=== PATIENT | female | born 1945 | race Caucasian/White ===

== ENCOUNTER 2019-04-02 10:59 | Observation (INO) ==
[2019-04-02] MEDS ORDERED: 0.9 % SODIUM CHLORIDE 1,000 ML IV SCH (11:30)
[2019-04-02 11:48] LABS: POC Blood Urea Nitrogen 6 mg/dl (8-23); POC CO2 24 mmol/L (22-30); POC Calcium, Ionized 1.16 mmol/L (1.16-1.32); POC Chloride 99 mmol/L (96-108); POC Creatinine 0.4 mg/dl (0.6-1.1); POC Glucose, Random 389 mg/dL (70-105); POC Potassium 3.1 mmol/L (3.3-5.1); POC Sodium 137 mmol/L (133-145)
--- NOTE | 2019-04-02 11:58 | Emergency Department Note ---
Weakness HPI - General Chief complaint: Weakness Stated complaint: Weakness Time Seen by Provider: 04/02/19 11:06 Source: patient, EMS Mode of arrival: EMS Limitations: no limitations - History of Present Illness HPI Narrative: 74-year-old female presents with generalized weakness. States that she is just been weak for about the past 7 days or so. She had a primary care provider appointment today but could not get out of her car so they called EMS. Significant other states he is gone a lot during the days and he gets home and she is lying on the floor. They also prescribed her some new diabetic medication but she has been able to get it because she cannot afford it and her insurance will not cover it. He states she just falls all the time and is weak and he cannot help her take care of her and does not know what to do. She denies fever or chills. No nausea, vomiting, or diarrhea. Was recently put on some antibiotics for UTI. States she has no complaints other than just being generally weak. She does have some teeth decay throughout and has chronic dental pain but this is nothing new. States no pain or injury from fall. She has no idea how she got on the floor. She is unsure if she fell or was just lying on the floor. - Related Data Home Medications Medication Instructions Recorded Confirmed aspirin 81 mg tablet,delayed 81 mg PO QDAY tab 12/16/14 01/02/17 release docusate sodium 100 mg capsule 100 mg PO QDAY cap 12/16/14 01/02/17 losartan 100 1 tab PO QDAY tab 12/16/14 01/02/17 mg-hydrochlorothiazide 12.5 mg tablet omeprazole 20 mg capsule,delayed 20 mg PO QDAY cap 12/16/14 01/02/17 release Previous Rx's Medication Instructions Recorded blood-glucose meter See Dose Instructions .ROUTE 02/11/15 .MEDSUPPLY #1 each pen needle, diabetic 32 gauge x See Dose Instructions .ROUTE 05/27/15" .MEDSUPPLY #100 each sertraline 100 mg tablet 150 mg PO QDAY 90 Days #135 tab 09/23/15 liraglutide 0.6 mg/0.1 mL (18 mg/3 1.2 mg SUB-Q QDAY 30 Days #6 ml 10/28/15 mL) subcutaneous pen injector zolpidem 5 mg tablet 5 mg PO HS PRN #30 tab 12/01/15 hydrocodone 7.5 mg-acetaminophen 1 tab PO BID PRN #60 tab 12/02/15 325 mg tablet atorvastatin 40 mg tablet 40 mg PO QDAY 30 Days #30 tab 04/11/16 cyclobenzaprine 10 mg tablet 10 mg PO TID 30 Days #90 tab 04/11/16 loratadine 10 mg tablet 10 mg PO QDAY #30 tab 04/11/16 amitriptyline 100 mg tablet 100 mg PO QHS #90 tab 04/14/16 Cefuroxime [Ceftin] 250 mg PO Q12 #20 tablet 01/02/17 Potassium Chloride [Klor-Con] 20 meq PO BIDCC #6 packet 01/02/17 glipiZIDE [Glucotrol] 5 mg PO DAILY #15 tablet 01/02/17 metFORMIN [Glucophage] 500 mg PO BIDCC #30 tablet 01/02/17 amlodipine 5 mg tablet 5 mg PO QDAY #30 tab 06/26/17 Losartan [Cozaar] 50 mg PO DAILY #30 tab 06/20/18 Nitrofurantoin Monohyd/M-Cryst 100 mg PO BID #14 cap 06/20/18 [Macrobid 100 mg Capsule] metFORMIN HCL [Metformin HCl] 500 mg PO BID #60 tab 06/20/18 Cephalexin [Keflex] 500 mg PO QID #20 cap 03/30/19 Insulin Glargine, Human [Lantus] 10 unit SQ HS #1 ml 03/30/19 Allergies Allergy/AdvReac Type Severity Reaction Status Date / Time No Known Drug Allergies Allergy Verified 01/02/17 12:03 Review of Systems All systems ED: reviewed and negative except as stated. 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 Also sleepy.) Head: atraumatic, normocephalic, normal inspection Eye: Present: normal appearance. Absent: conjunctival injection ENT: Present: normal exam, normal oropharynx, mucous membranes moist, TM's normal bilaterally, normal external ear exam, dental caries (Teeth and multiple states of decay and broken throughout.) Neck: Present: normal inspection, trachea midline. Absent: tenderness, lymphadenopathy Chest: Present: symmetric chest wall rise Respiratory: Present: normal lung sounds bilaterally. Absent: respiratory distress, rales/crackles, accessory muscle use Cardiovascular: Present: normal heart sounds. Absent: regular rate Abdominal: Present: soft, normal bowel sounds. Absent: distention, tenderness, guarding, mass Extremities: Present: normal inspection Neurological: Present: alert, oriented X3 Psychiatric: Present: normal affect, normal mood Skin: Present: warm, dry, intact, normal color. Absent: rash, hives, cyanosis, diaphoresis Course Course Narrative: At 1410 I did speak with the hospitalist, Dr. Babcock who agrees to accept this patient. Patient will need physical therapy evaluation and perinatal social worker consult. Vital Signs Temperature 98.4 F 04/02/19 11:00 Pulse Rate 102 H 04/02/19 11:00 Respiratory Rate 20 04/02/19 11:00 Blood Pressure 177/94 04/02/19 11:00 Pulse Oximetry (%) 98 04/02/19 11:00 Temperature 98.4 F 04/02/19 11:00 Pulse Rate 81 04/02/19 13:50 Respiratory Rate 21 04/02/19 13:50 Blood Pressure 181/77 04/02/19 13:50 Pulse Oximetry (%) 97 04/02/19 13:50 Weakness - Lab Data Lab results reviewed: Yes I reviewed the patient's lab results. Result diagrams: 04/02/19 11:40 04/02/19 11:40 Lab Results 04/02/19 04/02/19 04/02/19 Range/Units 11:05 11:40 11:40 WBC 7.4 (4.5-11.0) K/mcL RBC 4.67 (4.00-5.20) M/mcL Hgb 14.3 (12.0-15.0) g/dL Hct 41.8 (36.0-48.0) % POC Hct 40.0 (36.0-48.0) % MCV 89.4 (80.0-100.0) fL MCH 30.6 (26.0-34.0) pg MCHC 34.3 (31.0-36.0) g/dL RDW 13.1 (11.5-14.5) % Plt Count 236 (140-440) K/mcL MPV 7.4 (7.4-10.4) fL Gran % 90.4 H (38.0-78.0) % Lymph % (Auto) 6.0 L (15.5-49.0) % [place] % (Auto) 3.1 (1.0-12.0) % Eos % (Auto) 0.4 (0.0-7.0) % Baso % (Auto) 0.1 (0.0-2.0) % Gran # 6.7 (1.8-8.0) K/mcL Lymph # (Auto) 0.4 L (1.5-4.8) K/mcL [place] # (Auto) 0.2 (0.1-0.9) K/mcL Eos # (Auto) 0 (0.0-0.7) K/mcL Baso # (Auto) 0 (0.0-0.3) K/mcL ABG Methemoglobin (0.4-1.5) % VBG pH (7.32-7.42) U VBG pCO2 (41.0-51.0) mmHg VBG pO2 (25-40) mmHg VBG HCO3 (24.0-28.0) mmol/L VBG Total CO2 (25.0-29.0) mmol/L VBG O2 Saturation (40.0-70.0) % VBG Base Excess (-2.0-2.0) Carboxyhemoglobin (0.0-1.5) % THgb Total Hemoglobin (12.0-15.0) gm/dL O2 Delivery Level POC Sodium 137 (133-145) mmol/L Sodium 136 (133-145) mmol/L POC Potassium 3.1 L (3.3-5.1) mmol/L Potassium 3.1 L (3.3-5.1) mmol/L POC Chloride 99 (96-108) mmol/L Chloride 99 (96-108) mmol/L Carbon Dioxide 23 (22-30) mmol/L POC Total CO2 24 (22-30) mmol/L Anion Gap 14.0 (8-16) POC BUN 6 L (8-23) mg/dl BUN 7 L (8-23) mg/dl Creatinine 0.7 (0.6-1.1) mg/dl POC Creatinine 0.4 L (0.6-1.1) mg/dl GFR Calculation 87 Glucose 380 H (70-105) mg/dL POC Glucose 389 H (70-105) mg/dL Calcium 9.3 (8.6-10.4) mg/dl POC WB Ioniz Calcium 1.16 (1.16-1.32) mmol/L Total Bilirubin 0.5 (0.0-1.0) mg/dL AST 11 (0-37) U/l ALT 7 (0-40) U/l Alkaline Phosphatase 113 (39-117) U/L Total Creatine Kinase (24-170) IU/L Troponin T (0-0.03) ng/ml Total Protein 7.3 (5.9-8.4) gm/dL Albumin 4.2 (3.2-5.2) gm/dL Globulin 3.1 (2.2-3.7) gm/dL Albumin/Globulin Ratio 1.4 (1.0-2.3) TSH 3.73 (0.27-5.01) uIU/ml Urine Color Straw Urine Appearance Clear Urine pH 6.0 (5.0-9.0) Ur Specific Max 1.013 (1.000-1.035) Urine Protein 30 A (NEG) mg/dL Urine Glucose (UA) >=500 A (NEG) mg/dL Urine Ketones Neg (NEG) mg/dL Urine Occult Blood >=1.0 A (<0.03) mg/dL Urine Nitrate Neg (NEG) Urine Bilirubin Neg (NEG) mg/dL Urine Urobilinogen Neg (NEG) mg/dL Ur Leukocyte Esterase 250 A (NEG) /uL Urine RBC 8 H (0-1) /hpf Urine WBC 118 H (0-4) /hpf Ur Squamous Epith Cells 1 (0-4) /hpf Urine Bacteria 0 (0) /hpf Urine Mucus Few (0) /hpf Ur Culture Indicated? Yes 04/02/19 04/02/19 04/02/19 Range/Units 11:40 11:48 11:58 WBC (4.5-11.0) K/mcL RBC (4.00-5.20) M/mcL Hgb (12.0-15.0) g/dL Hct (36.0-48.0) % POC Hct (36.0-48.0) % MCV (80.0-100.0) fL MCH (26.0-34.0) pg MCHC (31.0-36.0) g/dL RDW (11.5-14.5) % Plt Count (140-440) K/mcL MPV (7.4-10.4) fL Gran % (38.0-78.0) % Lymph % (Auto) (15.5-49.0) % [place] % (Auto) (1.0-12.0) % Eos % (Auto) (0.0-7.0) % Baso % (Auto) (0.0-2.0) % Gran # (1.8-8.0) K/mcL Lymph # (Auto) (1.5-4.8) K/mcL [place] # (Auto) (0.1-0.9) K/mcL Eos # (Auto) (0.0-0.7) K/mcL Baso # (Auto) (0.0-0.3) K/mcL ABG Methemoglobin 0.3 L (0.4-1.5) % VBG pH 7.43 H (7.32-7.42) U VBG pCO2 39.4 L (41.0-51.0) mmHg VBG pO2 62 H (25-40) mmHg VBG HCO3 25.3 (24.0-28.0) mmol/L VBG Total CO2 26.5 (25.0-29.0) mmol/L VBG O2 Saturation 87.5 H (40.0-70.0) % VBG Base Excess 1.0 (-2.0-2.0) Carboxyhemoglobin 3.9 H (0.0-1.5) % THgb Total Hemoglobin 14.2 (12.0-15.0) gm/dL O2 Delivery Level Not Reportable POC Sodium (133-145) mmol/L Sodium (133-145) mmol/L POC Potassium (3.3-5.1) mmol/L Potassium (3.3-5.1) mmol/L POC Chloride (96-108) mmol/L Chloride (96-108) mmol/L Carbon Dioxide (22-30) mmol/L POC Total CO2 (22-30) mmol/L Anion Gap (8-16) POC BUN (8-23) mg/dl BUN (8-23) mg/dl Creatinine (0.6-1.1) mg/dl POC Creatinine (0.6-1.1) mg/dl GFR Calculation Glucose (70-105) mg/dL POC Glucose (70-105) mg/dL Calcium (8.6-10.4) mg/dl POC WB Ioniz Calcium (1.16-1.32) mmol/L Total Bilirubin (0.0-1.0) mg/dL AST (0-37) U/l ALT (0-40) U/l Alkaline Phosphatase (39-117) U/L Total Creatine Kinase 50 (24-170) IU/L Troponin T < 0.01 (0-0.03) ng/ml Total Protein (5.9-8.4) gm/dL Albumin (3.2-5.2) gm/dL Globulin (2.2-3.7) gm/dL Albumin/Globulin Ratio (1.0-2.3) TSH (0.27-5.01) uIU/ml Urine Color Urine Appearance Urine pH (5.0-9.0) Ur Specific Max (1.000-1.035) Urine Protein (NEG) mg/dL Urine Glucose (UA) (NEG) mg/dL Urine Ketones (NEG) mg/dL Urine Occult Blood (<0.03) mg/dL Urine Nitrate (NEG) Urine Bilirubin (NEG) mg/dL Urine Urobilinogen (NEG) mg/dL Ur Leukocyte Esterase (NEG) /uL Urine RBC (0-1) /hpf Urine WBC (0-4) /hpf Ur Squamous Epith Cells (0-4) /hpf Urine Bacteria (0) /hpf Urine Mucus (0) /hpf Ur Culture Indicated? - Radiology Data Radiology results reviewed: Yes I reviewed the patient's radiology results. Disposition Pt seen by DIRECTOR OF ARCHITECTURE/PA only: Yes Clinical Impression: Hyperglycemia, UTI (urinary tract infection), Generalized weakness, Diabetes Disposition: Xfer Acute Care Hospital Condition: Fair Referrals: Dinorah Regalado MD [Primary Care Provider] - Time of Disposition: 14:10
[2019-04-02 12:05] LABS: ABG Methemoglobin 0.3 % (0.4-1.5); Total Hemoglobin 14.2 gm/dL (12.0-15.0); VBG HCO3 25.3 mmol/L (24.0-28.0); VBG Oxygen Saturation 87.5 % (40.0-70.0); VBG PCO2 39.4 mmHg (41.0-51.0); VBG PH 7.43 U (7.32-7.42); VBG PO2 62 mmHg (25-40); VBG Total CO2 26.5 mmol/L (25.0-29.0)
[2019-04-02 12:11] LABS: Basophils # (Auto) 0 K/mcL (0.0-0.3); Basophils % (Auto) 0.1 % (0.0-2.0); Eosinophils # (Auto) 0 K/mcL (0.0-0.7); Eosinophils % (Auto) 0.4 % (0.0-7.0); Granulocytes % (Auto) 90.4 % (38.0-78.0); Hematocrit 41.8 % (36.0-48.0); Hemoglobin 14.3 g/dL (12.0-15.0); Lymphocytes # (Auto) 0.4 K/mcL (1.5-4.8); Mean Cell Volume 89.4 fL (80.0-100.0); Mean Corpuscular HGB Conc 34.3 g/dL (31.0-36.0); Mean Platelet Volume 7.4 fL (7.4-10.4); Monocytes # (Auto) 0.2 K/mcL (0.1-0.9); Monocytes % (Auto) 3.1 % (1.0-12.0); Platelet Count 236 K/mcL (140-440); RBC 4.67 M/mcL (4.00-5.20); Red Cell Distribution Width 13.1 % (11.5-14.5); WBC 7.4 K/mcL (4.5-11.0)
[2019-04-02 12:28] LABS: Appearance,Urine CLEAR; Bacteria,Urine 0 /hpf (0); Bilirubin,Urine NEG (NEG); Color,Urine STRAW; Culture Indicated,Urine YES; Glucose,Urine (UA) >=500 mg/dL (NEG); Ketones,Urine NEG (NEG); Leukocyte Esterase,Urine 250 /uL (NEG); Mucus,Urine FEW /hpf (0); Nitrate,Urine NEG (NEG); Protein,Urine 30 mg/dL (NEG); Specific Gravity,Urine 1.013 (1.000-1.035); Urine Blood >=1.0 mg/dL (<0.03); Urine RBC 8 /hpf (0-1); Urine Squamous Epithelial Cell 1 /hpf (0-4); Urine WBC 118 /hpf (0-4); Urobilinogen,Urine NEG (NEG)
[2019-04-02] MEDS ORDERED: cefTRIAXone 1 GM VIAL IV ONE ×2 (12:57→16:00)
[2019-04-02 12:58] LABS: ALT/SGPT 7 U/l (0-40); AST/SGOT 11 U/l (0-37); Albumin 4.2 gm/dL (3.2-5.2); Albumin/Globulin Ratio 1.4 (1.0-2.3); Alkaline Phosphatase 113 U/L (39-117); Bilirubin,Total 0.5 mg/dL (0.0-1.0); Blood Urea Nitrogen 7 mg/dl (8-23); Calcium 9.3 mg/dl (8.6-10.4); Carbon Dioxide 23 mmol/L (22-30); Chloride 99 mmol/L (96-108); Globulin 3.1 gm/dL (2.2-3.7); Glomerular Filtration Rate 87; Glucose 380 mg/dL (70-105); Thyroid Stimulating Hormone 3.73 uIU/ml (0.27-5.01)
--- NOTE | 2019-04-02 14:18 | Internal Med History&Physical ---
Medical - H&P: HPI Patient information: Note initiated : 04/02/19 at 2:12 pm Service Date, if different from initiated Date: [] Patient: Esther Hartley a 74 y/o F admitted on for Weakness. Chief Complaint: [] Chief complaint: Progressive weakness/fatigue and unable to function History of present illness: Ms. Hartley is a 74 year old F with known history of type 2 diabetes/hypertension who presents to the ER with symptoms of severe fatigue weakness to the point patient is unable to get out of bed, get out of car and has been falling and laying on the floor unable to get up over the last few days. Symptoms have progressed in the last week and a half. She denies any precipitating events i ncluding diarrhea dysuria headache lightheadedness dizziness. She did endorses to loss of appetite but denies fever chills or productive sputum or sick contacts. Today during her visit to primary care office she was unable to get out of car and subsequently EMS was called and brought into the ER. Initial work-up was consistent with hyperglycemia on 400 and pyuria with potassium 3.1 and profound weakness. Patient was started on crystalloid/antibiotic coverage and subsequently hospitalist service was consulted in light of above symptoms. At the time of evaluation patient is accompanied with her . She was able to answer some of the questions. She does not appear to be in distress but appears very fatigued. She endorses to history as above. Review of systems A 10 point review of system was performed and is negative except for ones discussed above Medical - H&P: PMH Medical history: Eczema (Acute) ezematous changes to the left outer ear Postmenopausal bleeding (Acute) Report two episodes of this for the last year on 09/23/2015, blood noted on attempted pelvic examination Anxiety disorder (Chronic) treated with Amitriptyline and Sertraline Carotid stenosis (Chronic) 2009 left side 50%; 2013 Less than 50% of the right internal carotid, 50-69% of left internal carotid artery. Constipation (Chronic) 2009, alternating with diarrhea with colostomy Cystitis, acute (Chronic 09/03/13) Degeneration of cervical intervertebral disc (Chronic) Depression (Chronic) s Treated with Sertraline and Amitriptyline Diabetes mellitus, type II (Chronic) 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) Gastroesophageal reflux (Chronic) Hyperlipidemia (Chronic 01/29/12) Hypertension, essential (Chronic 09/02/12) Microalbuminuria (Chronic) Mouth pain (Chronic) 2010 with blister like patches in her mouth Osteopenia (Chronic 01/29/12) Portacath in place (Chronic) For chemotherapy treatment, right anterior chest wall Syncope (Chronic 11/21/12) Etiology unknown Uncontrolled type 2 diabetes mellitus (Chronic) Vitamin D deficiency (Chronic) Diverticulitis of colon (Resolved) Neoplasm of colon, malignant (Resolved) Colorectal cancer, partial colectomy and subsequent colostomy, radiation and chemotherapy treatment per Dr. An Surgical History (Reviewed 09/23/15 by PETER Murillo) History of colostomy (Chronic 05/24/07) History of appendectomy (Resolved) 1972 History of colon surgery (Resolved) 2006 Partial colectomy with colostomy History of colonoscopy (Resolved 05/15/13) History of repair of right rotator cuff (Resolved) Dr. Haredn, repaired due to trauma 2002 History of tonsillectomy (Resolved) 9 years of age History of tubal ligation (Resolved) 1972 Family History (Reviewed 09/23/15 by PETER Murillo) Grandmother Malignant neoplasm of colon, Onset Age: 56 Type 2 diabetes mellitus Cardiac disease Grandfather Chronic Kidney Disease Mother Chronic Kidney Disease Dialysis Atherosclerosis of coronary artery Type 2 diabetes mellitus Cardiac disease Father Acute myocardial infarction, Onset Age: 69 Social History (Reviewed 09/23/15 by PETER Murillo) household members: spouse housing: house marital status: occupational status: retired pets and animals: Yes pets and animals: cat(s) sexually active: No well-balanced diet: daily or most days daily servings fruits/ve-4 eating out: 4 or more times/week during the past year weight has: remained stable physical activity: walking frequency: 3-4 times per week duration: 15-30 minutes/day smoking status: Never smoker alcohol intake frequency: does not drink substance use type: does not use romario/bahai: None seatbelt use: always working smoke detector in home: Yes Family history: reviewed and not pertinent Medical - H&P: Meds Home Medications Medication Instructions Recorded Confirmed Type aspirin 81 mg tablet,delayed 81 mg PO QDAY tab 12/16/14 04/02/19 History release losartan 100 1 tab PO QDAY tab 12/16/14 04/02/19 History mg-hydrochlorothiazide 12.5 mg tablet omeprazole 20 mg capsule,delayed 20 mg PO QDAY cap 12/16/14 04/02/19 History release blood-glucose meter See Dose Instructions .ROUTE 02/11/15 09/23/15 Rx .MEDSUPPLY #1 each pen needle, diabetic 32 gauge x See Dose Instructions .ROUTE 05/27/15 09/23/15 Rx 5/32" .MEDSUPPLY #100 each sertraline 100 mg tablet 150 mg PO QDAY 90 Days #135 tab 09/23/15 04/02/19 Rx zolpidem 5 mg tablet 5 mg PO HS PRN #30 tab 12/01/15 04/02/19 Rx hydrocodone 7.5 mg-acetaminophen 1 tab PO BID PRN #60 tab 12/02/15 04/02/19 Rx 325 mg tablet atorvastatin 40 mg tablet 40 mg PO QDAY 30 Days #30 tab 04/11/16 04/02/19 Rx cyclobenzaprine 10 mg tablet 10 mg PO TID 30 Days #90 tab 04/11/16 04/02/19 Rx loratadine 10 mg tablet 10 mg PO QDAY #30 tab 04/11/16 04/02/19 Rx amitriptyline 100 mg tablet 100 mg PO QHS #90 tab 04/14/16 04/02/19 Rx Cefuroxime [Ceftin] 250 mg PO Q12 #20 tablet 01/02/17 04/02/19 Rx metFORMIN [Glucophage] 500 mg PO BIDCC #30 tablet 01/02/17 04/02/19 Rx amlodipine 5 mg tablet 5 mg PO QDAY #30 tab 06/26/17 04/02/19 Rx Losartan [Cozaar] 50 mg PO DAILY #30 tab 06/20/18 04/02/19 Rx Nitrofurantoin Monohyd/M-Cryst 100 mg PO BID #14 cap 06/20/18 04/02/19 Rx [Macrobid 100 mg Capsule] metFORMIN HCL [Metformin HCl] 500 mg PO BID #60 tab 06/20/18 04/02/19 Rx Cephalexin [Keflex] 500 mg PO QID #20 cap 03/30/19 04/02/19 Rx Insulin Glargine, Human [Lantus] 10 unit SQ HS #1 ml 03/30/19 04/02/19 Rx Prochlorperazine [Compazine] 10 mg PO TIDP PRN 04/02/19 04/02/19 History Allergies Allergy/AdvReac Type Severity Reaction Status Date / Time No Known Drug Allergies Allergy Verified 01/02/17 12:03 Medical - H&P: Exam - Constitutional Vitals: Temp Pulse Resp BP Pulse Ox 98.4 F 81 21 181/77 97 04/02/19 11:00 04/02/19 13:50 04/02/19 13:50 04/02/19 13:50 04/02/19 13:50 General appearance: no acute distress Exam: Alert oriented Appears fatigued and weak Eye movement symmetrical Oral cavity dry Head normocephalic No ear nose discharge Neck no lymphadenopathy S1-S2 regular rhythm ESM grade 1 Diminished breath sounds bases Abdomen soft nontender Lower extremity no cyanosis clubbing no joint swelling Skin no suspicious lesion psych alert cooperative Neuro fatigue but symmetrical strength and sensation Medical - H&P: Reslt - Labs CBC & Chem 7: 04/02/19 11:40 04/02/19 11:40 Labs: Short CBC 04/02/19 Range/Units 11:40 WBC 7.4 (4.5-11.0) K/mcL Hgb 14.3 (12.0-15.0) g/dL Hct 41.8 (36.0-48.0) % Plt Count 236 (140-440) K/mcL BMP 04/02/19 11:40 Sodium 136 Potassium 3.1 L Chloride 99 Carbon Dioxide 23 BUN 7 L Creatinine 0.7 Glucose 380 H Calcium 9.3 Cardiac Enzymes 04/02/19 04/02/19 Range/Units 11:40 11:58 Total Creatine Kinase 50 (24-170) IU/L Troponin T < 0.01 (0-0.03) ng/ml Liver Function 04/02/19 Range/Units 11:40 Total Bilirubin 0.5 (0.0-1.0) mg/dL AST 11 (0-37) U/l ALT 7 (0-40) U/l Alkaline Phosphatase 113 (39-117) U/L Albumin 4.2 (3.2-5.2) gm/dL Urine 04/02/19 Range/Units 11:05 Urine Color Straw Urine Appearance Clear Urine pH 6.0 (5.0-9.0) Ur Specific [place] 1.013 (1.000-1.035) Urine Protein 30 A (NEG) mg/dL Urine Glucose (UA) >=500 A (NEG) mg/dL - ABG Interpretation ABG results: 04/02/19 11:48 ABG Methemoglobin 0.3 L VBG pH 7.43 H VBG pCO2 39.4 L VBG pO2 62 H VBG HCO3 25.3 VBG Total CO2 26.5 VBG O2 Saturation 87.5 H VBG Base Excess 1.0 Medical - H&P: A/P (1) Generalized weakness Current visit: Yes Status: Acute * Ground-level fall-continue aggressive PT OT/fall risk/watch. dietary intervention for protein calorie malnutrition. * Generalized weakness/deconditioning-continue interventions as above * Complicated UTI-antibiotic coverage and de-escalate based on culture sensitivities * Poorly controlled diabetes with hyperglycemia-continue basal prandial insulin/diabetic diet * Hypokalemia-3.1. Start oral and IV potassium replacement * Protein calorie malnutrition with BMI 24-nutrition supplements/dietitian consult * History of hypertension continue amlodipine/losartan * GERD continue PPI * Chronic pain continue home dose opioids/Flexeril * Hyperlipidemia on statin * History of CAD on aspirin and statin/ARB * Anxiety disorder on sertraline * Full code * Prophylaxis Lovenox Plan * Observation admit * PT OT/dietitian consult * Antibiotic coverage * Potassium replacement * Pre-existing medical condition management on home meds * Case management to coordinate safe discharge plan
[2019-04-02] MEDS ORDERED: ONDANSETRON 4 MG/2 ML VIAL IV PRN (15:06)
[2019-04-02] MEDS ORDERED: DEXTROSE 31 GM ORAL.SUSP PO PRN (15:06)
[2019-04-02] MEDS ORDERED: ACETAMINOPHEN 1,000 MG/100 ML BOTTLE IV PRN (15:06)
[2019-04-02] MEDS ORDERED: MELATONIN 3 MG TABLET PO PRN (15:06)
[2019-04-02] MEDS ORDERED: DEXTROSE 50% 50 ML VIAL IV PRN (15:06)
[2019-04-02] MEDS ORDERED: POTASSIUM CHLORIDE 20 MEQ PACKET PO PRN (15:06)
[2019-04-02] MEDS: 0.9 % SODIUM CHLORIDE 1,000 ML IV SCH (15:26)
[2019-04-02] MEDS: INSULIN LISPRO 1 UNIT/0.01 ML UNIT SQ SCH ×2 (17:02→20:40)
[2019-04-02] MEDS: ACETAMINOPHEN 325 MG TABLET PO PRN (19:45)
[2019-04-02] MEDS: DOCUSATE SODIUM 100 MG CAPSULE PO SCH (20:40)
[2019-04-02] MEDS: SENNOSIDES/DOCUSATE SODIUM 1 TAB TABLET PO SCH (20:40)
[2019-04-02] MEDS: CYANOCOBALAMIN (VITAMIN B-12) 500 MCG TABLET PO SCH (20:40)
[2019-04-02] MEDS: 0.9 % SODIUM CHLORIDE 10 ML SYRINGE IV SCH (20:43)
[2019-04-02] MEDS ORDERED: hydrALAZINE 20 MG/ML VIAL IV PRN (22:44)
[2019-04-02] MEDS ORDERED: hydrALAZINE 20 MG/ML VIAL ONE (22:51)
[2019-04-03] MEDS: 0.9 % SODIUM CHLORIDE 10 ML SYRINGE IV SCH ×3 (04:46→21:16)
[2019-04-03 05:38] LABS: Hematocrit 42.1 % (36.0-48.0); Hemoglobin 14.2 g/dL (12.0-15.0); Mean Cell Volume 91.2 fL (80.0-100.0); Mean Corpuscular HGB Conc 33.8 g/dL (31.0-36.0); Mean Platelet Volume 7.1 fL (7.4-10.4); Platelet Count 251 K/mcL (140-440); RBC 4.61 M/mcL (4.00-5.20); Red Cell Distribution Width 13.7 % (11.5-14.5)
[2019-04-03 06:03] LABS: ALT/SGPT 5 U/l (0-40); AST/SGOT 13 U/l (0-37); Albumin 3.6 gm/dL (3.2-5.2); Albumin/Globulin Ratio 1.2 (1.0-2.3); Alkaline Phosphatase 88 U/L (39-117); Bilirubin,Direct < 0.2 mg/dL (0.0-0.3); Bilirubin,Total 0.4 mg/dL (0.0-1.0); Blood Urea Nitrogen 6 mg/dl (8-23); Calcium 8.7 mg/dl (8.6-10.4); Carbon Dioxide 23 mmol/L (22-30); Chloride 99 mmol/L (96-108); Globulin 3.1 gm/dL (2.2-3.7); Glomerular Filtration Rate 97; Glucose 163 mg/dL (70-105); Lactate Dehydrogenase 264 U/L (94-250); Phosphorous 3.2 mg/dL (2.7-4.5); Triglycerides 114 mg/dl (<150); Uric Acid 2.3 mg/dL (2.5-8.0)
[2019-04-03] MEDS: INSULIN LISPRO 1 UNIT/0.01 ML UNIT SQ SCH ×4 (06:57→21:15)
[2019-04-03] MEDS: MAGNESIUM SULFATE 2 GM/50 ML BAG IV PRN (07:35)
[2019-04-03] MEDS ORDERED: HYDROCODONE/APAP 7.5/325MG TABLET PO PRN (07:36)
[2019-04-03] MEDS: metFORMIN 500 MG TABLET PO SCH ×2 (07:53→17:32)
[2019-04-03] MEDS: OMEPRAZOLE 20 MG CAPSULE PO SCH (07:53)
[2019-04-03 07:58] LABS: Band Neutrophils % 1 % (0-10); Eosinophils % (Manual) 3 % (0-7); Lymphocytes % 21 % (15-49); Monocytes % (Manual) 8 % (1-12); Platelet Estimate NORMAL (NORMAL); RBC Morphology NORMAL (NORMAL); Segmented Neutrophils % 67 % (38-78)
--- NOTE | 2019-04-03 08:10 | Internal Med Progress Note ---
Medical - PN: Subj Patient information: Note initiated : 04/03/19 at 8:07 am Service Date, if different from initiated Date: [] Patient: Esther Hartley a 74 y/o F admitted on 04/02/19 for Weakness. Chief Complaint: [] Interval history: Ms. Hartley is a 74 year old F with known history of type 2 diabetes/hypertension who presents to the ER with symptoms of severe fatigue weakness to the point patient is unable to get out of bed, get out of car and has been falling and laying on the floor unable to get up over the last few days. Symptoms have progressed in the last week and a half. She denies any precipitating events including diarrhea dysuria headache lightheadedness dizziness. She did endorses to loss of appetite but denies fever chills or productive sputum or sick contacts. Today during her visit to primary care office she was unable to get out of car and subsequently EMS was called and brought into the ER. Initial work-up was consistent with hyperglycemia on 400 and pyuria with potassium 3.1 and profound weakness. Patient was started on crystalloid/antibiotic coverage and subsequently hospitalist service was consulted in light of above symptoms. At the time of evaluation patient is accompanied with her . She was able to answer some of the questions. She does not appear to be in distress but appears very fatigued. She endorses to history as above. 04/03-patient doing well. No overnight events. No concerns per staff. Feels stronger. Denies lower extremity cramps. Electrolytes normalized with aggressive IV and oral potassium/magnesium replacement. On dietary supplements. Continuing PT OT. Case management coordinating safe discharge plan. No overnight fever chills - Constitutional Vitals: Vital Signs Temp Pulse Resp BP Pulse Ox 97.9 F 83 18 145/75 97 04/03/19 07:00 04/03/19 07:00 04/03/19 07:00 04/03/19 07:35 04/03/19 07:00 Period Temp Pulse Resp BP Sys/Mackay Pulse Ox Last 24 Hr 97.4 F-98.5 F 80-106 16-32 145-206/75-101 93-98 Intake and Output 04/02/19 04/03/19 04/03/19 21:59 05:59 13:59 Intake Total 1205 500 Output Total 401 1650 400 Balance 804 -1150 -400 Weight 131 lb Intake & Output: Intake & Output 04/02/19 04/03/19 04/03/19 21:59 05:59 13:59 Intake Total 1205 500 Output Total 401 1650 400 Balance 804 -1150 -400 Weight 131 lb Intake: IV 365 Sodium Chloride 0.9% 1,000 ml @ 365 125 mls/hr IV .Q8H [facility] Rx#: [id number] Oral 840 500 Output: Void Amount 400 1650 400 # of times incontinent of urine 1 Other: Meal Dinner Percent of Meal Consumed 75% Feeding Ability Independent Urine Appearance Clear Cloudy Urine Color Dark Yellow Pale # Voids 1 General appearance: no acute distress Exam: Alert oriented Nonlabored breathing No anxiety No lymphedema Medical - PN: Obj Da - Labs CBC & Chem 7: 04/03/19 04:17 04/03/19 04:17 Labs: Abnormal Lab Results 04/03/19 04/03/19 04/02/19 04:17 04:17 11:48 MPV 7.1 L Gran % Lymph % (Auto) Lymph # (Auto) ABG Methemoglobin 0.3 L VBG pH 7.43 H VBG pCO2 39.4 L VBG pO2 62 H VBG O2 Saturation 87.5 H Carboxyhemoglobin 3.9 H POC Potassium Potassium POC BUN BUN 6 L Creatinine 0.5 L POC Creatinine Glucose 163 H POC Glucose Uric Acid 2.3 L Magnesium 1.2 L Lactate Dehydrogenase 264 H Urine Protein Urine Glucose (UA) Urine Occult Blood Ur Leukocyte Esterase Urine RBC Urine WBC 04/02/19 04/02/19 04/02/19 11:40 11:40 11:05 MPV Gran % 90.4 H Lymph % (Auto) 6.0 L Lymph # (Auto) 0.4 L ABG Methemoglobin VBG pH VBG pCO2 VBG pO2 VBG O2 Saturation Carboxyhemoglobin POC Potassium 3.1 L Potassium 3.1 L POC BUN 6 L BUN 7 L Creatinine POC Creatinine 0.4 L Glucose 380 H POC Glucose 389 H Uric Acid Magnesium Lactate Dehydrogenase Urine Protein 30 A Urine Glucose (UA) >=500 A Urine Occult Blood >=1.0 A Ur Leukocyte Esterase 250 A Urine RBC 8 H Urine WBC 118 H Meds: Medications Acetaminophen (Tylenol) 650 mg PO Q4-6HP PRN PRN Reason: PAIN/FEVER > 101 Last Admin: 04/02/19 19:45 Dose: 650 mg Documented by: Hydrocodone Bitart/Acetaminophen ([place]wick 7.5/325mg) 1 tab PO BIDP PRN PRN Reason: Pain Amlodipine Besylate (Norvasc) 5 mg PO QDAY [facility] Aspirin (Aspirin) 81 mg PO QDAY [facility] Atorvastatin Calcium (Lipitor) 40 mg PO QDAY [facility] Cyanocobalamin (Vitamin B-12) 1,000 mcg PO BID [facility] Stop: 04/07/19 09:01 Last Admin: 04/02/19 20:40 Dose: 1,000 mcg Documented by: Cyclobenzaprine HCl (Flexeril) 10 mg PO TID [facility] Dextrose (Dextrose 50%) 0 ml IV UD PRN PRN Reason: Hypoglycemia Diagnostic Test (Pha) (Accu-Chek) 1 each FS ACHS [facility] Last Admin: 04/03/19 06:56 Dose: 1 each Documented by: Docusate Sodium (Colace) 100 mg PO BID [facility] Last Admin: 04/02/19 20:40 Dose: 100 mg Documented by: Enoxaparin Sodium (Lovenox) 40 mg SQ DAILY [facility] Folic Acid (Folic Acid) 1 mg PO DAILY [facility] Glucose (Insta-Glucose) 15 gm PO PRN PRN PRN Reason: Hypoglycemia Hydralazine HCl (Apresoline) 10 mg IV Q4HP PRN PRN Reason: Blood Pressure - High Last Admin: 04/03/19 07:03 Dose: 10 mg Documented by: Hydrochlorothiazide (Oretic) 12.5 mg PO DAILY [facility] Sodium Chloride (Sodium Chloride 0.9%) 1,000 mls @ 50 mls/hr IV .Q20H [facility] Stop: 04/05/19 03:05 Last Admin: 04/02/19 15:26 Dose: 50 mls/hr Documented by: Acetaminophen (Ofirmev) 1,000 mg in 100 mls @ 200 mls/hr IV Q6HP PRN PRN Reason: PAIN/FEVER > 101 Magnesium Sulfate (Magnesium Sulfate) 2 gm in 50 mls @ 50 mls/hr IV UD PRN PRN Reason: MG = or < 1.7 Last Admin: 04/03/19 07:35 Dose: 50 mls/hr Documented by: Ceftriaxone Sodium 2 gm/ (Dextrose) 50 mls @ 100 mls/hr IV Q24H [facility]; Protocol Insulin Glargine (Lantus) 10 unit SQ HS [facility] Insulin Human Lispro (Humalog) 0 unit SQ ACHS [facility]; Protocol Last Admin: 04/03/19 06:57 Dose: 2 units Documented by: Iron Carb/Multivit/[place]/Folic Acid (Multivitamin W/Minerals) 1 tab PO DAILY [facility] Loratadine (Claritin) 10 mg PO QDAY [facility] Losartan Potassium (Cozaar) 100 mg PO DAILY [facility] Melatonin (Melatonin 3mg Tablet) 3 mg PO HSP PRN PRN Reason: Insomnia Metformin HCl (Glucophage) 500 mg PO BIDCC [facility] Last Admin: 04/03/19 07:53 Dose: 500 mg Documented by: Omeprazole (Prilosec) 20 mg PO QAMAC [facility] Last Admin: 04/03/19 07:53 Dose: 20 mg Documented by: Ondansetron HCl (Zofran) 4 mg IV Q4-6HP PRN PRN Reason: Nausea And Vomiting Potassium Chloride (Klor-Con) 40 meq PO DAILYP PRN PRN Reason: K+ < 3.5 Last Admin: 04/02/19 20:38 Dose: 40 meq Documented by: Senna/Docusate Sodium (Senna Plus Tablet) 1 tab PO HS [facility] Last Admin: 04/02/19 20:40 Dose: 1 tab Documented by: Sertraline HCl (Zoloft) 150 mg PO QDAY [facility] Sitagliptin Phosphate (Januvia) 100 mg PO DAILY [facility] Sodium Chloride (Saline Flush) 10 ml IV Q8 [facility] Last Admin: 04/03/19 04:46 Dose: Not Given Documented by: Thiamine HCl (Vitamin B1) 100 mg PO DAILY [facility] - ABG Interpretation ABG results: 04/02/19 11:48 ABG Methemoglobin 0.3 L VBG pH 7.43 H VBG pCO2 39.4 L VBG pO2 62 H VBG HCO3 25.3 VBG Total CO2 26.5 VBG O2 Saturation 87.5 H VBG Base Excess 1.0 Medical - PN: A/P - Time Spent With Patient Total time spent is greater than 50% in coordination of care (as documented) at patient's floor/unit and/or counseling patient: 25 - 35 minutes (1) Generalized weakness Status: Acute Assessment and plan: * Ground-level fall-clinically improving with aggressive PT OT/continue dietary intervention for protein calorie malnutrition. Fall precautions * Generalized weakness/deconditioning-clinically improving with PT OT/nutrition interventions * Complicated UTI-continue antibiotic coverage and de-escalate based on culture sensitivities * Poorly controlled diabetes with hyperglycemia-continue basal prandial insulin/diabetic diet * Hypokalemia-potassium improved to 3.5 with replacement. * Low magnesium on replacement. * Protein calorie malnutrition with BMI 24-continue protein calorie supplements * History of hypertension stable on amlodipine/losartan * GERD continue PPI * Chronic pain continue home dose opioids/Flexeril * Hyperlipidemia on statin * History of CAD on aspirin and statin/ARB * Anxiety disorder on sertraline * Full code * Prophylaxis Lovenox Plan * Continue nutrition support/therapies * Antibiotic coverage * Electrolyte replacement * Pre-existing medical condition management on home meds * Discharge planning per case management Current Visit: Yes Medical - PN: Qual - VTE Deep Vein Thrombosis/Pulmonary Embolism Present on Admission: No
[2019-04-03] MEDS: cefTRIAXone 2 GM in DEXTROSE 5% IN WATER 50 ML IV SCH (08:54)
[2019-04-03] MEDS: ENOXAPARIN 40 MG/0.4 ML SYRINGE SQ SCH (08:55)
[2019-04-03] MEDS: FOLIC ACID 1 MG TABLET PO SCH (08:55)
[2019-04-03] MEDS: amLODIPine 5 MG TABLET PO SCH (08:55)
[2019-04-03] MEDS: SERTRALINE 100 MG TABLET PO SCH (08:55)
[2019-04-03] MEDS: LOSARTAN 50 MG TABLET PO SCH (08:56)
[2019-04-03] MEDS: MULTIVIT,THER IRON,CA,FA & MIN 1 TABLET PO SCH (08:56)
[2019-04-03] MEDS: ATORVASTATIN 20 MG TABLET PO SCH (08:56)
[2019-04-03] MEDS: DOCUSATE SODIUM 100 MG CAPSULE PO SCH ×2 (08:56→21:15)
[2019-04-03] MEDS: CYANOCOBALAMIN (VITAMIN B-12) 500 MCG TABLET PO SCH ×2 (08:56→21:15)
[2019-04-03] MEDS: THIAMINE 100 MG TABLET PO SCH (08:56)
[2019-04-03] MEDS: CYCLOBENZAPRINE 10 MG TABLET PO SCH ×3 (08:57→21:15)
[2019-04-03] MEDS: sitaGLIPtin 100 MG TABLET PO SCH (08:57)
[2019-04-03] MEDS: ASPIRIN 81 MG TAB.CHEW PO SCH (08:57)
[2019-04-03] MEDS: HYDROCHLOROTHIAZIDE 12.5 MG CAPSULE PO SCH (08:57)
[2019-04-03] MEDS: LORATADINE 10 MG TABLET PO SCH (08:58)
[2019-04-03] MEDS ORDERED: NON FORMULARY MEDICATION 1 DOSE MISCELL (Losartan/Hydrochlorothiazide [Hyzaar 100-12.5 Tab PO SCH (09:00)
[2019-04-03] MEDS: 0.9 % SODIUM CHLORIDE 1,000 ML IV SCH (12:58)
[2019-04-03] MEDS ORDERED: INSULIN GLARGINE, HUMAN 1 UNIT/0.01 ML SQ SCH (21:00)
[2019-04-03] MEDS: SENNOSIDES/DOCUSATE SODIUM 1 TAB TABLET PO SCH (21:15)
[2019-04-03] MEDS: ACETAMINOPHEN 325 MG TABLET PO PRN (21:16)
[2019-04-04 05:25] LABS: Hematocrit 39.7 % (36.0-48.0); Hemoglobin 13.4 g/dL (12.0-15.0); Mean Corpuscular HGB Conc 33.9 g/dL (31.0-36.0); Mean Platelet Volume 7.1 fL (7.4-10.4); Platelet Count 282 K/mcL (140-440); RBC 4.36 M/mcL (4.00-5.20); Red Cell Distribution Width 14.1 % (11.5-14.5)
[2019-04-04 05:45] LABS: ALT/SGPT 5 U/l (0-40); AST/SGOT 10 U/l (0-37); Albumin 3.4 gm/dL (3.2-5.2); Albumin/Globulin Ratio 1.4 (1.0-2.3); Alkaline Phosphatase 89 U/L (39-117); Bilirubin,Direct < 0.2 mg/dL (0.0-0.3); Bilirubin,Total 0.4 mg/dL (0.0-1.0); Blood Urea Nitrogen 7 mg/dl (8-23); Calcium 8.8 mg/dl (8.6-10.4); Carbon Dioxide 24 mmol/L (22-30); Chloride 99 mmol/L (96-108); Globulin 2.5 gm/dL (2.2-3.7); Glomerular Filtration Rate 87; Glucose 195 mg/dL (70-105); Lactate Dehydrogenase 170 U/L (94-250); Phosphorous 4.3 mg/dL (2.7-4.5); Triglycerides 139 mg/dl (<150); Uric Acid 2.5 mg/dL (2.5-8.0)
[2019-04-04 06:56] LABS: Band Neutrophils % 2 % (0-10); Eosinophils % (Manual) 1 % (0-7); Lymphocytes % 16 % (15-49); Monocytes % (Manual) 5 % (1-12); Platelet Estimate NORMAL (NORMAL); RBC Morphology NORMAL (NORMAL); Segmented Neutrophils % 76 % (38-78)
[2019-04-04] MEDS: INSULIN LISPRO 1 UNIT/0.01 ML UNIT SQ SCH ×2 (07:49→11:44)
[2019-04-04] MEDS: metFORMIN 500 MG TABLET PO SCH (07:49)
[2019-04-04] MEDS: OMEPRAZOLE 20 MG CAPSULE PO SCH (07:49)
[2019-04-04] MEDS: 0.9 % SODIUM CHLORIDE 10 ML SYRINGE IV SCH (07:51)
[2019-04-04] MEDS: MAGNESIUM SULFATE 2 GM/50 ML BAG IV PRN (08:15)
[2019-04-04] MEDS: ENOXAPARIN 40 MG/0.4 ML SYRINGE SQ SCH (09:32)
[2019-04-04] MEDS: LOSARTAN 50 MG TABLET PO SCH (09:33)
[2019-04-04] MEDS: SERTRALINE 100 MG TABLET PO SCH (09:33)
[2019-04-04] MEDS: CYANOCOBALAMIN (VITAMIN B-12) 500 MCG TABLET PO SCH (09:34)
[2019-04-04] MEDS: sitaGLIPtin 100 MG TABLET PO SCH (09:35)
[2019-04-04] MEDS: ATORVASTATIN 20 MG TABLET PO SCH (09:35)
[2019-04-04] MEDS: FOLIC ACID 1 MG TABLET PO SCH (09:35)
[2019-04-04] MEDS: CYCLOBENZAPRINE 10 MG TABLET PO SCH (09:35)
[2019-04-04] MEDS: HYDROCHLOROTHIAZIDE 12.5 MG CAPSULE PO SCH (09:36)
[2019-04-04] MEDS: ASPIRIN 81 MG TAB.CHEW PO SCH (09:36)
[2019-04-04] MEDS: THIAMINE 100 MG TABLET PO SCH (09:36)
[2019-04-04] MEDS: amLODIPine 5 MG TABLET PO SCH (09:36)
[2019-04-04] MEDS: MULTIVIT,THER IRON,CA,FA & MIN 1 TABLET PO SCH (09:36)
[2019-04-04] MEDS: DOCUSATE SODIUM 100 MG CAPSULE PO SCH (09:46)
[2019-04-04] MEDS: LORATADINE 10 MG TABLET PO SCH (09:48)
[2019-04-04] MEDS: cefTRIAXone 2 GM in DEXTROSE 5% IN WATER 50 ML IV SCH (09:50)
[2019-04-04] MEDS: 0.9 % SODIUM CHLORIDE 1,000 ML IV SCH (11:32)
--- NOTE | 2019-04-04 13:08 | Discharge Summary ---
Medical - DS: Prov Patient information: Note initiated : 04/04/19 at 1:05 pm Service Date, if different from initiated Date: [] Patient: Esther Hartley 74 y/o F admitted on 04/02/19 for Weakness. Chief Complaint: [] Date of admission: 04/02/19 14:41 Discharge date: 04/04/19 Primary care physician: Dinorah Regalado Consults: 04/02/19 Consult to Physician [CONS] Stat Comment: Consulting Provider: Slade Bradford Reason For Exam: Physician to Consult Medical - DS: Meds - Discharge Medications Prescriptions: sitaGLIPtin [Januvia] 100 mg PO DAILY #30 tab Transmission Status: Pending to [facility] Active and Home Medications: Home Medications aspirin 81 mg tablet,delayed release 81 mg PO QDAY tab 12/16/14 [History C onfirmed 04/02/19 Last Taken 03/31/19] losartan 100 mg-hydrochlorothiazide 12.5 mg tablet 1 tab PO QDAY tab 12/16/14 [History Confirmed 04/02/19 Last Taken Unknown] omeprazole 20 mg capsule,delayed release 20 mg PO QDAY cap 12/16/14 [History Confirmed 04/02/19 Last Taken Unknown] blood-glucose meter See Dose Instructions .ROUTE .MEDSUPPLY #1 each 02/11/15 [Rx Confirmed 09/23/15 Last Taken 03/19/19] pen needle, diabetic 32 gauge x 5/32" See Dose Instructions .ROUTE .MEDSUPPLY #100 each 05/27/15 [Rx Confirmed 09/23/15 Last Taken Unknown] sertraline 100 mg tablet 150 mg PO QDAY 90 Days #135 tab 09/23/15 [Rx Confirmed 04/02/19 Last Taken 04/01/19] hydrocodone 7.5 mg-acetaminophen 325 mg tablet 1 tab PO BID PRN #60 tab 12/02/15 [Rx Confirmed 04/02/19 Last Taken 03/30/19] atorvastatin 40 mg tablet 40 mg PO QDAY 30 Days #30 tab 04/11/16 [Rx Confirmed 04/02/19 Last Taken 04/01/19] cyclobenzaprine 10 mg tablet 10 mg PO TID 30 Days #90 tab 04/11/16 [Rx Confirmed 04/02/19 Last Taken 04/01/19] loratadine 10 mg tablet 10 mg PO QDAY #30 tab 04/11/16 [Rx Confirmed 04/02/19 Last Taken 03/31/19] amitriptyline 100 mg tablet 100 mg PO QHS #90 tab 04/14/16 [Rx Confirmed 04/02/19 Last Taken 04/01/19] metFORMIN [Glucophage] 500 mg PO BIDCC #30 tablet 01/02/17 [Rx Confirmed 04/02/19 Last Taken Unknown] amlodipine 5 mg tablet 5 mg PO QDAY #30 tab 06/26/17 [Rx Confirmed 04/02/19 Last Taken 04/01/19] Losartan [Cozaar] 50 mg PO DAILY #30 tab 06/20/18 [Rx Confirmed 04/02/19 Last Taken Unknown] Nitrofurantoin Monohyd/M-Cryst [Macrobid 100 mg Capsule] 100 mg PO BID #14 cap 06/20/18 [Rx Confirmed 04/02/19 Last Taken Unknown] metFORMIN HCL [Metformin HCl] 500 mg PO BID #60 tab 06/20/18 [Rx Confirmed 04/02/19 Last Taken Unknown] Insulin Glargine, Human [Lantus] 10 unit SQ HS #1 ml 03/30/19 [Rx Confirmed 04/02/19 Last Taken 04/02/19] Prochlorperazine [Compazine] 10 mg PO TIDP PRN 04/02/19 [History Confirmed 04/02/19 Last Taken 04/01/19] sitaGLIPtin [Januvia] 100 mg PO DAILY #30 tab 04/04/19 [Rx Last Taken Unknown] Medical - DS: Hosp Hospital Course: Discharge diagnosis * Ground-level fall-clinically improved with aggressive PT OT/continue dietary intervention for protein calorie malnutrition. Maintain fall precautions. Discharge to SNF * Generalized weakness/deconditioning-clinically improved with PT OT/nutrition interventions * Complicated UTI-status post 2 doses Rocephin. De-escalate to nitrofurantoin. * Poorly controlled diabetes with hyperglycemia-continue basal prandial insulin/diabetic diet/sitagliptin/metformin * Hypokalemia-potassium normalized with replacement. * Low magnesium normalized with replacement. * Protein calorie malnutrition with BMI 24-continue protein calorie supplements * History of hypertension stable on amlodipine/losartan * GERD continue PPI * Chronic pain continue home dose opioids/Flexeril * Hyperlipidemia on statin * History of CAD on aspirin and statin/ARB * Anxiety disorder on sertraline Brief hospital course Ms. Hartley is a 74 year old F with known history of type 2 diabetes/hypertension who presents to the ER with symptoms of severe fatigue weakness to the point patient is unable to get out of bed, get out of car and has been falling and laying on the floor unable to get up over the last few days. Symptoms have progressed in the last week and a half. She denies any precipitating events including diarrhea dysuria headache lightheadedness dizziness. She did endorses to loss of appetite but denies fever chills or productive sputum or sick contacts. Today during her visit to primary care office she was unable to get out of car and subsequently EMS was called and brought into the ER. Initial work-up was consistent with hyperglycemia on 400 and pyuria with potassium 3.1 and profound weakness. Patient was started on crystalloid/antibiotic coverage and subsequently hospitalist service was consulted in light of above symptoms. At the time of evaluation patient is accompanied with her . She was able to answer some of the questions. She does not appear to be in distress but appears very fatigued. She endorses to history as above. 04/03-patient doing well. No overnight events. No concerns per staff. Feels stronger. Denies lower extremity cramps. Electrolytes normalized with aggressive IV and oral potassium/magnesium replacement. On dietary supplements. Continuing PT OT. Case management coordinating safe discharge plan. No overnight fever chills 04/04-patient doing well. No overnight events. No concerns per staff. Discharging to SNF with continued post hospitalization rehab/maintain-fall risk precautions. Continue nitrofurantoin. Continue dietary/nutrition support. Discharge diagnosis: . - Time Spent with Patient Total time spent providing and/or coordinating discharge services: Greater than 30 minutes Medical - DS: Exam - Constitutional Vitals: Vital Signs Temp Pulse Resp BP Pulse Ox 04/04/19 11:33 97.7 F 97 H 24 H 123/66 96 04/04/19 08:09 97.8 F 93 H 14 130/71 96 04/04/19 04:00 98.3 F 90 18 145/78 94 04/03/19 23:19 98.5 F 95 H 16 115/61 95 04/03/19 18:47 98.9 F 93 H 18 142/70 99 04/03/19 16:00 97.6 F 100 H 18 115/59 95 Intake and Output 04/03/19 04/04/19 04/04/19 21:59 05:59 13:59 Intake Total 420 866 1939 Output Total 092 390 9219 Balance 10 100 1030 Intake: Nourishment/Supplement quantity 240 (ml) IV 1050 Sodium Chloride 0.9% 1,000 ml @ 1000 50 mls/hr IV .Q20H [facility] Rx#: [id number] Oral 736 117 5835 Output: Void Amount 860 696 4077 Other: Meal Dinner Lunch Percent of Meal Consumed 100% 75% Feeding Ability Independent Independent Nourishment/Supplement name Glucerna Urine Appearance Clear Clear Urine Color Bright Yellow Pale Urine Odor Normal # Voids 1 Weight 136 lb 14.4 oz Medical - DS: Data Labs on day of discharge: Labs from last 24 hours 04/04/19 04/04/19 04:09 04:09 WBC 7.0 RBC 4.36 Hgb 13.4 Hct 39.7 MCV 91.0 MCH 30.8 MCHC 33.9 RDW 14.1 Plt Count 282 MPV 7.1 L Total Counted 100 Seg Neutrophils % 76 Band Neutrophils % 2 Lymphocytes % 16 Monocytes % (Manual) 5 Eosinophils % (Manual) 1 Platelet Estimate Normal RBC Morphology Normal Sodium 136 Potassium 3.8 Chloride 99 Carbon Dioxide 24 Anion Gap 13.0 BUN 7 L Creatinine 0.7 GFR Calculation 87 Glucose 195 H Uric Acid 2.5 Calcium 8.8 Phosphorus 4.3 Magnesium 1.6 Total Bilirubin 0.4 Direct Bilirubin < 0.2 GGT 13 AST 10 ALT 5 Alkaline Phosphatase 89 Lactate Dehydrogenase 170 Total Protein 5.9 Albumin 3.4 Globulin 2.5 Albumin/Globulin Ratio 1.4 Triglycerides 139 Medical - DS: A/P - Patient/Caregiver Discharge Instructions Activity: as per physical therapy Diet: Consistent Carbohydrate Additional Instructions: Follow-up PCP in 5 days Maintain fall risk Aggressive PT OT I recommend SNF physician to check CBC BMP UA as a posthospital follow-up in 1 week. Nitrofurantoin to continue for additional 5 days Continue aggressive bowel regimen to prevent constipation Continue fall precautions Continue aggressive PT OT evaluation and treatment at [facility]. ST eval and treatment if indicated All meals on chair sitting upright at 90 degrees to prevent aspiration Return to ER if worsening fever chills shortness of breath, diarrhea, bleeding Review risk and side effect profile of medications including antibiotics. Side effect may include mild to severe reaction including rash, diarrhea, cdiff and even which can be prevented by close follow-up with PCP and monitoring for side effects Continue diet and activity as advised Discussed importance of medication adherence Please review medication list with patient prior to discharge Please schedule follow-up with PCP/Providers prior to discharge and provide printouts Portions of this chart may have been created with [employer] voice recognition software. Occasional wrong-word or ?sound-like? substitutions may have occurred due to the inherent limitations of voice recognition software. Please read the chart carefully and recognize, using context, where the substitutions have occurred. CC- PCP Prescriptions: sitaGLIPtin [Januvia] 100 mg PO DAILY #30 tab Transmission Status: Pending to [facility] 2005 - Problem Maintenance (1) Generalized weakness Status: Acute - Follow up Plan Follow up with: Dinorah Regalado MD [Primary Care Provider] - Disposition: Xfer SNF Care Plan Goals: This discharge packet is provided to you to help keep you informed about your care. We want to ensure you get everything you need when you go home. You will also be receiving a call from us in a few days to follow up with you and see how you are doing since your discharge. This gives us a chance to listen to any concerns you maybe experiencing since you were discharged or any additional needs you may have, as well as providing us feedback on your care experience. We strive to always provide excellent care and thank you for your feedback and for choosing [facility]. Prognosis: Fair Rehab Potential: Fair I certify that the patient requires SNF services: Yes Medical - DS: Qual - VTE Deep Vein Thrombosis/Pulmonary Embolism Present on Admission: No
[2019-04-04] MEDS ORDERED: FLU VACC QS2019-20(6MOS UP)/PF 60 MCG/0.5 ML SYRINGE IM ONE (13:10)
== END 2019-04-04 15:13 ==
LOC: ED 10:59 → MEDSUR 14:40 → INTOOBSV 14:41
PROVIDERS: ADMIT Internal Medicine; ATTEND Internal Medicine

== ENCOUNTER 2019-12-09 15:19 | Inpatient (IN) ==
[2019-12-09] MEDS ORDERED: ONDANSETRON 4 MG ODT TABLET SL ONE (15:38)
[2019-12-09] MEDS ORDERED: 0.9 % SODIUM CHLORIDE 1,000 ML IV ONE ×3 (15:38→18:58)
[2019-12-09] MEDS ORDERED: ONDANSETRON 4 MG/2 ML VIAL IV ONE (15:47)
[2019-12-09 15:52] LABS: POC Blood Urea Nitrogen 35 mg/dl (8-23); POC CO2 11 mmol/L (22-30); POC Calcium, Ionized 1.18 mmol/L (1.16-1.32); POC Chloride 98 mmol/L (96-108); POC Creatinine 0.6 mg/dl (0.6-1.1); POC Glucose, Random 530 mg/dL (70-105); POC Potassium 3.4 mmol/L (3.3-5.1); POC Sodium 131 mmol/L (133-145)
--- NOTE | 2019-12-09 15:52 | XRay Report ---
INDICATION: Fall. Right hip pain. TECHNIQUE: AP portable upright chest x-ray COMPARISON: Previous chest x-rays dated 03/30/2019, 06/20/2018, 02/07/2007 FINDINGS:No change in right sided infusion catheter with its tip in the superior vena cava. Port is projected over the right hemithorax Lungs:Lungs are negative. No focal pulmonary parenchymal infiltrate or mass Heart, vascular:No significant cardiomegaly. Pulmonary vascularity is normal. No pulmonary edema or pulmonary congestion Mediastinum, cindy:No mediastinal widening. No hilar mass Pleura:No pleural fluid. No pleural-based mass or calcification. Right hemidiaphragm is mildly elevated. This is unchanged Skeletal:Negative. IMPRESSION: 1. Elevated right hemidiaphragm, unchanged 2. Otherwise negative AP chest x-ray Interpreted and Authenticated by: Dmitriy Case 12/09/19
[2019-12-09 16:24] LABS: Basophils # (Auto) 0.03 K/mcL (0.00-0.30); Basophils % (Auto) 0.1 % (0.0-2.0); Eosinophils # (Auto) 0.05 K/mcL (0.00-0.70); Eosinophils % (Auto) 0.2 % (0.0-7.0); Granulocytes % (Auto) 94.8 % (38.0-78.0); Hematocrit 49.5 % (34.1-44.9); Hemoglobin 17.6 g/dL (11.2-15.7); Lymphocytes # (Auto) 0.36 K/mcL (1.50-4.80); Lymphocytes % (Auto) 1.8 % (15.5-49.0); Mean Cell Volume 85.2 fL (80.0-100.0); Mean Corpuscular HGB Conc 35.6 g/dL (31.0-36.0); Mean Platelet Volume 10.4 fL (7.4-10.4); Monocytes # (Auto) 0.63 K/mcL (0.10-0.90); Monocytes % (Auto) 3.1 % (1.0-12.0); Platelet Count 425 K/mcL (140-440); RBC 5.81 M/mcL (3.59-5.38); Red Cell Distribution Width 12.3 % (11.5-14.5); WBC 20.3 K/mcL (4.50-11.00)
[2019-12-09] MEDS: HYDROmorphone 0.5 MG/0.5 ML SYRINGE IV PRN ×2 (16:27→18:05)
--- NOTE | 2019-12-09 16:35 | Cat Scan Report ---
INDICATION: fall, right hip pain TECHNIQUE: Axial images through the pelvis. Sagittal and coronal reformatted images COMPARISON: Previous pelvic CT scan dated 10/04/2015 FINDINGS: Right subcapital hip fracture with impaction and foreshortening. There is mild varus angulation deformity. Left femoral head and neck are negative. No fracture. Pelvis negative. There is no pelvic fracture. Superior and inferior pubic rami are negative. Sacrum is negative. No sacral insufficiency fracture. 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 This is essentially unchanged. There is presacral soft tissue abnormality. This appears stable. This may be chronic scarring. There is been no interval growth or worsening. No free intraperitoneal fluid. There is a Chavez catheter in the urinary bladder. Uterus is not identified. IMPRESSION: 1. Right subcapital hip fracture with impaction and varus angulation deformity 2. 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 Presacral soft tissue abnormality appears stable since 10/04/2015 Interpreted and Authenticated by: Dmitriy Case 12/09/19
[2019-12-09] MEDS ORDERED: cefTRIAXone 1 GM VIAL IV ONE (16:42)
[2019-12-09 16:45] LABS: Creatine Kinase MB 4.4 ng/ml (0-2.9)
[2019-12-09 16:48] LABS: ALT/SGPT 15 U/l (0-40); AST/SGOT 18 U/l (0-37); Albumin 4.2 gm/dL (3.2-5.2); Albumin/Globulin Ratio 1.1 (1.0-2.3); Alkaline Phosphatase 126 U/L (39-117); Bilirubin,Total 0.8 mg/dL (0.0-1.0); Blood Urea Nitrogen 32 mg/dl (8-23); C-Reactive Protein 10.2 mg/dl (0.0-0.8); Glomerular Filtration Rate 50
[2019-12-09 16:53] LABS: Carbon Dioxide 8 mmol/L (22-30); Chloride 85 mmol/L (96-108); Glucose 533 mg/dL (70-105)
--- NOTE | 2019-12-09 16:58 | Emergency Department Note ---
Fall HPI - General Chief Complaint: Fall Stated Complaint: Fall right hip pain Time Seen by Provider: 12/09/19 15:30 Source: EMS Mode of arrival: EMS - History of Present Illness HPI Narrative: 74-year-old female presents with right hip pain after fall.States she is fell on Sunday, more than 4 days ago. She laid on the floor for several hours and then was able to get herself up to the couch. She has not really moved off the couch since because of the hip pain. She arrives covered in stool. Extremely dark concentrated urine. Mild tachypnea on arrival. She did not hit her head. No loss of consciousness. No head, neck, or back pain. Just has right hip pain and generally does not feel well. Has not been able to take any of her meds or take care of herself since the fall as she is just laid on the couch. Patient's lives in a longterm where the patient lives at home by herself. She did not show up to visit him and did not answer the phone several times so the patient's who was in the longterm called the ambulance for her. - Related Data Previous Rx's Medication Instructions Recorded sertraline 100 mg tablet 150 mg PO QDAY 90 Days #135 tab 09/23/15 hydrocodone 7.5 mg-acetaminophen 1 tab PO BID PRN #60 tab 12/02/15 325 mg tablet amitriptyline 100 mg tablet 100 mg PO QHS #90 tab 04/14/16 metFORMIN [Glucophage] 500 mg PO BIDCC #30 tablet 01/02/17 Nitrofurantoin Monohyd/M-Cryst 100 mg PO BID #14 cap 06/20/18 [Macrobid 100 mg Capsule] Insulin Glargine, Human [Lantus] 10 unit SQ HS #1 ml 03/30/19 Allergies Allergy/AdvReac Type Severity Reaction Status Date / Time No Known Drug Allergies Allergy Verified 01/02/17 12:03 Review of Systems All systems ED: reviewed and negative except as stated. 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) Portacath in place (Chronic) Vitamin D deficiency (Chronic) Syncope (Chronic 11/21/12) Osteopenia (Chronic 01/29/12) Mouth pain (Chronic) Hypertension, essential (Chronic 09/02/12) Hyperlipidemia (Chronic 01/29/12) Gastroesophageal reflux (Chronic) Diverticulitis of colon (Resolved) Diabetes mellitus, type II (Chronic) Degeneration of cervical intervertebral disc (Chronic) Cystitis, acute (Chronic 09/03/13) Depression (Chronic) Constipation (Chronic) Neoplasm of colon, malignant (Resolved) Carotid stenosis (Chronic) Anxiety disorder (Chronic) Past Surgical History History of colostomy (Chronic 05/24/07) History of colonoscopy (Chronic 10/19/16) History of appendectomy (Resolved) History of colon surgery (Resolved) History of colonoscopy (Resolved 05/15/13) History of repair of right rotator cuff (Resolved) History of tonsillectomy (Resolved) History of tubal ligation (Resolved) Medical history: Reports: cancer, DM, hypertension Psychiatric history: Reports: anxiety DIRECTOR STARS history: Reports: non-contributory - Social History smoking status: Never smoker Alcohol use: Reports: None Drug use: Reports: none Physical Exam Limitations: physical limitation General appearance: alert, other (Mild tachypnea, worse with any movement. She is covered in feces throughout.) Head: atraumatic, normocephalic, normal inspection Eye: Present: normal appearance. Absent: conjunctival injection ENT: Present: TM's normal bilaterally, normal external ear exam. Absent: mucous membranes moist (Mucous membranes slightly dry) Neck: Present: normal inspection, full ROM, trachea midline. Absent: tenderness Chest: Present: symmetric chest wall rise Respiratory: Present: other (Mild tachypnea). Absent: rales/crackles, wheezes, stridor, prolonged expiratory phase Cardiovascular: Present: regular rate, normal heart sounds Extremities: Absent: normal inspection (Right hip with slight shortening and rotation and greatly limited active and passive range of motion related to pain in the right) Neurological: Present: alert, oriented X3 Psychiatric: Present: normal affect, normal mood Skin: Present: warm, dry, intact, normal color Course Course Narrative: Patient also seen and evaluated by supervising ER physician Dr. Jett At 1700 I did consult with orthopedic on-call provider, Dr. Hemphill regarding this patient. He is aware of right hip fracture. Because of her other medical conditions at this time, she needs to be stabilized and he will be able to take care of her hip when she is more stable. He does agree to consult on this patient At 1820, Dr. Lowry at [place] emergency department agrees to accept this patient, ER to ER transfer via [facility]. Vital Signs Temperature 97.8 F 12/09/19 15:24 Pulse Rate 113 H 12/09/19 15:24 Respiratory Rate 16 12/09/19 15:24 Blood Pressure 170/99 12/09/19 15:24 Pulse Oximetry (%) 95 12/09/19 15:24 Temperature 97.8 F 12/09/19 15:24 Pulse Rate 100 H 12/09/19 18:01 Respiratory Rate 25 H 12/09/19 18:01 Blood Pressure 130/50 12/09/19 18:01 Pulse Oximetry (%) 97 12/09/19 18:01 Fall - Lab Data Lab results reviewed: Yes I reviewed the patient's lab results. Result diagrams: 12/09/19 15:44 12/09/19 15:44 Lab Results 12/09/19 12/09/19 12/09/19 Range/Units 15:44 15:44 15:44 WBC 20.3 H (4.50-11.00) K/mcL RBC 5.81 H (3.59-5.38) M/mcL Hgb 17.6 H (11.2-15.7) g/dL Hct 49.5 H (34.1-44.9) % POC Hct 53.0 H (36.0-48.0) % MCV 85.2 (80.0-100.0) fL MCH 30.3 (26.0-34.0) pg MCHC 35.6 (31.0-36.0) g/dL RDW 12.3 (11.5-14.5) % Plt Count 425 (140-440) K/mcL MPV 10.4 (7.4-10.4) fL Gran % 94.8 H (38.0-78.0) % Lymph % (Auto) 1.8 L (15.5-49.0) % [place] % (Auto) 3.1 (1.0-12.0) % Eos % (Auto) 0.2 (0.0-7.0) % Baso % (Auto) 0.1 (0.0-2.0) % Gran # 19.19 H (1.80-8.00) K/mcL Lymph # (Auto) 0.36 L (1.50-4.80) K/mcL [place] # (Auto) 0.63 (0.10-0.90) K/mcL Eos # (Auto) 0.05 (0.00-0.70) K/mcL Baso # (Auto) 0.03 (0.00-0.30) K/mcL VBG Lactic Acid 2.4 H (0.5-2.0) mmol/L POC Sodium 131 L (133-145) mmol/L Sodium 130 L (133-145) mmol/L POC Potassium 3.4 (3.3-5.1) mmol/L Potassium 3.4 (3.3-5.1) mmol/L POC Chloride 98 (96-108) mmol/L Chloride 85 L (96-108) mmol/L Carbon Dioxide 8 L* (22-30) mmol/L POC Total CO2 11 L (22-30) mmol/L Anion Gap 37.0 H (8-16) POC BUN 35 H (8-23) mg/dl BUN 32 H (8-23) mg/dl Creatinine 1.1 (0.6-1.1) mg/dl POC Creatinine 0.6 (0.6-1.1) mg/dl GFR Calculation 50 Glucose 533 H* (70-105) mg/dL POC Glucose 530 H* (70-105) mg/dL Calcium 10.0 (8.6-10.4) mg/dl POC WB Ioniz Calcium 1.18 (1.16-1.32) mmol/L Total Bilirubin 0.8 (0.0-1.0) mg/dL AST 18 (0-37) U/l ALT 15 (0-40) U/l Alkaline Phosphatase 126 H (39-117) U/L Total Creatine Kinase (24-170) IU/L CK-MB (CK-2) (0-2.9) ng/ml Troponin T (0-0.03) ng/ml C-Reactive Protein 10.2 H (0.0-0.8) mg/dl Total Protein 8.2 (5.9-8.4) gm/dL Albumin 4.2 (3.2-5.2) gm/dL Globulin 4.0 H (2.2-3.7) gm/dL Albumin/Globulin Ratio 1.1 (1.0-2.3) Beta-Hydroxybutyrate (< 0.27) mmol/L Urine Color Urine Appearance Urine pH (5.0-9.0) Ur Specific [place] (1.000-1.035) Urine Protein (NEG) mg/dL Urine Glucose (UA) (NEG) mg/dL Urine Ketones (NEG) mg/dL Urine Occult Blood (<0.03) mg/dL Urine Nitrate (NEG) Urine Bilirubin (NEG) mg/dL Urine Urobilinogen (NEG) mg/dL Ur Leukocyte Esterase (NEG) /uL Urine RBC (0-1) /hpf Urine WBC (0-4) /hpf Ur Squamous Epith Cells (0-4) /hpf Ur Transition Epith Cell (0-2) /hpf Urine Bacteria (0) /hpf Urine Mucus (0) /hpf Ur Culture Indicated? 12/09/19 12/09/19 12/09/19 Range/Units 15:45 15:45 15:45 WBC (4.50-11.00) K/mcL RBC (3.59-5.38) M/mcL Hgb (11.2-15.7) g/dL Hct (34.1-44.9) % POC Hct (36.0-48.0) % MCV (80.0-100.0) fL MCH (26.0-34.0) pg MCHC (31.0-36.0) g/dL RDW (11.5-14.5) % Plt Count (140-440) K/mcL MPV (7.4-10.4) fL Gran % (38.0-78.0) % Lymph % (Auto) (15.5-49.0) % [place] % (Auto) (1.0-12.0) % Eos % (Auto) (0.0-7.0) % Baso % (Auto) (0.0-2.0) % Gran # (1.80-8.00) K/mcL Lymph # (Auto) (1.50-4.80) K/mcL [place] # (Auto) (0.10-0.90) K/mcL Eos # (Auto) (0.00-0.70) K/mcL Baso # (Auto) (0.00-0.30) K/mcL VBG Lactic Acid (0.5-2.0) mmol/L POC Sodium (133-145) mmol/L Sodium (133-145) mmol/L POC Potassium (3.3-5.1) mmol/L Potassium (3.3-5.1) mmol/L POC Chloride (96-108) mmol/L Chloride (96-108) mmol/L Carbon Dioxide (22-30) mmol/L POC Total CO2 (22-30) mmol/L Anion Gap (8-16) POC BUN (8-23) mg/dl BUN (8-23) mg/dl Creatinine (0.6-1.1) mg/dl POC Creatinine (0.6-1.1) mg/dl GFR Calculation Glucose (70-105) mg/dL POC Glucose (70-105) mg/dL Calcium (8.6-10.4) mg/dl POC WB Ioniz Calcium (1.16-1.32) mmol/L Total Bilirubin (0.0-1.0) mg/dL AST (0-37) U/l ALT (0-40) U/l Alkaline Phosphatase (39-117) U/L Total Creatine Kinase 200 H (24-170) IU/L CK-MB (CK-2) 4.4 H (0-2.9) ng/ml Troponin T < 0.01 (0-0.03) ng/ml C-Reactive Protein (0.0-0.8) mg/dl Total Protein (5.9-8.4) gm/dL Albumin (3.2-5.2) gm/dL Globulin (2.2-3.7) gm/dL Albumin/Globulin Ratio (1.0-2.3) Beta-Hydroxybutyrate 8.93 H (< 0.27) mmol/L Urine Color Urine Appearance Urine pH (5.0-9.0) Ur Specific [place] (1.000-1.035) Urine Protein (NEG) mg/dL Urine Glucose (UA) (NEG) mg/dL Urine Ketones (NEG) mg/dL Urine Occult Blood (<0.03) mg/dL Urine Nitrate (NEG) Urine Bilirubin (NEG) mg/dL Urine Urobilinogen (NEG) mg/dL Ur Leukocyte Esterase (NEG) /uL Urine RBC (0-1) /hpf Urine WBC (0-4) /hpf Ur Squamous Epith Cells (0-4) /hpf Ur Transition Epith Cell (0-2) /hpf Urine Bacteria (0) /hpf Urine Mucus (0) /hpf Ur Culture Indicated? 12/09/19 Range/Units 17:03 WBC (4.50-11.00) K/mcL RBC (3.59-5.38) M/mcL Hgb (11.2-15.7) g/dL Hct (34.1-44.9) % POC Hct (36.0-48.0) % MCV (80.0-100.0) fL MCH (26.0-34.0) pg MCHC (31.0-36.0) g/dL RDW (11.5-14.5) % Plt Count (140-440) K/mcL MPV (7.4-10.4) fL Gran % (38.0-78.0) % Lymph % (Auto) (15.5-49.0) % [place] % (Auto) (1.0-12.0) % Eos % (Auto) (0.0-7.0) % Baso % (Auto) (0.0-2.0) % Gran # (1.80-8.00) K/mcL Lymph # (Auto) (1.50-4.80) K/mcL [place] # (Auto) (0.10-0.90) K/mcL Eos # (Auto) (0.00-0.70) K/mcL Baso # (Auto) (0.00-0.30) K/mcL VBG Lactic Acid (0.5-2.0) mmol/L POC Sodium (133-145) mmol/L Sodium (133-145) mmol/L POC Potassium (3.3-5.1) mmol/L Potassium (3.3-5.1) mmol/L POC Chloride (96-108) mmol/L Chloride (96-108) mmol/L Carbon Dioxide (22-30) mmol/L POC Total CO2 (22-30) mmol/L Anion Gap (8-16) POC BUN (8-23) mg/dl BUN (8-23) mg/dl Creatinine (0.6-1.1) mg/dl POC Creatinine (0.6-1.1) mg/dl GFR Calculation Glucose (70-105) mg/dL POC Glucose (70-105) mg/dL Calcium (8.6-10.4) mg/dl POC WB Ioniz Calcium (1.16-1.32) mmol/L Total Bilirubin (0.0-1.0) mg/dL AST (0-37) U/l ALT (0-40) U/l Alkaline Phosphatase (39-117) U/L Total Creatine Kinase (24-170) IU/L CK-MB (CK-2) (0-2.9) ng/ml Troponin T (0-0.03) ng/ml C-Reactive Protein (0.0-0.8) mg/dl Total Protein (5.9-8.4) gm/dL Albumin (3.2-5.2) gm/dL Globulin (2.2-3.7) gm/dL Albumin/Globulin Ratio (1.0-2.3) Beta-Hydroxybutyrate (< 0.27) mmol/L Urine Color Yellow Urine Appearance Cloudy Urine pH 5.0 (5.0-9.0) Ur Specific [place] 1.025 (1.000-1.035) Urine Protein 100 A (NEG) mg/dL Urine Glucose (UA) >=500 A (NEG) mg/dL Urine Ketones 80 A (NEG) mg/dL Urine Occult Blood >=1.0 A (<0.03) mg/dL Urine Nitrate Neg (NEG) Urine Bilirubin Neg (NEG) mg/dL Urine Urobilinogen Neg (NEG) mg/dL Ur Leukocyte Esterase 250 A (NEG) /uL Urine RBC 81 H (0-1) /hpf Urine WBC > 182 H (0-4) /hpf Ur Squamous Epith Cells 0 (0-4) /hpf Ur Transition Epith Cell 1 (0-2) /hpf Urine Bacteria Few A (0) /hpf Urine Mucus Mod (0) /hpf Ur Culture Indicated? Yes - Radiology Data Radiology results reviewed: Yes I reviewed the patient's radiology results. Disposition Pt seen by ACUTE CARE SURGEON/PA only: No Clinical Impression: Fall, Hip fracture, right, DKA (diabetic ketoacidoses), Dehydration, Elevated WBC count, UTI (urinary tract infection) Disposition: Xfer As Inpt ([facility]) Condition: Serious Referrals: Dinorah Regalado MD [Primary Care Provider] - Time of Disposition: 18:21
[2019-12-09] MEDS ORDERED: INSULIN REGULAR, HUMAN 1 UNIT/0.01 ML UNIT IV ONE (17:20)
[2019-12-09] MEDS ORDERED: INSULIN REGULAR, HUMAN 50 UNIT in 0.9 % SODIUM CHLORIDE 99.5 ML IV SCH ×2 (17:30→19:39)
[2019-12-09 17:38] LABS: Appearance,Urine CLOUDY; Bacteria,Urine FEW /hpf (0); Bilirubin,Urine NEG (NEG); Color,Urine YELLOW; Culture Indicated,Urine YES; Glucose,Urine (UA) >=500 mg/dL (NEG); Ketones,Urine 80 mg/dL (NEG); Leukocyte Esterase,Urine 250 /uL (NEG); Mucus,Urine MOD /hpf (0); Nitrate,Urine NEG (NEG); Protein,Urine 100 mg/dL (NEG); Specific Gravity,Urine 1.025 (1.000-1.035); Urine Blood >=1.0 mg/dL (<0.03); Urine RBC 81 /hpf (0-1); Urine Squamous Epithelial Cell 0 /hpf (0-4); Urine Transitional Epi Cells 1 /hpf (0-2); Urine WBC > 182 /hpf (0-4); Urobilinogen,Urine NEG (NEG)
[2019-12-09] MEDS ORDERED: INSULIN REGULAR, HUMAN 1 UNIT/0.01 ML UNIT ONE (18:11)
[2019-12-09] MEDS ORDERED: INSULIN REGULAR, HUMAN 50 UNIT in 0.9 % SODIUM CHLORIDE 99.5 ML IV ONE (18:29)
--- NOTE | 2019-12-09 19:11 | Internal Med History&Physical ---
Medical - H&P: HPI Patient information: Note initiated : 12/09/19 at 7:10 pm Service Date, if different from initiated Date: [] Patient: Esther Hartley a 74 y/o F admitted on for Fall right hip pain. Chief Complaint: [] Chief complaint: Found on a couch History of present illness: Ms. Hartley is a 74-year-old female with a known history of diabetes Who lives alone fairly independently. Patient unfortunately tripped on Sunday and fell on the floor sustaining injury to the right hip. She denied losing consciousness or lightheadedness dizziness before fall. Due to injury patient was unable to move around and could not call for help however she was able to muster enough strength to get to the couch and has been laying there for the last 3 and half days. Her who is recovering at [facility] became concerned after he was unable to reach her on phone and subsequently summoned EMS. She was discovered laying on couch in a dazed state. She was brought into the ER where initial work-up was consistent with DKA with blood sugars over 600 bicarbonate and of ABG pH 7.2 with severe sepsis white count over 20,000 and pyuria. Patient was started on crystalloids along with insulin drip. Also pelvis CT revealed right hip fracture. Orthopedics was consulted and recommended admission but deferred surgery until stabilization of patient and treatment of DKA. Subsequently hospitalist service was consulted for admission for management of DKA. At the time of evaluation patient is lethargic fatigued. She is unable to provide a detailed history but was able to answer most of the questions and participate in review of systems. Review of systems A 10 point review of system was performed and is negative except for one discussed above Medical - H&P: PMH Medical history: Eczema (Acute) ezematous changes to the left outer ear Postmenopausal bleeding (Acute) Report two episodes of this for the last year on 09/23/2015, blood noted on attempted pelvic examination Anxiety disorder (Chronic) treated with Amitriptyline and Sertraline Carotid stenosis (Chronic) 2009 left side 50%; 2013 Less than 50% of the right internal carotid, 50-69% of left internal carotid artery. 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) Gastroesophageal reflux (Chronic) Hyperlipidemia (Chronic 01/29/12) Hypertension, essential (Chronic 09/02/12) Microalbuminuria (Chronic) Mouth pain (Chronic) 2010 with blister like patches in her mouth Osteopenia (Chronic 01/29/12) Portacath in place (Chronic) For chemotherapy treatment, right anterior chest wall Syncope (Chronic 11/21/12) Etiology unknown Uncontrolled type 2 diabetes mellitus (Chronic) Vitamin D deficiency (Chronic) Diverticulitis of colon (Resolved) Neoplasm of colon, malignant (Resolved) Colorectal cancer, partial colectomy and subsequent colostomy, radiation and chemotherapy treatment per Dr. An Surgical History (Reviewed 09/23/15 by Paula Palomino SENIOR INDUSTRIAL ENGINEER) History of colostomy (Chronic 05/24/07) History of appendectomy (Resolved) 1972 History of colon surgery (Resolved) 2006 Partial colectomy with colostomy History of colonoscopy (Resolved 05/15/13) History of repair of right rotator cuff (Resolved) Dr. Harden, repaired due to trauma 2002 History of tonsillectomy (Resolved) 9 years of age History of tubal ligation (Resolved) 1972 Family History Grandmother Malignant neoplasm of colon, Onset Age: 56 Type 2 diabetes mellitus Cardiac disease Grandfather Chronic Kidney Disease Mother Chronic Kidney Disease Dialysis Atherosclerosis of coronary artery Type 2 diabetes mellitus Cardiac disease Father Acute myocardial infarction, Onset Age: 69 Social History household members: spouse housing: house marital status: occupational status: retired pets and animals: Yes pets and animals: cat(s) sexually active: No well-balanced diet: daily or most days daily servings fruits/ve-4 eating out: 4 or more times/week during the past year weight has: remained stable physical activity: walking frequency: 3-4 times per week duration: 15-30 minutes/day smoking status: Never smoker alcohol intake frequency: does not drink substance use type: does not use romario/gnosticist: None seatbelt use: always working smoke detector in home: Yes Family history: reviewed and not pertinent Medical - H&P: Meds Home Medications Medication Instructions Recorded Confirmed Type sertraline 100 mg tablet 150 mg PO QDAY 90 Days #135 tab 09/23/15 12/09/19 Rx hydrocodone 7.5 mg-acetaminophen 1 tab PO BID PRN #60 tab 12/02/15 12/09/19 Rx 325 mg tablet amitriptyline 100 mg tablet 100 mg PO QHS #90 tab 04/14/16 12/09/19 Rx metFORMIN [Glucophage] 500 mg PO BIDCC #30 tablet 01/02/17 12/09/19 Rx Nitrofurantoin Monohyd/M-Cryst 100 mg PO BID #14 cap 06/20/18 12/09/19 Rx [Macrobid 100 mg Capsule] Insulin Glargine, Human [Lantus] 10 unit SQ HS #1 ml 03/30/19 12/09/19 Rx Allergies Allergy/AdvReac Type Severity Reaction Status Date / Time No Known Drug Allergies Allergy Verified 01/02/17 12:03 Medical - H&P: Exam - Constitutional Vitals: Temp Pulse Resp BP Pulse Ox 97.8 F 102 H 23 H 127/55 96 12/09/19 15:24 12/09/19 18:31 12/09/19 18:31 12/09/19 18:31 12/09/19 18:31 General appearance: moderate distress Exam: Somnolent and lethargic Appears fatigued and weak Eye movement symmetrical Oral cavity dry with crusting around tongue and lips Head normocephalic No ear nose discharge Neck no lymphadenopathy S1-S2 tachycardia diminished breath sounds bases Abdomen soft nontender, colostomy in place Lower extremity no cyanosis clubbing no joint swelling Right lower extremity externally rotated and shortened Dry skin with bruising right thigh buttock/upper extremity psych lethargic but responding to commands Neuro nonfocal Medical - H&P: Reslt - Labs CBC & Chem 7: 12/10/19 03:59 12/10/19 03:59 Labs: Short CBC 12/09/19 Range/Units 15:44 WBC 20.3 H (4.50-11.00) K/mcL Hgb 17.6 H (11.2-15.7) g/dL Hct 49.5 H (34.1-44.9) % Plt Count 425 (140-440) K/mcL BMP 12/09/19 15:44 Sodium 130 L Potassium 3.4 Chloride 85 L Carbon Dioxide 8 L* BUN 32 H Creatinine 1.1 Glucose 533 H* Calcium 10.0 Cardiac Enzymes 12/09/19 12/09/19 Range/Units 15:45 15:45 Total Creatine Kinase 200 H (24-170) IU/L CK-MB (CK-2) 4.4 H (0-2.9) ng/ml Troponin T < 0.01 (0-0.03) ng/ml Liver Function 12/09/19 Range/Units 15:44 Total Bilirubin 0.8 (0.0-1.0) mg/dL AST 18 (0-37) U/l ALT 15 (0-40) U/l Alkaline Phosphatase 126 H (39-117) U/L Albumin 4.2 (3.2-5.2) gm/dL Urine 12/09/19 Range/Units 17:03 Urine Color Yellow Urine Appearance Cloudy Urine pH 5.0 (5.0-9.0) Ur Specific [place] 1.025 (1.000-1.035) Urine Protein 100 A (NEG) mg/dL Urine Glucose (UA) >=500 A (NEG) mg/dL Medical - H&P: A/P (1) DKA (diabetic ketoacidoses) Current visit: Yes Status: Acute * Diabetic ketoacidosis-Continue management per protocol. Insulin drip /aggressive crystalloids./N.p.o./aggressive electrolyte replacement. Admit to ICU. * RT Hip Fracture- Orthopedic consult. Pain management as indicated. * Generalized weakness/deconditioning- Will initiate physical therapy post hip fracture repair * Complicated UTI-Initiateantibiotic coverage * History of hypertension hold antiHTN meds * GERD continue PPI * Chronic pain continue home dose opioids/Flexeril * Hyperlipidemia on statin * History of CAD on aspirin and statin/ARB * Anxiety disorder on sertraline * Full code * Prophylaxis SCDs Plan * Inpt ICU Admit, YAKUTAT II 17 * Insulin drip * Pain MX * Orthopedics consult * PT OT * Antibiotic coverage * Electrolyte replacement * Pre-existing medical condition management on home meds
[2019-12-09] MEDS ORDERED: METOPROLOL TARTRATE 5 MG/5 ML VIAL IV PRN (19:39)
[2019-12-09] MEDS ORDERED: HYDROCODONE/APAP 7.5/325MG TABLET PO PRN (19:39)
[2019-12-09] MEDS ORDERED: ACETAMINOPHEN 325 MG TABLET PO PRN (19:39)
[2019-12-09] MEDS ORDERED: hydrALAZINE 20 MG/ML VIAL IV PRN (19:39)
[2019-12-09] MEDS ORDERED: POTASSIUM CHLORIDE 20 MEQ PACKET PO PRN (19:39)
[2019-12-09] MEDS ORDERED: MELATONIN 3 MG TABLET PO PRN (19:39)
[2019-12-09] MEDS ORDERED: BISACODYL 10 MG SUPP.RECT PR PRN (19:39)
[2019-12-09] MEDS ORDERED: CEFEPIME 2 GM in DEXTROSE 5% IN WATER 50 ML IV SCH (19:39)
[2019-12-09] MEDS ORDERED: ONDANSETRON 4 MG ODT TABLET SL PRN (19:39)
[2019-12-09] MEDS ORDERED: POLYETHYLENE GLYCOL 3350 17 GM PACKET PO PRN (19:39)
[2019-12-09 20:13] LABS: ABG Methemoglobin 0 % (0.4-1.5); Total Hemoglobin 13.9 gm/dL (12.0-15.0); VBG Base Excess -13.3 (-2.0-2.0); VBG HCO3 11.6 mmol/L (24.0-28.0); VBG Oxygen Saturation 92.9 % (40.0-70.0); VBG PCO2 25.3 mmHg (41.0-51.0); VBG PH 7.28 U (7.32-7.42); VBG PO2 123 mmHg (25-40); VBG Total CO2 12.4 mmol/L (25.0-29.0)
[2019-12-09 20:42] LABS: Bilirubin,Direct < 0.2 mg/dL (0.0-0.3)
[2019-12-09] MEDS: ACETAMINOPHEN 650 MG/65 ML BOTTLE IV PRN (20:45)
[2019-12-09 20:53] LABS: ALT/SGPT 12 U/l (0-40); AST/SGOT 15 U/l (0-37); Albumin 3.1 gm/dL (3.2-5.2); Alkaline Phosphatase 95 U/L (39-117); Bilirubin,Total 0.3 mg/dL (0.0-1.0); Blood Urea Nitrogen 29 mg/dl (8-23); Calcium 7.8 mg/dl (8.6-10.4); Carbon Dioxide 11 mmol/L (22-30); Chloride 107 mmol/L (96-108); Globulin 3.1 gm/dL (2.2-3.7); Glomerular Filtration Rate 74; Glucose 248 mg/dL (70-105); Lactate Dehydrogenase 201 U/L (94-250); Phosphorous 2.4 mg/dL (2.7-4.5); Triglycerides 96 mg/dl (<150); Uric Acid 8.4 mg/dL (2.5-8.0)
[2019-12-09] MEDS: CEFEPIME 1 GM VIAL IV SCH (21:15)
[2019-12-09] MEDS: DEXTROSE 5%-1/2NS 1,000 ML IV SCH (21:17)
[2019-12-09] MEDS ORDERED: POTASSIUM CHLORIDE 40 MEQ in DEXTROSE 5% IN WATER 500 ML IV ONE (22:09)
[2019-12-09] MEDS ORDERED: POTASSIUM CHLORIDE 20 MEQ/10 ML VIAL IV ONE (22:52)
[2019-12-10 00:50] LABS: ABG Methemoglobin 0.1 % (0.4-1.5); Total Hemoglobin 12.7 gm/dL (12.0-15.0); VBG Base Excess -6.3 (-2.0-2.0); VBG HCO3 18.6 mmol/L (24.0-28.0); VBG PCO2 35.1 mmHg (41.0-51.0); VBG PH 7.34 U (7.32-7.42); VBG PO2 86 mmHg (25-40); VBG Total CO2 19.7 mmol/L (25.0-29.0)
[2019-12-10] MEDS: SENNOSIDES/DOCUSATE SODIUM 1 TAB TABLET PO SCH ×2 (00:56→20:22)
[2019-12-10] MEDS: DOCUSATE SODIUM 100 MG CAPSULE PO SCH ×3 (00:56→20:22)
[2019-12-10] MEDS: AMITRIPTYLINE 25 MG TABLET PO SCH ×2 (00:56→20:22)
[2019-12-10] MEDS: 0.9 % SODIUM CHLORIDE 10 ML SYRINGE IV SCH ×4 (00:57→21:31)
[2019-12-10] MEDS: ACETAMINOPHEN 650 MG/65 ML BOTTLE IV PRN ×2 (04:19→19:44)
[2019-12-10] MEDS: ONDANSETRON 4 MG/2 ML VIAL IV PRN ×3 (04:20→13:49)
[2019-12-10 04:46] LABS: Hematocrit 37.6 % (34.1-44.9); Hemoglobin 13.1 g/dL (11.2-15.7); Mean Cell Volume 87.2 fL (80.0-100.0); Mean Corpuscular HGB Conc 34.8 g/dL (31.0-36.0); Mean Platelet Volume 9.7 fL (7.4-10.4); Platelet Count 270 K/mcL (140-440); RBC 4.31 M/mcL (3.59-5.38); Red Cell Distribution Width 12.3 % (11.5-14.5)
[2019-12-10 05:05] LABS: ALT/SGPT 10 U/l (0-40); AST/SGOT 16 U/l (0-37); Albumin 2.8 gm/dL (3.2-5.2); Alkaline Phosphatase 76 U/L (39-117); Bilirubin,Direct < 0.2 mg/dL (0.0-0.3); Bilirubin,Total 0.3 mg/dL (0.0-1.0); Blood Urea Nitrogen 22 mg/dl (8-23); Calcium 8.4 mg/dl (8.6-10.4); Carbon Dioxide 17 mmol/L (22-30); Chloride 108 mmol/L (96-108); Globulin 2.9 gm/dL (2.2-3.7); Glomerular Filtration Rate 87; Glucose 171 mg/dL (70-105); Lactate Dehydrogenase 186 U/L (94-250); Phosphorous 1.2 mg/dL (2.7-4.5); Triglycerides 102 mg/dl (<150)
[2019-12-10 05:54] LABS: Band Neutrophils % 1 % (0-10); Lymphocytes % 8 % (15-49); Monocytes % (Manual) 3 % (1-12); Platelet Estimate NORMAL (NORMAL); RBC Morphology NORMAL (NORMAL); Segmented Neutrophils % 88 % (38-78)
[2019-12-10] MEDS: HYDROmorphone 0.5 MG/0.5 ML SYRINGE IV PRN ×4 (06:57→22:48)
[2019-12-10] MEDS: DEXTROSE 5%-1/2NS 1,000 ML IV SCH ×4 (06:57→18:34)
[2019-12-10] MEDS: SERTRALINE 50 MG TABLET PO SCH (08:19)
[2019-12-10] MEDS: CEFEPIME 1 GM VIAL IV SCH ×2 (08:19→20:22)
[2019-12-10] MEDS: INSULIN REGULAR, HUMAN 50 UNIT in 0.9 % SODIUM CHLORIDE 99.5 ML IV SCH ×2 (08:36→20:14)
[2019-12-10] MEDS ORDERED: 0.9 % SODIUM CHLORIDE 1,000 ML IV ONE (08:52)
--- NOTE | 2019-12-10 09:56 | Internal Med Progress Note ---
Medical - PN: Subj Patient information: Note initiated : 12/10/19 at 9:50 am Service Date, if different from initiated Date: [] Patient: Esther Hartley a 74 y/o F admitted on 12/09/19 for Fall right hip pain. Chief Complaint: [] Interval history: Ms. Hartley is a 74-year-old female with a known history of diabetes Who lives alone fairly independently. Patient unfortunately tripped on Sunday and fell on the floor sustaining injury to the right hip. She denied losing consciousness or lightheadedness dizziness before fall. Due to injury patient was unable to move around and could not call for help however she was able to muster enough strength to get to the couch and has been laying there for the last 3 and half days. Her who is recovering at detention became concerned after he was unable to reach her on phone and subsequently summoned EMS. She was discovered laying on couch in a dazed state. She was brought into the ER where initial work-up was consistent with DKA with blood sugars over 600 bicarbonate and of ABG pH 7.2 with severe sepsis white count over 20,000 and pyuria. Patient was started on crystalloids along with insulin drip. Also pelvis CT revealed right hip fracture. Orthopedics was consulted and recommended admission but deferred surgery until stabilization of patient and treatment of DKA. Subsequently hospitalist service was consulted for admission for management of DKA. At the time of evaluation patient is lethargic fatigued. She is unable to provide a detailed history but was able to answer most of the questions and participate in review of systems. 12/09-DKA improving on insulin drip. White count down to 11,000. On antibiotic coverage for complicated UTI. pH improved from 7.2-7.34. Sodium 136, CO2 improved from 8-17, anion gap down from 37-11. Creatinine down from 1.1-0.7. Magnesium 1.2 on replacement. - Constitutional Vitals: Vital Signs Temp Pulse Resp BP Pulse Ox 99.5 F H 88 18 140/60 94 12/10/19 08:00 12/10/19 09:01 12/10/19 09:01 12/10/19 09:01 12/10/19 09:01 Period Temp Pulse Resp BP Sys/Mackay Pulse Ox Last 24 Hr 97.2 F-99.5 F 72-113 8-38 102-202/38-99 93-100 Intake and Output 12/09/19 12/10/19 12/10/19 21:59 05:59 13:59 Intake Total 3082 657 1014 Output Total 1525 115 50 Balance 1557 542 964 Weight 127 lb 6.4 oz Intake & Output: Intake & Output 12/09/19 12/10/19 12/10/19 21:59 05:59 13:59 Intake Total 3082 657 1014 Output Total 1525 115 50 Balance 1557 542 964 Weight 127 lb 6.4 oz Intake: IV 3082 657 1014 Sodium Chloride 0.9% 1,000 ml @ 3000 Wide Open IV BOLUS ONE Rx#: [id number] Dextrose 5%-1/2Ns IV Solution 1 1000 ,000 ml @ 100 mls/hr IV .Q10H [facility] Rx#:[id number] HumuLIN R 50 UNIT In Sodium 17 72 14 Chloride 0.9% 99.5 ml @ Per Protocol IV Q12H [facility] Rx#: [id number] Potassium Chloride 40 Meq In 520 Dextrose 5% in Water 500 ml @ 130 mls/hr IV ONCE ONE Rx#: [id number] Output: Urine Catheter Amount 1525 115 50 Other: Urine Appearance Cloudy Cloudy Clear Sediment Uretheral (Chavez) Cloudy Cloudy Urine Color Light Shayy Light Shayy Light Shayy Uretheral (Chavez) Dark Shayy Light Shayy Urine Odor Foul Foul Uretheral (Chavez) Foul Foul General appearance: no acute distress Exam: Remains fatigued lethargic Improving hemodynamics Improving urine output No telemetry events Nontender abdomen, colostomy in place Medical - PN: Obj Da - Labs CBC & Chem 7: 12/10/19 03:59 12/10/19 03:59 Labs: Abnormal Lab Results 12/10/19 12/10/19 12/10/19 03:59 03:59 00:28 WBC RBC Hgb Hct POC Hct Gran % Lymph % (Auto) Gran # Lymph # (Auto) Seg Neutrophils % 88 H Lymphocytes % 8 L ABG Methemoglobin 0.1 L VBG pH VBG pCO2 35.1 L VBG pO2 86 H VBG HCO3 18.6 L VBG Total CO2 19.7 L VBG O2 Saturation 92.0 H VBG Base Excess -6.3 L VBG Lactic Acid Carboxyhemoglobin 4.3 H POC Sodium Sodium Chloride Carbon Dioxide 17 L POC Total CO2 Anion Gap POC BUN BUN Glucose 171 H POC Glucose Uric Acid Calcium 8.4 L Phosphorus 1.2 L Alkaline Phosphatase Total Creatine Kinase CK-MB (CK-2) C-Reactive Protein Total Protein 5.7 L Albumin 2.8 L Globulin Beta-Hydroxybutyrate Urine Protein Urine Glucose (UA) Urine Ketones Urine Occult Blood Ur Leukocyte Esterase Urine RBC Urine WBC Urine Bacteria 12/09/19 12/09/19 12/09/19 19:54 19:54 17:03 WBC RBC Hgb Hct POC Hct Gran % Lymph % (Auto) Gran # Lymph # (Auto) Seg Neutrophils % Lymphocytes % ABG Methemoglobin 0 L VBG pH 7.28 L VBG pCO2 25.3 L VBG pO2 123 H VBG HCO3 11.6 L VBG Total CO2 12.4 L VBG O2 Saturation 92.9 H VBG Base Excess -13.3 L VBG Lactic Acid Carboxyhemoglobin 5.6 H POC Sodium Sodium Chloride Carbon Dioxide 11 L POC Total CO2 Anion Gap 21.0 H POC BUN BUN 29 H Glucose 248 H POC Glucose Uric Acid 8.4 H Calcium 7.8 L Phosphorus 2.4 L Alkaline Phosphatase Total Creatine Kinase CK-MB (CK-2) C-Reactive Protein Total Protein Albumin 3.1 L Globulin Beta-Hydroxybutyrate Urine Protein 100 A Urine Glucose (UA) >=500 A Urine Ketones 80 A Urine Occult Blood >=1.0 A Ur Leukocyte Esterase 250 A Urine RBC 81 H Urine WBC > 182 H Urine Bacteria Few A 12/09/19 12/09/19 12/09/19 15:45 15:45 15:44 WBC RBC Hgb Hct POC Hct Gran % Lymph % (Auto) Gran # Lymph # (Auto) Seg Neutrophils % Lymphocytes % ABG Methemoglobin VBG pH VBG pCO2 VBG pO2 VBG HCO3 VBG Total CO2 VBG O2 Saturation VBG Base Excess VBG Lactic Acid 2.4 H Carboxyhemoglobin POC Sodium Sodium Chloride Carbon Dioxide POC Total CO2 Anion Gap POC BUN BUN Glucose POC Glucose Uric Acid Calcium Phosphorus Alkaline Phosphatase Total Creatine Kinase 200 H CK-MB (CK-2) 4.4 H C-Reactive Protein Total Protein Albumin Globulin Beta-Hydroxybutyrate 8.93 H Urine Protein Urine Glucose (UA) Urine Ketones Urine Occult Blood Ur Leukocyte Esterase Urine RBC Urine WBC Urine Bacteria 12/09/19 12/09/19 15:44 15:44 WBC 20.3 H RBC 5.81 H Hgb 17.6 H Hct 49.5 H POC Hct 53.0 H Gran % 94.8 H Lymph % (Auto) 1.8 L Gran # 19.19 H Lymph # (Auto) 0.36 L Seg Neutrophils % Lymphocytes % ABG Methemoglobin VBG pH VBG pCO2 VBG pO2 VBG HCO3 VBG Total CO2 VBG O2 Saturation VBG Base Excess VBG Lactic Acid Carboxyhemoglobin POC Sodium 131 L Sodium 130 L Chloride 85 L Carbon Dioxide 8 L* POC Total CO2 11 L Anion Gap 37.0 H POC BUN 35 H BUN 32 H Glucose 533 H* POC Glucose 530 H* Uric Acid Calcium Phosphorus Alkaline Phosphatase 126 H Total Creatine Kinase CK-MB (CK-2) C-Reactive Protein 10.2 H Total Protein Albumin Globulin 4.0 H Beta-Hydroxybutyrate Urine Protein Urine Glucose (UA) Urine Ketones Urine Occult Blood Ur Leukocyte Esterase Urine RBC Urine WBC Urine Bacteria Meds: Medications Acetaminophen (Tylenol) 650 mg PO Q4-6HP PRN; Protocol PRN Reason: Per Pain Protocol/Fever > 101 Hydrocodone Bitart/Acetaminophen ([place] 7.5/325mg) 1 tab PO BIDP PRN; Protocol PRN Reason: pain Amitriptyline HCl (Elavil) 100 mg PO QHS [facility] Last Admin: 12/10/19 00:56 Dose: Not Given Documented by: Bisacodyl (Dulcolax) 10 mg [place] Q2-3DAYS PRN PRN Reason: Constipation Cefepime HCl (Maxipime) 1 gm IV Q12H [facility] Last Admin: 12/10/19 08:19 Dose: 1 gm Documented by: Diagnostic Test (Pha) (Accu-Chek) 1 each FS Q1 [facility] Last Admin: 12/10/19 08:56 Dose: 1 each Documented by: Docusate Sodium (Colace) 100 mg PO BID [facility] Last Admin: 12/10/19 08:19 Dose: Not Given Documented by: Hydralazine HCl (Apresoline) 10 mg IV Q4-6HP PRN PRN Reason: Hypertension Hydromorphone HCl (Dilaudid) 0 mg IV Q4HP PRN; Protocol PRN Reason: Per Pain Protocol Last Admin: 12/10/19 06:57 Dose: 0.5 mg Documented by: Acetaminophen (Ofirmev) 650 mg in 65 mls @ 130 mls/hr IV Q6HP PRN; Protocol PRN Reason: Per Pain Protocol/Fever > 101 Last Infusion: 12/10/19 04:54 Dose: Infused Documented by: Magnesium Sulfate (Magnesium Sulfate) 2 gm in 50 mls @ 50 mls/hr IV UD PRN PRN Reason: MG = or < 1.7 Potassium Chloride 40 meq/ (Dextrose) 520 mls @ 130 mls/hr IV UD PRN PRN Reason: K+ = or < 3.5 Dextrose/Sodium Chloride (Dextrose 5%-1/2ns Iv Solution) 1,000 mls @ 100 mls/hr IV .Q10H [facility] Last Admin: 12/10/19 08:21 Dose: 100 mls/hr Documented by: Insulin Human Regular 50 unit/ (Sodium Chloride) 100 mls @ 0 mls/hr IV Q12H [facility]; Protocol Last Titration: 12/10/19 08:57 Dose: 4.5 unit/h, 9 mls/hr Documented by: Melatonin (Melatonin 3mg Tablet) 3 mg PO HSP PRN PRN Reason: Insomnia Metoprolol Tartrate (Lopressor) 5 mg IV Q5M PRN PRN Reason: Heart Rate > 140 bpm Ondansetron HCl (Zofran Odt) 4 mg SL Q4-6HP PRN; Protocol PRN Reason: Nausea And Vomiting Ondansetron HCl (Zofran) 4 mg IV Q4-6HP PRN; Protocol PRN Reason: Nausea And Vomiting Last Admin: 12/10/19 06:58 Dose: 4 mg Documented by: Polyethylene Glycol (Miralax) 17 gm PO DAILYP PRN PRN Reason: Constipation Potassium Chloride (Klor-Con) 40 meq PO DAILYP PRN PRN Reason: K+ < 3.5 Senna/Docusate Sodium (Senna Plus Tablet) 1 tab PO HS [facility] Last Admin: 12/10/19 00:56 Dose: Not Given Documented by: Sertraline HCl (Zoloft) 150 mg PO QDAY [facility] Last Admin: 12/10/19 08:19 Dose: Not Given Documented by: Sodium Chloride (Saline Flush) 10 ml IV Q8 [facility] Last Admin: 12/10/19 06:57 Dose: 10 ml Documented by: - ABG Interpretation ABG results: 12/09/19 12/10/19 19:54 00:28 ABG Methemoglobin 0 L 0.1 L VBG pH 7.28 L 7.34 VBG pCO2 25.3 L 35.1 L VBG pO2 123 H 86 H VBG HCO3 11.6 L 18.6 L VBG Total CO2 12.4 L 19.7 L VBG O2 Saturation 92.9 H 92.0 H VBG Base Excess -13.3 L -6.3 L Medical - PN: A/P - Time Spent With Patient Total time spent is greater than 50% in coordination of care (as documented) at patient's floor/unit and/or counseling patient: Greater than 35 minutes (Critical care time) (1) DKA (diabetic ketoacidoses) Status: Acute Assessment and plan: * Diabetic ketoacidosis-Continue management per protocol. Insulin drip/aggressive crystalloids./N.p.o./aggressive electrolyte replacement. Admit to ICU. * RT Hip Fracture- Orthopedic consulted. Recommend additional 24 hours medical management. pain management as indicated. * Severe sepsis clinically improving white count down from 20,000-02008. Secondary to complicated UTI * Preoperative risk evaluation-based on [employer] [place] [employer] risk stratification patient would fall under high risk category in the setting of advanced age/history of CAD/insulin-dependent diabetes however patient does n ot have a history of CVA or decompensated heart failure. The risk of proceeding to surgery at this time include worsening renal failure/VT/CVA secondary to hypoperfusion. Patient would require additional 24 hours for management of diabetes ketoacidosis and optimization of hemodynamics. At this point time she can proceed with surgery with an understanding of complication that may arise. Surgery and anesthesia specific risks will be addressed by individual care providers. * Acute renal failure clinically improving creatinine down from 1.1>0.7. * Generalized weakness/deconditioning- Will initiate physical therapy post hip fracture repair * Low magnesium on replacement * Complicated UTI-continue antibiotic coverage * History of hypertension hold antiHTN meds * GERD continue PPI * Chronic pain continue home dose opioids/Flexeril * Hyperlipidemia on statin * History of CAD on aspirin and statin/ARB * Anxiety disorder on sertraline * Full code * Prophylaxis SCDs Plan * Continue DKA management protocol * Replace electrolytes as indicated * Continue antibiotic coverage * Monitor renal function * Wean insulin drip * Continue pain MX * Recommend holding surgery for 24 hours * Initiate postop PT OT * Discharge planning Critical time spent in excess of 35 minutes Current Visit: Yes Medical - PN: Qual - VTE Deep Vein Thrombosis/Pulmonary Embolism Present on Admission: No
--- NOTE | 2019-12-10 10:32 | Emergency Department Note ---
ED Note Addendum Note Addendum: I briefly interviewed and saw patient on 12/09/2019. I spoke with PETER Brownlee, multiple times regarding her care. I reviewed labs as well with her. Patient obviously very ill. I agree with admission. I agree with documentation provided by Abigail.
[2019-12-10 13:19] LABS: ALT/SGPT 9 U/l (0-40); AST/SGOT 14 U/l (0-37); Albumin 2.6 gm/dL (3.2-5.2); Alkaline Phosphatase 71 U/L (39-117); Bilirubin,Direct < 0.2 mg/dL (0.0-0.3); Bilirubin,Total 0.3 mg/dL (0.0-1.0); Blood Urea Nitrogen 18 mg/dl (8-23); Calcium 7.9 mg/dl (8.6-10.4); Carbon Dioxide 16 mmol/L (22-30); Globulin 2.6 gm/dL (2.2-3.7); Glucose 180 mg/dL (70-105); Lactate Dehydrogenase 158 U/L (94-250); Triglycerides 87 mg/dl (<150); Uric Acid 4.4 mg/dL (2.5-8.0)
[2019-12-10 13:21] LABS: Chloride 110 mmol/L (96-108); Glomerular Filtration Rate 97
[2019-12-10] MEDS: POTASSIUM CHLORIDE 40 MEQ in DEXTROSE 5% IN WATER 500 ML IV PRN (14:37)
[2019-12-10] MEDS: MAGNESIUM SULFATE 2 GM/50 ML BAG IV PRN (19:09)
[2019-12-10 21:00] LABS: ALT/SGPT 9 U/l (0-40); AST/SGOT 15 U/l (0-37); Albumin 2.7 gm/dL (3.2-5.2); Albumin/Globulin Ratio 1.2 (1.0-2.3); Alkaline Phosphatase 67 U/L (39-117); Bilirubin,Direct < 0.2 mg/dL (0.0-0.3); Bilirubin,Total 0.3 mg/dL (0.0-1.0); Blood Urea Nitrogen 11 mg/dl (8-23); Calcium 7.8 mg/dl (8.6-10.4); Carbon Dioxide 19 mmol/L (22-30); Chloride 104 mmol/L (96-108); Globulin 2.3 gm/dL (2.2-3.7); Glomerular Filtration Rate 97; Glucose 224 mg/dL (70-105); Lactate Dehydrogenase 138 U/L (94-250); Triglycerides 109 mg/dl (<150); Uric Acid 3.1 mg/dL (2.5-8.0)
[2019-12-10] MEDS: INSULIN GLARGINE, HUMAN 1 UNIT/0.01 ML SQ SCH (21:49)
[2019-12-10] MEDS ORDERED: INSULIN GLARGINE, HUMAN 1 UNIT/0.01 ML SQ ONE (21:52)
[2019-12-11] MEDS: HYDROmorphone 0.5 MG/0.5 ML SYRINGE IV PRN ×5 (04:52→23:12)
[2019-12-11] MEDS: 0.9 % SODIUM CHLORIDE 10 ML SYRINGE IV SCH ×3 (05:01→20:59)
[2019-12-11 06:50] LABS: Hematocrit 37.5 % (34.1-44.9); Mean Cell Volume 86.6 fL (80.0-100.0); Mean Corpuscular HGB Conc 34.7 g/dL (31.0-36.0); Mean Platelet Volume 9.8 fL (7.4-10.4); Platelet Count 182 K/mcL (140-440); RBC 4.33 M/mcL (3.59-5.38); Red Cell Distribution Width 12.4 % (11.5-14.5); WBC 6.9 K/mcL (4.50-11.00)
[2019-12-11 07:33] LABS: ALT/SGPT 10 U/l (0-40); AST/SGOT 17 U/l (0-37); Albumin 2.7 gm/dL (3.2-5.2); Albumin/Globulin Ratio 1.1 (1.0-2.3); Alkaline Phosphatase 71 U/L (39-117); Bilirubin,Direct < 0.2 mg/dL (0.0-0.3); Bilirubin,Total 0.3 mg/dL (0.0-1.0); Blood Urea Nitrogen 8 mg/dl (8-23); Carbon Dioxide 19 mmol/L (22-30); Chloride 103 mmol/L (96-108); Globulin 2.4 gm/dL (2.2-3.7); Glomerular Filtration Rate 104; Glucose 238 mg/dL (70-105); Lactate Dehydrogenase 160 U/L (94-250); Phosphorous 1.1 mg/dL (2.7-4.5); Triglycerides 161 mg/dl (<150); Uric Acid 2.5 mg/dL (2.5-8.0)
[2019-12-11 07:51] LABS: Lymphocytes % 9 % (15-49); Monocytes % (Manual) 5 % (1-12); Platelet Estimate NORMAL (NORMAL); RBC Morphology NORMAL (NORMAL); Segmented Neutrophils % 86 % (38-78)
--- NOTE | 2019-12-11 08:14 | Consultation ---
DATE OF CONSULTATION: 12/11/2019 REASON FOR CONSULTATION: Femoral neck fracture on the right side after a same-level fall. HISTORY OF PRESENT ILLNESS: The patient had a fall approximately 4 days ago, and she lay in her house for about 3 days before she was discovered. She was brought to the emergency room here at [facility] and had severe medical conditions which included high sugar, dehydration, rhabdomyolysis, and the hip fracture. Once the hospitalist was able to correct her underlying metabolic problems, we have been approved to go ahead and fix the hip fracture. PAST MEDICAL HISTORY: She does have a history of diabetes, diverticulosis, depression, degenerative cervical disk, carotid stenosis, anxiety, eczema, and hyperlipidemia. She has had cancer of the colon. PAST SURGICAL HISTORY: Include appendectomy, cholecystectomy, colonoscopy, tonsillectomy, tubal ligation. MEDICATIONS: 1. Metoprolol. 2. Insulin. 3. Amitriptyline. PHYSICAL EXAMINATION: GENERAL: Very pleasant elderly female who is alert and oriented x3. Mood and affect appropriate. She gives appropriate answers. No chest pain, no shortness of breath, just a lot of hip pain. She is 5 foot 2 inches and weighs 134 pounds. LUNGS: Clear to auscultation. CARDIOVASCULAR: Somewhat tachycardic at 100 but regular. No murmurs. ABDOMEN: Soft, nontender. MUSCULOSKELETAL: Very thin and frail in appearance and unable to ambulate. She moves her toes but cannot move the leg because of the fracture. IMAGING: X-rays of the right hip demonstrate three views, AP pelvis, AP lateral and right hip taken here at [facility] that demonstrate a femoral neck fracture, displaced with minimal arthritis of the acetabulum. PLAN: Treatment I have recommended is a cemented hemiarthroplasty. This gives the patient the ability to be much more mobile and immediately able to bear full weight given her weakened status. She agrees with this. We will go ahead and proceed with this as long as the labs come back and show that she is stable. She understands the risks and benefits. Some of these risks include heart attack and stroke and she agrees to proceed. JACQUE:[email or web address] Job ID: [id number] Doc ID: [id number] Kobi Hemphill MD
[2019-12-11] MEDS: ACETAMINOPHEN 650 MG/65 ML BOTTLE IV PRN (08:25)
[2019-12-11] MEDS: SERTRALINE 50 MG TABLET PO SCH (08:25)
[2019-12-11] MEDS: INSULIN LISPRO 1 UNIT/0.01 ML UNIT SQ SCH ×4 (08:26→20:58)
[2019-12-11] MEDS: DOCUSATE SODIUM 100 MG CAPSULE PO SCH ×2 (08:27→21:01)
[2019-12-11 08:59] LABS: INR 1.3 (0.9-1.1); Prothrombin Time 16.3 sec (11.9-14.5)
[2019-12-11] MEDS: NEUTRA PHOS 1 PACKET PO PRN (09:02)
[2019-12-11] MEDS: POTASSIUM CHLORIDE 40 MEQ in DEXTROSE 5% IN WATER 500 ML IV PRN (09:20)
--- NOTE | 2019-12-11 09:20 | Internal Med Progress Note ---
Medical - PN: Subj Patient information: Note initiated : 12/11/19 at 9:15 am Service Date, if different from initiated Date: [] Patient: Esther Hartley a 74 y/o F admitted on 12/09/19 for Fall right hip pain. Chief Complaint: [] Interval history: Ms. Hartley is a 74-year-old female with a known history of diabetes Who lives alone fairly independently. Patient unfortunately tripped on Sunday and fell on the floor sustaining injury to the right hip. She denied losing consciousness or lightheadedness dizziness before fall. Due to injury patient was unable to move around and could not call for help however she was able to muster enough strength to get to the couch and has been laying there for the last 3 and half days. Her who [facility] became concerned after he was unable to reach her on phone and subsequently summoned EMS. She was discovered laying on couch in a dazed state. She was brought into the ER where initial work-up was consistent with DKA with blood sugars over 600 bicarbonate and of ABG pH 7.2 with severe sepsis white count over 20,000 and pyuria. Patient was started on crystalloids along with insulin drip. Also pelvis CT revealed right hip fracture. Orthopedics was consulted and recommended admission but deferred surgery until stabilization of patient and treatment of DKA. Subsequently hospitalist service was consulted for admission for management of DKA. At the time of evaluation patient is lethargic fatigued. She is unable to provide a detailed history but was able to answer most of the questions and participate in review of systems. 12/09-DKA improving on insulin drip. White count down to 11,000. On antibiotic coverage for complicated UTI. pH improved from 7.2-7.34. Sodium 136, CO2 improved from 8-17, anion gap down from 37-11. Creatinine down from 1.1-0.7. Magnesium 1.2 on replacement. 12/10-patient clinically improved. White count down to 6.9. Anion gap braised and bicarbonate normalized. Transition to subcutaneous insulin/CC diet. Will undergo surgery today. Bicarb 19. Potassium up to 3.3. On replacement. Phosphorus 1.1 on replacement. Urine cultures pending. - Constitutional Vitals: Vital Signs Temp Pulse Resp BP Pulse Ox 98.1 F 82 22 145/83 99 12/11/19 04:01 12/11/19 08:20 12/11/19 08:20 12/11/19 08:20 12/11/19 08:20 Period Temp Pulse Resp BP Sys/Mackay Pulse Ox Last 24 Hr 97.1 F-98.7 F 62-85 13-25 105-156/46-105 93-99 Intake and Output 12/10/19 12/11/19 12/11/19 21:59 05:59 13:59 Intake Total 2139 240 Output Total 345 610 Balance 1794 -370 Weight 134 lb 6.4 oz Intake & Output: Intake & Output 12/10/19 12/11/19 12/11/19 21:59 05:59 13:59 Intake Total 2139 240 Output Total 345 610 Balance 1794 -370 Weight 134 lb 6.4 oz Intake: IV 1988 Dextrose 5%-1/2Ns IV Solution 1 1320 ,000 ml @ 100 mls/hr IV .Q10H RAYMUNDO Rx#:[id number] HumuLIN R 50 UNIT In Sodium 34 Chloride 0.9% 99.5 ml @ Per Protocol IV Q12H RAYMUNDO Rx#: [id number] Potassium Chloride 40 Meq In 520 Dextrose 5% in Water 500 ml @ 130 mls/hr IV UD PRN Rx#: [id number] Oral 150 240 Output: Urine Catheter Amount 345 610 Other: Meal Dinner Percent of Meal Consumed 100% Feeding Ability Assist with Tray Set Up Urine Appearance Small Blood Clots Cloudy Mucous Threads Small Blood Clots Uretheral (Chavez) Cloudy Urine Color Dark Yellow Light Shayy Blood Tinged Uretheral (Chavez) Light Shayy Urine Odor Foul Foul Uretheral (Chavez) Foul Stool Size Moderate Stool Color Brown Stool Consistency Soft General appearance: no acute distress Exam: Resting comfortably Nonlabored breathing Significant pain right hip No telemetry events Medical - PN: Obj Da - Labs CBC & Chem 7: 12/11/19 04:55 12/11/19 04:55 Labs: Abnormal Lab Results 12/11/19 12/11/19 12/11/19 07:59 04:55 04:55 WBC RBC Hgb Hct POC Hct Gran % Lymph % (Auto) Gran # Lymph # (Auto) Seg Neutrophils % 86 H Lymphocytes % 9 L PT 16.3 H INR 1.3 H ABG Methemoglobin VBG pH VBG pCO2 VBG pO2 VBG HCO3 VBG Total CO2 VBG O2 Saturation VBG Base Excess VBG Lactic Acid Carboxyhemoglobin POC Sodium Sodium Potassium Chloride Carbon Dioxide 19 L POC Total CO2 Anion Gap POC BUN BUN Creatinine 0.4 L Glucose 238 H POC Glucose Uric Acid Calcium 8.0 L Phosphorus 1.1 L Alkaline Phosphatase Total Creatine Kinase CK-MB (CK-2) C-Reactive Protein Total Protein 5.1 L Albumin 2.7 L Globulin Triglycerides 161 H Beta-Hydroxybutyrate Urine Protein Urine Glucose (UA) Urine Ketones Urine Occult Blood Ur Leukocyte Esterase Urine RBC Urine WBC Urine Bacteria 12/10/19 12/10/19 12/10/19 19:48 11:14 03:59 WBC RBC Hgb Hct POC Hct Gran % Lymph % (Auto) Gran # Lymph # (Auto) Seg Neutrophils % Lymphocytes % PT INR ABG Methemoglobin VBG pH VBG pCO2 VBG pO2 VBG HCO3 VBG Total CO2 VBG O2 Saturation VBG Base Excess VBG Lactic Acid Carboxyhemoglobin POC Sodium Sodium 130 L Potassium 3.0 L Chloride 110 H Carbon Dioxide 19 L 16 L 17 L POC Total CO2 Anion Gap 7.0 L POC BUN BUN Creatinine 0.5 L 0.5 L Glucose 224 H 180 H 171 H POC Glucose Uric Acid Calcium 7.8 L 7.9 L 8.4 L Phosphorus 1.0 L 1.0 L 1.2 L Alkaline Phosphatase Total Creatine Kinase CK-MB (CK-2) C-Reactive Protein Total Protein 5.0 L 5.2 L 5.7 L Albumin 2.7 L 2.6 L 2.8 L Globulin Triglycerides Beta-Hydroxybutyrate Urine Protein Urine Glucose (UA) Urine Ketones Urine Occult Blood Ur Leukocyte Esterase Urine RBC Urine WBC Urine Bacteria 12/10/19 12/10/19 12/09/19 03:59 00:28 19:54 WBC RBC Hgb Hct POC Hct Gran % Lymph % (Auto) Gran # Lymph # (Auto) Seg Neutrophils % 88 H Lymphocytes % 8 L PT INR ABG Methemoglobin 0.1 L VBG pH VBG pCO2 35.1 L VBG pO2 86 H VBG HCO3 18.6 L VBG Total CO2 19.7 L VBG O2 Saturation 92.0 H VBG Base Excess -6.3 L VBG Lactic Acid Carboxyhemoglobin 4.3 H POC Sodium Sodium Potassium Chloride Carbon Dioxide 11 L POC Total CO2 Anion Gap 21.0 H POC BUN BUN 29 H Creatinine Glucose 248 H POC Glucose Uric Acid 8.4 H Calcium 7.8 L Phosphorus 2.4 L Alkaline Phosphatase Total Creatine Kinase CK-MB (CK-2) C-Reactive Protein Total Protein Albumin 3.1 L Globulin Triglycerides Beta-Hydroxybutyrate Urine Protein Urine Glucose (UA) Urine Ketones Urine Occult Blood Ur Leukocyte Esterase Urine RBC Urine WBC Urine Bacteria 12/09/19 12/09/19 12/09/19 19:54 17:03 15:45 WBC RBC Hgb Hct POC Hct Gran % Lymph % (Auto) Gran # Lymph # (Auto) Seg Neutrophils % Lymphocytes % PT INR ABG Methemoglobin 0 L VBG pH 7.28 L VBG pCO2 25.3 L VBG pO2 123 H VBG HCO3 11.6 L VBG Total CO2 12.4 L VBG O2 Saturation 92.9 H VBG Base Excess -13.3 L VBG Lactic Acid Carboxyhemoglobin 5.6 H POC Sodium Sodium Potassium Chloride Carbon Dioxide POC Total CO2 Anion Gap POC BUN BUN Creatinine Glucose POC Glucose Uric Acid Calcium Phosphorus Alkaline Phosphatase Total Creatine Kinase CK-MB (CK-2) C-Reactive Protein Total Protein Albumin Globulin Triglycerides Beta-Hydroxybutyrate 8.93 H Urine Protein 100 A Urine Glucose (UA) >=500 A Urine Ketones 80 A Urine Occult Blood >=1.0 A Ur Leukocyte Esterase 250 A Urine RBC 81 H Urine WBC > 182 H Urine Bacteria Few A 12/09/19 12/09/19 12/09/19 15:45 15:44 15:44 WBC RBC Hgb Hct POC Hct 53.0 H Gran % Lymph % (Auto) Gran # Lymph # (Auto) Seg Neutrophils % Lymphocytes % PT INR ABG Methemoglobin VBG pH VBG pCO2 VBG pO2 VBG HCO3 VBG Total CO2 VBG O2 Saturation VBG Base Excess VBG Lactic Acid 2.4 H Carboxyhemoglobin POC Sodium 131 L Sodium 130 L Potassium Chloride 85 L Carbon Dioxide 8 L* POC Total CO2 11 L Anion Gap 37.0 H POC BUN 35 H BUN 32 H Creatinine Glucose 533 H* POC Glucose 530 H* Uric Acid Calcium Phosphorus Alkaline Phosphatase 126 H Total Creatine Kinase 200 H CK-MB (CK-2) 4.4 H C-Reactive Protein 10.2 H Total Protein Albumin Globulin 4.0 H Triglycerides Beta-Hydroxybutyrate Urine Protein Urine Glucose (UA) Urine Ketones Urine Occult Blood Ur Leukocyte Esterase Urine RBC Urine WBC Urine Bacteria 12/09/19 15:44 WBC 20.3 H RBC 5.81 H Hgb 17.6 H Hct 49.5 H POC Hct Gran % 94.8 H Lymph % (Auto) 1.8 L Gran # 19.19 H Lymph # (Auto) 0.36 L Seg Neutrophils % Lymphocytes % PT INR ABG Methemoglobin VBG pH VBG pCO2 VBG pO2 VBG HCO3 VBG Total CO2 VBG O2 Saturation VBG Base Excess VBG Lactic Acid Carboxyhemoglobin POC Sodium Sodium Potassium Chloride Carbon Dioxide POC Total CO2 Anion Gap POC BUN BUN Creatinine Glucose POC Glucose Uric Acid Calcium Phosphorus Alkaline Phosphatase Total Creatine Kinase CK-MB (CK-2) C-Reactive Protein Total Protein Albumin Globulin Triglycerides Beta-Hydroxybutyrate Urine Protein Urine Glucose (UA) Urine Ketones Urine Occult Blood Ur Leukocyte Esterase Urine RBC Urine WBC Urine Bacteria Meds: Medications Acetaminophen (Tylenol) 650 mg PO Q4-6HP PRN; Protocol PRN Reason: Per Pain Protocol/Fever > 101 Hydrocodone Bitart/Acetaminophen (Webster 7.5/325mg) 1 tab PO BIDP PRN; Protocol PRN Reason: pain Amitriptyline HCl (Elavil) 100 mg PO QHS [facility] Last Admin: 12/10/19 20:22 Dose: Not Given Documented by: Bisacodyl (Dulcolax) 10 mg TX Q2-3DAYS PRN PRN Reason: Constipation Cefepime HCl (Maxipime) 1 gm IV Q12H [facility] Last Admin: 12/10/19 20:22 Dose: 1 gm Documented by: Diagnostic Test (Pha) (Accu-Chek) 1 each FS ACHS [facility] Last Admin: 12/11/19 08:18 Dose: 1 each Documented by: Docusate Sodium (Colace) 100 mg PO BID [facility] Last Admin: 12/11/19 08:27 Dose: Not Given Documented by: Hydralazine HCl (Apresoline) 10 mg IV Q4-6HP PRN PRN Reason: Hypertension Hydromorphone HCl (Dilaudid) 0 mg IV Q4HP PRN; Protocol PRN Reason: Per Pain Protocol Last Admin: 12/11/19 04:52 Dose: 0.5 mg Documented by: Acetaminophen (Ofirmev) 650 mg in 65 mls @ 130 mls/hr IV Q6HP PRN; Protocol PRN Reason: Per Pain Protocol/Fever > 101 Last Admin: 12/11/19 08:25 Dose: 130 mls/hr Documented by: Magnesium Sulfate (Magnesium Sulfate) 2 gm in 50 mls @ 50 mls/hr IV UD PRN PRN Reason: MG = or < 1.7 Last Infusion: 12/10/19 21:21 Dose: Infused Documented by: Potassium Chloride 40 meq/ (Dextrose) 520 mls @ 130 mls/hr IV UD PRN PRN Reason: K+ = or < 3.5 Last Infusion: 12/10/19 21:38 Dose: Infused Documented by: Insulin Glargine (Lantus) 10 unit SQ [facility] Last Admin: 12/10/19 21:49 Dose: 10 unit Documented by: Insulin Human Lispro (Humalog) 0 unit SQ [facility]; Protocol Last Admin: 12/11/19 08:26 Dose: 3 units Documented by: Melatonin (Melatonin 3mg Tablet) 3 mg PO HSP PRN PRN Reason: Insomnia Metoprolol Tartrate (Lopressor) 5 mg IV Q5M PRN PRN Reason: Heart Rate > 140 bpm Ondansetron HCl (Zofran Odt) 4 mg SL Q4-6HP PRN; Protocol PRN Reason: Nausea And Vomiting Ondansetron HCl (Zofran) 4 mg IV Q4-6HP PRN; Protocol PRN Reason: Nausea And Vomiting Last Admin: 12/10/19 13:49 Dose: 4 mg Documented by: Polyethylene Glycol (Miralax) 17 gm PO DAILYP PRN PRN Reason: Constipation Potassium Chloride (Klor-Con) 40 meq PO DAILYP PRN PRN Reason: K+ < 3.5 Potassium/Phosphorus/Sodium (Neutra Phos) 2 packet PO BIDP PRN PRN Reason: Phosphorus < 2.6 Senna/Docusate Sodium (Senna Plus Tablet) 1 tab PO [facility] Last Admin: 12/10/19 20:22 Dose: Not Given Documented by: Sertraline HCl (Zoloft) 150 mg PO QDAY [facility] Last Admin: 12/11/19 08:25 Dose: 150 mg Documented by: Sodium Chloride (Saline Flush) 10 ml IV Q8 [facility] Last Admin: 12/11/19 05:01 Dose: 10 ml Documented by: - ABG Interpretation ABG results: 12/09/19 12/10/19 19:54 00:28 ABG Methemoglobin 0 L 0.1 L VBG pH 7.28 L 7.34 VBG pCO2 25.3 L 35.1 L VBG pO2 123 H 86 H VBG HCO3 11.6 L 18.6 L VBG Total CO2 12.4 L 19.7 L VBG O2 Saturation 92.9 H 92.0 H VBG Base Excess -13.3 L -6.3 L Medical - PN: A/P - Time Spent With Patient Total time spent is greater than 50% in coordination of care (as documented) at patient's floor/unit and/or counseling patient: 25 - 35 minutes (1) DKA (diabetic ketoacidoses) Status: Acute Assessment and plan: * Diabetic ketoacidosis-clinically resolved with management per protocol. Off insulin drip and transition to subcu insulin/CC diet * Low potassium and phosphorus on replacement * RT Hip Fracture-will undergo operative intervention today. Currently n.p.o. * Fracture pain management on as needed opioids * Severe sepsis -clinically resolved. White count down from 20,000->6000 * Preoperative risk evaluation-based on [employer] risk stratification patient would fall under high risk category in the setting of advanced age/history of CAD/insulin-dependent diabetes however patient does not have a history of CVA or decompensated heart failure. The risk of proceeding to surgery at this time include worsening renal failure/[place]/CVA secondary to hypoperfusion. There are no currently modifiable risk factors at this time. Patient can proceed with surgery with an understanding of complication related to surgery. Surgery and anesthesia specific risks will be addressed by individual care providers. * Acute renal failure -resolved * Generalized weakness/deconditioning-start PT OT post operative phase * Complicated UTI-continue antibiotic coverage. Cultures negative so far * History of hypertension restart antiHTN meds in 24 hours * GERD continue PPI * Hyperlipidemia on statin * History of CAD on aspirin and statin/ARB * Anxiety disorder on sertraline * Full code * Prophylaxis SCDs Plan * Review postoperatively * Replace electrolytes as indicated * Continue antibiotic coverage * Postop PT OT * Continue pain MX * Discharge planning Current Visit: Yes Medical - PN: Qual - VTE Deep Vein Thrombosis/Pulmonary Embolism Present on Admission: No
[2019-12-11] MEDS: CEFEPIME 1 GM VIAL IV SCH ×2 (09:33→21:37)
[2019-12-11] MEDS ORDERED: POTASSIUM PHOSPHATE 40 MEQ in DEXTROSE 5% IN WATER 500 ML IV ONE (12:00)
[2019-12-11] MEDS ORDERED: ceFAZolin 2 GM in DEXTROSE 5% IN WATER 50 ML IV SCH (12:15)
[2019-12-11] MEDS ORDERED: fentaNYL 100 MCG/2 ML VIAL IV ONE ×2 (16:15→17:54)
[2019-12-11] MEDS ORDERED: DEXAMETHASONE 10 MG/ML VIAL IV ONE (16:15)
[2019-12-11] MEDS ORDERED: KETAMINE 100 MG/ML ML IV ONE (16:15)
[2019-12-11] MEDS ORDERED: PROPOFOL 200 MG/20 ML VIAL IV ONE (16:15)
[2019-12-11] MEDS ORDERED: ONDANSETRON 4 MG/2 ML VIAL IV ONE (16:15)
[2019-12-11] MEDS ORDERED: TRANEXAMIC ACID 1,000 MG/10 ML VIAL IV ONE ×3 (16:15→18:02)
[2019-12-11] MEDS ORDERED: LIDOCAINE HCL/PF 100 MG/5 ML SYRINGE IV ONE (16:15)
[2019-12-11] MEDS ORDERED: MEPERIDINE 25 MG/ML SYRINGE IV PRN (17:01)
[2019-12-11] MEDS ORDERED: ACETAMINOPHEN 1,000 MG/100 ML BOTTLE IV ONE (17:01)
[2019-12-11] MEDS ORDERED: ONDANSETRON 4 MG/2 ML VIAL IV PRN (17:01)
[2019-12-11] MEDS ORDERED: IPRATROPIUM/ALBUTEROL 3 ML AMPUL.NEB NEB PRN (17:01)
[2019-12-11] MEDS ORDERED: LACTATED RINGERS 250 ML IV PRN (17:01)
[2019-12-11] MEDS ORDERED: fentaNYL 100 MCG/2 ML VIAL IV PRN (17:01)
[2019-12-11] MEDS ORDERED: diphenhydrAMINE 50 MG/ML VIAL IV PRN (17:01)
[2019-12-11] MEDS ORDERED: NALOXONE HCL 0.4 MG/ML VIAL IV PRN (17:01)
[2019-12-11] MEDS ORDERED: PROMETHAZINE 25 MG/ML VIAL IV PRN (17:01)
[2019-12-11] MEDS ORDERED: TEMAZEPAM 15 MG CAPSULE PO PRN (17:14)
[2019-12-11] MEDS ORDERED: BENZOCAINE/MENTHOL 1 LOZENGE PO PRN (17:14)
[2019-12-11] MEDS ORDERED: MAGNESIUM HYDROXIDE 30 ML ORAL.SUSP PO PRN (17:14)
[2019-12-11] MEDS ORDERED: FLEETS ADULT ENEMA PR PRN (17:14)
[2019-12-11] MEDS ORDERED: HYDROmorphone 1 MG/ML SYRINGE IV PRN (17:14)
[2019-12-11] MEDS ORDERED: oxyCODONE/APAP 5/325MG TABLET PO PRN (17:14)
--- NOTE | 2019-12-11 17:14 | Brief Operative Note ---
Date of procedure: 12/11/19 Pre-op diagnosis: Right hip femoral neck fracture Post-op diagnosis: same Procedure: Right hip cemented sami-arthroplasty Grafts/Implants: Yes Anesthesia: GETA Complications: none Surgeon: Kobi Hemphill Nuclear Medicine Tech: Je Downs Estimated blood loss (cc): 100 Specimens Removed/Pathology: none sent Condition: stable Disposition: PACU
[2019-12-11] MEDS ORDERED: LACTATED RINGERS 1,000 ML IV SCH (17:15)
[2019-12-11] MEDS ORDERED: ceFAZolin 1 GM VIAL IV SCH (17:15)
[2019-12-11] MEDS: LACTATED RINGERS 1,000 ML IV SCH (17:25)
[2019-12-11] MEDS ORDERED: hydrALAZINE 20 MG/ML VIAL IV ONE (18:13)
[2019-12-11] MEDS ORDERED: hydrALAZINE 20 MG/ML VIAL ONE (18:22)
--- NOTE | 2019-12-11 18:33 | XRay Report ---
INDICATION: Post-op Total Hip TECHNIQUE: AP pelvis. AP and crosstable lateral right hip COMPARISON: Previous CT scan dated 12/09/2019 FINDINGS: Status post right total hip arthroplasty. Prosthetic components are in anatomic positions There is a transversely oriented fracture of the right pubic bone at the junction of the inferior pubic ramus and inferior acetabulum. This is nondisplaced. Pelvis is otherwise negative. No other pelvic fractures. Sacrum is negative. There is postsurgical soft tissue gas. There are skin jesus overlying the right hip. IMPRESSION: 1. Status post right total hip arthroplasty 2. Transversely oriented fracture at the junction of the inferior pubic ramus and inferior right acetabulum. This is nondisplaced Interpreted and Authenticated by: Dmitriy Case 12/11/19
[2019-12-11] MEDS ORDERED: GENTAMICIN SULFATE 800 MG/20 ML VIAL IR ONE (19:23)
[2019-12-11] MEDS: INSULIN GLARGINE, HUMAN 1 UNIT/0.01 ML SQ SCH (20:59)
[2019-12-11] MEDS: AMITRIPTYLINE 25 MG TABLET PO SCH (21:00)
[2019-12-11] MEDS: SENNOSIDES/DOCUSATE SODIUM 1 TAB TABLET PO SCH (21:00)
[2019-12-11] MEDS ORDERED: SENNOSIDES 1 TABLET PO SCH (21:00)
[2019-12-11] MEDS: ASPIRIN 325 MG ENTERIC COATED TABLET PO SCH (21:37)
[2019-12-11] MEDS: ceFAZolin 1 GM VIAL IV SCH (23:05)
[2019-12-12] MEDS: LACTATED RINGERS 1,000 ML IV SCH ×4 (00:43→23:12)
[2019-12-12] MEDS: HYDROmorphone 0.5 MG/0.5 ML SYRINGE IV PRN ×2 (02:00→07:24)
[2019-12-12] MEDS: ACETAMINOPHEN 650 MG/65 ML BOTTLE IV PRN (06:15)
[2019-12-12 06:26] LABS: Hematocrit 33.9 % (34.1-44.9); Hemoglobin 11.8 g/dL (11.2-15.7); Mean Cell Volume 86.7 fL (80.0-100.0); Mean Corpuscular HGB Conc 34.8 g/dL (31.0-36.0); Platelet Count 207 K/mcL (140-440); RBC 3.91 M/mcL (3.59-5.38); Red Cell Distribution Width 12.2 % (11.5-14.5); WBC 8.5 K/mcL (4.50-11.00)
[2019-12-12] MEDS: 0.9 % SODIUM CHLORIDE 10 ML SYRINGE IV SCH ×4 (06:58→22:39)
[2019-12-12 07:08] LABS: ALT/SGPT 10 U/l (0-40); AST/SGOT 17 U/l (0-37); Albumin 2.5 gm/dL (3.2-5.2); Alkaline Phosphatase 69 U/L (39-117); Bilirubin,Direct < 0.2 mg/dL (0.0-0.3); Bilirubin,Total 0.3 mg/dL (0.0-1.0); Calcium 8.1 mg/dl (8.6-10.4); Chloride 98 mmol/L (96-108); Globulin 2.5 gm/dL (2.2-3.7); Glomerular Filtration Rate 104; Glucose 197 mg/dL (70-105); Lactate Dehydrogenase 192 U/L (94-250); Triglycerides 129 mg/dl (<150)
[2019-12-12 07:17] LABS: Blood Urea Nitrogen 5 mg/dl (8-23); Carbon Dioxide 23 mmol/L (22-30); Phosphorous 2.3 mg/dL (2.7-4.5); Uric Acid 1.7 mg/dL (2.5-8.0)
[2019-12-12] MEDS: INSULIN LISPRO 1 UNIT/0.01 ML UNIT SQ SCH ×4 (08:07→22:38)
[2019-12-12] MEDS: ceFAZolin 1 GM VIAL IV SCH (08:08)
[2019-12-12 08:39] LABS: Lymphocytes % 6 % (15-49); Monocytes % (Manual) 4 % (1-12); Platelet Estimate NORMAL (NORMAL); RBC Morphology NORMAL (NORMAL); Segmented Neutrophils % 90 % (38-78)
[2019-12-12] MEDS: SERTRALINE 50 MG TABLET PO SCH (08:57)
[2019-12-12] MEDS: DOCUSATE SODIUM 100 MG CAPSULE PO SCH ×2 (08:57→22:01)
[2019-12-12] MEDS: ASPIRIN 325 MG ENTERIC COATED TABLET PO SCH ×2 (08:57→22:02)
[2019-12-12] MEDS: NEUTRA PHOS 1 PACKET PO PRN (08:57)
[2019-12-12] MEDS: MAGNESIUM SULFATE 2 GM/50 ML BAG IV PRN (09:37)
[2019-12-12] MEDS: CEFEPIME 1 GM VIAL IV SCH ×2 (09:37→22:39)
--- NOTE | 2019-12-12 11:36 | Internal Med Progress Note ---
SUBJECTIVE Subjective Patient information: Note initiated : 12/12/19 at 9:12 am Service Date, if different from initiated Date: [] Patient: Esther Hartley a 74 y/o F admitted on 12/09/19 for Fall right hip pain. Chief Complaint: [] Interval history Ms. Hartley is a 74-year-old female with a known history of diabetes Who lives alone fairly independently. Patient unfortunately tripped on Sunday and fell on the floor sustaining injury to the right hip. She denied losing consciousness or lightheadedness dizziness before fall. Due to injury patient was unable to move around and could not call for help however she was able to muster enough strength to get to the couch and has been laying there for the last 3 and half days. Her [facility] became concerned after he was unable to reach her on phone and subsequently summoned EMS. She was discovered laying on couch in a dazed state. She was brought into the ER where initial work-up was consistent with DKA with blood sugars over 600 bicarbonate and of ABG pH 7.2 with severe sepsis white count over 20,000 and pyuria. Patient was started on crystalloids along with insulin drip. Also pelvis CT revealed right hip fracture. Orthopedics was consulted and recommended admission but deferred surgery until stabilization of patient and treatment of DKA. Subsequently hospitalist service was consulted for admission for management of DKA. At the time of evaluation patient is lethargic fatigued. She is unable to provide a detailed history but was able to answer most of the questions and participate in review of systems. 12/09-DKA improving on insulin drip. White count down to 11,000. On antibiotic coverage for complicated UTI. pH improved from 7.2-7.34. Sodium 136, CO2 impr aby from 8-17, anion gap down from 37-11. Creatinine down from 1.1-0.7. Magnesium 1.2 on replacement. 12/10-patient clinically improved. White count down to 6.9. Anion gap braised and bicarbonate normalized. Transition to subcutaneous insulin/CC diet. Will undergo surgery today. Bicarb 19. Potassium up to 3.3. On replacement. Phosphorus 1.1 on replacement. Urine cultures pending. 12/11-patient doing well. DKA resolved. Creatinine baseline. Much improved hemodynamics. Postop day 1. Pain good control. Transfer to medical floor. Hemoglobin 11.8, sodium 131, Constitutional Vitals: Vital Signs Temp Pulse Resp BP Pulse Ox 98.5 F 95 H 22 146/66 95 12/12/19 08:01 12/12/19 08:01 12/12/19 08:01 12/12/19 08:01 12/12/19 08:01 Period Temp Pulse Resp BP Sys/Mackay Pulse Ox Last 24 Hr 97.1 F-98.6 F 65-97 10-33 118-221/44-96 93-100 Intake and Output 12/11/19 12/12/19 12/12/19 21:59 05:59 13:59 Intake Total 2059.0909 1070 65 Output Total 1580 880 Balance 479.0909 190 65 Weight 61.416 kg Alert and oriented Nonlabored breathing No anxiety Nondistended abdomen No significant pain or swelling at surgery site Intake & Output: Intake & Output 12/11/19 12/12/19 12/12/19 21:59 05:59 13:59 Intake Total 2059.0909 1070 65 Output Total 1580 880 Balance 479.0909 190 65 Weight 61.416 kg Intake: IV 559.0909 730 65 Lactated Ringers 1,000 ml @ 100 730 mls/hr IV .Q10H [facility] Rx#: [id number] Potassium Phosphate 40 Meq In 509.0909 Dextrose 5% in Water 500 ml @ 127.273 mls/hr IV ONCE ONE Rx#: [id number] Ancef 2 gm In Dextrose 5% in 50 Water 50 ml @ 100 mls/hr IV PREOP [facility] Rx#:[id number] Oral 100 340 IV - Manual Only 1400 Output: Urine Catheter Amount 1380 880 Estimated Blood Loss 200 Other: Urine Appearance Clear Clear Uretheral (Chavez) Cloudy Cloudy Urine Color Pale Pale Uretheral (Chavez) Light Shayy Light Shayy Urine Odor Foul Foul Stool Size Moderate Stool Color Brown Stool Consistency Soft OBJ DATA Labs CBC & Chem 7: 12/12/19 05:16 12/12/19 05:16 Labs: Abnormal Lab Results 12/12/19 12/12/19 12/11/19 05:16 05:16 07:59 WBC RBC Hgb Hct 33.9 L POC Hct Gran % Lymph % (Auto) Gran # Lymph # (Auto) Seg Neutrophils % 90 H Lymphocytes % 6 L PT 16.3 H INR 1.3 H ABG Methemoglobin VBG pH VBG pCO2 VBG pO2 VBG HCO3 VBG Total CO2 VBG O2 Saturation VBG Base Excess VBG Lactic Acid Carboxyhemoglobin POC Sodium Sodium 131 L Potassium Chloride Carbon Dioxide POC Total CO2 Anion Gap POC BUN BUN 5 L Creatinine 0.4 L Glucose 197 H POC Glucose Uric Acid 1.7 L Calcium 8.1 L Phosphorus 2.3 L Alkaline Phosphatase Total Creatine Kinase CK-MB (CK-2) C-Reactive Protein Total Protein 5.0 L Albumin 2.5 L Globulin Triglycerides Beta-Hydroxybutyrate Urine Protein Urine Glucose (UA) Urine Ketones Urine Occult Blood Ur Leukocyte Esterase Urine RBC Urine WBC Urine Bacteria 12/11/19 12/11/19 12/10/19 04:55 04:55 19:48 WBC RBC Hgb Hct POC Hct Gran % Lymph % (Auto) Gran # Lymph # (Auto) Seg Neutrophils % 86 H Lymphocytes % 9 L PT INR ABG Methemoglobin VBG pH VBG pCO2 VBG pO2 VBG HCO3 VBG Total CO2 VBG O2 Saturation VBG Base Excess VBG Lactic Acid Carboxyhemoglobin POC Sodium Sodium 130 L Potassium Chloride Carbon Dioxide 19 L 19 L POC Total CO2 Anion Gap 7.0 L POC BUN BUN Creatinine 0.4 L 0.5 L Glucose 238 H 224 H POC Glucose Uric Acid Calcium 8.0 L 7.8 L Phosphorus 1.1 L 1.0 L Alkaline Phosphatase Total Creatine Kinase CK-MB (CK-2) C-Reactive Protein Total Protein 5.1 L 5.0 L Albumin 2.7 L 2.7 L Globulin Triglycerides 161 H Beta-Hydroxybutyrate Urine Protein Urine Glucose (UA) Urine Ketones Urine Occult Blood Ur Leukocyte Esterase Urine RBC Urine WBC Urine Bacteria 12/10/19 12/10/19 12/10/19 11:14 03:59 03:59 WBC RBC Hgb Hct POC Hct Gran % Lymph % (Auto) Gran # Lymph # (Auto) Seg Neutrophils % 88 H Lymphocytes % 8 L PT INR ABG Methemoglobin VBG pH VBG pCO2 VBG pO2 VBG HCO3 VBG Total CO2 VBG O2 Saturation VBG Base Excess VBG Lactic Acid Carboxyhemoglobin POC Sodium Sodium Potassium 3.0 L Chloride 110 H Carbon Dioxide 16 L 17 L POC Total CO2 Anion Gap POC BUN BUN Creatinine 0.5 L Glucose 180 H 171 H POC Glucose Uric Acid Calcium 7.9 L 8.4 L Phosphorus 1.0 L 1.2 L Alkaline Phosphatase Total Creatine Kinase CK-MB (CK-2) C-Reactive Protein Total Protein 5.2 L 5.7 L Albumin 2.6 L 2.8 L Globulin Triglycerides Beta-Hydroxybutyrate Urine Protein Urine Glucose (UA) Urine Ketones Urine Occult Blood Ur Leukocyte Esterase Urine RBC Urine WBC Urine Bacteria 12/10/19 12/09/19 12/09/19 00:28 19:54 19:54 WBC RBC Hgb Hct POC Hct Gran % Lymph % (Auto) Gran # Lymph # (Auto) Seg Neutrophils % Lymphocytes % PT INR ABG Methemoglobin 0.1 L 0 L VBG pH 7.28 L VBG pCO2 35.1 L 25.3 L VBG pO2 86 H 123 H VBG HCO3 18.6 L 11.6 L VBG Total CO2 19.7 L 12.4 L VBG O2 Saturation 92.0 H 92.9 H VBG Base Excess -6.3 L -13.3 L VBG Lactic Acid Carboxyhemoglobin 4.3 H 5.6 H POC Sodium Sodium Potassium Chloride Carbon Dioxide 11 L POC Total CO2 Anion Gap 21.0 H POC BUN BUN 29 H Creatinine Glucose 248 H POC Glucose Uric Acid 8.4 H Calcium 7.8 L Phosphorus 2.4 L Alkaline Phosphatase Total Creatine Kinase CK-MB (CK-2) C-Reactive Protein Total Protein Albumin 3.1 L Globulin Triglycerides Beta-Hydroxybutyrate Urine Protein Urine Glucose (UA) Urine Ketones Urine Occult Blood Ur Leukocyte Esterase Urine RBC Urine WBC Urine Bacteria 12/09/19 12/09/19 12/09/19 17:03 15:45 15:45 WBC RBC Hgb Hct POC Hct Gran % Lymph % (Auto) Gran # Lymph # (Auto) Seg Neutrophils % Lymphocytes % PT INR ABG Methemoglobin VBG pH VBG pCO2 VBG pO2 VBG HCO3 VBG Total CO2 VBG O2 Saturation VBG Base Excess VBG Lactic Acid Carboxyhemoglobin POC Sodium Sodium Potassium Chloride Carbon Dioxide POC Total CO2 Anion Gap POC BUN BUN Creatinine Glucose POC Glucose Uric Acid Calcium Phosphorus Alkaline Phosphatase Total Creatine Kinase 200 H CK-MB (CK-2) 4.4 H C-Reactive Protein Total Protein Albumin Globulin Triglycerides Beta-Hydroxybutyrate 8.93 H Urine Protein 100 A Urine Glucose (UA) >=500 A Urine Ketones 80 A Urine Occult Blood >=1.0 A Ur Leukocyte Esterase 250 A Urine RBC 81 H Urine WBC > 182 H Urine Bacteria Few A 12/09/19 12/09/19 12/09/19 15:44 15:44 15:44 WBC 20.3 H RBC 5.81 H Hgb 17.6 H Hct 49.5 H POC Hct 53.0 H Gran % 94.8 H Lymph % (Auto) 1.8 L Gran # 19.19 H Lymph # (Auto) 0.36 L Seg Neutrophils % Lymphocytes % PT INR ABG Methemoglobin VBG pH VBG pCO2 VBG pO2 VBG HCO3 VBG Total CO2 VBG O2 Saturation VBG Base Excess VBG Lactic Acid 2.4 H Carboxyhemoglobin POC Sodium 131 L Sodium 130 L Potassium Chloride 85 L Carbon Dioxide 8 L* POC Total CO2 11 L Anion Gap 37.0 H POC BUN 35 H BUN 32 H Creatinine Glucose 533 H* POC Glucose 530 H* Uric Acid Calcium Phosphorus Alkaline Phosphatase 126 H Total Creatine Kinase CK-MB (CK-2) C-Reactive Protein 10.2 H Total Protein Albumin Globulin 4.0 H Triglycerides Beta-Hydroxybutyrate Urine Protein Urine Glucose (UA) Urine Ketones Urine Occult Blood Ur Leukocyte Esterase Urine RBC Urine WBC Urine Bacteria Meds: Medications Acetaminophen (Tylenol) 650 mg PO Q4-6HP PRN; Protocol PRN Reason: Per Pain Protocol/Fever > 101 Hydrocodone Bitart/Acetaminophen ([place] 7.5/325mg) 1 tab PO BIDP PRN; Protocol PRN Reason: pain Amitriptyline HCl (Elavil) 100 mg PO QHS [facility] Last Admin: 12/11/19 21:00 Dose: Not Given Documented by: Aspirin (Ecotrin) 325 mg PO BID [facility] Last Admin: 12/12/19 08:57 Dose: 325 mg Documented by: Bisacodyl (Dulcolax) 10 mg [place] Q2-3DAYS PRN PRN Reason: Constipation Cefepime HCl (Maxipime) 1 gm IV Q12H [facility] Last Admin: 12/11/19 21:37 Dose: 1 gm Documented by: Diagnostic Test (Pha) (Accu-Chek) 1 each FS ACHS [facility] Last Admin: 12/12/19 07:19 Dose: 1 each Documented by: Docusate Sodium (Colace) 100 mg PO BID [facility] Last Admin: 12/12/19 08:57 Dose: 100 mg Documented by: Hydralazine HCl (Apresoline) 10 mg IV Q4-6HP PRN PRN Reason: Hypertension Hydromorphone HCl (Dilaudid) 0 mg IV Q4HP PRN; Protocol PRN Reason: Per Pain Protocol Last Admin: 12/12/19 07:24 Dose: 0.5 mg Documented by: Hydromorphone HCl (Dilaudid) 0 mg IV Q2HP PRN; Protocol PRN Reason: Per Pain Protocol Acetaminophen (Ofirmev) 650 mg in 65 mls @ 130 mls/hr IV Q6HP PRN; Protocol PRN Reason: Per Pain Protocol/Fever > 101 Last Infusion: 12/12/19 07:21 Dose: Infused Documented by: Magnesium Sulfate (Magnesium Sulfate) 2 gm in 50 mls @ 50 mls/hr IV UD PRN PRN Reason: MG = or < 1.7 Last Infusion: 12/10/19 21:21 Dose: Infused Documented by: Potassium Chloride 40 meq/ (Dextrose) 520 mls @ 130 mls/hr IV UD PRN PRN Reason: K+ = or < 3.5 Last Infusion: 12/11/19 13:30 Dose: Infused Documented by: Lactated Ringer's (Lactated Ringers) 1,000 mls @ 100 mls/hr IV .Q10H [facility] Last Admin: 12/12/19 07:04 Dose: Not Given Documented by: Insulin Glargine (Lantus) [address] [facility] Last Admin: 12/11/19 20:59 Dose: 10 unit Documented by: Insulin Human Lispro (Humalog) 0 unit SQ [facility]; Protocol Last Admin: 12/12/19 08:07 Dose: 3 units Documented by: Magnesium Hydroxide (Milk Of Magnesia) 30 ml PO BIDP PRN PRN Reason: Constipation Melatonin (Melatonin 3mg Tablet) 3 mg PO HSP PRN PRN Reason: Insomnia Metoprolol Tartrate (Lopressor) 5 mg IV Q5M PRN PRN Reason: Heart Rate > 140 bpm Ondansetron HCl (Zofran Odt) 4 mg SL Q4-6HP PRN; Protocol PRN Reason: Nausea And Vomiting Last Admin: 12/12/19 07:43 Dose: 4 mg Documented by: Ondansetron HCl (Zofran) 4 mg IV Q4-6HP PRN; Protocol PRN Reason: Nausea And Vomiting Last Admin: 12/10/19 13:49 Dose: 4 mg Documented by: Oxycodone/Acetaminophen (Percocet 5-325 Mg) 0 tab PO Q4HP PRN; Protocol PRN Reason: Per Pain Protocol Polyethylene Glycol (Miralax) 17 gm PO DAILYP PRN PRN Reason: Constipation Last Admin: 12/12/19 08:57 Dose: 17 gm Documented by: Potassium Chloride (Klor-Con) 40 meq PO DAILYP PRN PRN Reason: K+ < 3.5 Potassium/Phosphorus/Sodium (Neutra Phos) 2 packet PO BIDP PRN PRN Reason: Phosphorus < 2.6 Last Admin: 12/12/19 08:57 Dose: 2 packet Documented by: Senna (Senokot) [address] [facility] Last Admin: 12/11/19 21:00 Dose: Not Given Documented by: Senna/Docusate Sodium (Senna Plus Tablet) [address] [facility] Last Admin: 12/11/19 21:00 Dose: Not Given Documented by: Sertraline HCl (Zoloft) 150 mg PO QDAY [facility] Last Admin: 12/12/19 08:57 Dose: 150 mg Documented by: Sodium Biphosphate/Sodium Phosphate (Fleets Adult) 1 dose [place] Q3-4DAYS PRN PRN Reason: Constipation Sodium Chloride (Saline Flush) 10 ml IV Q8 [facility] Last Admin: 12/12/19 06:58 Dose: Not Given Documented by: Temazepam (Restoril) 15 mg PO HSP PRN PRN Reason: Insomnia Throat Lozenges (Cepacol) 1 lozenge PO PRN PRN PRN Reason: Sore Throat ABG Interpretation ABG results: 12/09/19 12/10/19 19:54 00:28 ABG Methemoglobin 0 L 0.1 L VBG pH 7.28 L 7.34 VBG pCO2 25.3 L 35.1 L VBG pO2 123 H 86 H VBG HCO3 11.6 L 18.6 L VBG Total CO2 12.4 L 19.7 L VBG O2 Saturation 92.9 H 92.0 H VBG Base Excess -13.3 L -6.3 L A/P Assessment and plan (1) DKA (diabetic ketoacidoses): Status: Acute Time Spent With Patient Time: Diabetic ketoacidosis-clinically resolved with management per protocol. Off insulin drip -on CC diet/subcu insulin Low potassium and phosphorus resolved with replacement RT Hip Fracture-postop day 1. Managed per orthopedics. Postop pain management as per orthopedics. Sepsis -clinically resolved. White count down from 20,000->6000 Generalized weakness/deconditioning-start PT OT post operative phase Complicated UTI-continue antibiotic coverage. Cultures negative so far History of hypertension restart antiHTN meds GERD continue PPI Hyperlipidemia on statin History of CAD on aspirin and statin/ARB Anxiety disorder on sertraline Full code Prophylaxis SCDs Plan Continue postop care/pain management as per orthopedics Aggressive postop PT OT De-escalate antibiotics in 24 hours PT OT nutrition support Discharge planning likely SNF Total time spent is greater than 50% in coordination of care (as documented) at patient's floor/unit and/or counseling patient: 25 minutes QUALITY VTE Deep Vein Thrombosis/Pulmonary Embolism Present on Admission: No
[2019-12-12] MEDS ORDERED: TEMAZEPAM 15 MG CAPSULE PO PRN (12:16)
[2019-12-12] MEDS ORDERED: METOPROLOL TARTRATE 5 MG/5 ML VIAL IV PRN (12:16)
[2019-12-12] MEDS ORDERED: POTASSIUM CHLORIDE 20 MEQ PACKET PO PRN (12:16)
[2019-12-12] MEDS ORDERED: BISACODYL 10 MG SUPP.RECT PR PRN (12:16)
[2019-12-12] MEDS ORDERED: POLYETHYLENE GLYCOL 3350 17 GM PACKET PO PRN (12:16)
[2019-12-12] MEDS ORDERED: MAGNESIUM HYDROXIDE 30 ML ORAL.SUSP PO PRN (12:16)
[2019-12-12] MEDS ORDERED: MELATONIN 3 MG TABLET PO PRN (12:16)
[2019-12-12] MEDS ORDERED: POTASSIUM CHLORIDE 40 MEQ in DEXTROSE 5% IN WATER 500 ML IV PRN (12:16)
[2019-12-12] MEDS ORDERED: HYDROmorphone 0.5 MG/0.5 ML SYRINGE IV PRN (12:16)
[2019-12-12] MEDS ORDERED: BENZOCAINE/MENTHOL 1 LOZENGE PO PRN (12:16)
[2019-12-12] MEDS ORDERED: HYDROmorphone 1 MG/ML SYRINGE IV PRN (12:16)
[2019-12-12] MEDS ORDERED: ONDANSETRON 4 MG ODT TABLET SL PRN (12:16)
[2019-12-12] MEDS ORDERED: hydrALAZINE 20 MG/ML VIAL IV PRN (12:16)
[2019-12-12] MEDS ORDERED: FLEETS ADULT ENEMA PR PRN (12:16)
[2019-12-12] MEDS ORDERED: MAGNESIUM SULFATE 2 GM/50 ML BAG IV PRN (12:16)
[2019-12-12] MEDS ORDERED: ACETAMINOPHEN 650 MG/65 ML BOTTLE IV PRN (12:16)
[2019-12-12] MEDS ORDERED: ACETAMINOPHEN 325 MG TABLET PO PRN (12:16)
--- NOTE | 2019-12-12 13:45 | Discharge Summary ---
Discharge Provider Provider Patient information: Note initiated : 12/12/19 at 1:45 pm Service Date, if different from initiated Date: [] Patient: Esther Hartley 74 y/o F admitted on 12/09/19 for Fall right hip pain. Chief Complaint: [] Date of admission: 12/09/19 19:28 Primary care physician: Dinorah Regalado Consults: 12/09/19 Consult to Physician [CONS] Stat Comment: Consulting Provider: Slade Bradford Reason For Exam: Physician to Consult Consult to Physician [CONS] Stat Comment: Consulting Provider: Kobi Hemphill Reason For Exam: Physician to Consult Discharge Meds Discharge Medications Active and Home Medications: Home Medications sertraline 100 mg tablet 150 mg PO QDAY 90 Days #135 tab 09/23/15 [Rx Confirmed 12/09/19 Last Taken 04/01/19] hydrocodone 7.5 mg-acetaminophen 325 mg tablet 1 tab PO BID PRN #60 tab 12/02/15 [Rx Confirmed 12/09/19 Last Taken 03/30/19] amitriptyline 100 mg tablet 100 mg PO QHS #90 tab 04/14/16 [Rx Confirmed 12/09/19 Last Taken 04/01/19] metformin 500 mg PO BIDCC #30 tab 01/02/17 [Rx Confirmed 12/09/19 Last Taken Unknown] nitrofurantoin monohyd/m-cryst 100 mg PO BID #14 cap 06/20/18 [Rx Confirmed 12/09/19 Last Taken Unknown] insulin glargine 10 unit SQ HS #1 ml 03/30/19 [Rx Confirmed 12/09/19 Last Taken 04/02/19] COURSE Time Spent with Patient Time attestation: Total time spent providing and/or coordinating discharge services: EXAM Constitutional Vitals: Temp Pulse Resp BP Pulse Ox 98.5 F 81 19 129/65 93 12/12/19 11:00 12/12/19 11:00 12/12/19 11:00 12/12/19 11:00 12/12/19 11:00 Discharge Data Data Completed and Pending Labs on day of discharge: Labs from last 24 hours 12/12/19 12/12/19 12/12/19 05:16 05:16 05:00 WBC 8.5 RBC 3.91 Hgb 11.8 Hct 33.9 L MCV 86.7 MCH 30.2 MCHC 34.8 RDW 12.2 Plt Count 207 MPV 10.0 Total Counted 100 Seg Neutrophils % 90 H Band Neutrophils % Not Reportable Lymphocytes % 6 L Monocytes % (Manual) 4 Platelet Estimate Normal RBC Morphology Normal Sodium 131 L Potassium 4.1 Chloride 98 Carbon Dioxide 23 Anion Gap 10.0 BUN 5 L Creatinine 0.4 L GFR Calculation 104 Glucose 197 H Uric Acid 1.7 L Calcium 8.1 L Phosphorus 2.3 L Magnesium 1.6 Total Bilirubin 0.3 Direct Bilirubin < 0.2 GGT 13 AST 17 ALT 10 Alkaline Phosphatase 69 Lactate Dehydrogenase 192 Total Protein 5.0 L Albumin 2.5 L Globulin 2.5 Albumin/Globulin Ratio 1.0 Triglycerides 129 Preliminary micro results at discharge 12/09/19 17:10 Blood Culture - Preliminary Blood 12/09/19 17:29 Blood Culture - Preliminary Blood Discharge Plan Patient/Caregiver Discharge Instructions Prescriptions: No Action hydrocodone-acetaminophen 7.5-325 mg tablet 1 tab PO BID PRN (Reason: pain) Qty: 60 RF: 0 amitriptyline 100 mg tablet 100 mg PO QHS Qty: 90 RF: 0 sertraline 100 mg tablet 150 mg PO QDAY 90 Days Qty: 135 RF: 3 metformin 500 MG Tablet 500 mg PO BIDCC Qty: 30 RF: 0 nitrofurantoin monohyd/m-cryst 100 MG capsule 100 mg PO BID Qty: 14 RF: 0 insulin glargine 1 UNIT/0.01 ML unit 10 unit SQ HS Qty: 1 RF: 0 Follow Up Plan Follow up with: Dinorah Regalado MD [Primary Care Provider] - Prognosis: Serious QUALITY VTE Deep Vein Thrombosis/Pulmonary Embolism Present on Admission: No
--- NOTE | 2019-12-12 13:47 | Discharge Summary ---
Discharge Provider Provider Patient information: Note initiated : 12/12/19 at 1:45 pm Service Date, if different from initiated Date: [] Patient: Esther Hartley 74 y/o F admitted on 12/09/19 for Fall right hip pain. Chief Complaint: [] Date of admission: 12/09/19 19:28 Discharge date: 12/15/19 Primary care physician: Dinorah Regalado Consults: 12/09/19 Consult to Physician [CONS] Stat Comment: Consulting Provider: Slade Bradford Reason For Exam: Physician to Consult Consult to Physician [CONS] Stat Comment: Consulting Provider: Kobi Hemphill Reason For Exam: Physician to Consult Discharge Meds Discharge Medications Active and Home Medications: Home Medications sertraline 100 mg tablet 150 mg PO QDAY 90 Days #135 tab 09/23/15 [Rx Confirmed 12/09/19 Last Taken 04/01/19] hydrocodone 7.5 mg-acetaminophen 325 mg tablet 1 tab PO BID PRN #60 tab 12/02/15 [Rx Confirmed 12/09/19 Last Taken 03/30/19] amitriptyline 100 mg tablet 100 mg PO QHS #90 tab 04/14/16 [Rx Confirmed 12/09/19 Last Taken 04/01/19] metformin 500 mg PO BIDCC #30 tab 01/02/17 [Rx Confirmed 12/09/19 Last Taken Unknown] nitrofurantoin monohyd/m-cryst 100 mg PO BID #14 cap 06/20/18 [Rx Confirmed 12/09/19 Last Taken Unknown] insulin glargine 10 unit SQ HS #1 ml 03/30/19 [Rx Confirmed 12/09/19 Last Taken 04/02/19] COURSE Hospital Course Hospital Course: Ms. Hartley is a 74-year-old female with a known history of diabetes Who lives alone fairly independently. Patient unfortunately tripped on Sunday and fell on the floor sustaining injury to the right hip. She denied losing consciousness or lightheadedness dizziness before fall. Due to injury patient was unable to move around and could not call for help however she was able to muster enough strength to get to the couch and has been laying there for the last 3 and half days. Her who is recovering at [facility] became concerned after he was unable to reach her on phone and subsequently summoned EMS. She was discovered laying on couch in a dazed state. She was brought into the ER where initial work-up was consistent with DKA with blood sugars over 600 bicarbonate and of ABG pH 7.2 with severe sepsis white count over 20,000 and pyuria. Patient was started on crystalloids along with insulin drip. Also pelvis CT revealed right hip fracture. Orthopedics was consulted and recommended admission but deferred surgery until stabilization of patient and treatment of DKA. Subsequently hospitalist service was consulted for admission for management of DKA. At the time of evaluation patient is lethargic fatigued. She is unable to provide a detailed history but was able to answer most of the questions and participate in review of systems. 12/09-DKA improving on insulin drip. White count down to 11,000. On antibiotic coverage for complicated UTI. pH improved from 7.2-7.34. Sodium 136, CO2 improved from 8-17, anion gap down from 37-11. Creatinine down from 1.1-0.7. Magnesium 1.2 on replacement. 12/10-patient clinically improved. White count down to 6.9. Anion gap braised and bicarbonate normalized. Transition to subcutaneous insulin/CC diet. Will undergo surgery today. Bicarb 19. Potassium up to 3.3. On replacement. Phosphorus 1.1 on replacement. Urine cultures pending. 12/11-patient doing well. DKA resolved. Creatinine baseline. Much improved hemodynamics. Postop day 1. Pain good control. Transfer to medical floor. Hemoglobin 11.8, sodium 131, 12/12 Patient did not sleep well last night. Tired this morning. No overnight events or new complaints. 12/13 No overnight events or new complaints. Sitting up in bed eating breakfast. Awaiting placement to rehab. 12/14 Doing well, no new planes overnight events. A/P Narrative: A: *Diabetic ketoacidosis: resolved *Hypokalemia/phos: improved *RT Hip Fracture: s/p ORIF (12/10), Managed per orthopedics. Postop pain management as per orthopedics. *Sepsis: resolved *Complicated UTI: Cultures negative so far *Generalized weakness/deconditioning *GERD/Hyperlipidemia: *h/o CAD: on aspirin and statin/ARB *Depression/Anxiety disorder: on sertraline and amitriptyline Discharge diagnosis: dka right hip fracture sepsis UTI hypertension Secondary discharge diagnosis: GERD CAD anxiety Time Spent with Patient Time attestation: Total time spent providing and/or coordinating discharge services: Time spent: Greater than 30 minutes EXAM Constitutional Vitals: Temp Pulse Resp BP Pulse Ox 98.5 F 81 19 129/65 93 12/12/19 11:00 12/12/19 11:00 12/12/19 11:00 12/12/19 11:00 12/12/19 11:00 Discharge Data Data Completed and Pending Labs on day of discharge: Labs from last 24 hours 12/12/19 12/12/19 12/12/19 05:16 05:16 05:00 WBC 8.5 RBC 3.91 Hgb 11.8 Hct 33.9 L MCV 86.7 MCH 30.2 MCHC 34.8 RDW 12.2 Plt Count 207 MPV 10.0 Total Counted 100 Seg Neutrophils % 90 H Band Neutrophils % Not Reportable Lymphocytes % 6 L Monocytes % (Manual) 4 Platelet Estimate Normal RBC Morphology Normal Sodium 131 L Potassium 4.1 Chloride 98 Carbon Dioxide 23 Anion Gap 10.0 BUN 5 L Creatinine 0.4 L GFR Calculation 104 Glucose 197 H Uric Acid 1.7 L Calcium 8.1 L Phosphorus 2.3 L Magnesium 1.6 Total Bilirubin 0.3 Direct Bilirubin < 0.2 GGT 13 AST 17 ALT 10 Alkaline Phosphatase 69 Lactate Dehydrogenase 192 Total Protein 5.0 L Albumin 2.5 L Globulin 2.5 Albumin/Globulin Ratio 1.0 Triglycerides 129 Preliminary micro results at discharge 12/09/19 17:10 Blood Culture - Preliminary Blood 12/09/19 17:29 Blood Culture - Preliminary Blood Discharge Plan Patient/Caregiver Discharge Instructions Activity: increase activity as tolerated Diet: Consistent Carbohydrate Prescriptions: Continued hydrocodone-acetaminophen 7.5-325 mg tablet 1 tab PO BID PRN (Reason: pain) Qty: 60 RF: 0 amitriptyline 100 mg tablet 100 mg PO QHS Qty: 90 RF: 0 sertraline 100 mg tablet 150 mg PO QDAY 90 Days Qty: 135 RF: 3 metformin 500 MG tablet 500 mg PO BIDCC Qty: 30 RF: 0 nitrofurantoin monohyd/m-cryst 100 MG capsule 100 mg PO BID Qty: 14 RF: 0 insulin glargine 1 UNIT/0.01 ML unit 10 unit SQ HS Qty: 1 RF: 0 Follow Up Plan Follow up with: Dinorah Regalado MD [Primary Care Provider] - Kobi Hemphill MD [Physician] - Patient Disposition: Xfer SNF Rehab Potential: Fair I certify that the patient requires SNF services: Yes Overall status at discharge: patient is progressing back to baseline Discharge Orders: Discharge Order (Routine); Ordered 12/15/19 Ordered By: Fermin Hassan [facility] VTE Deep Vein Thrombosis/Pulmonary Embolism Present on Admission: No
--- NOTE | 2019-12-12 14:03 | Operative Note ---
DATE OF OPERATION: 12/09/2019 PREOPERATIVE DIAGNOSIS: Right hip fracture. POSTOPERATIVE DIAGNOSIS: Right hip fracture. PROCEDURE: Right cemented hip arthroplasty. SURGEON: Kobi Hemphill MD. OPEN HEARTH HELPER: Je Downs PA-C. The PA's assistance was required for the safe and efficient completion of the entire case. This provider's expertise and technical skill were required throughout the case. The PA assisted with preoperative coordination, intraoperative retraction, wound closure, dressing and splint application, as well as postoperative documentation and care coordination. ANESTHESIA: General LMA anesthesia. COMPLICATIONS: None. DESCRIPTION OF PROCEDURE: The patient was brought to the operating room and put to sleep with general LMA anesthesia. Once asleep, a timeout was performed. We confirmed the operative site by initials, consent form and x-rays. Superior approach was performed. Once we exposed, we made our neck cut at the fracture site and then cemented into place a size 5 cemented stem with a neutral neck length with a dual mobility ball or bipolar. After the cement had dried, we then reduced the hip which was very stable throughout the arc of motion. I repaired the posterior capsule, closed the fascial layer with #1 Stratafix, and closed the skin with Stratafix and adhesive closure. The patient tolerated this well. There was no complication. RBH:nannette Job ID: [id number] Doc ID: [id number] Kobi Hemphill MD
[2019-12-12] MEDS: HYDROCODONE/APAP 7.5/325MG TABLET PO PRN (15:04)
[2019-12-12] MEDS: oxyCODONE/APAP 5/325MG TABLET PO PRN (19:30)
[2019-12-12] MEDS: SENNOSIDES 1 TABLET PO SCH (22:01)
[2019-12-12] MEDS: SENNOSIDES/DOCUSATE SODIUM 1 TAB TABLET PO SCH (22:01)
[2019-12-12] MEDS: AMITRIPTYLINE 25 MG TABLET PO SCH (22:02)
[2019-12-12] MEDS: INSULIN GLARGINE, HUMAN 1 UNIT/0.01 ML SQ SCH (22:38)
[2019-12-13] MEDS: oxyCODONE/APAP 5/325MG TABLET PO PRN (03:10)
[2019-12-13] MEDS: 0.9 % SODIUM CHLORIDE 10 ML SYRINGE IV SCH ×5 (05:05→20:53)
[2019-12-13 06:43] LABS: Hemoglobin 11.4 g/dL (11.2-15.7); Mean Cell Volume 87.1 fL (80.0-100.0); Mean Corpuscular HGB Conc 34.5 g/dL (31.0-36.0); Mean Platelet Volume 9.9 fL (7.4-10.4); Platelet Count 203 K/mcL (140-440); RBC 3.79 M/mcL (3.59-5.38); Red Cell Distribution Width 12.2 % (11.5-14.5); WBC 7.4 K/mcL (4.50-11.00)
[2019-12-13 07:13] LABS: ALT/SGPT 10 U/l (0-40); AST/SGOT 18 U/l (0-37); Albumin 2.8 gm/dL (3.2-5.2); Albumin/Globulin Ratio 1.1 (1.0-2.3); Alkaline Phosphatase 73 U/L (39-117); Bilirubin,Direct < 0.2 mg/dL (0.0-0.3); Bilirubin,Total 0.3 mg/dL (0.0-1.0); Blood Urea Nitrogen 5 mg/dl (8-23); Calcium 8.2 mg/dl (8.6-10.4); Carbon Dioxide 29 mmol/L (22-30); Chloride 99 mmol/L (96-108); Globulin 2.5 gm/dL (2.2-3.7); Glomerular Filtration Rate 104; Glucose 150 mg/dL (70-105); Lactate Dehydrogenase 202 U/L (94-250); Phosphorous 2.4 mg/dL (2.7-4.5); Triglycerides 143 mg/dl (<150); Uric Acid 1.7 mg/dL (2.5-8.0)
[2019-12-13] MEDS: LACTATED RINGERS 1,000 ML IV SCH (07:30)
[2019-12-13] MEDS: DOCUSATE SODIUM 100 MG CAPSULE PO SCH ×2 (08:25→20:52)
[2019-12-13] MEDS: SERTRALINE 50 MG TABLET PO SCH (08:26)
[2019-12-13] MEDS: ASPIRIN 325 MG ENTERIC COATED TABLET PO SCH ×2 (08:27→20:52)
[2019-12-13] MEDS: NEUTRA PHOS 1 PACKET PO PRN ×2 (08:28→20:53)
[2019-12-13 08:30] LABS: Lymphocytes % 11 % (15-49); Monocytes % (Manual) 6 % (1-12); Platelet Estimate NORMAL (NORMAL); RBC Morphology NORMAL (NORMAL); Segmented Neutrophils % 83 % (38-78)
[2019-12-13] MEDS: CEFEPIME 1 GM VIAL IV SCH ×2 (08:31→21:25)
--- NOTE | 2019-12-13 08:40 | Internal Med Progress Note ---
SUBJECTIVE Subjective Patient information: Note initiated : 12/13/19 at 8:30 am Service Date, if different from initiated Date: [] Patient: Esther Hartley a 74 y/o F admitted on 12/09/19 for Fall right hip pain. Chief Complaint: [] Ms. Hartley is a 74-year-old female with a known history of diabetes Who lives alone fairly independently. Patient unfortunately tripped on Sunday and fell on the floor sustaining injury to the right hip. She denied losing consciousness or lightheadedness dizziness before fall. Due to injury patient was unable to move around and could not call for help however she was able to muster enough strength to get to the couch and has been laying there for the last 3 and half days. Her who is recovering at assisted became concerned after he was unable to reach her on phone and subsequently summoned EMS. She was discovered laying on couch in a dazed state. She was brought into the ER where initial work-up was consistent with DKA with blood sugars over 600 bicarbonate and of ABG pH 7.2 with severe sepsis white count over 20,000 and pyuria. Patient was started on crystalloids along with insulin drip. Also pelvis CT revealed right hip fracture. Orthopedics was consulted and recommended admission but deferred surgery until stabilization of patient and treatment of DKA. Subsequently hospitalist service was consulted for admission for management of DKA. At the time of evaluation patient is lethargic fatigued. She is unable to provide a detailed history but was able to answer most of the questions and participate in review of systems. 12/09-DKA improving on insulin drip. White count down to 11,000. On antibiotic coverage for complicated UTI. pH improved from 7.2-7.34. Sodium 136, CO2 improved from 8-17, anion gap down from 37-11. Creatinine down from 1.1-0.7. Magnesium 1.2 on replacement. 12/10-patient clinically improved. White count down to 6.9. Anion gap braised and bicarbonate normalized. Transition to subcutaneous insulin/CC diet. Will undergo surgery today. Bicarb 19. Potassium up to 3.3. On replacement. Phosphorus 1.1 on replacement. Urine cultures pending. 12/11-patient doing well. DKA resolved. Creatinine baseline. Much improved hemodynamics. Postop day 1. Pain good control. Transfer to medical floor. Hemoglobin 11.8, sodium 131, 12/12 Patient did not sleep well last night. Tired this morning. No overnight events or new complaints. Review of Systems: denies headache/fever/chills/nausea/vomiting/chest or abdominal pain/cough/dyspnea/diarrhea. Otherwise see above. Constitutional Vitals: Vital Signs Temp Pulse Resp BP Pulse Ox 98.0 F 61 16 128/56 94 12/13/19 08:00 12/13/19 08:00 12/13/19 08:00 12/13/19 08:00 12/13/19 08:00 Period Temp Pulse Resp BP Sys/Mackay Pulse Ox Last 24 Hr 97.8 F-98.8 F 61-94 16-22 121-146/52-68 91-95 Intake and Output 12/12/19 12/13/19 12/13/19 21:59 05:59 13:59 Intake Total 360 180 Output Total 500 477 150 Balance -140 -297 -150 Weight 63.73 kg Intake & Output: Intake & Output 12/12/19 12/13/19 12/13/19 21:59 05:59 13:59 Intake Total 360 180 Output Total 500 477 150 Balance -140 -297 -150 Weight 63.73 kg Intake: Oral 360 180 Output: Void Amount 500 475 150 # of times incontinent of urine 2 Other: Meal Dinner Percent of Meal Consumed 75% Urine Appearance Clear Urine Color Pale Pale Urine Odor Normal Normal Exam: General: Awake, No acute Distress Eyes/N/T: EOMI, Head/Neck: neck supple, CV: RRR, No murmurs, Pulm: Clear b/l, no wheezing/rhonchi/rales Abd: soft, nontender, +BS x4 Ext: no clubbing/cyanosis/edema Neuro: no focal deficits, moves all extremities, Skin: warm/dry OBJ DATA Labs CBC & Chem 7: 12/13/19 05:09 12/13/19 05:09 Labs: Abnormal Lab Results 12/13/19 12/13/19 12/12/19 05:09 05:09 05:16 Hct 33.0 L Seg Neutrophils % 83 H Lymphocytes % 11 L PT INR Sodium 131 L Potassium 3.2 L Chloride Carbon Dioxide Anion Gap BUN 5 L 5 L Creatinine 0.4 L 0.4 L Glucose 150 H 197 H Uric Acid 1.7 L 1.7 L Calcium 8.2 L 8.1 L Phosphorus 2.4 L 2.3 L Total Protein 5.3 L 5.0 L Albumin 2.8 L 2.5 L Triglycerides 12/12/19 12/11/19 12/11/19 05:16 07:59 04:55 Hct 33.9 L Seg Neutrophils % 90 H Lymphocytes % 6 L PT 16.3 H INR 1.3 H Sodium Potassium Chloride Carbon Dioxide 19 L Anion Gap BUN Creatinine 0.4 L Glucose 238 H Uric Acid Calcium 8.0 L Phosphorus 1.1 L Total Protein 5.1 L Albumin 2.7 L Triglycerides 161 H 12/11/19 12/10/19 12/10/19 04:55 19:48 11:14 Hct Seg Neutrophils % 86 H Lymphocytes % 9 L PT INR Sodium 130 L Potassium 3.0 L Chloride 110 H Carbon Dioxide 19 L 16 L Anion Gap 7.0 L BUN Creatinine 0.5 L 0.5 L Glucose 224 H 180 H Uric Acid Calcium 7.8 L 7.9 L Phosphorus 1.0 L 1.0 L Total Protein 5.0 L 5.2 L Albumin 2.7 L 2.6 L Triglycerides Meds: Medications Acetaminophen (Tylenol) 650 mg PO Q4-6HP PRN; Protocol PRN Reason: Per Pain Protocol/Fever > 101 Hydrocodone Bitart/Acetaminophen ([place] 7.5/325mg) 1 tab PO BIDP PRN; Protocol PRN Reason: pain Last Admin: 12/12/19 15:04 Dose: 1 tab Documented by: Amitriptyline HCl (Elavil) 100 mg PO QHS [facility] Last Admin: 12/12/19 22:02 Dose: 100 mg Documented by: Aspirin (Ecotrin) 325 mg PO BID [facility] Last Admin: 12/12/19 22:02 Dose: 325 mg Documented by: Bisacodyl (Dulcolax) 10 mg GA Q2-3DAYS PRN PRN Reason: Constipation Cefepime HCl (Maxipime) 1 gm IV Q12H [facility] Last Admin: 12/12/19 22:39 Dose: 1 gm Documented by: Diagnostic Test (Pha) (Accu-Chek) 1 each FS ACHS [facility] Last Admin: 12/13/19 07:57 Dose: 1 each Documented by: Docusate Sodium (Colace) 100 mg PO BID [facility] Last Admin: 12/12/19 22:01 Dose: 100 mg Documented by: Heparin Sodium (Porcine) (Heparin 10 Units/Ml Flush) 5 ml IV Q12 [facility] Last Admin: 12/12/19 22:39 Dose: 5 ml Documented by: Hydralazine HCl (Apresoline) 10 mg IV Q4-6HP PRN PRN Reason: Hypertension Hydromorphone HCl (Dilaudid) 0 mg IV Q2HP PRN; Protocol PRN Reason: Per Pain Protocol Hydromorphone HCl (Dilaudid) 0 mg IV Q4HP PRN; Protocol PRN Reason: Per Pain Protocol Acetaminophen (Ofirmev) 650 mg in 65 mls @ 130 mls/hr IV Q6HP PRN; Protocol PRN Reason: Per Pain Protocol/Fever > 101 Lactated Ringer's (Lactated Ringers) 1,000 mls @ 100 mls/hr IV .Q10H [facility] Last Admin: 12/13/19 07:30 Dose: Not Given Documented by: Magnesium Sulfate (Magnesium Sulfate) 2 gm in 50 mls @ 50 mls/hr IV UD PRN PRN Reason: MG = or < 1.7 Potassium Chloride 40 meq/ (Dextrose) 520 mls @ 130 mls/hr IV UD PRN PRN Reason: K+ = or < 3.5 Insulin Glargine (Lantus) 10 unit SQ HS [facility] Last Admin: 12/12/19 22:38 Dose: 10 units Documented by: Insulin Human Lispro (Humalog) 0 unit SQ [facility]; Protocol Last Admin: 12/12/19 22:38 Dose: 3 units Documented by: Magnesium Hydroxide (Milk Of Magnesia) 30 ml PO BIDP PRN PRN Reason: Constipation Melatonin (Melatonin 3mg Tablet) 3 mg PO HSP PRN PRN Reason: Insomnia Metoprolol Tartrate (Lopressor) 5 mg IV Q5M PRN PRN Reason: Heart Rate > 140 bpm Ondansetron HCl (Zofran Odt) 4 mg SL Q4-6HP PRN; Protocol PRN Reason: Nausea And Vomiting Last Admin: 12/12/19 16:18 Dose: 4 mg Documented by: Ondansetron HCl (Zofran) 4 mg IV Q4-6HP PRN; Protocol PRN Reason: Nausea And Vomiting Oxycodone/Acetaminophen (Percocet 5-325 Mg) 0 tab PO Q4HP PRN; Protocol PRN Reason: Per Pain Protocol Last Admin: 12/13/19 03:10 Dose: 1 tab Documented by: Polyethylene Glycol (Miralax) 17 gm PO DAILYP PRN PRN Reason: Constipation Potassium Chloride (Klor-Con) 40 meq PO DAILYP PRN PRN Reason: K+ < 3.5 Potassium/Phosphorus/Sodium (Neutra Phos) 2 packet PO BIDP PRN PRN Reason: Phosphorus < 2.6 Senna (Senokot) 2 tab PO [facility] Last Admin: 12/12/19 22:01 Dose: 2 tab Documented by: Senna/Docusate Sodium (Senna Plus Tablet) 1 tab PO [facility] Last Admin: 12/12/19 22:01 Dose: 1 tab Documented by: Sertraline HCl (Zoloft) 150 mg PO QDAY [facility] Sodium Biphosphate/Sodium Phosphate (Fleets Adult) 1 dose GA Q3-4DAYS PRN PRN Reason: Constipation Sodium Chloride (Saline Flush) 10 ml IV Q12 [facility] Last Admin: 12/12/19 22:39 Dose: 10 ml Documented by: Sodium Chloride (Saline Flush) 10 ml IV Q8 [facility] Last Admin: 12/13/19 05:05 Dose: 10 ml Documented by: Temazepam (Restoril) 15 mg PO HSP PRN PRN Reason: Insomnia Throat Lozenges (Cepacol) 1 lozenge PO PRN PRN PRN Reason: Sore Throat ABG Interpretation ABG results: 12/09/19 12/10/19 19:54 00:28 ABG Methemoglobin 0 L 0.1 L VBG pH 7.28 L 7.34 VBG pCO2 25.3 L 35.1 L VBG pO2 123 H 86 H VBG HCO3 11.6 L 18.6 L VBG Total CO2 12.4 L 19.7 L VBG O2 Saturation 92.9 H 92.0 H VBG Base Excess -13.3 L -6.3 L A/P Assessment and plan (1) DKA (diabetic ketoacidoses): Status: Acute Narrative A/P Narrative: A: *Diabetic ketoacidosis: clinically resolved with management per protocol. Off insulin drip *Low potassium and phosphorus resolved with replacement *RT Hip Fracture: s/p ORIF (12/10), Managed per orthopedics. Postop pain management as per orthopedics. *Sepsis -clinically resolved. *Generalized weakness/deconditioning *Complicated UTI: Cultures negative so far *GERD/Hyperlipidemia: *h/o CAD: on aspirin and statin/ARB *Depression/Anxiety disorder: on sertraline and amitriptyline Plan: -Continue postop care/pain management as per orthopedics -Aggressive postop PT OT -De-escalate antibiotics -basal and SSI -d/c ivf -Discharge planning to SNF on sunday -ppx: ASA bid per ortho/home ppi full code Time Spent With Patient Time: Total time spent is greater than 50% in coordination of care (as documented) at patient's floor/unit and/or counseling patient: QUALITY VTE Deep Vein Thrombosis/Pulmonary Embolism Present on Admission: No
[2019-12-13] MEDS ORDERED: POTASSIUM CHLORIDE 20 MEQ PACKET PO ONE (08:42)
[2019-12-13] MEDS: INSULIN LISPRO 1 UNIT/0.01 ML UNIT SQ SCH ×4 (09:10→21:24)
[2019-12-13] MEDS: HYDROCODONE/APAP 7.5/325MG TABLET PO PRN ×2 (11:41→22:00)
[2019-12-13] MEDS: AMITRIPTYLINE 25 MG TABLET PO SCH (20:52)
[2019-12-13] MEDS: SENNOSIDES 1 TABLET PO SCH (20:53)
[2019-12-13] MEDS: SENNOSIDES/DOCUSATE SODIUM 1 TAB TABLET PO SCH (20:53)
[2019-12-13] MEDS: ONDANSETRON 4 MG/2 ML VIAL IV PRN (21:02)
[2019-12-13] MEDS: INSULIN GLARGINE, HUMAN 1 UNIT/0.01 ML SQ SCH (21:25)
[2019-12-14] MEDS: 0.9 % SODIUM CHLORIDE 10 ML SYRINGE IV SCH ×5 (03:00→20:47)
[2019-12-14] MEDS: INSULIN LISPRO 1 UNIT/0.01 ML UNIT SQ SCH ×4 (07:04→20:26)
--- NOTE | 2019-12-14 08:24 | Internal Med Progress Note ---
SUBJECTIVE Subjective Patient information: Note initiated : 12/14/19 at 8:19 am Service Date, if different from initiated Date: [] Patient: Esther Hartley a 74 y/o F admitted on 12/09/19 for Fall right hip pain. Chief Complaint: [] Interval history: Ms. Hartley is a 74-year-old female with a known history of diabetes Who lives alone fairly independently. Patient unfortunately tripped on Sunday and fell on the floor sustaining injury to the right hip. She denied losing consciousness or lightheadedness dizziness before fall. Due to injury patient was unable to move around and could not call for help however she was able to muster enough strength to get to the couch and has been laying there for the last 3 and half days. Her who is recovering at [facility] became concerned after he was unable to reach her on phone and subsequently summoned EMS. She was discovered laying on couch in a dazed state. She was brought into the ER where initial work-up was consistent with DKA with blood sugars over 600 bicarbonate and of ABG pH 7.2 with severe sepsis white count over 20,000 and pyuria. Patient was started on crystalloids along with insulin drip. Also pelvis CT revealed right hip fracture. Orthopedics was consulted and recommended admission but deferred surgery until stabilization of patient and treatment of DKA. Subsequently hospitalist service was consulted for admission for management of DKA. At the time of evaluation patient is lethargic fatigued. She is unable to provide a detailed history but was able to answer most of the questions and participate in review of systems. 12/09-DKA improving on insulin drip. White count down to 11,000. On antibiotic coverage for complicated UTI. pH improved from 7.2-7.34. Sodium 136, CO2 improved from 8-17, anion gap down from 37-11. Creatinine down from 1.1-0.7. Magnesium 1.2 on replacement. 12/10-patient clinically improved. White count down to 6.9. Anion gap braised and bicarbonate normalized. Transition to subcutaneous insulin/CC diet. Will undergo surgery today. Bicarb 19. Potassium up to 3.3. On replacement. Phosphorus 1.1 on replacement. Urine cultures pending. 12/11-patient doing well. DKA resolved. Creatinine baseline. Much improved hemodynamics. Postop day 1. Pain good control. Transfer to medical floor. Hemoglobin 11.8, sodium 131, 12/12 Patient did not sleep well last night. Tired this morning. No overnight events or new complaints. 12/13 No overnight events or new complaints. Sitting up in bed eating breakfast. Awaiting placement to rehab. Review of Systems: denies headache/fever/chills/nausea/vomiting/chest or abdominal pain/cough/dyspnea/diarrhea. Otherwise see above. Constitutional Vitals: Vital Signs Temp Pulse Resp BP Pulse Ox 97.2 F 78 20 142/65 94 12/14/19 03:00 12/14/19 03:00 12/14/19 03:00 12/14/19 03:00 12/14/19 03:00 Period Temp Pulse Resp BP Sys/Mackay Pulse Ox Last 24 Hr 97.1 F-98.6 F 78-88 16-24 124-168/62-78 92-96 Intake and Output 12/13/19 12/14/19 12/14/19 21:59 05:59 13:59 Intake Total 900 150 Output Total 900 701 Balance 0 -551 Weight 62.596 kg Intake & Output: Intake & Output 12/13/19 12/14/19 12/14/19 21:59 05:59 13:59 Intake Total 900 150 Output Total 900 701 Balance 0 -551 Weight 62.596 kg Intake: Oral 900 150 Output: Void Amount 500 # of times incontinent of urine 1 Stool 900 200 Other: Meal Dinner Percent of Meal Consumed 50% Feeding Ability Assist with Tray Set Up Urine Color Light Shayy Light Shayy Stool Size Moderate Stool Color Brown Brown Stool Consistency Soft Soft Formed Liquid Liquid Exam: Exam: General: Awake, No acute Distress Eyes/N/T: EOMI, Head/Neck: neck supple, CV: RRR, No murmurs, Pulm: Clear b/l, no wheezing/rhonchi/rales Abd: soft, nontender, +BS x4, colostomy Ext: no clubbing/cyanosis/edema Neuro: no focal deficits, moves all extremities, Skin: warm/dry OBJ DATA Labs CBC & Chem 7: 12/13/19 05:09 12/13/19 05:09 Labs: Abnormal Lab Results 12/13/19 12/13/19 12/12/19 05:09 05:09 05:16 Hct 33.0 L Seg Neutrophils % 83 H Lymphocytes % 11 L PT INR Sodium 131 L Potassium 3.2 L BUN 5 L 5 L Creatinine 0.4 L 0.4 L Glucose 150 H 197 H Uric Acid 1.7 L 1.7 L Calcium 8.2 L 8.1 L Phosphorus 2.4 L 2.3 L Total Protein 5.3 L 5.0 L Albumin 2.8 L 2.5 L 12/12/19 12/11/19 05:16 07:59 Hct 33.9 L Seg Neutrophils % 90 H Lymphocytes % 6 L PT 16.3 H INR 1.3 H Sodium Potassium BUN Creatinine Glucose Uric Acid Calcium Phosphorus Total Protein Albumin Meds: Medications Acetaminophen (Tylenol) 650 mg PO Q4-6HP PRN; Protocol PRN Reason: Per Pain Protocol/Fever > 101 Hydrocodone Bitart/Acetaminophen ([place] 7.5/325mg) 1 tab PO BIDP PRN; Protocol PRN Reason: pain Last Admin: 12/13/19 22:00 Dose: 1 tab Documented by: Amitriptyline HCl (Elavil) 100 mg PO QHS [facility] Last Admin: 12/13/19 20:52 Dose: 100 mg Documented by: Aspirin (Ecotrin) 325 mg PO BID [facility] Last Admin: 12/13/19 20:52 Dose: 325 mg Documented by: Bisacodyl (Dulcolax) 10 mg [place] Q2-3DAYS PRN PRN Reason: Constipation Cefepime HCl (Maxipime) 1 gm IV Q12H [facility] Last Admin: 12/13/19 21:25 Dose: 1 gm Documented by: Diagnostic Test (Pha) (Accu-Chek) 1 each FS ACHS [facility] Last Admin: 12/14/19 07:04 Dose: 1 each Documented by: Docusate Sodium (Colace) 100 mg PO BID [facility] Last Admin: 12/13/19 20:52 Dose: 100 mg Documented by: Hydralazine HCl (Apresoline) 10 mg IV Q4-6HP PRN PRN Reason: Hypertension Acetaminophen (Ofirmev) 650 mg in 65 mls @ 130 mls/hr IV Q6HP PRN; Protocol PRN Reason: Per Pain Protocol/Fever > 101 Magnesium Sulfate (Magnesium Sulfate) 2 gm in 50 mls @ 50 mls/hr IV UD PRN PRN Reason: MG = or < 1.7 Last Admin: 12/14/19 01:45 Dose: 50 mls/hr Documented by: Potassium Chloride 40 meq/ (Dextrose) 520 mls @ 130 mls/hr IV UD PRN PRN Reason: K+ = or < 3.5 Insulin Glargine (Lantus) 10 unit SQ [facility] Last Admin: 12/13/19 21:25 Dose: 10 units Documented by: Insulin Human Lispro (Humalog) 0 unit SQ [facility]; Protocol Last Admin: 12/14/19 07:04 Dose: Not Given Documented by: Magnesium Hydroxide (Milk Of Magnesia) 30 ml PO BIDP PRN PRN Reason: Constipation Last Admin: 12/13/19 11:42 Dose: 30 ml Documented by: Melatonin (Melatonin 3mg Tablet) 3 mg PO HSP PRN PRN Reason: Insomnia Metoprolol Tartrate (Lopressor) 5 mg IV Q5M PRN PRN Reason: Heart Rate > 140 bpm Ondansetron HCl (Zofran Odt) 4 mg SL Q4-6HP PRN; Protocol PRN Reason: Nausea And Vomiting Last Admin: 12/12/19 16:18 Dose: 4 mg Documented by: Ondansetron HCl (Zofran) 4 mg IV Q4-6HP PRN; Protocol PRN Reason: Nausea And Vomiting Last Admin: 12/13/19 21:02 Dose: 4 mg Documented by: Polyethylene Glycol (Miralax) 17 gm PO DAILYP PRN PRN Reason: Constipation Potassium Chloride (Klor-Con) 40 meq PO DAILYP PRN PRN Reason: K+ < 3.5 Last Admin: 12/13/19 08:27 Dose: 40 meq Documented by: Potassium/Phosphorus/Sodium (Neutra Phos) 2 packet PO BIDP PRN PRN Reason: Phosphorus < 2.6 Last Admin: 12/13/19 20:53 Dose: 2 packet Documented by: Senna (Senokot) 2 tab PO [facility] Last Admin: 12/13/19 20:53 Dose: Not Given Documented by: Senna/Docusate Sodium (Senna Plus Tablet) 1 tab PO [facility] Last Admin: 12/13/19 20:53 Dose: Not Given Documented by: Sertraline HCl (Zoloft) 150 mg PO QDAY [facility] Last Admin: 06/20/20 08:26 Dose: 150 mg Documented by: Sodium Biphosphate/Sodium Phosphate (Fleets Adult) 1 dose [place] Q3-4DAYS PRN PRN Reason: Constipation Sodium Chloride (Saline Flush) 10 ml IV Q12 [facility] Last Admin: 12/13/19 20:53 Dose: 10 ml Documented by: Sodium Chloride (Saline Flush) 10 ml IV Q8 [facility] Last Admin: 12/14/19 03:00 Dose: 10 ml Documented by: Temazepam (Restoril) 15 mg PO HSP PRN PRN Reason: Insomnia Throat Lozenges (Cepacol) 1 lozenge PO PRN PRN PRN Reason: Sore Throat ABG Interpretation ABG results: 12/09/19 12/10/19 19:54 00:28 ABG Methemoglobin 0 L 0.1 L VBG pH 7.28 L 7.34 VBG pCO2 25.3 L 35.1 L VBG pO2 123 H 86 H VBG HCO3 11.6 L 18.6 L VBG Total CO2 12.4 L 19.7 L VBG O2 Saturation 92.9 H 92.0 H VBG Base Excess -13.3 L -6.3 L A/P Assessment and plan (1) DKA (diabetic ketoacidoses): Status: Acute Narrative A/P Narrative: A: *Diabetic ketoacidosis: resolved *Hypokalemia/phos: improved *RT Hip Fracture: s/p ORIF (12/10), Managed per orthopedics. Postop pain management as per orthopedics. *Sepsis: resolved *Complicated UTI: Cultures negative so far *Generalized weakness/deconditioning *GERD/Hyperlipidemia: *h/o CAD: on aspirin and statin/ARB *Depression/Anxiety disorder: on sertraline and amitriptyline Plan: -Continue postop care/pain management as per orthopedics -Aggressive postop PT OT -basal and SSI, restart metformin -Discharge planning to SNF on sunday -ppx: ASA bid per ortho/home ppi full code Time Spent With Patient Time: Total time spent is greater than 50% in coordination of care (as documented) at patient's floor/unit and/or counseling patient: QUALITY VTE Deep Vein Thrombosis/Pulmonary Embolism Present on Admission: No
[2019-12-14] MEDS: SERTRALINE 50 MG TABLET PO SCH (09:12)
[2019-12-14] MEDS: metFORMIN 500 MG TABLET PO SCH ×2 (09:12→17:33)
[2019-12-14] MEDS: DOCUSATE SODIUM 100 MG CAPSULE PO SCH ×2 (09:13→20:27)
[2019-12-14] MEDS: ASPIRIN 325 MG ENTERIC COATED TABLET PO SCH ×2 (09:13→20:27)
[2019-12-14 09:43] LABS: ALT/SGPT 10 U/l (0-40); AST/SGOT 16 U/l (0-37); Albumin 2.8 gm/dL (3.2-5.2); Albumin/Globulin Ratio 0.9 (1.0-2.3); Alkaline Phosphatase 82 U/L (39-117); Bilirubin,Direct < 0.2 mg/dL (0.0-0.3); Bilirubin,Total 0.4 mg/dL (0.0-1.0); Calcium 8.5 mg/dl (8.6-10.4); Carbon Dioxide 30 mmol/L (22-30); Globulin 3.1 gm/dL (2.2-3.7); Glucose 156 mg/dL (70-105); Lactate Dehydrogenase 184 U/L (94-250); Triglycerides 158 mg/dl (<150); Uric Acid 1.5 mg/dL (2.5-8.0)
[2019-12-14 09:46] LABS: Blood Urea Nitrogen 7 mg/dl (8-23); Chloride 95 mmol/L (96-108); Glomerular Filtration Rate 97; Phosphorous 2.9 mg/dL (2.7-4.5)
[2019-12-14] MEDS: cefTRIAXone 1 GM VIAL IV SCH (10:15)
[2019-12-14] MEDS: HYDROCODONE/APAP 7.5/325MG TABLET PO PRN (16:12)
[2019-12-14] MEDS: INSULIN GLARGINE, HUMAN 1 UNIT/0.01 ML SQ SCH (20:26)
[2019-12-14] MEDS: SENNOSIDES/DOCUSATE SODIUM 1 TAB TABLET PO SCH (20:27)
[2019-12-14] MEDS: AMITRIPTYLINE 25 MG TABLET PO SCH (20:27)
[2019-12-14] MEDS: ONDANSETRON 4 MG/2 ML VIAL IV PRN (20:28)
[2019-12-14] MEDS: SENNOSIDES 1 TABLET PO SCH (20:46)
[2019-12-15] MEDS: 0.9 % SODIUM CHLORIDE 10 ML SYRINGE IV SCH ×2 (05:12→09:26)
[2019-12-15] MEDS: ONDANSETRON 4 MG/2 ML VIAL IV PRN (07:26)
[2019-12-15] MEDS ORDERED: INSULIN GLARGINE, HUMAN 1 UNIT/0.01 ML SQ ONE (07:37)
[2019-12-15] MEDS: INSULIN LISPRO 1 UNIT/0.01 ML UNIT SQ SCH ×2 (07:40→11:14)
[2019-12-15] MEDS: metFORMIN 500 MG TABLET PO SCH (07:42)
[2019-12-15] MEDS: cefTRIAXone 1 GM VIAL IV SCH (09:17)
[2019-12-15] MEDS: DOCUSATE SODIUM 100 MG CAPSULE PO SCH (09:21)
[2019-12-15] MEDS: SERTRALINE 50 MG TABLET PO SCH (09:22)
[2019-12-15] MEDS: ASPIRIN 325 MG ENTERIC COATED TABLET PO SCH (09:22)
[2019-12-15] MEDS: HYDROCODONE/APAP 7.5/325MG TABLET PO PRN (10:14)
[2019-12-15] MEDS ORDERED: INSULIN GLARGINE, HUMAN 1 UNIT/0.01 ML SQ SCH (21:00)
== END 2019-12-15 13:00 | DRG 628 ==
LOC: ED 15:19 → ICU 19:28 → MEDSUR 12-12 18:02
PROVIDERS: ADMIT Internal Medicine; ATTEND Internal Medicine

== ENCOUNTER 2019-12-23 11:37 | Inpatient (IN) ==
[2019-12-23] MEDS ORDERED: IOPAMIDOL 100 ML BOTTLE IV ONE (11:38)
--- NOTE | 2019-12-23 12:36 | XRay Report ---
HISTORY: Abdominal pain and constipation FINDINGS: There is a moderate amount of fecal material in the proximal colon. There is an ostomy in the left side of the pelvis. There is no evidence of bowel obstruction. Right diaphragm is elevated and extends outside of the field of view. No gross free intra-abdominal air is seen on this supine study. There is a levoscoliotic curvature in the upper lumbar spine. Degenerative disc disease and arthritis are present throughout the mid and lower lumbar spine. Densely calcified plaques are present in the aorta and iliac arteries.. Patient has a recently inserted right hip prosthesis. There are still skin jesus lateral to the hip. IMPRESSION: No acute abnormality Interpreted and Authenticated by: Blayne Lora 12/23/19
[2019-12-23 13:12] LABS: POC Blood Urea Nitrogen 16 mg/dl (8-23); POC CO2 23 mmol/L (22-30); POC Calcium, Ionized 1.13 mmol/L (1.16-1.32); POC Chloride 93 mmol/L (96-108); POC Creatinine 0.5 mg/dl (0.6-1.1); POC Glucose, Random 275 mg/dL (70-105); POC Potassium 3.9 mmol/L (3.3-5.1); POC Sodium 130 mmol/L (133-145)
--- NOTE | 2019-12-23 14:24 | Cat Scan Report ---
History: Constipation, bowel obstruction, status post prior distal colectomy TECHNIQUE: The patient was imaged following intravenous but no oral contrast scanning during the portal venous phase and excretory phase. Sagittal and coronal reformats were created. The radiation exposure was limited using dose reduction technology. FINDINGS: The lung bases are clear. The liver and spleen are normal in size and homogeneous. The gallbladder and bile ducts are normal. There is no evidence of a mass or inflammation the pancreas. The adrenals are normal and symmetric. Patient has developed moderately severe bilateral hydronephrosis. There is also marked dilatation of the proximal and mid ureters. The ureters taper portion normal caliber at the ureterovesical junctions. The hydronephrosis is a new finding since a prior CT done on 12/09/19. No stone is seen within the renal collecting systems. There are several phleboliths in lower pelvis contiguous with the distal ureters. The bladder stone is present. Urinary bladder is over distended but the wall is smooth and normal in thickness. No intraluminal mass is seen within the bladder. There is mild fecal impaction in the ascending and transverse colon. 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 There is a loop of the descending within the ostomy which has fecal impaction. More distal segment which extends to the skin is decompressed. This is unchanged in appearance from the prior CT scan. There is no entrapment of small bowel. Small intestine is nondilated. No abnormal air-fluid levels are present. There is scar tissue in the presacral space following the prior colectomy. No adenopathy mass or ascites are present in the abdomen or pelvis. Densely calcified plaques are present in the aorta and iliac arteries. The uterus is been removed. IMPRESSION: New onset moderately severe bilateral hydronephrosis. The obstruction appears to be at the ureterovesical junctions. This could be related to the over distended urinary bladder or strictures at the UVJ. Mild fecal impaction in the proximal colon and no evidence of bowel obstruction Tobias Santana was called with the results Interpreted and Authenticated by: Blayne Lora 12/23/19
--- NOTE | 2019-12-23 14:34 | Emergency Department Note ---
Abdominal Pain HPI General Chief Complaint: Constipation Stated Complaint: abdominal pain constipation Time Seen by Provider: 12/23/19 11:56 Source: patient and RN notes reviewed Mode of arrival: wheelchair Limitations: physical limitation History of Present Illness HPI Narrative: Narrative: Patient was brought here from [facility] [place]. She was brought to be evaluated for a small bowel obstruction. She has a colostomy in place and is reported to have this for the past 3 years. She also is reported to have a history of small bowel obstructions. Notes report that the patient has not had significant stool from her colostomy since December 15. Patient denies significant abdominal pain. Reports a history of a hernia. Reports that she has not had a lot of food intake. Denies difficulty with urination. Related Data Home Medications Medication Instructions Recorded Confirmed bisacodyl [Dulcolax (bisacodyl)] 10 mg SD QDAY PRN 12/23/19 12/23/19 magnesium hydroxide [Milk of 30 ml PO QDAY PRN 12/23/19 12/23/19 Magnesia] Previous Rx's Medication Instructions Recorded sertraline 100 mg tablet 150 mg PO QDAY 90 Days #135 tab 09/23/15 amitriptyline 100 mg tablet 100 mg PO QHS #90 tab 04/14/16 metformin 500 mg PO BIDCC #30 tab 01/02/17 nitrofurantoin monohyd/m-cryst 100 mg PO BID #14 cap 06/20/18 insulin glargine 10 unit SQ HS #1 ml 03/30/19 hydrocodone-acetaminophen 1 tab PO BID PRN #20 tab 12/15/19 Allergies Allergy/AdvReac Type Severity Reaction Status Date / Time No Known Drug Allergies Allergy Verified 01/02/17 12:03 Review of Systems ROS Narrative: Narrative: [facility] Narrative Patient History Narrative: Narrative: Medical/Surgical/Family History All Active Problems Hyperglycemia due to type 2 diabetes mellitus (Acute) Urinary tract infection (Acute) Hypokalemia (Acute) Hyperglycemia (Acute) Generalized weakness (Acute) Diabetes (Acute) Fall (Acute) Hip fracture, right (Acute) DKA (diabetic ketoacidoses) (Acute) Dehydration (Acute) Elevated WBC count (Acute) Postmenopausal bleeding (Acute) Eczema (Acute) Uncontrolled type 2 diabetes mellitus (Chronic) Microalbuminuria (Chronic) 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) Portacath in place (Chronic) Vitamin D deficiency (Chronic) Syncope (Chronic 11/21/12) Osteopenia (Chronic 01/29/12) Mouth pain (Chronic) Hypertension, essential (Chronic 09/02/12) Hyperlipidemia (Chronic 01/29/12) Gastroesophageal reflux (Chronic) Diabetes mellitus, type II (Chronic) Degeneration of cervical intervertebral disc (Chronic) Cystitis, acute (Chronic 09/03/13) Depression (Chronic) Constipation (Chronic) Carotid stenosis (Chronic) Anxiety disorder (Chronic) Medical History Anxiety disorder (Chronic) treated with Amitriptyline and Sertraline Carotid stenosis (Chronic) 2009 left side 50%; 2013 Less than 50% of the right internal carotid, 50-69% of left internal carotid artery. 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 An Osteopenia (Chronic 01/29/12) Portacath in place (Chronic) For chemotherapy treatment, right anterior chest wall Postmenopausal bleeding (Acute) Report two episodes of this for the last year on 09/23/2015, blood noted on attempted pelvic examination Syncope (Chronic 11/21/12) Etiology unknown Uncontrolled type 2 diabetes mellitus (Chronic) Vitamin D deficiency (Chronic) Surgical History History of appendectomy (Resolved) 1972 History of colon surgery (Resolved) 2006 Partial colectomy with colostomy History of colonoscopy (Resolved 05/15/13) History of colonoscopy (Chronic 10/19/16) 05/15/13 History of colostomy (Chronic 05/24/07) History of repair of right rotator cuff (Resolved) Dr. Harden, repaired due to trauma 2002 History of tonsillectomy (Resolved) 9 years of age History of tubal ligation (Resolved) 1972 Family History Grandmother Malignant neoplasm of colon, Onset Age: 56 Type 2 diabetes mellitus Cardiac disease Grandfather Chronic Kidney Disease Mother Chronic Kidney Disease Dialysis Atherosclerosis of coronary artery Type 2 diabetes mellitus Cardiac disease Father Acute myocardial infarction, Onset Age: 69 Social History Smoking Status: Never smoker Alcohol Intake Frequency: does not drink Substance Use: does not use Exam Narrative Narrative: Narrative: General Limitations: physical limitation Course Course Course Narrative: Denies specific abdominal pain. She reports that she has not had a bowel movement. Clay was called due to the CT findings of a fecal impaction. He wants this patient to be admitted to have the hospital involved. He gave me a verbal order to administer Relistor and MiraLAX the patient. Dr. Hassan was contacted and he requested that Dr. Oliveros be contacted. I did call Dr. Zelaya and talk to elicia osorio. It was found that the patient had 880 mL of urine in her bladder. Ordered Chavez catheter. Vital Signs Vital signs: Vital Signs Temperature 98.5 F 12/23/19 11:38 Pulse Rate 114 H 12/23/19 11:38 Respiratory Rate 16 12/23/19 11:38 Blood Pressure 187/92 12/23/19 11:38 Pulse Oximetry (%) 98 12/23/19 11:38 Temperature 98.5 F 12/23/19 11:38 Pulse Rate 90 12/23/19 19:02 Respiratory Rate 20 12/23/19 14:07 Blood Pressure 195/72 12/23/19 19:02 Pulse Oximetry (%) 94 12/23/19 15:38 MDM MDM Narrative Medical decision making narrative: Narrative: Lab Data Result diagrams: 12/23/19 13:03 12/23/19 13:03 Labs: Lab Results 12/23/19 12/23/19 12/23/19 Range/Units 13:03 13:03 13:03 WBC 11.4 H (4.50-11.00) K/mcL RBC 3.69 (3.59-5.38) M/mcL Hgb 10.9 L (11.2-15.7) g/dL Hct 32.7 L (34.1-44.9) % POC Hct 34.0 L (36.0-48.0) % MCV 88.6 (80.0-100.0) fL MCH 29.5 (26.0-34.0) pg MCHC 33.3 (31.0-36.0) g/dL RDW 12.2 (11.5-14.5) % Plt Count 380 (140-440) K/mcL MPV 10.6 H (7.4-10.4) fL POC Sodium 130 L (133-145) mmol/L Sodium 130 L (133-145) mmol/L POC Potassium 3.9 (3.3-5.1) mmol/L Potassium 3.9 (3.3-5.1) mmol/L POC Chloride 93 L (96-108) mmol/L Chloride 89 L (96-108) mmol/L Carbon Dioxide 21 L (22-30) mmol/L POC Total CO2 23 (22-30) mmol/L Anion Gap 20.0 H (8-16) POC BUN 16 (8-23) mg/dl BUN 15 (8-23) mg/dl Creatinine 0.6 (0.6-1.1) mg/dl POC Creatinine 0.5 L (0.6-1.1) mg/dl GFR Calculation 91 Glucose 272 H (70-105) mg/dL POC Glucose 275 H (70-105) mg/dL Calcium 9.4 (8.6-10.4) mg/dl POC WB Ioniz Calcium 1.13 L (1.16-1.32) mmol/L Total Bilirubin 0.5 (0.0-1.0) mg/dL AST 42 H (0-37) U/l ALT 33 (0-40) U/l Alkaline Phosphatase 167 H (39-117) U/L Total Protein 7.2 (5.9-8.4) gm/dL Albumin 2.8 L (3.2-5.2) gm/dL Globulin 4.4 H (2.2-3.7) gm/dL Albumin/Globulin Ratio 0.6 L (1.0-2.3) Urine Color Urine Appearance Urine pH (5.0-9.0) Ur Specific [place] (1.000-1.035) Urine Protein (NEG) mg/dL Urine Glucose (UA) (NEG) mg/dL Urine Ketones (NEG) mg/dL Urine Occult Blood (<0.03) mg/dL Urine Nitrate (NEG) Urine Bilirubin (NEG) mg/dL Urine Urobilinogen (NEG) mg/dL Ur Leukocyte Esterase (NEG) /uL Urine RBC (0-1) /hpf Urine WBC (0-4) /hpf Ur Squamous Epith Cells (0-4) /hpf Urine Bacteria (0) /hpf Urine Yeast (Budding) (0) /hpf Ur Culture Indicated? 12/23/19 Range/Units 14:11 WBC (4.50-11.00) K/mcL RBC (3.59-5.38) M/mcL Hgb (11.2-15.7) g/dL Hct (34.1-44.9) % POC Hct (36.0-48.0) % MCV (80.0-100.0) fL MCH (26.0-34.0) pg MCHC (31.0-36.0) g/dL RDW (11.5-14.5) % Plt Count (140-440) K/mcL MPV (7.4-10.4) fL POC Sodium (133-145) mmol/L Sodium (133-145) mmol/L POC Potassium (3.3-5.1) mmol/L Potassium (3.3-5.1) mmol/L POC Chloride (96-108) mmol/L Chloride (96-108) mmol/L Carbon Dioxide (22-30) mmol/L POC Total CO2 (22-30) mmol/L Anion Gap (8-16) POC BUN (8-23) mg/dl BUN (8-23) mg/dl Creatinine (0.6-1.1) mg/dl POC Creatinine (0.6-1.1) mg/dl GFR Calculation Glucose (70-105) mg/dL POC Glucose (70-105) mg/dL Calcium (8.6-10.4) mg/dl POC WB Ioniz Calcium (1.16-1.32) mmol/L Total Bilirubin (0.0-1.0) mg/dL AST (0-37) U/l ALT (0-40) U/l Alkaline Phosphatase (39-117) U/L Total Protein (5.9-8.4) gm/dL Albumin (3.2-5.2) gm/dL Globulin (2.2-3.7) gm/dL Albumin/Globulin Ratio (1.0-2.3) Urine Color Yellow Urine Appearance Turbid Urine pH 5.0 (5.0-9.0) Ur Specific [place] 1.015 (1.000-1.035) Urine Protein 100 A (NEG) mg/dL Urine Glucose (UA) 50 A (NEG) mg/dL Urine Ketones 20 A (NEG) mg/dL Urine Occult Blood 0.2 A (<0.03) mg/dL Urine Nitrate Neg (NEG) Urine Bilirubin Neg (NEG) mg/dL Urine Urobilinogen Neg (NEG) mg/dL Ur Leukocyte Esterase 75 A (NEG) /uL Urine RBC > 182 H (0-1) /hpf Urine WBC > 182 H (0-4) /hpf Ur Squamous Epith Cells 0 (0-4) /hpf Urine Bacteria 0 (0) /hpf Urine Yeast (Budding) Many A (0) /hpf Ur Culture Indicated? Yes Discharge Plan Patient/Caregiver Discharge Instructions Prescriptions: No Action amitriptyline 100 mg tablet 100 mg PO QHS Qty: 90 RF: 0 sertraline 100 mg tablet 150 mg PO QDAY 90 Days Qty: 135 RF: 3 metformin 500 MG tablet 500 mg PO BIDCC Qty: 30 RF: 0 nitrofurantoin monohyd/m-cryst 100 MG capsule 100 mg PO BID Qty: 14 RF: 0 insulin glargine 1 UNIT/0.01 ML unit 10 unit SQ HS Qty: 1 RF: 0 hydrocodone-acetaminophen 7.5-325 mg tablet 1 tab PO BID PRN (Reason: pain) Qty: 20 RF: 0 magnesium hydroxide [Milk of Magnesia] 400 mg/5 mL Suspension 30 ml PO QDAY PRN (Reason: Constipation) RF: 0 bisacodyl [Dulcolax (bisacodyl)] 10 mg Suppository 10 mg SD QDAY PRN (Reason: Constipation) RF: 0
[2019-12-23 14:56] LABS: Hematocrit 32.7 % (34.1-44.9); Hemoglobin 10.9 g/dL (11.2-15.7); Mean Cell Volume 88.6 fL (80.0-100.0); Mean Corpuscular HGB Conc 33.3 g/dL (31.0-36.0); Mean Platelet Volume 10.6 fL (7.4-10.4); Platelet Count 380 K/mcL (140-440); RBC 3.69 M/mcL (3.59-5.38); Red Cell Distribution Width 12.2 % (11.5-14.5); WBC 11.4 K/mcL (4.50-11.00)
[2019-12-23 15:05] LABS: ALT/SGPT 33 U/l (0-40); AST/SGOT 42 U/l (0-37); Albumin 2.8 gm/dL (3.2-5.2); Albumin/Globulin Ratio 0.6 (1.0-2.3); Alkaline Phosphatase 167 U/L (39-117); Bilirubin,Total 0.5 mg/dL (0.0-1.0); Blood Urea Nitrogen 15 mg/dl (8-23); Calcium 9.4 mg/dl (8.6-10.4); Carbon Dioxide 21 mmol/L (22-30); Chloride 89 mmol/L (96-108); Globulin 4.4 gm/dL (2.2-3.7); Glomerular Filtration Rate 91; Glucose 272 mg/dL (70-105)
[2019-12-23 15:20] LABS: Appearance,Urine TURBID; Bacteria,Urine 0 /hpf (0); Bilirubin,Urine NEG (NEG); Color,Urine YELLOW; Culture Indicated,Urine YES; Glucose,Urine (UA) 50 mg/dL (NEG); Ketones,Urine 20 mg/dL (NEG); Leukocyte Esterase,Urine 75 /uL (NEG); Nitrate,Urine NEG (NEG); Protein,Urine 100 mg/dL (NEG); Specific Gravity,Urine 1.015 (1.000-1.035); Urine Blood 0.2 mg/dL (<0.03); Urine Budding Yeast MANY /hpf (0); Urine RBC > 182 /hpf (0-1); Urine Squamous Epithelial Cell 0 /hpf (0-4); Urine WBC > 182 /hpf (0-4); Urobilinogen,Urine NEG (NEG)
[2019-12-23] MEDS ORDERED: MINERAL OIL 1 DOSE ENEMA PR ONE (16:52)
[2019-12-23] MEDS ORDERED: POLYETHYLENE GLYCOL 3350 17 GM PACKET PO ONE (18:21)
[2019-12-23] MEDS ORDERED: METHYLNALTREXONE BROMIDE 12 MG/0.6 ML SYRINGE SC SCH (18:30)
--- NOTE | 2019-12-23 19:08 | Emergency Department Note ---
Abdominal Pain HPI General Chief Complaint: Constipation Stated Complaint: abdominal pain constipation Time Seen by Provider: 12/23/19 11:56 Source: patient and RN notes reviewed Mode of arrival: wheelchair Limitations: physical limitation History of Present Illness HPI Narrative: Narrative: Related Data Home Medications Medication Instructions Recorded Confirmed bisacodyl [Dulcolax (bisacodyl)] 10 mg ME QDAY PRN 12/23/19 12/23/19 magnesium hydroxide [Milk of 30 ml PO QDAY PRN 12/23/19 12/23/19 Magnesia] Previous Rx's Medication Instructions Recorded sertraline 100 mg tablet 150 mg PO QDAY 90 Days #135 tab 09/23/15 amitriptyline 100 mg tablet 100 mg PO QHS #90 tab 04/14/16 metformin 500 mg PO BIDCC #30 tab 01/02/17 nitrofurantoin monohyd/m-cryst 100 mg PO BID #14 cap 06/20/18 insulin glargine 10 unit SQ HS #1 ml 03/30/19 hydrocodone-acetaminophen 1 tab PO BID PRN #20 tab 12/15/19 Allergies Allergy/AdvReac Type Severity Reaction Status Date / Time No Known Drug Allergies Allergy Verified 01/02/17 12:03 Review of Systems ROS Narrative: Narrative: PFSH Narrative Patient History Narrative: Narrative: Medical/Surgical/Family History All Active Problems (Updated 12/09/19 @ 18:12 by PETER Lopez) Hyperglycemia due to type 2 diabetes mellitus (Acute) Urinary tract infection (Acute) Hypokalemia (Acute) Hyperglycemia (Acute) Generalized weakness (Acute) Diabetes (Acute) Fall (Acute) Hip fracture, right (Acute) DKA (diabetic ketoacidoses) (Acute) Dehydration (Acute) Elevated WBC count (Acute) Postmenopausal bleeding (Acute) Eczema (Acute) Uncontrolled type 2 diabetes mellitus (Chronic) Microalbuminuria (Chronic) 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) Portacath in place (Chronic) Vitamin D deficiency (Chronic) Syncope (Chronic 11/21/12) Osteopenia (Chronic 01/29/12) Mouth pain (Chronic) Hypertension, essential (Chronic 09/02/12) Hyperlipidemia (Chronic 01/29/12) Gastroesophageal reflux (Chronic) Diabetes mellitus, type II (Chronic) Degeneration of cervical intervertebral disc (Chronic) Cystitis, acute (Chronic 09/03/13) Depression (Chronic) Constipation (Chronic) Carotid stenosis (Chronic) Anxiety disorder (Chronic) Medical History (Updated 12/09/19 @ 18:12 by PETER Lopez) Anxiety disorder (Chronic) treated with Amitriptyline and Sertraline Carotid stenosis (Chronic) 2009 left side 50%; 2014 Less than 50% of the right internal carotid, 50-69% of left internal carotid artery. 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 An Osteopenia (Chronic 01/29/12) Portacath in place (Chronic) For chemotherapy treatment, right anterior chest wall Postmenopausal bleeding (Acute) Report two episodes of this for the last year on 09/23/2015, blood noted on attempted pelvic examination Syncope (Chronic 11/21/12) Etiology unknown Uncontrolled type 2 diabetes mellitus (Chronic) Vitamin D deficiency (Chronic) Surgical History (Updated 12/10/19 @ 10:30 by Ramin Jett DO) History of appendectomy (Resolved) 1972 History of colon surgery (Resolved) 2006 Partial colectomy with colostomy History of colonoscopy (Resolved 05/15/13) History of colonoscopy (Chronic 10/19/16) 05/15/13 History of colostomy (Chronic 05/24/07) History of repair of right rotator cuff (Resolved) Dr. Harden, repaired due to trauma 2002 History of tonsillectomy (Resolved) 9 years of age History of tubal ligation (Resolved) 1972 Family History (Updated 12/16/14 @ 20:30 by Latricia Cleary) Grandmother Malignant neoplasm of colon, Onset Age: 56 Type 2 diabetes mellitus Cardiac disease Grandfather Chronic Kidney Disease Mother Chronic Kidney Disease Dialysis Atherosclerosis of coronary artery Type 2 diabetes mellitus Cardiac disease Father Acute myocardial infarction, Onset Age: 69 Social History Smoking Status: Never smoker Alcohol Intake Frequency: does not drink Substance Use: does not use Exam Narrative Narrative: Narrative: General Limitations: physical limitation Course Vital Signs Vital signs: Vital Signs Temperature 98.5 F 12/23/19 11:38 Pulse Rate 114 H 12/23/19 11:38 Respiratory Rate 16 12/23/19 11:38 Blood Pressure 187/92 12/23/19 11:38 Pulse Oximetry (%) 98 12/23/19 11:38 Temperature 98.5 F 12/23/19 11:38 Pulse Rate 106 H 12/23/19 15:38 Respiratory Rate 20 12/23/19 14:07 Blood Pressure 162/84 12/23/19 18:02 Pulse Oximetry (%) 94 12/23/19 15:38 MDM MDM Narrative Medical decision making narrative: Narrative: Lab Data Result diagrams: 12/23/19 13:03 12/23/19 13:03 Labs: Lab Results 12/23/19 12/23/19 12/23/19 Range/Units 13:03 13:03 13:03 WBC 11.4 H (4.50-11.00) K/mcL RBC 3.69 (3.59-5.38) M/mcL Hgb 10.9 L (11.2-15.7) g/dL Hct 32.7 L (34.1-44.9) % POC Hct 34.0 L (36.0-48.0) % MCV 88.6 (80.0-100.0) fL MCH 29.5 (26.0-34.0) pg MCHC 33.3 (31.0-36.0) g/dL RDW 12.2 (11.5-14.5) % Plt Count 380 (140-440) K/mcL MPV 10.6 H (7.4-10.4) fL POC Sodium 130 L (133-145) mmol/L Sodium 130 L (133-145) mmol/L POC Potassium 3.9 (3.3-5.1) mmol/L Potassium 3.9 (3.3-5.1) mmol/L POC Chloride 93 L (96-108) mmol/L Chloride 89 L (96-108) mmol/L Carbon Dioxide 21 L (22-30) mmol/L POC Total CO2 23 (22-30) mmol/L Anion Gap 20.0 H (8-16) POC BUN 16 (8-23) mg/dl BUN 15 (8-23) mg/dl Creatinine 0.6 (0.6-1.1) mg/dl POC Creatinine 0.5 L (0.6-1.1) mg/dl GFR Calculation 91 Glucose 272 H (70-105) mg/dL POC Glucose 275 H (70-105) mg/dL Calcium 9.4 (8.6-10.4) mg/dl POC WB Ioniz Calcium 1.13 L (1.16-1.32) mmol/L Total Bilirubin 0.5 (0.0-1.0) mg/dL AST 42 H (0-37) U/l ALT 33 (0-40) U/l Alkaline Phosphatase 167 H (39-117) U/L Total Protein 7.2 (5.9-8.4) gm/dL Albumin 2.8 L (3.2-5.2) gm/dL Globulin 4.4 H (2.2-3.7) gm/dL Albumin/Globulin Ratio 0.6 L (1.0-2.3) Urine Color Urine Appearance Urine pH (5.0-9.0) Ur Specific [place] (1.000-1.035) Urine Protein (NEG) mg/dL Urine Glucose (UA) (NEG) mg/dL Urine Ketones (NEG) mg/dL Urine Occult Blood (<0.03) mg/dL Urine Nitrate (NEG) Urine Bilirubin (NEG) mg/dL Urine Urobilinogen (NEG) mg/dL Ur Leukocyte Esterase (NEG) /uL Urine RBC (0-1) /hpf Urine WBC (0-4) /hpf Ur Squamous Epith Cells (0-4) /hpf Urine Bacteria (0) /hpf Urine Yeast (Budding) (0) /hpf Ur Culture Indicated? 12/23/19 Range/Units 14:11 WBC (4.50-11.00) K/mcL RBC (3.59-5.38) M/mcL Hgb (11.2-15.7) g/dL Hct (34.1-44.9) % POC Hct (36.0-48.0) % MCV (80.0-100.0) fL MCH (26.0-34.0) pg MCHC (31.0-36.0) g/dL RDW (11.5-14.5) % Plt Count (140-440) K/mcL MPV (7.4-10.4) fL POC Sodium (133-145) mmol/L Sodium (133-145) mmol/L POC Potassium (3.3-5.1) mmol/L Potassium (3.3-5.1) mmol/L POC Chloride (96-108) mmol/L Chloride (96-108) mmol/L Carbon Dioxide (22-30) mmol/L POC Total CO2 (22-30) mmol/L Anion Gap (8-16) POC BUN (8-23) mg/dl BUN (8-23) mg/dl Creatinine (0.6-1.1) mg/dl POC Creatinine (0.6-1.1) mg/dl GFR Calculation Glucose (70-105) mg/dL POC Glucose (70-105) mg/dL Calcium (8.6-10.4) mg/dl POC WB Ioniz Calcium (1.16-1.32) mmol/L Total Bilirubin (0.0-1.0) mg/dL AST (0-37) U/l ALT (0-40) U/l Alkaline Phosphatase (39-117) U/L Total Protein (5.9-8.4) gm/dL Albumin (3.2-5.2) gm/dL Globulin (2.2-3.7) gm/dL Albumin/Globulin Ratio (1.0-2.3) Urine Color Yellow Urine Appearance Turbid Urine pH 5.0 (5.0-9.0) Ur Specific [place] 1.015 (1.000-1.035) Urine Protein 100 A (NEG) mg/dL Urine Glucose (UA) 50 A (NEG) mg/dL Urine Ketones 20 A (NEG) mg/dL Urine Occult Blood 0.2 A (<0.03) mg/dL Urine Nitrate Neg (NEG) Urine Bilirubin Neg (NEG) mg/dL Urine Urobilinogen Neg (NEG) mg/dL Ur Leukocyte Esterase 75 A (NEG) /uL Urine RBC > 182 H (0-1) /hpf Urine WBC > 182 H (0-4) /hpf Ur Squamous Epith Cells 0 (0-4) /hpf Urine Bacteria 0 (0) /hpf Urine Yeast (Budding) Many A (0) /hpf Ur Culture Indicated? Yes Discharge Plan Patient/Caregiver Discharge Instructions Prescriptions: No Action amitriptyline 100 mg tablet 100 mg PO QHS Qty: 90 RF: 0 sertraline 100 mg tablet 150 mg PO QDAY 90 Days Qty: 135 RF: 3 metformin 500 MG tablet 500 mg PO BIDCC Qty: 30 RF: 0 nitrofurantoin monohyd/m-cryst 100 MG capsule 100 mg PO BID Qty: 14 RF: 0 insulin glargine 1 UNIT/0.01 ML unit 10 unit SQ HS Qty: 1 RF: 0 hydrocodone-acetaminophen 7.5-325 mg tablet 1 tab PO BID PRN (Reason: pain) Qty: 20 RF: 0 magnesium hydroxide [Milk of Magnesia] 400 mg/5 mL Suspension 30 ml PO QDAY PRN (Reason: Constipation) RF: 0 bisacodyl [Dulcolax (bisacodyl)] 10 mg Suppository 10 mg ME QDAY PRN (Reason: Constipation) RF: 0
--- NOTE | 2019-12-23 19:15 | Emergency Department Note ---
HPI General Chief complaint: Constipation Stated complaint: abdominal pain constipation Time Seen by Provider: 12/23/19 11:56 Source: patient and RN notes reviewed Mode of arrival: wheelchair Limitations: physical limitation History of Present Illness HPI Narrative: Narrative: Patient was sent here from [facility]. Reports that she has not had any stool produced in her colostomy bag since 12/15. She reports that the colostomy bag was last changed 3 days ago. She is currently taken hydrocodone for pain control from her recent hip surgery. She reports abdominal pressure above her colostomy site but she denies specific abdominal pain but does state discomfort. She is currently taking narcotic pain medicatio n for recent hip surgery that she had performed. She was recently admitted here at [facility] for DKA. Denies current confusion or diabetic issues. Patient denies difficulty with urination but does report some lower back pain. Reports that she does feel weaker than usual. States that it is hard to discern her weakness because she had recent surgery and has not had bowel movements. States that she has not eaten a lot of food since her surgery. Denies nausea or vomiting. Denies chest pain or palpations. Denies shortness of breath. Reports some weakness, denies chills. Related Data Home Medications Medication Instructions Recorded Confirmed bisacodyl [Dulcolax (bisacodyl)] 10 mg MN QDAY PRN 12/23/19 12/23/19 glucagon HCl [Glucagon (HCl) 1 mg SUBCUT Q15M PRN 12/23/19 12/23/19 Emergency Kit] insulin glargine [Basaglar KwikPen 10 unit SUBCUT QHS 12/23/19 12/23/19 U-100 Insulin] magnesium hydroxide [Milk of 30 ml PO QDAY PRN 12/23/19 12/23/19 Magnesia] sodium phosphates [Fleet Enema] 118 ml MN DAILYP PRN 12/23/19 12/23/19 Previous Rx's Medication Instructions Recorded sertraline 100 mg tablet 150 mg PO QDAY 90 Days #135 tab 09/23/15 amitriptyline 100 mg tablet 100 mg PO QHS #90 tab 04/14/16 metformin 500 mg PO BIDCC #30 tab 01/02/17 nitrofurantoin monohyd/m-cryst 100 mg PO BID #14 cap 06/20/18 hydrocodone-acetaminophen 1 tab PO BID PRN #20 tab 12/15/19 Allergies Allergy/AdvReac Type Severity Reaction Status Date / Time No Known Drug Allergies Allergy Verified 12/23/19 22:44 Review of Systems ROS Narrative: Narrative: Constitutional: Reports weakness; Denies fever and chills ENT ED: Denies throat pain Cardiovascular: Denies chest pain and palpitations Respiratory: Denies shortness of breath and cough Gastrointestinal: Reports abdominal pain and constipation; Denies nausea, vomiting and hematochezia Genitourinary: Denies dysuria, urgency and frequency Musculoskeletal: Reports back pain Integumentary: Denies rash and lesions Neurological: Denies headache and confusion Endocrine: Reports fatigue Hematological/Lymphatic: Denies lymphadenopathy Allergic/Immunologic: Denies facial swelling PFSH Narrative Patient History Narrative: Narrative: Medical/Surgical/Family History All Active Problems (Updated 12/24/19 @ 13:23 by Jonathan Williamson MD) Therapeutic opioid-induced constipation (OIC) (Acute) Hyperglycemia due to type 2 diabetes mellitus (Acute) Urinary tract infection (Acute) Hypokalemia (Acute) Hyperglycemia (Acute) Generalized weakness (Acute) Diabetes (Acute) Fall (Acute) Hip fracture, right (Acute) DKA (diabetic ketoacidoses) (Acute) Dehydration (Acute) Elevated WBC count (Acute) Fecal impaction of colon (Acute) Urinary tract infection (Acute) Hydronephrosis (Acute) Acute urinary retention (Acute) Postmenopausal bleeding (Acute) Eczema (Acute) Uncontrolled type 2 diabetes mellitus (Chronic) Microalbuminuria (Chronic) 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) Portacath in place (Chronic) Vitamin D deficiency (Chronic) Syncope (Chronic 11/21/12) Osteopenia (Chronic 01/29/12) Mouth pain (Chronic) Hypertension, essential (Chronic 09/02/12) Hyperlipidemia (Chronic 01/29/12) Gastroesophageal reflux (Chronic) Diabetes mellitus, type II (Chronic) Degeneration of cervical intervertebral disc (Chronic) Cystitis, acute (Chronic 09/03/13) Depression (Chronic) Constipation (Chronic) Carotid stenosis (Chronic) Anxiety disorder (Chronic) Medical History Anxiety disorder (Chronic) 1970's treated with Amitriptyline and Sertraline Carotid stenosis (Chronic) 2009 left side 50%; 2013 Less than 50% of the right internal carotid, 50-69% of left internal carotid artery. 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 An Osteopenia (Chronic 01/29/12) Portacath in place (Chronic) For chemotherapy treatment, right anterior chest wall Postmenopausal bleeding (Acute) Report two episodes of this for the last year on 09/23/2015, blood noted on attempted pelvic examination Syncope (Chronic 11/21/12) Etiology unknown Uncontrolled type 2 diabetes mellitus (Chronic) Vitamin D deficiency (Chronic) Surgical History History of appendectomy (Resolved) 1972 History of colon surgery (Resolved) 2006 Partial colectomy with colostomy History of colonoscopy (Resolved 05/15/13) History of colonoscopy (Chronic 10/19/16) 05/15/13 History of colostomy (Chronic 05/24/07) History of repair of right rotator cuff (Resolved) Dr. Harden, repaired due to trauma 2002 History of tonsillectomy (Resolved) 9 years of age History of tubal ligation (Resolved) 1972 Family History Grandmother Malignant neoplasm of colon, Onset Age: 56 Type 2 diabetes mellitus Cardiac disease Grandfather Chronic Kidney Disease Mother Chronic Kidney Disease Dialysis Atherosclerosis of coronary artery Type 2 diabetes mellitus Cardiac disease Father Acute myocardial infarction, Onset Age: 69 Social History Smoking Status: Never smoker Alcohol Intake Frequency: does not drink Substance Use: does not use Exam Narrative Narrative: Narrative: General Limitations: physical limitation Head Head: atraumatic and normocephalic Eye Eye: Present normal appearance ENT ENT: Present normal oropharynx Neck Neck: Present normal inspection; Absent lymphadenopathy Chest Chest: Present normal inspection Respiratory Respiratory: Absent respiratory distress Cardiovascular Cardiovascular: Present regular rate and normal rhythm Adbominal Abdominal: Present soft, hypoactive bowel sounds and other (Patient has a colostomy placed. Dates it was placed 3 years ago.); Absent distention, tenderness, guarding, rebound, Epstein's sign and tenderness at McBurney's Point Extremities Extremities: Present tenderness (Patient has healing surgical site right hip. No noticed redness or heat.) and normal capillary refill Back Back: Present CVA tenderness (R) and CVA tenderness (L) Neurological Neurological: Present alert and oriented X3 Skin Skin: Present warm and intact Course Vital Signs Vital signs: Vital Signs Temperature 98.5 F 12/23/19 11:38 Pulse Rate 114 H 12/23/19 11:38 Respiratory Rate 16 12/23/19 11:38 Blood Pressure 187/92 12/23/19 11:38 Pulse Oximetry (%) 98 12/23/19 11:38 Temperature 98.4 F 12/25/19 03:37 Pulse Rate 100 H 12/25/19 03:37 Respiratory Rate 20 12/25/19 03:37 Blood Pressure 152/75 12/25/19 03:37 Pulse Oximetry (%) 95 12/25/19 03:37 [facility] MDM Narrative Medical decision making narrative: Patient was found to have fecal impaction in her proximal colon. I talked to Dr. Williamson surgeon. He recommended that I patient admitted and her treated here for constipation. He recommended the Relistor and MiraLAX. Also discussed this with Dr. Hassan. He wanted me to contact Dr. Schneider and regards to the patient's hydronephrosis that was found on CT. Did talk to Dr. Oliveros and performed a bladder scan. It was reported to me that the patient had had 2 episodes of micturition in her attends. Due to the finding of bilateral hydronephrosis I ordered a bladder scan. Patient's bladder was found to have 880 mL of urine. Chavez was placed. This was also in accordance with Dr. Zelaya's recommendation. Patient will be admitted to [facility] to treat the current fecal impaction and monitor current hydronephrosis. Lab Data Result diagrams: 12/24/19 05:32 12/24/19 05:32 Labs: Lab Results 12/23/19 12/23/19 12/23/19 Range/Units 13:03 13:03 13:03 WBC 11.4 H (4.50-11.00) K/mcL RBC 3.69 (3.59-5.38) M/mcL Hgb 10.9 L (11.2-15.7) g/dL Hct 32.7 L (34.1-44.9) % POC Hct 34.0 L (36.0-48.0) % MCV 88.6 (80.0-100.0) fL MCH 29.5 (26.0-34.0) pg MCHC 33.3 (31.0-36.0) g/dL RDW 12.2 (11.5-14.5) % Plt Count 380 (140-440) K/mcL MPV 10.6 H (7.4-10.4) fL Total Counted Seg Neutrophils % (38-78) % Band Neutrophils % Lymphocytes % (15-49) % Monocytes % (Manual) (1-12) % Platelet Estimate (NORMAL) RBC Morphology (NORMAL) POC Sodium 130 L (133-145) mmol/L Sodium 130 L (133-145) mmol/L POC Potassium 3.9 (3.3-5.1) mmol/L Potassium 3.9 (3.3-5.1) mmol/L POC Chloride 93 L (96-108) mmol/L Chloride 89 L (96-108) mmol/L Carbon Dioxide 21 L (22-30) mmol/L POC Total CO2 23 (22-30) mmol/L Anion Gap 20.0 H (8-16) POC BUN 16 (8-23) mg/dl BUN 15 (8-23) mg/dl Creatinine 0.6 (0.6-1.1) mg/dl POC Creatinine 0.5 L (0.6-1.1) mg/dl GFR Calculation 91 Glucose 272 H (70-105) mg/dL POC Glucose 275 H (70-105) mg/dL Calcium 9.4 (8.6-10.4) mg/dl POC WB Ioniz Calcium 1.13 L (1.16-1.32) mmol/L Total Bilirubin 0.5 (0.0-1.0) mg/dL AST 42 H (0-37) U/l ALT 33 (0-40) U/l Alkaline Phosphatase 167 H (39-117) U/L Total Protein 7.2 (5.9-8.4) gm/dL Albumin 2.8 L (3.2-5.2) gm/dL Globulin 4.4 H (2.2-3.7) gm/dL Albumin/Globulin Ratio 0.6 L (1.0-2.3) Urine Color Urine Appearance Urine pH (5.0-9.0) Ur Specific [place] (1.000-1.035) Urine Protein (NEG) mg/dL Urine Glucose (UA) (NEG) mg/dL Urine Ketones (NEG) mg/dL Urine Occult Blood (<0.03) mg/dL Urine Nitrate (NEG) Urine Bilirubin (NEG) mg/dL Urine Urobilinogen (NEG) mg/dL Ur Leukocyte Esterase (NEG) /uL Urine RBC (0-1) /hpf Urine WBC (0-4) /hpf Ur Squamous Epith Cells (0-4) /hpf Urine Bacteria (0) /hpf Urine Yeast (Budding) (0) /hpf Ur Culture Indicated? 12/23/19 12/23/19 Range/Units 14:11 14:35 WBC (4.50-11.00) K/mcL RBC (3.59-5.38) M/mcL Hgb (11.2-15.7) g/dL Hct (34.1-44.9) % POC Hct (36.0-48.0) % MCV (80.0-100.0) fL MCH (26.0-34.0) pg MCHC (31.0-36.0) g/dL RDW (11.5-14.5) % Plt Count (140-440) K/mcL MPV (7.4-10.4) fL Total Counted 100 Seg Neutrophils % 91 H (38-78) % Band Neutrophils % Not Reportable Lymphocytes % 4 L (15-49) % Monocytes % (Manual) 5 (1-12) % Platelet Estimate Normal (NORMAL) RBC Morphology Normal (NORMAL) POC Sodium (133-145) mmol/L Sodium (133-145) mmol/L POC Potassium (3.3-5.1) mmol/L Potassium (3.3-5.1) mmol/L POC Chloride (96-108) mmol/L Chloride (96-108) mmol/L Carbon Dioxide (22-30) mmol/L POC Total CO2 (22-30) mmol/L Anion Gap (8-16) POC BUN (8-23) mg/dl BUN (8-23) mg/dl Creatinine (0.6-1.1) mg/dl POC Creatinine (0.6-1.1) mg/dl GFR Calculation Glucose (70-105) mg/dL POC Glucose (70-105) mg/dL Calcium (8.6-10.4) mg/dl POC WB Ioniz Calcium (1.16-1.32) mmol/L Total Bilirubin (0.0-1.0) mg/dL AST (0-37) U/l ALT (0-40) U/l Alkaline Phosphatase (39-117) U/L Total Protein (5.9-8.4) gm/dL Albumin (3.2-5.2) gm/dL Globulin (2.2-3.7) gm/dL Albumin/Globulin Ratio (1.0-2.3) Urine Color Yellow Urine Appearance Turbid Urine pH 5.0 (5.0-9.0) Ur Specific [place] 1.015 (1.000-1.035) Urine Protein 100 A (NEG) mg/dL Urine Glucose (UA) 50 A (NEG) mg/dL Urine Ketones 20 A (NEG) mg/dL Urine Occult Blood 0.2 A (<0.03) mg/dL Urine Nitrate Neg (NEG) Urine Bilirubin Neg (NEG) mg/dL Urine Urobilinogen Neg (NEG) mg/dL Ur Leukocyte Esterase 75 A (NEG) /uL Urine RBC > 182 H (0-1) /hpf Urine WBC > 182 H (0-4) /hpf Ur Squamous Epith Cells 0 (0-4) /hpf Urine Bacteria 0 (0) /hpf Urine Yeast (Budding) Many A (0) /hpf Ur Culture Indicated? Yes Discharge Plan Patient/Caregiver Discharge Instructions Pt seen by CREDIT REPRESENTATIVE/PA only: No Clinical Impression: Fecal impaction of colon, Urinary tract infection, Acute urinary retention Hydronephrosis Qualifiers: Hydronephrosis type: with ureteropelvic junction obstruction Qualified Code(s): Q62.11 - Congenital occlusion of ureteropelvic junction Patient Disposition: Xfer As Inpt ([facility]) Condition: Fair Discharge Date/Time: 12/23/19 21:13
[2019-12-23] MEDS ORDERED: HYDROmorphone 0.5 MG/0.5 ML SYRINGE IM ONE (19:35)
--- NOTE | 2019-12-23 19:41 | Internal Med History&Physical ---
HPI History of Present Illness Patient information: Note initiated : 12/23/19 at 7:24 pm Service Date, if different from initiated Date: [] Patient: Esther Hartley a 74 y/o F admitted on for Abdominal Pain, Constipation. Chief Complaint: [] History of present illness: Ms. Hartley is a 74 year old F Who recently underwent right hip repair after right hip fracture from a trip and fall. He was discharged on the . Since the the nursing facility is noted she has not had a bowel movement. She was sent in by her PCP for evaluation of small bowel obstruction. On imaging she was found to have a mild fecal impaction of the proximal colon. She does have a colostomy. Case was discussed with Dr. Williamson who wanted her started on Relistor and MiraLAX. Hospitalist contacted because the CT imaging also showed new onset moderately to severe bilateral hydronephrosis with a distended urinary bladder. Case was then discussed with Dr. Schneider. Bladder scan showed 100 cc and a Chavez catheter was placed. Patient does report being able to urinate. BUN and creatinine are normal limits. Also concern in the ER for urinary tract infection given her abnormal urinalysis, however looking at old urinalysis this appears chronic in nature and her last urine culture from last admission only grew out nonpathogenic skin leslye. Her white blood cell count is essentially normal. She is afebrile. Review of Systems: Pertinent positives as above. Denies headache/fever/chills/nausea/vomiting/chest or abdominal pain/cough/dyspnea/diarrhea. Remaining 10 point review of system reviewed negative [facility] Medical History Anxiety disorder (Chronic) treated with Amitriptyline and Sertraline Carotid stenosis (Chronic) 2009 left side 50%; 2013 Less than 50% of the right internal carotid, 50-69% of left internal carotid artery. 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 An Osteopenia (Chronic 01/29/12) Portacath in place (Chronic) For chemotherapy treatment, right anterior chest wall Postmenopausal bleeding (Acute) Report two episodes of this for the last year on 09/23/2015, blood noted on attempted pelvic examination Syncope (Chronic 11/21/12) Etiology unknown Uncontrolled type 2 diabetes mellitus (Chronic) Vitamin D deficiency (Chronic) Surgical History History of appendectomy (Resolved) 1972 History of colon surgery (Resolved) 2006 Partial colectomy with colostomy History of colonoscopy (Resolved 05/15/13) History of colonoscopy (Chronic 10/19/16) 05/15/13 History of colostomy (Chronic 05/24/07) History of repair of right rotator cuff (Resolved) Dr. Harden, repaired due to trauma 2002 History of tonsillectomy (Resolved) 9 years of age History of tubal ligation (Resolved) 1972 Family History Grandmother Malignant neoplasm of colon, Onset Age: 56 Type 2 diabetes mellitus Cardiac disease Grandfather Chronic Kidney Disease Mother Chronic Kidney Disease Dialysis Atherosclerosis of coronary artery Type 2 diabetes mellitus Cardiac disease Father Acute myocardial infarction, Onset Age: 69 Social History household members: spouse housing: house marital status: occupational status: retired pets and animals: Yes pets and animals: cat(s) sexually active: No other: 2 living children well-balanced diet: daily or most days daily servings fruits/ve-4 eating out: 4 or more times/week during the past year weight has: remained stable physical activity: walking frequency: 3-4 times per week duration: 15-30 minutes/day smoking status: Never smoker alcohol intake frequency: does not drink substance use type: does not use romario/latter day: None seatbelt use: always working smoke detector in home: Yes MEDS/ALLERGIES Home Medications and Allergies Home Medications Medication Instructions Recorded Confirmed Type sertraline 100 mg tablet 150 mg PO QDAY 90 Days #135 tab 09/23/15 12/23/19 Rx amitriptyline 100 mg tablet 100 mg PO QHS #90 tab 04/14/16 12/23/19 Rx metformin 500 mg PO BIDCC #30 tab 01/02/17 12/23/19 Rx nitrofurantoin monohyd/m-cryst 100 mg PO BID #14 cap 06/20/18 12/23/19 Rx insulin glargine 10 unit SQ HS #1 ml 03/30/19 12/23/19 Rx hydrocodone-acetaminophen 1 tab PO BID PRN #20 tab 12/15/19 12/23/19 Rx bisacodyl [Dulcolax (bisacodyl)] 10 mg MI QDAY PRN 12/23/19 12/23/19 History magnesium hydroxide [Milk of 30 ml PO QDAY PRN 12/23/19 12/23/19 History Magnesia] Allergies Allergy/AdvReac Type Severity Reaction Status Date / Time No Known Drug Allergies Allergy Verified 01/02/17 12:03 EXAM Constitutional Vitals: Temp Pulse Resp BP Pulse Ox 98.5 F 106 H 20 162/84 94 12/23/19 11:38 12/23/19 15:38 12/23/19 14:07 12/23/19 18:02 12/23/19 15:38 DATA Data Completed and Pending Labs on day of discharge: Labs from last 24 hours 12/23/19 12/23/19 12/23/19 14:11 13:03 13:03 WBC 11.4 H RBC 3.69 Hgb 10.9 L Hct 32.7 L POC Hct MCV 88.6 MCH 29.5 MCHC 33.3 RDW 12.2 Plt Count 380 MPV 10.6 H POC Sodium Sodium 130 L POC Potassium Potassium 3.9 POC Chloride Chloride 89 L Carbon Dioxide 21 L POC Total CO2 Anion Gap 20.0 H POC BUN BUN 15 Creatinine 0.6 POC Creatinine GFR Calculation 91 Glucose 272 H POC Glucose Calcium 9.4 POC WB Ioniz Calcium Total Bilirubin 0.5 AST 42 H ALT 33 Alkaline Phosphatase 167 H Total Protein 7.2 Albumin 2.8 L Globulin 4.4 H Albumin/Globulin Ratio 0.6 L Urine Color Yellow Urine Appearance Turbid Urine pH 5.0 Ur Specific [place] 1.015 Urine Protein 100 A Urine Glucose (UA) 50 A Urine Ketones 20 A Urine Occult Blood 0.2 A Urine Nitrate Neg Urine Bilirubin Neg Urine Urobilinogen Neg Ur Leukocyte Esterase 75 A Urine RBC > 182 H Urine WBC > 182 H Ur Squamous Epith Cells 0 Urine Bacteria 0 Urine Yeast (Budding) Many A Ur Culture Indicated? Yes 12/23/19 13:03 WBC RBC Hgb Hct POC Hct 34.0 L MCV MCH MCHC RDW Plt Count MPV POC Sodium 130 L Sodium POC Potassium 3.9 Potassium POC Chloride 93 L Chloride Carbon Dioxide POC Total CO2 23 Anion Gap POC BUN 16 BUN Creatinine POC Creatinine 0.5 L GFR Calculation Glucose POC Glucose 275 H Calcium POC WB Ioniz Calcium 1.13 L Total Bilirubin AST ALT Alkaline Phosphatase Total Protein Albumin Globulin Albumin/Globulin Ratio Urine Color Urine Appearance Urine pH Ur Specific [place] Urine Protein Urine Glucose (UA) Urine Ketones Urine Occult Blood Urine Nitrate Urine Bilirubin Urine Urobilinogen Ur Leukocyte Esterase Urine RBC Urine WBC Ur Squamous Epith Cells Urine Bacteria Urine Yeast (Budding) Ur Culture Indicated? A/P Narrative A/P Narrative: A: *UR with b/l V[place]: likely 2/2 recent hip surgery / meds (narcs/tca) *Constipation with h/o colostomy: 2/2 recent hip surg / meds (narcs/tca) *Hyponatremia: *DM: *recent RT Hip Fracture: s/p ORIF (12/10), Managed per orthopedics. Postop pain management as per orthopedics. *Abnormal UA: appears chronic, last cx only nonpathogenic leslye, afebrile, wbc essentially normal, monitor closely *Generalized weakness/deconditioning *GERD/Hyperlipidemia: *h/o CAD: on aspirin and statin/ARB *Depression/Anxiety disorder: on sertraline and amitriptyline Plan: -cezar Chavez -Dr. Schneider discussed case in ED -f/u renal u/s -Dr. Williamson, bowel regimen -minimize narcotics - -PT/ OT -basal and SSI, metformin -Discharge planning back to SNF when able -ppx: lovenox/home ppi full code Time Spent With Patient Time: Total time spent is greater than 50% in coordination of care (as documented) at patient's floor/unit and/or counseling patient:
[2019-12-23 20:27] LABS: Lymphocytes % 4 % (15-49); Monocytes % (Manual) 5 % (1-12); Platelet Estimate NORMAL (NORMAL); RBC Morphology NORMAL (NORMAL); Segmented Neutrophils % 91 % (38-78)
[2019-12-23] MEDS ORDERED: SENNOSIDES 1 TABLET PO PRN (21:15)
[2019-12-23] MEDS ORDERED: METOCLOPRAMIDE 10 MG/2 ML VIAL IV PRN (21:15)
[2019-12-23] MEDS ORDERED: MAGNESIUM SULFATE 2 GM/50 ML BAG IV PRN (21:15)
[2019-12-23] MEDS ORDERED: POTASSIUM CHLORIDE 20 MEQ TABLET PO PRN (21:15)
[2019-12-23] MEDS ORDERED: DEXTROSE 50% 50 ML VIAL IV PRN (21:15)
[2019-12-23] MEDS ORDERED: ONDANSETRON 4 MG/2 ML VIAL IV PRN (21:15)
[2019-12-23] MEDS ORDERED: BISACODYL 10 MG SUPP.RECT PR PRN (21:15)
[2019-12-23] MEDS ORDERED: MAGNESIUM HYDROXIDE 30 ML ORAL.SUSP PO PRN (21:15)
[2019-12-23] MEDS ORDERED: POTASSIUM CHLORIDE 40 MEQ in DEXTROSE 5% IN WATER 500 ML IV PRN (21:15)
[2019-12-23] MEDS ORDERED: DEXTROSE 31 GM ORAL.SUSP PO PRN (21:15)
[2019-12-23] MEDS ORDERED: IPRATROPIUM/ALBUTEROL 3 ML AMPUL.NEB NEB PRN (21:15)
[2019-12-23] MEDS: INSULIN GLARGINE, HUMAN 1 UNIT/0.01 ML SQ SCH (22:11)
[2019-12-23] MEDS: ACETAMINOPHEN 325 MG TABLET PO PRN (22:11)
[2019-12-23] MEDS: INSULIN LISPRO 1 UNIT/0.01 ML UNIT SQ SCH (22:11)
[2019-12-23] MEDS: AMITRIPTYLINE 25 MG TABLET PO SCH (22:12)
[2019-12-23] MEDS: 0.9 % SODIUM CHLORIDE 1,000 ML IV SCH (22:12)
[2019-12-23] MEDS: 0.9 % SODIUM CHLORIDE 10 ML SYRINGE IV SCH (22:13)
[2019-12-23] MEDS: DOCUSATE SODIUM 100 MG CAPSULE PO SCH (22:13)
[2019-12-23] MEDS: POLYETHYLENE GLYCOL 3350 17 GM PACKET PO SCH (23:44)
[2019-12-24] MEDS: 0.9 % SODIUM CHLORIDE 10 ML SYRINGE IV SCH ×3 (05:13→21:03)
[2019-12-24] MEDS: POLYETHYLENE GLYCOL 3350 17 GM PACKET PO SCH ×4 (05:56→23:54)
[2019-12-24 07:39] LABS: Basophils # (Auto) 0.02 K/mcL (0.00-0.30); Basophils % (Auto) 0.2 % (0.0-2.0); Eosinophils # (Auto) 0.17 K/mcL (0.00-0.70); Eosinophils % (Auto) 1.7 % (0.0-7.0); Hematocrit 32.8 % (34.1-44.9); Hemoglobin 10.6 g/dL (11.2-15.7); Lymphocytes # (Auto) 0.59 K/mcL (1.50-4.80); Lymphocytes % (Auto) 5.9 % (15.5-49.0); Mean Cell Volume 89.6 fL (80.0-100.0); Mean Corpuscular HGB Conc 32.3 g/dL (31.0-36.0); Mean Platelet Volume 9.4 fL (7.4-10.4); Monocytes # (Auto) 0.82 K/mcL (0.10-0.90); Monocytes % (Auto) 8.2 % (1.0-12.0); Platelet Count 352 K/mcL (140-440); RBC 3.66 M/mcL (3.59-5.38); Red Cell Distribution Width 12.4 % (11.5-14.5)
--- NOTE | 2019-12-24 07:40 | Internal Med Progress Note ---
SUBJECTIVE Subjective Patient information: Note initiated : 12/24/19 at 7:33 am Service Date, if different from initiated Date: [] Patient: Esther Hartley a 74 y/o F admitted on 12/23/19 for Abdominal Pain, Constipation. Chief Complaint: [] Interval history: Narrative: History of present illness: Ms. Hartley is a 74 year old F Who recently underwent right hip repair after right hip fracture from a trip and fall. He was discharged on the . Since the the nursing facility is noted she has not had a bowel movement. She was sent in by her PCP for evaluation of small bowel obstruction. On imaging she was found to have a mild fecal impaction of the proximal colon. She does have a colostomy. Case was discussed with Dr. Williamson who wanted her started on Relistor and MiraLAX. Hospitalist contacted because the CT imaging also showed new onset moderately to severe bilateral hydronephrosis with a distended urinary bladder. Case was then discussed with Dr. Schnieder. Bladder scan showed 100 cc and a Chavez catheter was placed. Patient does report being able to urinate. BUN and creatinine are normal limits. Also concern in the ER for urinary tract infection given her abnormal urinalysis, however looking at old urinalysis this appears chronic in nature and her last urine culture from last admission only grew out nonpathogenic skin chris ra. Her white blood cell count is essentially normal. She is afebrile. 12/23 No BM overnight. No events overnight or new issues. Sodium within normal limits now. Chavez in place. States she slept well. Review of Systems: denies headache/fever/chills/nausea/vomiting/chest or abdominal pain/cough /dyspnea/diarrhea. Otherwise see above. Constitutional Vitals: Vital Signs Temp Pulse Resp BP Pulse Ox 96.7 F L 89 18 126/65 95 12/24/19 03:33 12/24/19 03:33 12/24/19 03:33 12/24/19 03:33 12/24/19 03:33 Period Temp Pulse Resp BP Sys/Mackay Pulse Ox Last 24 Hr 96.7 F-98.5 F 88-117 16-20 108-195/65-168 94-99 Intake and Output 12/23/19 12/24/19 12/24/19 21:59 05:59 13:59 Intake Total 0 Output Total 815 550 Balance -815 -550 Weight 56.245 kg Intake & Output: Intake & Output 12/23/19 12/24/19 12/24/19 21:59 05:59 13:59 Intake Total 0 Output Total 815 550 Balance -815 -550 Weight 56.245 kg Intake: Oral 0 Output: Void Amount 815 550 Uretheral (Chavez) 815 Other: Urine Appearance Cloudy Small Blood Clots Uretheral (Chavez) Sediment Hematuria Urine Color [place] Uretheral (Chavez) Bright Red Urine Odor Uretheral (Chavez) Foul Exam: General: Awake, No acute Distress Eyes/N/T: EOMI, Head/Neck: neck supple, CV: RRR, No murmurs, Pulm: Clear b/l, no wheezing/rhonchi/rales Abd: soft, nontender, +BS x4, no output in ostomy Ext: no clubbing/cyanosis/edema Neuro: alert and awake, no focal deficits, Skin: warm/dry OBJ DATA Labs CBC & Chem 7: 12/24/19 05:32 12/24/19 05:32 Labs: Abnormal Lab Results 12/23/19 12/23/19 12/23/19 14:35 14:11 13:03 WBC Hgb Hct POC Hct MPV Seg Neutrophils % 91 H Lymphocytes % 4 L POC Sodium Sodium 130 L POC Chloride Chloride 89 L Carbon Dioxide 21 L Anion Gap 20.0 H POC Creatinine Glucose 272 H POC Glucose POC WB Ioniz Calcium AST 42 H Alkaline Phosphatase 167 H Albumin 2.8 L Globulin 4.4 H Albumin/Globulin Ratio 0.6 L Urine Protein 100 A Urine Glucose (UA) 50 A Urine Ketones 20 A Urine Occult Blood 0.2 A Ur Leukocyte Esterase 75 A Urine RBC > 182 H Urine WBC > 182 H Urine Yeast (Budding) Many A 12/23/19 12/23/19 13:03 13:03 WBC 11.4 H Hgb 10.9 L Hct 32.7 L POC Hct 34.0 L MPV 10.6 H Seg Neutrophils % Lymphocytes % POC Sodium 130 L Sodium POC Chloride 93 L Chloride Carbon Dioxide Anion Gap POC Creatinine 0.5 L Glucose POC Glucose 275 H POC WB Ioniz Calcium 1.13 L AST Alkaline Phosphatase Albumin Globulin Albumin/Globulin Ratio Urine Protein Urine Glucose (UA) Urine Ketones Urine Occult Blood Ur Leukocyte Esterase Urine RBC Urine WBC Urine Yeast (Budding) Meds: Medications Acetaminophen (Tylenol) 650 mg PO Q6HP PRN PRN Reason: PAIN/FEVER > 101 Last Admin: 12/23/19 22:11 Dose: 650 mg Documented by: Albuterol/Ipratropium (Duoneb) 3 ml NEB Q4HP PRN PRN Reason: Shortness Of Breath Amitriptyline HCl (Elavil) 100 mg PO QHS [facility] Last Admin: 12/23/19 22:12 Dose: 100 mg Documented by: Bisacodyl (Dulcolax) 10 mg [place] QDAY PRN PRN Reason: Constipation Dextrose (Dextrose 50%) 0 ml IV UD PRN PRN Reason: Hypoglycemia Diagnostic Test (Pha) (Accu-Chek) 1 each FS [facility] Last Admin: 12/23/19 22:11 Dose: 1 each Documented by: Docusate Sodium (Colace) 100 mg PO BID [facility] Last Admin: 12/23/19 22:13 Dose: 100 mg Documented by: Enoxaparin Sodium (Lovenox) 40 mg SQ DAILY [facility] Glucose (Insta-Glucose) 15 gm PO PRN PRN PRN Reason: Hypoglycemia Potassium Chloride 40 meq/ (Dextrose) 520 mls @ 130 mls/hr IV UD PRN PRN Reason: Potassium < 3 Magnesium Sulfate (Magnesium Sulfate) 2 gm in 50 mls @ 50 mls/hr IV UD PRN PRN Reason: Magnesium </= 1.6 Sodium Chloride (Sodium Chloride 0.9%) 1,000 mls @ 75 mls/hr IV .[id number] [facility] Stop: 12/24/19 23:54 Last Admin: 12/23/19 22:12 Dose: 75 mls/hr Documented by: Insulin Glargine (Lantus) 10 unit SQ [facility] Last Admin: 12/23/19 22:11 Dose: 10 units Documented by: Insulin Human Lispro (Humalog) 0 unit SQ [facility]; Protocol Last Admin: 12/23/19 22:11 Dose: 8 units Documented by: Magnesium Hydroxide (Milk Of Magnesia) 30 ml PO QDAY PRN PRN Reason: Constipation [facility]) [facility] Methylnaltrexone [place] (Relistor) 12 mg SC 0900 [facility] Stop: 12/24/19 09:01 Metoclopramide HCl (Reglan) 10 mg IV Q6HP PRN PRN Reason: Nausea And Vomiting Ondansetron HCl (Zofran) 4 mg IV Q4HP PRN PRN Reason: Nausea And Vomiting Polyethylene Glycol (Miralax) 17 gm PO Q6 [facility] Stop: 12/25/19 06:01 Last Admin: 12/24/19 05:56 Dose: 17 gm Documented by: Potassium Chloride (Kdur) 40 meq PO UD PRN PRN Reason: Potssium is 3-3.5 Potassium Chloride (Kdur) 40 meq PO UD PRN PRN Reason: Potassium < 3 Senna (Senokot) 2 tab PO DAILYP PRN PRN Reason: Constipation Sertraline HCl (Zoloft) 150 mg PO QDAY [facility] Sodium Chloride (Saline Flush) 10 ml IV Q8 [facility] Last Admin: 12/24/19 05:13 Dose: Not Given Documented by: A/P Narrative A/P Narrative: Narrative: A: *UR with b/l Bedias: likely 2/2 recent hip surgery / meds (narcs/tca) *Constipation with h/o colostomy: 2/2 recent hip surg / meds (narcs/tca) *Hyponatremia: resolved *DM: *recent RT Hip Fracture: s/p ORIF (12/10), Managed per orthopedics. Postop pain management as per orthopedics. *Abnormal UA: appears chronic, last cx only nonpathogenic leslye, afebrile, no leukocytosis/bandemia, monitor *Generalized weakness/deconditioning *GERD/Hyperlipidemia: *h/o CAD: on aspirin and statin/ARB *Depression/Anxiety disorder: on sertraline and amitriptyline Plan: -cezar Chavez -Dr. Schneider discussed case in ED -f/u renal u/s -Dr. Williamson, bowel regimen -minimize narcotics - -PT/ OT -basal(titrate as needed) and SSI, metformin -Discharge planning back to SNF when able -ppx: lovenox/home ppi full code Time Spent With Patient Time: Total time spent is greater than 50% in coordination of care (as documented) at patient's floor/unit and/or counseling patient:
[2019-12-24 07:54] LABS: ALT/SGPT 50 U/l (0-40); AST/SGOT 107 U/l (0-37); Albumin 2.4 gm/dL (3.2-5.2); Albumin/Globulin Ratio 0.6 (1.0-2.3); Alkaline Phosphatase 186 U/L (39-117); Bilirubin,Direct 0.2 mg/dL (0.0-0.3); Bilirubin,Total 0.6 mg/dL (0.0-1.0); Blood Urea Nitrogen 13 mg/dl (8-23); Calcium 9.2 mg/dl (8.6-10.4); Carbon Dioxide 24 mmol/L (22-30); Chloride 96 mmol/L (96-108); Globulin 4.3 gm/dL (2.2-3.7); Glomerular Filtration Rate 91; Glucose 150 mg/dL (70-105); Lactate Dehydrogenase 237 U/L (94-250); Phosphorous 4.1 mg/dL (2.7-4.5); Triglycerides 127 mg/dl (<150)
[2019-12-24] MEDS: INSULIN LISPRO 1 UNIT/0.01 ML UNIT SQ SCH ×4 (08:21→21:02)
[2019-12-24] MEDS: ENOXAPARIN 40 MG/0.4 ML SYRINGE SQ SCH (08:52)
[2019-12-24] MEDS: SERTRALINE 100 MG TABLET PO SCH (08:52)
[2019-12-24] MEDS: metFORMIN 500 MG TABLET PO SCH ×2 (08:52→17:10)
[2019-12-24] MEDS: DOCUSATE SODIUM 100 MG CAPSULE PO SCH ×2 (08:53→21:04)
[2019-12-24] MEDS ORDERED: METHYLNALTREXONE BROMIDE 12 MG/0.6 ML SYRINGE SC SCH (09:00)
[2019-12-24] MEDS: 0.9 % SODIUM CHLORIDE 1,000 ML IV SCH (10:25)
[2019-12-24] MEDS: ACETAMINOPHEN 325 MG TABLET PO PRN (10:25)
--- NOTE | 2019-12-24 12:24 | General Surgery Progress Note ---
Surgery - Auxiliary Note Subjective Patient Information: Note initiated : 12/24/19 at 12:22 pm Service Date, if different from initiated Date: [] Patient: Esther Hartley 74 y/o F admitted on 12/23/19 for Abdominal Pain, Constipation. Chief Complaint: Urine retention Patient was examined and a full note was dictated. Patient with bilateral hydronephrosis which appears to be secondary to bladder outlet obstruction. Recommend: Renal ultrasound tomorrow to check on the status of her kidneys Start Flomax to see if this may help her with urination May be discharged to SNF with catheter Start on intermittent catheterization at the [facility] and record postvoid residuals.]
--- NOTE | 2019-12-24 12:49 | Consultation ---
DATE OF CONSULTATION: 12/24/2019 REQUESTING PHYSICIAN: Fermin Hassan D.O. HISTORY OF PRESENT ILLNESS: The patient is a 74-year-old lady who recently underwent a right hip repair for a fracture. A CT scan was obtained. In reviewing the records, it did show a large bladder but no hydronephrosis. Recently, she has been in residential, has not had a bowel movement, and was sent in to the emergency room for evaluation of a small bowel obstruction. She has had a colostomy, and there was no stool in the bag. A CT scan was obtained which did show bilateral hydronephrosis. She also had a distended bladder. Previously, she stated that she had incontinence where she was leaking all the time. This appears to be overflow incontinence. She does have a history of recurrent urinary infections. Again, her CT scan done at the time of the hip fracture did not show hydronephrosis, but she has developed hydronephrosis. She has been able to urinate but not to completion. I have been asked to see her. PAST MEDICAL HISTORY: Significant for carotid stenosis, constipation, chronic cystitis. DJD, diabetes, diabetic nephropathy, neoplasm of the colon. PAST SURGICAL HISTORY: Appendectomy, rotator cuff repair, tubal ligation, tonsillectomy, and also hip replacement. FAMILY HISTORY: Noncontributory. SOCIAL HISTORY: . She currently resides in a residential. Does not smoke. CURRENT MEDICATIONS: 1. Sertraline. 2. Amitriptyline. 3. Metformin. 4. Insulin. 5. Magnesium sulfate. ALLERGIES: No known drug allergies. REVIEW OF SYSTEMS: CARDIAC: Denies any chest pain. RESPIRATORY: No wheezing, coughing, or asthma. PSYCHOLOGICAL: No depression. The rest of a 12-point review of systems is negative. Please see the hospitalist's dictation. PHYSICAL EXAMINATION: GENERAL: This is a pleasant lady in no apparent distress. She is lying in bed. VITAL SIGNS: As listed per nurse's notes. NECK: Supple. Trachea is midline. HEART: Regular rate and rhythm. LUNGS: Clear to auscultation. ABDOMEN: Soft, nontender, no palpable bladder. She does have a left lower quadrant colostomy bag. GENITOURINARY: Deferred, but Chavez catheter is in place. EXTREMITIES: No clubbing, cyanosis or edema. NEUROLOGIC: Cranial nerves II through XII are intact. IMPRESSION AND PLAN: Urinary retention. This appears to be a longstanding problem. This would explain her frequent incontinence because this is overflow incontinence. Chavez catheter has been placed and is draining well. She will need an ultrasound in the future to make sure that the hydronephrosis has resolved, which it should. I would keep the catheter in place, also start her on Flomax to see if we can get her to urinate. 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 When she goes back to the residential, they can start her on intermittent catheterization, which will cut down on infections and will also give us a chance to monitor how much output she does have on her own. I have gone over this with the patient and she agrees, and I discussed this with Dr. Hassan. We will follow as an outpatient. TOM:rodrigo Job ID: [id number] Doc ID: [id number] Dave SHANE
--- NOTE | 2019-12-24 13:23 | General Surgery Consult Note ---
HPI Data of Consult Consult date: 12/24/19 Requesting physician: Fermin Hassan Primary Care Provider: Dinorah Regalado Consult Narrative Chief complaint: progressive constipation; lethargy Reason for consult: progressive constipation History of present illness: 74-year-old female with history of recent right hip fracture. Patient has been transferred to a nursing care facility and it was noted that she had no output through her colostomy for over a week. She was seen in the emergency room and was noted to have major impaction of stool in the right colon transverse colon and proximal descending colon. She did not have any dilated bowel to suggest obstruction. Patient was noted to have bilateral hydronephrosis and there is some question about bladder outlet obstruction.. cc:: CC: Fermin Hassan Constitutional Constitutional: Present fatigue, frequent falls, malaise, weakness and weight loss EENT Eyes: Present change in vision Ears: Present decreased hearing Nose, mouth and throat: Present as per HPI Cardiovascular Cardiovascular: Absent chest pain at rest, chest pain with activity, claudication and palpatations Respiratory Respiratory: Present cough and dyspnea on exertion Gastrointestinal Gastrointestinal: Present abdominal pain, change in stool character, constipation, early satiety and nausea Genitourinary Genitourinary: Present post void dribbling, urinary hesitancy and urinary urgency Musculoskeletal Musculoskeletal: Present abnormal gait, arthralgias, back pain, limited range of motion, muscle weakness, neck pain, numbness and stiffness Integumentary Integumentary: Present as per HPI Neurological Neurological: Present abnormal gait, abnormal hearing, confusion, frequent falls and restless legs Psychiatric Psychiatric: Present abnormal sleep pattern, anxiety, depression and memory loss Endocrine Endocrine: Present as per HPI Hematologic/Lymphatic Hematologic/Lymphatic: Absent easy bleeding, easy bruising and lymphadenopathy Allergic/Immunologic Allergic/Immunologic: Absent tongue swelling, throat swelling, uticaria, wheezing and lip swelling [facility] Medical History Anxiety disorder (Chronic) treated with Amitriptyline and Sertraline Carotid stenosis (Chronic) 2009 left side 50%; 2013 Less than 50% of the right internal carotid, 50-69% of left internal carotid artery. Constipation (Chronic) 2009, alternating with diarrhea with colostomy Cystitis, acute (Chronic 09/03/13) Degeneration of cervical intervertebral disc (Chronic) Depression (Chronic) 1969' Treated with Sertraline and Amitriptyline Diabetes mellitus, type II (Chronic) 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) Diverticulitis of colon (Resolved) Eczema (Acute) ezematous changes to the left outer ear Gastroesophageal reflux (Chronic) Hyperlipidemia (Chronic 01/29/12) Hypertension, essential (Chronic 09/02/12) Microalbuminuria (Chronic) Mouth pain (Chronic) 2010 with blister like patches in her mouth Neoplasm of colon, malignant (Resolved) Colorectal cancer, partial colectomy and subsequent colostomy, radiation and chemotherapy treatment per Dr. An Osteopenia (Chronic 01/29/12) Portacath in place (Chronic) For chemotherapy treatment, right anterior chest wall Postmenopausal bleeding (Acute) Report two episodes of this for the last year on 09/23/2015, blood noted on attempted pelvic examination Syncope (Chronic 11/21/12) Etiology unknown Uncontrolled type 2 diabetes mellitus (Chronic) Vitamin D deficiency (Chronic) Surgical History History of appendectomy (Resolved) 1972 History of colon surgery (Resolved) 2006 Partial colectomy with colostomy History of colonoscopy (Resolved 05/15/13) History of colonoscopy (Chronic 10/19/16) 05/15/13 History of colostomy (Chronic 05/24/07) History of repair of right rotator cuff (Resolved) Dr. Harden, repaired due to trauma 2002 History of tonsillectomy (Resolved) 9 years of age History of tubal ligation (Resolved) 1972 Family History Grandmother Malignant neoplasm of colon, Onset Age: 56 Type 2 diabetes mellitus Cardiac disease Grandfather Chronic Kidney Disease Mother Chronic Kidney Disease Dialysis Atherosclerosis of coronary artery Type 2 diabetes mellitus Cardiac disease Father Acute myocardial infarction, Onset Age: 69 Social History household members: spouse housing: house marital status: occupational status: retired pets and animals: Yes pets and animals: cat(s) sexually active: No other: 2 living children well-balanced diet: daily or most days daily servings fruits/ve-4 eating out: 4 or more times/week during the past year weight has: remained stable physical activity: walking frequency: 3-4 times per week duration: 15-30 minutes/day smoking status: Never smoker alcohol intake frequency: does not drink substance use type: does not use romario/restorationist: None seatbelt use: always working smoke detector in home: Yes MEDS/ALLERGIES Home Medications and Allergies Home Medications Medication Instructions Recorded Confirmed Type sertraline 100 mg tablet 150 mg PO QDAY 90 Days #135 tab 09/23/15 12/23/19 Rx amitriptyline 100 mg tablet 100 mg PO QHS #90 tab 04/14/16 12/23/19 Rx metformin 500 mg PO BIDCC #30 tab 01/02/17 12/23/19 Rx nitrofurantoin monohyd/m-cryst 100 mg PO BID #14 cap 06/20/18 12/23/19 Rx hydrocodone-acetaminophen 1 tab PO BID PRN #20 tab 12/15/19 12/23/19 Rx bisacodyl [Dulcolax (bisacodyl)] 10 mg MT QDAY PRN 12/23/19 12/23/19 History glucagon HCl [Glucagon (HCl) 1 mg SUBCUT Q15M PRN 12/23/19 12/23/19 History Emergency Kit] insulin glargine [Basaglar KwikPen 10 unit SUBCUT QHS 12/23/19 12/23/19 History U-100 Insulin] magnesium hydroxide [Milk of 30 ml PO QDAY PRN 12/23/19 12/23/19 History Magnesia] sodium phosphates [Fleet Enema] 118 ml MT DAILYP PRN 12/23/19 12/23/19 History Allergies Allergy/AdvReac Type Severity Reaction Status Date / Time No Known Drug Allergies Allergy Verified 12/23/19 22:44 Physical Examination Vital Signs Vital signs: Temp Pulse Resp BP Pulse Ox 98.4 F 96 H 24 H 117/62 94 12/24/19 11:39 12/24/19 11:39 12/24/19 11:39 12/24/19 11:39 12/24/19 11:39 General physical appearance General physical exam: no distress, moderate pain and chronically ill Eyes Eye exam: PERRL and normal ocular movement ENT ENT exam: normal pinna, normal nares, normal mucosa and poor long-term Head Head exam IM: Present atraumatic, normal inspection and normocephalic Neck Neck exam: no masses, no bruits, trachea midline, no lymphadenopathy and no venous distension Cardiovascular Cardiovascular exam IM: Present normal rate and rhythm, RRR, +S1 and +S2; Absent gallop and JVD Respiratory Respiratory exam: normal expansion, normal respiratory effort, clear to percussion, clear to auscultation and other Abdomen Abdomen: Present soft and non tender; Absent tender, organomegaly, masses, guarding and distended Integumentary Integumentary: Present no rash, no growths, no abnormal pigmentation and other Neurologic Neurologic: Present normal sensation and confused Musculoskeletal Musculoskeletal: Present other (patient ORIF hip fracture) Psychiatric Psychiatric: Present oriented to person, oriented to place and speech is normal Results Labs Result diagrams: 12/24/19 05:32 12/24/19 05:32 Labs: Abnormal lab results 12/23/19 12/23/19 12/23/19 Range/Units 13:03 13:03 13:03 WBC 11.4 H (4.50-11.00) K/mcL Hgb 10.9 L (11.2-15.7) g/dL Hct 32.7 L (34.1-44.9) % POC Hct 34.0 L (36.0-48.0) % MPV 10.6 H (7.4-10.4) fL Gran % (38.0-78.0) % Lymph % (Auto) (15.5-49.0) % Gran # (1.80-8.00) K/mcL Lymph # (Auto) (1.50-4.80) K/mcL Seg Neutrophils % (38-78) % Lymphocytes % (15-49) % POC Sodium 130 L (133-145) mmol/L Sodium 130 L (133-145) mmol/L POC Chloride 93 L (96-108) mmol/L Chloride 89 L (96-108) mmol/L Carbon Dioxide 21 L (22-30) mmol/L Anion Gap 20.0 H (8-16) POC Creatinine 0.5 L (0.6-1.1) mg/dl Glucose 272 H (70-105) mg/dL POC Glucose 275 H (70-105) mg/dL POC WB Ioniz Calcium 1.13 L (1.16-1.32) mmol/L GGT (5-36) U/L AST 42 H (0-37) U/l ALT (0-40) U/l Alkaline Phosphatase 167 H (39-117) U/L Albumin 2.8 L (3.2-5.2) gm/dL Globulin 4.4 H (2.2-3.7) gm/dL Albumin/Globulin Ratio 0.6 L (1.0-2.3) Urine Protein (NEG) mg/dL Urine Glucose (UA) (NEG) mg/dL Urine Ketones (NEG) mg/dL Urine Occult Blood (<0.03) mg/dL Ur Leukocyte Esterase (NEG) /uL Urine RBC (0-1) /hpf Urine WBC (0-4) /hpf Urine Yeast (Budding) (0) /hpf 12/23/19 12/23/19 12/24/19 Range/Units 14:11 14:35 05:32 WBC (4.50-11.00) K/mcL Hgb 10.6 L (11.2-15.7) g/dL Hct 32.8 L (34.1-44.9) % POC Hct (36.0-48.0) % MPV (7.4-10.4) fL Gran % 84.0 H (38.0-78.0) % Lymph % (Auto) 5.9 L (15.5-49.0) % Gran # 8.38 H (1.80-8.00) K/mcL Lymph # (Auto) 0.59 L (1.50-4.80) K/mcL Seg Neutrophils % 91 H (38-78) % Lymphocytes % 4 L (15-49) % POC Sodium (133-145) mmol/L Sodium (133-145) mmol/L POC Chloride (96-108) mmol/L Chloride (96-108) mmol/L Carbon Dioxide (22-30) mmol/L Anion Gap (8-16) POC Creatinine (0.6-1.1) mg/dl Glucose (70-105) mg/dL POC Glucose (70-105) mg/dL POC WB Ioniz Calcium (1.16-1.32) mmol/L GGT (5-36) U/L AST (0-37) U/l ALT (0-40) U/l Alkaline Phosphatase (39-117) U/L Albumin (3.2-5.2) gm/dL Globulin (2.2-3.7) gm/dL Albumin/Globulin Ratio (1.0-2.3) Urine Protein 100 A (NEG) mg/dL Urine Glucose (UA) 50 A (NEG) mg/dL Urine Ketones 20 A (NEG) mg/dL Urine Occult Blood 0.2 A (<0.03) mg/dL Ur Leukocyte Esterase 75 A (NEG) /uL Urine RBC > 182 H (0-1) /hpf Urine WBC > 182 H (0-4) /hpf Urine Yeast (Budding) Many A (0) /hpf 12/24/19 Range/Units 05:32 WBC (4.50-11.00) K/mcL Hgb (11.2-15.7) g/dL Hct (34.1-44.9) % POC Hct (36.0-48.0) % MPV (7.4-10.4) fL Gran % (38.0-78.0) % Lymph % (Auto) (15.5-49.0) % Gran # (1.80-8.00) K/mcL Lymph # (Auto) (1.50-4.80) K/mcL Seg Neutrophils % (38-78) % Lymphocytes % (15-49) % POC Sodium (133-145) mmol/L Sodium (133-145) mmol/L POC Chloride (96-108) mmol/L Chloride (96-108) mmol/L Carbon Dioxide (22-30) mmol/L Anion Gap (8-16) POC Creatinine (0.6-1.1) mg/dl Glucose 150 H (70-105) mg/dL POC Glucose (70-105) mg/dL POC WB Ioniz Calcium (1.16-1.32) mmol/L GGT 70 H (5-36) U/L AST 107 H (0-37) U/l ALT 50 H (0-40) U/l Alkaline Phosphatase 186 H (39-117) U/L Albumin 2.4 L (3.2-5.2) gm/dL Globulin 4.3 H (2.2-3.7) gm/dL Albumin/Globulin Ratio 0.6 L (1.0-2.3) Urine Protein (NEG) mg/dL Urine Glucose (UA) (NEG) mg/dL Urine Ketones (NEG) mg/dL Urine Occult Blood (<0.03) mg/dL Ur Leukocyte Esterase (NEG) /uL Urine RBC (0-1) /hpf Urine WBC (0-4) /hpf Urine Yeast (Budding) (0) /hpf Diabetes panel 12/23/19 12/24/19 Range/Units 13:03 05:32 Sodium 130 L 135 (133-145) mmol/L Potassium 3.9 3.3 (3.3-5.1) mmol/L Chloride 89 L 96 (96-108) mmol/L Carbon Dioxide 21 L 24 (22-30) mmol/L BUN 15 13 (8-23) mg/dl Creatinine 0.6 0.6 (0.6-1.1) mg/dl Glucose 272 H 150 H (70-105) mg/dL Calcium 9.4 9.2 (8.6-10.4) mg/dl AST 42 H 107 H (0-37) U/l ALT 33 50 H (0-40) U/l Alkaline Phosphatase 167 H 186 H (39-117) U/L Total Protein 7.2 6.7 (5.9-8.4) gm/dL Albumin 2.8 L 2.4 L (3.2-5.2) gm/dL Triglycerides 127 (<150) mg/dl Calcium panel 12/23/19 12/24/19 Range/Units 13:03 05:32 Calcium 9.4 9.2 (8.6-10.4) mg/dl Phosphorus 4.1 (2.7-4.5) mg/dL Albumin 2.8 L 2.4 L (3.2-5.2) gm/dL Pituitary panel 12/23/19 12/24/19 Range/Units 13:03 05:32 Sodium 130 L 135 (133-145) mmol/L Potassium 3.9 3.3 (3.3-5.1) mmol/L Chloride 89 L 96 (96-108) mmol/L Carbon Dioxide 21 L 24 (22-30) mmol/L BUN 15 13 (8-23) mg/dl Creatinine 0.6 0.6 (0.6-1.1) mg/dl Glucose 272 H 150 H (70-105) mg/dL Calcium 9.4 9.2 (8.6-10.4) mg/dl Adrenal panel 06/30/20 07/01/20 Range/Units 13:03 05:32 Sodium 130 L 135 (133-145) mmol/L Potassium 3.9 3.3 (3.3-5.1) mmol/L Chloride 89 L 96 (96-108) mmol/L Carbon Dioxide 21 L 24 (22-30) mmol/L BUN 15 13 (8-23) mg/dl Creatinine 0.6 0.6 (0.6-1.1) mg/dl Glucose 272 H 150 H (70-105) mg/dL Calcium 9.4 9.2 (8.6-10.4) mg/dl Total Bilirubin 0.5 0.6 (0.0-1.0) mg/dL AST 42 H 107 H (0-37) U/l ALT 33 50 H (0-40) U/l Alkaline Phosphatase 167 H 186 H (39-117) U/L Total Protein 7.2 6.7 (5.9-8.4) gm/dL Albumin 2.8 L 2.4 L (3.2-5.2) gm/dL All other labs normal. A/P Assessment and plan (1) Therapeutic opioid-induced constipation (OIC): Status: Acute Comment: RELISTOR 12 mg subcutaneous daily 4 days Metoclopramide 10 mg IV every 6 hours MiraLAX 8 ounces every 6 hours (2) Acute urinary retention: Status: Acute (3) Hydronephrosis: Status: Acute Comment: urology evaluation Qualifiers: Hydronephrosis type: with ureteropelvic junction obstruction Qualified Code(s): Q62.11 - Congenital occlusion of ureteropelvic junction (4) Hypertension, essential: Status: Chronic Comment: continue home medications (5) Carotid stenosis: Status: Chronic Comment: 2009 left side 50%; 2013 Less than 50% of the right internal carotid, 50-69% of left internal carotid artery. Qualifiers: Laterality: left Qualified Code(s): I65.22 - Occlusion and stenosis of left carotid artery (6) Anxiety disorder: Status: Chronic Comment: treated with Amitriptyline and Sertraline Qualifiers: Anxiety disorder type: generalized anxiety disorder Qualified Code(s): F41.1 - Generalized anxiety disorder Narrative A/P Narrative: Narrative: Time Spent With Patient Time: Total time spent is greater than 50% in coordination of care (as documented) at patient's floor/unit and/or counseling patient:
[2019-12-24] MEDS: METOCLOPRAMIDE 10 MG/2 ML VIAL IV SCH ×2 (13:40→21:02)
[2019-12-24] MEDS: POTASSIUM CHLORIDE 20 MEQ TABLET PO PRN (17:09)
[2019-12-24] MEDS: INSULIN GLARGINE, HUMAN 1 UNIT/0.01 ML SQ SCH (21:03)
[2019-12-24] MEDS: AMITRIPTYLINE 25 MG TABLET PO SCH (21:04)
[2019-12-24] MEDS: TAMSULOSIN 0.4 MG CAPSULE PO SCH (21:04)
[2019-12-25] MEDS: METOCLOPRAMIDE 10 MG/2 ML VIAL IV SCH ×4 (02:36→21:15)
[2019-12-25] MEDS: POLYETHYLENE GLYCOL 3350 17 GM PACKET PO SCH (05:50)
--- NOTE | 2019-12-25 07:11 | Internal Med Progress Note ---
SUBJECTIVE Subjective Patient information: Note initiated : 12/25/19 at 7:03 am Service Date, if different from initiated Date: [] Patient: Esther Hartley a 74 y/o F admitted on 12/23/19 for Abdominal Pain, Constipation. Chief Complaint: [] Interval history: Narrative: History of present illness: Ms. Hartley is a 74 year old F Who recently underwent right hip repair after right hip fracture from a trip and fall. He was discharged on the . Since the the nursing facility is noted she has not had a bowel movement. She was sent in by her PCP for evaluation of small bowel obstruction. On imaging she was found to have a mild fecal impaction of the proximal colon. She does have a colostomy. Case was discussed with Dr. Williamson who wanted her started on Relistor and MiraLAX. Hospitalist contacted because the CT imaging also showed new onset moderately to severe bilateral hydronephrosis with a distended urinary bladder. Case was then discussed with Dr. Schneider. Bladder scan showed 100 cc and a Chavez catheter was placed. Patient does report being able to urinate. BUN and creatinine are normal limits. Also concern in the ER for urinary tract infection given her abnormal urinalysis, however looking at old urinalysis this appears chronic in nature and her last urine culture from last admission only grew out nonpathogenic skin leslye. Her white blood cell count is essentially normal. She is afebrile. 12/23 No BM overnight. No events overnight or new issues. Sodium within normal limits now. Chavez in place. States she slept well. 12/24 Slept well. No overnight events. She had several bowel movements yesterday. Follow-up renal ultrasound done this morning pending results. Review of Systems: denies headache/fever/chills/nausea/vomiting/chest or abdominal pain/cough/dyspnea. Otherwise see above. Constitutional Vitals: Vital Signs Temp Pulse Resp BP Pulse Ox 98.4 F 100 H 20 152/75 95 12/25/19 03:37 12/25/19 03:37 12/25/19 03:37 12/25/19 03:37 12/25/19 03:37 Period Temp Pulse Resp BP Sys/Mackay Pulse Ox Last 24 Hr 97.7 F-98.9 F 93-100 16-28 117-152/62-77 94-96 Intake and Output 07/01/20 07/02/20 07/02/20 21:59 05:59 13:59 Intake Total 550 1360 360 Output Total 400 580 Balance 150 780 360 Weight 58.831 kg Intake & Output: Intake & Output 12/24/19 12/25/19 12/25/19 21:59 05:59 13:59 Intake Total 550 1360 360 Output Total 400 580 Balance 150 780 360 Weight 58.831 kg Intake: IV 1000 Sodium Chloride 0.9% 1,000 ml @ 1000 75 mls/hr IV .[id number] [facility] Rx#: [id number] Oral 550 360 360 Output: Urine Catheter Amount 225 550 Stool 175 30 Other: Urine Appearance Cloudy Uretheral (Chavez) Sediment Urine Color Tea Colored Dark Yellow Uretheral (Chavez) Light Shayy Urine Odor Strong Stool Color Brown Stool Consistency Loose Exam: General: Awake, No acute Distress Eyes/N/T: EOMI, Head/Neck: neck supple, CV: RRR, No murmurs, Pulm: Clear b/l, no wheezing/rhonchi/rales Abd: soft, nontender, +BS x4, no output in ostomy Ext: no clubbing/cyanosis/edema Neuro: alert and awake, no focal deficits, Skin: warm/dry OBJ DATA Labs CBC & Chem 7: 12/24/19 05:32 12/25/19 05:30 Labs: Abnormal Lab Results 12/24/19 12/24/19 12/23/19 05:32 05:32 14:35 WBC Hgb 10.6 L Hct 32.8 L POC Hct MPV Gran % 84.0 H Lymph % (Auto) 5.9 L Gran # 8.38 H Lymph # (Auto) 0.59 L Seg Neutrophils % 91 H Lymphocytes % 4 L POC Sodium Sodium POC Chloride Chloride Carbon Dioxide Anion Gap POC Creatinine Glucose 150 H POC Glucose POC WB Ioniz Calcium GGT 70 H AST 107 H ALT 50 H Alkaline Phosphatase 186 H Albumin 2.4 L Globulin 4.3 H Albumin/Globulin Ratio 0.6 L Urine Protein Urine Glucose (UA) Urine Ketones Urine Occult Blood Ur Leukocyte Esterase Urine RBC Urine WBC Urine Yeast (Budding) 12/23/19 12/23/19 12/23/19 14:11 13:03 13:03 WBC 11.4 H Hgb 10.9 L Hct 32.7 L POC Hct MPV 10.6 H Gran % Lymph % (Auto) Gran # Lymph # (Auto) Seg Neutrophils % Lymphocytes % POC Sodium Sodium 130 L POC Chloride Chloride 89 L Carbon Dioxide 21 L Anion Gap 20.0 H POC Creatinine Glucose 272 H POC Glucose POC WB Ioniz Calcium GGT AST 42 H ALT Alkaline Phosphatase 167 H Albumin 2.8 L Globulin 4.4 H Albumin/Globulin Ratio 0.6 L Urine Protein 100 A Urine Glucose (UA) 50 A Urine Ketones 20 A Urine Occult Blood 0.2 A Ur Leukocyte Esterase 75 A Urine RBC > 182 H Urine WBC > 182 H Urine Yeast (Budding) Many A 12/23/19 13:03 WBC Hgb Hct POC Hct 34.0 L MPV Gran % Lymph % (Auto) Gran # Lymph # (Auto) Seg Neutrophils % Lymphocytes % POC Sodium 130 L Sodium POC Chloride 93 L Chloride Carbon Dioxide Anion Gap POC Creatinine 0.5 L Glucose POC Glucose 275 H POC WB Ioniz Calcium 1.13 L GGT AST ALT Alkaline Phosphatase Albumin Globulin Albumin/Globulin Ratio Urine Protein Urine Glucose (UA) Urine Ketones Urine Occult Blood Ur Leukocyte Esterase Urine RBC Urine WBC Urine Yeast (Budding) Meds: Medications Acetaminophen (Tylenol) 650 mg PO Q6HP PRN PRN Reason: PAIN/FEVER > 101 Last Admin: 12/24/19 10:25 Dose: 650 mg Documented by: Albuterol/Ipratropium (Duoneb) 3 ml NEB Q4HP PRN PRN Reason: Shortness Of Breath Amitriptyline HCl (Elavil) 100 mg PO QHS [facility] Last Admin: 12/24/19 21:04 Dose: 100 mg Documented by: Bisacodyl (Dulcolax) 10 mg UT QDAY PRN PRN Reason: Constipation Dextrose (Dextrose 50%) 0 ml IV UD PRN PRN Reason: Hypoglycemia Diagnostic Test (Pha) (Accu-Chek) 1 each FS ACHS [facility] Last Admin: 12/24/19 21:04 Dose: 1 each Documented by: Docusate Sodium (Colace) 100 mg PO BID [facility] Last Admin: 12/24/19 21:04 Dose: 100 mg Documented by: Enoxaparin Sodium (Lovenox) 40 mg SQ DAILY [facility] Last Admin: 12/24/19 08:52 Dose: 40 mg Documented by: Glucose (Insta-Glucose) 15 gm PO PRN PRN PRN Reason: Hypoglycemia Potassium Chloride 40 meq/ (Dextrose) 520 mls @ 130 mls/hr IV UD PRN PRN Reason: Potassium < 3 Magnesium Sulfate (Magnesium Sulfate) 2 gm in 50 mls @ 50 mls/hr IV UD PRN PRN Reason: Magnesium </= 1.6 Insulin Glargine (Lantus) 10 unit SQ [facility] Last Admin: 12/24/19 21:03 Dose: 10 units Documented by: Insulin Human Lispro (Humalog) 0 unit SQ [facility]; Protocol Last Admin: 12/24/19 21:02 Dose: 4 units Documented by: Magnesium Hydroxide (Milk Of Magnesia) 30 ml PO QDAY PRN PRN Reason: Constipation Metformin HCl (Glucophage) 500 mg PO BIDCC [facility] Last Admin: 12/24/19 17:10 Dose: 500 mg Documented by: Methylnaltrexone [place] (Relistor) 12 mg SQ DAILY [facility] Stop: 12/26/19 09:01 Metoclopramide HCl (Reglan) 10 mg IV Q6H [facility] Last Admin: 12/25/19 02:36 Dose: 10 mg Documented by: Ondansetron HCl (Zofran) 4 mg IV Q4HP PRN PRN Reason: Nausea And Vomiting Potassium Chloride (Kdur) 40 meq PO UD PRN PRN Reason: Potssium is 3-3.5 Last Admin: 12/24/19 17:09 Dose: 40 meq Documented by: Potassium Chloride (Kdur) 40 meq PO UD PRN PRN Reason: Potassium < 3 Senna (Senokot) 2 tab PO DAILYP PRN PRN Reason: Constipation Sertraline HCl (Zoloft) 150 mg PO QDAY [facility] Last Admin: 12/24/19 08:52 Dose: 150 mg Documented by: Sodium Chloride (Saline Flush) 10 ml IV Q8 [facility] Last Admin: 12/24/19 21:03 Dose: Not Given Documented by: Tamsulosin HCl (Flomax) 0.4 mg PO [facility] Last Admin: 12/24/19 21:04 Dose: 0.4 mg Documented by: A/P Assessment and plan (1) Therapeutic opioid-induced constipation (OIC): Status: Acute Comment: RELISTOR 12 mg subcutaneous daily 4 days Metoclopramide 10 mg IV every 6 hours MiraLAX 8 ounces every 6 hours (2) Acute urinary retention: Status: Acute (3) Hydronephrosis: Status: Acute Comment: urology evaluation Qualifiers: Hydronephrosis type: with ureteropelvic junction obstruction Qualified Code(s): Q62.11 - Congenital occlusion of ureteropelvic junction (4) Hypertension, essential: Status: Chronic Comment: continue home medications (5) Carotid stenosis: Status: Chronic Comment: 2009 left side 50%; 2013 Less than 50% of the right internal carotid, 50-69% of left internal carotid artery. Qualifiers: Laterality: left Qualified Code(s): I65.22 - Occlusion and stenosis of left carotid artery (6) Anxiety disorder: Status: Chronic Comment: treated with Amitriptyline and Sertraline Qualifiers: Anxiety disorder type: generalized anxiety disorder Qualified Code(s): F41.1 - Generalized anxiety disorder Narrative A/P Narrative: A: *UR with b/l [place]: likely 2/2 recent hip surgery / meds (narcs/tca) -f/u renal u/s pending *Constipation with h/o colostomy: 2/2 recent hip surg / meds (narcs/tca) -several BM's yesterday *Hyponatremia: resolved *DM: A1c pending *recent RT Hip Fracture: s/p ORIF (12/10), Managed per orthopedics. Postop pain management as per orthopedics. *Abnormal UA: appears chronic, last cx only nonpathogenic leslye, afebrile, no leukocytosis/bandemia, monitor *Generalized weakness/deconditioning *GERD/Hyperlipidemia: *h/o CAD: on aspirin and statin/ARB *Depression/Anxiety disorder: on sertraline and amitriptyline Plan: -Chavez, maintain, d/c and straight cath at [facility] then f/u with [facility] -Dr. Schneider discussed case in ED -f/u renal u/s -Dr. Williamson, bowel regimen -minimize narcotics, using tylenol prn -d/c with bowel regimen -PT/ OT -basal(titrate as needed) and SSI, metformin -Discharge planning back to SNF -ppx: lovenox/home ppi full code Time Spent With Patient Time: Total time spent is greater than 50% in coordination of care (as documented) at patient's floor/unit and/or counseling patient:
[2019-12-25] MEDS: 0.9 % SODIUM CHLORIDE 10 ML SYRINGE IV SCH ×3 (07:38→21:15)
[2019-12-25] MEDS: INSULIN LISPRO 1 UNIT/0.01 ML UNIT SQ SCH ×5 (07:41→21:16)
[2019-12-25 07:46] LABS: ALT/SGPT 53 U/l (0-40); AST/SGOT 84 U/l (0-37); Albumin 2.1 gm/dL (3.2-5.2); Albumin/Globulin Ratio 0.5 (1.0-2.3); Alkaline Phosphatase 155 U/L (39-117); Bilirubin,Total 0.3 mg/dL (0.0-1.0); Blood Urea Nitrogen 8 mg/dl (8-23); Calcium 8.4 mg/dl (8.6-10.4); Carbon Dioxide 22 mmol/L (22-30); Chloride 97 mmol/L (96-108); Glomerular Filtration Rate 97; Glucose 138 mg/dL (70-105); Lactate Dehydrogenase 337 U/L (94-250); Triglycerides 147 mg/dl (<150)
[2019-12-25 07:47] LABS: Bilirubin,Direct < 0.2 mg/dL (0.0-0.3); Phosphorous 2.5 mg/dL (2.7-4.5); Uric Acid 2.4 mg/dL (2.5-8.0)
[2019-12-25 07:51] LABS: Hemoglobin A1C 10.4 % HGB (4.0-6.0)
[2019-12-25] MEDS: METHYLNALTREXONE BROMIDE 12 MG/0.6 ML SYRINGE SQ SCH (08:29)
--- NOTE | 2019-12-25 08:30 | Ultrasound Report ---
History: Follow-up hydronephrosis FINDINGS: The right kidney measures 5.7 x 5.7 x 12.4 cm and the left measures 5.6 x 5.9 x 11.9 cm. The bilateral hydronephrosis seen on the abdominal CT done on 12/23/19 has resolved. There is a large amount of echogenic renal sinus fat bilaterally. There is no evidence or renal mass or calculus. There is a 9 mm cortical cyst lateral in the midportion of the right kidney. No cyst is present in the left kidney. Urinary bladder is decompressed by a Chavez catheter. Patient has multiple irregularly shaped stones within the lumen of the gallbladder. The measure up to 1.5 cm. Gallbladder wall is 2.8 mm in thickness and there is no para cholecystic fluid collection. On the preceding CT scan, the stones were noncalcified and difficult to visualize.. IMPRESSION: Resolution of previously seen bilateral hydronephrosis Cholelithiasis Interpreted and Authenticated by: Blayne Lora 12/25/19
[2019-12-25] MEDS: DOCUSATE SODIUM 100 MG CAPSULE PO SCH ×2 (08:32→21:15)
[2019-12-25] MEDS: SERTRALINE 100 MG TABLET PO SCH (08:32)
[2019-12-25] MEDS: metFORMIN 500 MG TABLET PO SCH ×2 (08:33→17:36)
[2019-12-25] MEDS ORDERED: MAGNESIUM SULFATE 8.12 MEQ in DEXTROSE 5% IN WATER 50 ML IV ONE (09:02)
[2019-12-25] MEDS: ENOXAPARIN 40 MG/0.4 ML SYRINGE SQ SCH (09:05)
--- NOTE | 2019-12-25 09:26 | Discharge Summary ---
Discharge Provider Provider Patient information: Note initiated : 12/25/19 at 9:24 am Service Date, if different from initiated Date: [] Patient: Esther Hartley 74 y/o F admitted on 12/23/19 for Abdominal Pain, Constipation. Chief Complaint: [] Date of admission: 12/23/19 21:05 Discharge date: 12/26/19 Primary care physician: Dinorah Regalado Consults: 12/23/19 Consult to Physician [CONS] Stat Comment: Consulting Provider: Fermin Hassan Reason For Exam: Physician to Consult Consult to Physician [CONS] Stat Comment: Consulting Provider: Jonathan Williamson Reason For Exam: Physician to Consult Consult to Physician [CONS] Stat Comment: Consulting Provider: Dave Schneider Reason For Exam: Physician to Consult Discharge Meds Discharge Medications Active and Home Medications: Home Medications sertraline 100 mg tablet 150 mg PO QDAY 90 Days #135 tab 09/23/15 [Rx Confirmed 12/23/19 Last Taken 12/23/19 08:00] amitriptyline 100 mg tablet 100 mg PO QHS #90 tab 04/14/16 [Rx Confirmed 12/23/19 Last Taken 12/22/19 21:00] metformin 500 mg PO BIDCC #30 tab 01/02/17 [Rx Confirmed 12/23/19 Last Taken 12/23/19 08:00] nitrofurantoin monohyd/m-cryst 100 mg PO BID #14 cap 06/20/18 [Rx Confirmed 12/23/19 Last Taken 12/23/19 08:00] hydrocodone-acetaminophen 1 tab PO BID PRN #20 tab 12/15/19 [Rx Confirmed 12/23/19 Last Taken Unknown] bisacodyl [Dulcolax (bisacodyl)] 10 mg VT QDAY PRN 12/23/19 [History Confirmed 12/23/19 Last Taken Unknown] glucagon HCl [Glucagon (HCl) Emergency Kit] 1 mg SUBCUT Q15M PRN 12/23/19 [History Confirmed 12/23/19 Last Taken Unknown] insulin glargine [Basaglar KwikPen U-100 Insulin] 10 unit SUBCUT QHS 12/23/19 [History Confirmed 12/23/19 Last Taken 12/22/19 21:00] magnesium hydroxide [Milk of Magnesia] 30 ml PO QDAY PRN 12/23/19 [History Confirmed 12/23/19 Last Taken 12/23/19] sodium phosphates [Fleet Enema] 118 ml VT DAILYP PRN 12/23/19 [History Confirmed 12/23/19 Last Taken Unknown] COURSE Hospital Course Hospital Course: History of present illness: Ms. Hartley is a 74 year old F Who recently underwent right hip repair after right hip fracture from a trip and fall. He was discharged on the . Since the the nursing facility is noted she has not had a bowel movement. She was sent in by her PCP for evaluation of small bowel obstruction. On imaging she was found to have a mild fecal impaction of the proximal colon. She does have a colostomy. Case was discussed with Dr. Williamson who wanted her started on Relistor and MiraLAX. Hospitalist contacted because the CT imaging also showed new onset moderately to severe bilateral hydronephrosis with a distended urinary bladder. Case was then discussed with Dr. Schneider. Bladder scan showed 100 cc and a Chavez catheter was placed. Patient does report being able to urinate. BUN and creatinine are normal limits. Also concern in the ER for urinary tract infection given her abnormal urinalysis, however looking at old urinalysis this appears chronic in nature and her last urine culture from last admission only grew out nonpathogenic skin leslye. Her white blood cell count is essentially normal. She is afebrile. 12/23 No BM overnight. No events overnight or new issues. Sodium within normal limits now. Chavez in place. States she slept well. 12/24 Slept well. No overnight events. She had several bowel movements yesterday. Follow-up renal ultrasound done this morning pending results. 12/25 Patient doing well stable this morning. Stable for discharge *Given age and significant comorbidities patient is high risk for readmission A: *UR with b/l [place]: likely 2/2 recent hip surgery / meds (narcs/tca) -f/u renal u/s showed resolution *Constipation with h/o colostomy: 2/2 recent hip surg / meds (narcs/tca) -several BM's yesterday *Hyponatremia: resolved *DM: A1c pending *recent RT Hip Fracture: s/p ORIF (12/10), Managed per orthopedics. Postop pain management as per orthopedics. *Abnormal UA: appears chronic, last cx only nonpathogenic leslye, afebrile, no leukocytosis/bandemia, monitor *Generalized weakness/deconditioning *GERD/Hyperlipidemia: *h/o CAD: on aspirin and statin/ARB *Depression/Anxiety disorder: on sertraline and amitriptyline Discharge diagnosis: Urinary retention with bilateral hydronephrosis constipation with colostomy Secondary discharge diagnosis: Hyponatremia poorly controlled diabetes hip fracture recent generalized weakness deconditioning GERD hyperlipidemia history of CAD depression anxiety Time Spent with Patient Time attestation: Total time spent providing and/or coordinating discharge services: Time spent: Greater than 30 minutes EXAM Constitutional Vitals: Temp Pulse Resp BP Pulse Ox 98.0 F 99 H 20 127/62 96 12/25/19 08:00 12/25/19 08:00 12/25/19 08:00 12/25/19 08:00 12/25/19 08:00 Discharge Data Data Completed and Pending Labs on day of discharge: Labs from last 24 hours 12/25/19 12/25/19 05:30 05:30 Sodium 132 L Potassium 3.4 Chloride 97 Carbon Dioxide 22 Anion Gap 13.0 BUN 8 Creatinine 0.5 L GFR Calculation 97 Glucose 138 H Hemoglobin A1c 10.4 H Estim Average Glucose 252 Uric Acid 2.4 L Calcium 8.4 L Phosphorus 2.5 L Magnesium 1.6 Total Bilirubin 0.3 Direct Bilirubin < 0.2 GGT 66 H AST 84 H ALT 53 H Alkaline Phosphatase 155 H Lactate Dehydrogenase 337 H Total Protein 6.1 Albumin 2.1 L Globulin 4.0 H Albumin/Globulin Ratio 0.5 L Triglycerides 147 Discharge Plan Patient/Caregiver Discharge Instructions Activity: increase activity as tolerated Diet: Consistent Carbohydrate Instructions: Constipation (DC), Chronic Urinary Retention in Women (DC), Hydronephrosis (DC) Activity Restrictions/Additional Instructions: Bladder scan q6hrs, if >400cc then straight cath. Maintain log to bring to Dr. Schneider on f/u appt. Prescriptions: New acetaminophen [Tylenol Extra Strength] 500 mg tablet 500 mg PO Q6H PRN (Reason: fever or pain) Qty: 30 RF: 0 tamsulosin 0.4 mg Capsule 0.4 mg PO HS Qty: 30 RF: 0 polyethylene glycol 3350 [Miralax] 17 gram/dose powder 17 g PO BID Qty: 119 RF: 0 Continued amitriptyline 100 mg tablet 100 mg PO QHS Qty: 90 RF: 0 sertraline 100 mg tablet 150 mg PO QDAY 90 Days Qty: 135 RF: 3 metformin 500 MG tablet 500 mg PO BIDCC Qty: 30 RF: 0 magnesium hydroxide [Milk of Magnesia] 400 mg/5 mL Suspension 30 ml PO QDAY PRN (Reason: Constipation) RF: 0 bisacodyl [Dulcolax (bisacodyl)] 10 mg Suppository 10 mg VT QDAY PRN (Reason: Constipation) RF: 0 Fleet Enema 19-7 gram/118 mL Enema 118 ml VT DAILYP PRN (Reason: Constipation) RF: 0 Glucagon (HCl) Emergency Kit 1 mg Recon Soln 1 mg SUBCUT Q15M PRN (Reason: Hypoglycemia) RF: 0 Changed Basaglar KwikPen U-100 Insulin 100 unit/mL (3 mL) Insulin Pen 16 unit SUBCUT QHS Qty: 3 RF: 0 Discontinued nitrofurantoin monohyd/m-cryst 100 MG capsule 100 mg PO BID Qty: 14 RF: 0 hydrocodone-acetaminophen 7.5-325 mg tablet 1 tab PO BID PRN (Reason: pain) Qty: 20 RF: 0 Follow Up Plan Follow up with: Dinorah Regalado MD [Primary Care Provider] - (Please call Sunday and make a hospital follow up appointment.) Dave Schneider MD [Physician] - (Please call Sunday and schedule an appointment.) Patient Disposition: Xfer SNF Prognosis: Undetermined Rehab Potential: Fair I certify that the patient requires SNF services: Yes Overall status at discharge: patient is progressing back to baseline Discharge Orders: Discharge Order (Routine); Ordered 12/26/19 Ordered By: Fermin Hassan
--- NOTE | 2019-12-25 12:09 | Discharge Summary ---
Discharge Provider Provider Patient information: Note initiated : 12/25/19 at 12:08 pm Service Date, if different from initiated Date: [] Patient: Esther Hartley a 74 y/o F admitted on 12/23/19 for Abdominal Pain, Constipation. Chief Complaint: [] Date of admission: 12/23/19 21:05 Primary care physician: Dinorah Regalado Consults: 12/23/19 Consult to Physician [CONS] Stat Comment: Consulting Provider: Fermin Hassan Reason For Exam: Physician to Consult Consult to Physician [CONS] Stat Comment: Consulting Provider: Jonathan Williamson Reason For Exam: Physician to Consult Consult to Physician [CONS] Stat Comment: Consulting Provider: Dave Schneider Reason For Exam: Physician to Consult COURSE Hospital Course Hospital Course: History of present illness: Ms. Hartley is a 74 year old F Who recently underwent right hip repair after right hip fracture from a trip and fall. He was discharged on the . Since the the nursing facility is noted she has not had a bowel movement. She was sent in by her PCP for evaluation of small bowel obstruction. On imaging she was found to have a mild fecal impaction of the proximal colon. She does have a colostomy. Case was discussed with Dr. Williamson who wanted her started on Relistor and MiraLAX. Hospitalist contacted because the CT imaging also showed new onset moderately to severe bilateral hydronephrosis with a distended urinary bladder. Case was then discussed with Dr. Schneider. Bladder scan showed 100 cc and a Chavez catheter was placed. Patient does report being able to urinate. BUN and creatinine are normal limits. Also concern in the ER for urinary tract infection given her abnormal urinalysis, however looking at old urinalysis this appears chronic in nature and her last urine culture from last admission only grew out nonpathogenic skin leslye. Her white blood cell count is essentially normal. She is afebrile. 12/23 No BM overnight. No events overnight or new issues. Sodium within normal limits now. Chavez in place. States she slept well. 12/24 Slept well. No overnight events. She had several bowel movements yesterday. Follow-up renal ultrasound done this morning pending results. *Given age and significant comorbidities patient is high risk for readmission A: *UR with b/l [place]: likely 2/2 recent hip surgery / meds (narcs/tca) -f/u renal u/s showed resolution *Constipation with h/o colostomy: 2/2 recent hip surg / meds (narcs/tca) -several BM's yesterday *Hyponatremia: resolved *DM: A1c pending *recent RT Hip Fracture: s/p ORIF (12/10), Managed per orthopedics. Postop pain management as per orthopedics. *Abnormal UA: appears chronic, last cx only nonpathogenic leslye, afebrile, no leukocytosis/bandemia, monitor *Generalized weakness/deconditioning *GERD/Hyperlipidemia: *h/o CAD: on aspirin and statin/ARB *Depression/Anxiety disorder: on sertraline and amitriptyline Time Spent with Patient Time attestation: Total time spent providing and/or coordinating discharge services: Physical Examination Vital Signs Vital signs: Temp Pulse Resp BP Pulse Ox 98.0 F 99 H 20 127/62 96 12/25/19 08:00 12/25/19 08:00 12/25/19 08:00 12/25/19 08:00 12/25/19 08:00 Discharge Plan Patient/Caregiver Discharge Instructions Activity: increase activity as tolerated Diet: Consistent Carbohydrate Activity Restrictions/Additional Instructions: Bladder scan q6hrs, if >400cc then straight cath. Maintain log to bring to Dr. Schneider on f/u appt. Prescriptions: New polyethylene glycol 3350 [Miralax] 17 gram/dose powder 17 g PO QDAY Qty: 119 RF: 0 acetaminophen [Tylenol Extra Strength] 500 mg tablet 500 mg PO Q6H PRN (Reason: fever or pain) Qty: 30 RF: 0 tamsulosin 0.4 mg Capsule 0.4 mg PO HS Qty: 30 RF: 0 Continued amitriptyline 100 mg tablet 100 mg PO QHS Qty: 90 RF: 0 sertraline 100 mg tablet 150 mg PO QDAY 90 Days Qty: 135 RF: 3 metformin 500 MG tablet 500 mg PO BIDCC Qty: 30 RF: 0 magnesium hydroxide [Milk of Magnesia] 400 mg/5 mL Suspension 30 ml PO QDAY PRN (Reason: Constipation) RF: 0 bisacodyl [Dulcolax (bisacodyl)] 10 mg Suppository 10 mg OR QDAY PRN (Reason: Constipation) RF: 0 Fleet Enema 19-7 gram/118 mL Enema 118 ml OR DAILYP PRN (Reason: Constipation) RF: 0 Glucagon (HCl) Emergency Kit 1 mg Recon Soln 1 mg SUBCUT Q15M PRN (Reason: Hypoglycemia) RF: 0 Changed Basaglar KwikPen U-100 Insulin 100 unit/mL (3 mL) Insulin Pen 16 unit SUBCUT QHS Qty: 3 RF: 0 Discontinued nitrofurantoin monohyd/m-cryst 100 MG capsule 100 mg PO BID Qty: 14 RF: 0 hydrocodone-acetaminophen 7.5-325 mg tablet 1 tab PO BID PRN (Reason: pain) Qty: 20 RF: 0 Follow Up Plan Follow up with: Dinorah Regalado MD [Primary Care Provider] - Dave Schneider MD [Physician] - Patient Disposition: Xfer SNF Prognosis: Undetermined Rehab Potential: Fair I certify that the patient requires SNF services: Yes Overall status at discharge: patient is progressing back to baseline Pending Pending Pending: Resuscitation Status Full Code Diet Full Liquid Diet Start SunDec 23 1253 Acetaminophen (Tylenol) 650 mg PO Q6HP PRN PRN Reason: PAIN/FEVER > 101 Last Admin: 12/24/19 10:25 Dose: 650 mg Documented by: Admin: 12/23/19 22:11 Dose: 650 mg Documented by: HUBERT Amitriptyline HCl (Elavil) 100 mg PO QHS [facility] Last Admin: 12/24/19 21:04 Dose: 100 mg Documented by: Admin: 12/23/19 22:12 Dose: 100 mg Documented by: HUBERT Diagnostic Test (Pha) (Accu-Chek) 1 each FS ACHS [facility] Last Admin: 12/25/19 11:54 Dose: 1 each Documented by: Admin: 12/25/19 07:41 Dose: 1 each Documented by: Admin: 12/24/19 21:04 Dose: 1 each Documented by: Admin: 12/24/19 16:49 Dose: 1 each Documented by: Admin: 12/24/19 11:21 Dose: 1 each Documented by: Admin: 12/24/19 07:40 Dose: 1 each Documented by: Admin: 12/23/19 22:11 Dose: 1 each Documented by: HUBERT Docusate Sodium (Colace) 100 mg PO BID [facility] Last Admin: 12/25/19 08:32 Dose: 100 mg Documented by: Admin: 12/24/19 21:04 Dose: 100 mg Documented by: Admin: 12/24/19 08:53 Dose: 100 mg Documented by: Admin: 12/23/19 22:13 Dose: 100 mg Documented by: HUBERT Enoxaparin Sodium (Lovenox) 40 mg SQ DAILY [facility] Last Admin: 12/25/19 09:05 Dose: 40 mg Documented by: Admin: 12/24/19 08:52 Dose: 40 mg Documented by: VALDO Insulin Human Lispro (Humalog) 0 unit SQ [facility]; Protocol Last Admin: 12/25/19 07:41 Dose: Not Given Documented by: Admin: 12/24/19 21:02 Dose: 4 units Documented by: Admin: 12/24/19 17:09 Dose: 2 units Documented by: Admin: 12/24/19 11:48 Dose: 8 units Documented by: Admin: 12/24/19 08:21 Dose: 4 units Documented by: Admin: 12/23/19 22:11 Dose: 8 units Documented by: HUBERT [facility] Last Admin: 12/25/19 08:33 Dose: 500 mg Documented by: Admin: 12/24/19 17:10 Dose: 500 mg Documented by: Admin: 12/24/19 08:52 Dose: 500 mg Documented by: VALDO Methylnaltrexone [place] (Relistor) 12 mg SQ DAILY [facility] Stop: 12/26/19 09:01 Last Admin: 12/25/19 08:29 Dose: 12 mg Documented by: VON Metoclopramide HCl (Reglan) 10 mg IV Q6H [facility] Last Admin: 12/25/19 12:02 Dose: 10 mg Documented by: Admin: 12/25/19 02:36 Dose: 10 mg Documented by: Admin: 12/24/19 21:02 Dose: 10 mg Documented by: Admin: 12/24/19 13:40 Dose: 10 mg Documented by: VALDO Potassium Chloride (Kdur) 40 meq PO UD PRN PRN Reason: Potssium is 3-3.5 Last Admin: 12/24/19 17:09 Dose: 40 meq Documented by: VALDO Sertraline HCl (Zoloft) 150 mg PO QDAY [facility] Last Admin: 12/25/19 08:32 Dose: 150 mg Documented by: Admin: 12/24/19 08:52 Dose: 150 mg Documented by: VALDO Sodium Chloride (Saline Flush) 10 ml IV Q8 [facility] Last Admin: 12/25/19 07:38 Dose: 10 ml Documented by: Admin: 12/24/19 21:03 Dose: Not Given Documented by: Admin: 12/24/19 13:40 Dose: Not Given Documented by: Admin: 12/24/19 05:13 Dose: Not Given Documented by: Admin: 12/23/19 22:13 Dose: 10 ml Documented by: HUBERT Tamsulosin HCl (Flomax) 0.4 mg PO HS [facility] Last Admin: 12/24/19 21:04 Dose: 0.4 mg Documented by: NIKI Shift Summary 12/25/19 04:30 Shift Summary by Ruiz Richard Pt has rested on & off around turning & care - turn Q2 side to side. Initially she stated her buttock was rather sore - last buttock pain was 2/10 - no C/O RT hip pain - no PRN pain meds. LLQ ostomy put out 175ml @ 1950, and only 30ml @ 0330. Chavez draining Shayy urine w/ sm amt sediment noted in line. Pt is able to asst w/ turning side to side - avoiding staying on her buttock 2nd to stage II to coccyx - sacral mepilex in place. RT hip incision well approx w/ jesus in place - open to air - no redness or drainage. HS blood sugar was 187 - S.S. coverage & scheduled Lantus given. No N/V this shift. saline lock LT F/A flushed & patent. VS - WNL on R.A.. She is A&O x3 (bed alarm in use) cueing for day & date, calm, pleasant, & cooperative. Initialized on 12/25/19 04:30 - END OF NOTE
--- NOTE | 2019-12-25 12:09 | General Surgery Progress Note ---
SUBJECTIVE Subjective Patient information: Note initiated : 12/25/19 at 12:09 pm Service Date, if different from initiated Date: [] Patient: Esther Hartley 74 y/o F admitted on 12/23/19 for Abdominal Pain, Constipation. Chief Complaint: [] Interval history: Narrative: Constitutional Vitals: Vital Signs Temp Pulse Resp BP Pulse Ox 98.0 F 99 H 20 127/62 96 12/25/19 08:00 12/25/19 08:00 12/25/19 08:00 12/25/19 08:00 12/25/19 08:00 Period Temp Pulse Resp BP Sys/Mack[place] Pulse Ox Last 24 Hr 98.0 F-98.9 F 93-100 20-28 127-152/62-75 95-96 Intake and Output 12/24/19 12/25/19 12/25/19 21:59 05:59 13:59 Intake Total 550 1360 360 Output Total 400 580 Balance 150 780 360 Weight 129 lb 11.2 oz Intake & Output: Intake & Output 12/24/19 12/25/19 12/25/19 21:59 05:59 13:59 Intake Total 550 1360 360 Output Total 400 580 Balance 150 780 360 Weight 129 lb 11.2 oz Intake: IV 1000 Sodium Chloride 0.9% 1,000 ml @ 1000 75 mls/hr IV .[id number] [facility] Rx#: [id number] Oral 550 360 360 Output: Urine Catheter Amount 225 550 Stool 175 30 Other: Urine Appearance Cloudy Uretheral (Chavez) Sediment Sediment Urine Color Tea Colored Dark Yellow Uretheral (Chavez) Light Shayy Light Shayy Urine Odor Strong Stool Color Brown Stool Consistency Loose A/P Assessment and plan (1) Therapeutic opioid-induced constipation (OIC): Status: Acute Comment: RELISTOR 12 mg subcutaneous daily 4 days Metoclopramide 10 mg IV every 6 hours MiraLAX 8 ounces every 6 hours (2) Acute urinary retention: Status: Acute (3) Hydronephrosis: Status: Acute Comment: urology evaluation Qualifiers: Hydronephrosis type: with ureteropelvic junction obstruction Qualified Code(s): Q62.11 - Congenital occlusion of ureteropelvic junction (4) Hypertension, essential: Status: Chronic Comment: continue home medications (5) Carotid stenosis: Status: Chronic Comment: 2009 left side 50%; 2014 Less than 50% of the right internal carotid, 50-69% of left internal carotid artery. Qualifiers: Laterality: left Qualified Code(s): I65.22 - Occlusion and stenosis of left carotid artery (6) Anxiety disorder: Status: Chronic Comment: treated with Amitriptyline and Sertraline Qualifiers: Anxiety disorder type: generalized anxiety disorder Qualified Code(s): F41.1 - Generalized anxiety disorder Narrative A/P Narrative: Narrative: Time Spent With Patient Time: Total time spent is greater than 50% in coordination of care (as documented) at patient's floor/unit and/or counseling patient:
[2019-12-25] MEDS: POTASSIUM CHLORIDE 20 MEQ TABLET PO PRN (16:42)
[2019-12-25] MEDS ORDERED: INSULIN GLARGINE, HUMAN 1 UNIT/0.01 ML SQ SCH (21:00)
[2019-12-25] MEDS: AMITRIPTYLINE 25 MG TABLET PO SCH (21:15)
[2019-12-25] MEDS: TAMSULOSIN 0.4 MG CAPSULE PO SCH (21:15)
[2019-12-26] MEDS: METOCLOPRAMIDE 10 MG/2 ML VIAL IV SCH ×2 (02:16→08:33)
[2019-12-26] MEDS: 0.9 % SODIUM CHLORIDE 10 ML SYRINGE IV SCH ×2 (02:16→06:09)
[2019-12-26] MEDS: INSULIN LISPRO 1 UNIT/0.01 ML UNIT SQ SCH (07:26)
[2019-12-26] MEDS: metFORMIN 500 MG TABLET PO SCH (08:30)
[2019-12-26] MEDS: SERTRALINE 100 MG TABLET PO SCH (08:31)
[2019-12-26] MEDS: DOCUSATE SODIUM 100 MG CAPSULE PO SCH (08:31)
[2019-12-26] MEDS: ENOXAPARIN 40 MG/0.4 ML SYRINGE SQ SCH (08:34)
[2019-12-26] MEDS: METHYLNALTREXONE BROMIDE 12 MG/0.6 ML SYRINGE SQ SCH (08:35)
== END 2019-12-26 10:03 | DRG 699 ==
LOC: ED 11:37 → MEDSUR 21:05
PROVIDERS: ADMIT Internal Medicine; ATTEND Internal Medicine

== ENCOUNTER 2020-01-19 12:36 | Inpatient (IN) ==
[2020-01-19] MEDS ORDERED: IOPAMIDOL 100 ML BOTTLE IV ONE (12:37)
--- NOTE | 2020-01-19 12:57 | Emergency Department Note ---
HPI General Chief complaint: Stroke Symptoms Stated complaint: right side and low back pain Time Seen by Provider: 01/19/20 12:42 Source: patient Mode of arrival: wheelchair Limitations: no limitations History of Present Illness HPI Narrative: Narrative: 74-year-old female presents with multiple complaints. She fell sometime within the last 12 hours and is complaining of bilateral hip pain but worse on the left. Also has some low back pain in her bottom area. She is from [facility]. They report that they last saw her normal at 1215 and at 1220 they noticed left-sided facial droop. Patient states she has felt like her balance is off for the last couple of days but worse today. She also noticed some left-sided weakness to her arm and leg over the last couple of days. She does note that it is worse today. She is known to have a UTI that they discovered at [facility] and they would like her evaluated for that as she has not seen a provider. Denies fever or chills. No nausea, vomiting, or diarrhea. H er speech is slurred and she mumbles and is difficult to understand. Apparently this is chronic but seems to be worse today as well. No difficulty swallowing or breathing. No cough or cold symptoms. No treatments prior to arrival. She denies any abdominal pain or dysuria. She denies being on any blood thinners and there is no blood thinners on the medication list that was sent with her Related Data Home Medications Medication Instructions Recorded Confirmed Fleet Enema 118 ml IL DAILYP PRN 12/23/19 01/13/20 Glucagon (HCl) Emergency Kit 1 mg SUBCUT Q15M PRN 12/23/19 01/13/20 bisacodyl [Dulcolax (bisacodyl)] 10 mg IL QDAY PRN 12/23/19 01/13/20 magnesium hydroxide [Milk of 30 ml PO QDAY PRN 12/23/19 01/13/20 Magnesia] Previous Rx's Medication Instructions Recorded sertraline 100 mg tablet 150 mg PO QDAY 90 Days #135 tab 09/23/15 amitriptyline 100 mg tablet 100 mg PO QHS #90 tab 04/14/16 metformin 500 mg PO BIDCC #30 tab 01/02/17 Basaglar KwikPen U-100 Insulin 16 unit SUBCUT QHS #3 ml 12/25/19 acetaminophen [Tylenol Extra 500 mg PO Q6H PRN #30 tab 12/25/19 Strength] polyethylene glycol 3350 [Miralax] 17 g PO BID #119 g 12/25/19 tamsulosin 0.4 mg PO HS #30 cap 12/25/19 Allergies Allergy/AdvReac Type Severity Reaction Status Date / Time No Known Drug Allergies Allergy Verified 12/23/19 22:44 Review of Systems ROS ROS Narrative: Narrative: All systems ED: reviewed and negative except as stated. PFSH Narrative Patient History Narrative: Narrative: Medical/Surgical/Family History All Active Problems (Updated 01/19/20 @ 16:29 by PETER Lopez) Acute left-sided weakness (Acute) Acute CVA (cerebrovascular accident) (Acute) Therapeutic opioid-induced constipation (OIC) (Acute) Hyperglycemia due to type 2 diabetes mellitus (Acute) Urinary tract infection (Acute) Hypokalemia (Acute) Hyperglycemia (Acute) Generalized weakness (Acute) Diabetes (Acute) Fall (Acute) Hip fracture, right (Acute) DKA (diabetic ketoacidoses) (Acute) Dehydration (Acute) Elevated WBC count (Acute) Fecal impaction of colon (Acute) Urinary tract infection (Acute) Hydronephrosis (Acute) Acute urinary retention (Acute) Postmenopausal bleeding (Acute) Eczema (Acute) Uncontrolled type 2 diabetes mellitus (Chronic) Microalbuminuria (Chronic) 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) Portacath in place (Chronic) Vitamin D deficiency (Chronic) Syncope (Chronic 11/21/12) Osteopenia (Chronic 01/29/12) Mouth pain (Chronic) Hypertension, essential (Chronic 09/02/12) Hyperlipidemia (Chronic 01/29/12) Gastroesophageal reflux (Chronic) Diabetes mellitus, type II (Chronic) Degeneration of cervical intervertebral disc (Chronic) Cystitis, acute (Chronic 09/03/13) Depression (Chronic) Constipation (Chronic) Carotid stenosis (Chronic) Anxiety disorder (Chronic) Medical History Anxiety disorder (Chronic) treated with Amitriptyline and Sertraline Carotid stenosis (Chronic) 2009 left side 50%; 2013 Less than 50% of the right internal carotid, 50-69% of left internal carotid artery. 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 An Osteopenia (Chronic 01/29/12) Portacath in place (Chronic) For chemotherapy treatment, right anterior chest wall Postmenopausal bleeding (Acute) Report two episodes of this for the last year on 09/23/2015, blood noted on attempted pelvic examination Syncope (Chronic 11/21/12) Etiology unknown Uncontrolled type 2 diabetes mellitus (Chronic) Vitamin D deficiency (Chronic) Surgical History History of appendectomy (Resolved) 1972 History of colon surgery (Resolved) 2006 Partial colectomy with colostomy History of colonoscopy (Resolved 05/15/13) History of colonoscopy (Chronic 10/19/16) 05/15/13 History of colostomy (Chronic 05/24/07) History of repair of right rotator cuff (Resolved) Dr. Harden, repaired due to trauma 2002 History of tonsillectomy (Resolved) 9 years of age History of tubal ligation (Resolved) 1972 Family History Grandmother Malignant neoplasm of colon, Onset Age: 56 Type 2 diabetes mellitus Cardiac disease Grandfather Chronic Kidney Disease Mother Chronic Kidney Disease Dialysis Atherosclerosis of coronary artery Type 2 diabetes mellitus Cardiac disease Father Acute myocardial infarction, Onset Age: 69 Social History Smoking Status: Never smoker Alcohol Intake Frequency: does not drink Substance Use: does not use Exam Narrative Narrative: Narrative: General Limitations: no limitations General appearance: alert and other (Speech is garbled and slurred and difficult to understand.) Head Head: atraumatic and normocephalic Eye Eye: Present normal appearance, PERRL and EOMI; Absent conjunctival injection ENT ENT: Present mucous membranes moist, TM's normal bilaterally, normal external ear exam and other (Left-sided facial droop present in the mouth) Neck Neck: Present normal inspection and trachea midline; Absent tenderness Chest Chest: Present symmetric chest wall rise Respiratory Respiratory: Present normal lung sounds bilaterally; Absent respiratory d istress, rales/crackles, wheezes, stridor and accessory muscle use Cardiovascular Cardiovascular: Present regular rate, normal rhythm and normal heart sounds Adbominal Abdominal: Present soft and normal bowel sounds; Absent distention, tenderness and guarding Extremities Extremities: Present normal inspection and tenderness (Bilateral hip tenderness to palpation. No step-off or deformity. No shortening or rotation.) Back Back: Present normal inspection; Absent tenderness (Cannot reproduce cervical, thoracic, or lumbar spine tenderness with palpation. No step-off or deformity.) Neurological Neurological: Present alert and oriented X3; Absent motor sensory deficit Expanded Neurological Patient oriented to: Present person, place and time Speech: Present slurred CRANIAL NERVES: EOM function (II, III, IV, ): Normal, facial sensation (V): Normal, facial palsy (VII): Normal, gag reflex (IX): Normal, spinal accessory function (XI): Normal and tongue deviation (XII): Normal CEREBELLAR FUNCTION: finger to nose: Normal Motor strength - LUE: 2/5 Motor strength - RUE: 4/5 Motor strength - LLE: 3/5 Motor strength - RLE: 4/5 SENSORY EXAM UPPER EXTREMITY: Normal: light touch SENSORY EXAM LOWER EXTREMITY: Normal: light touch Coma Scale Eye Opening: Spontaneous Coma Scale Motor Response: Obeys Commands Coma Scale Verbal Response: Oriented Coma Scale Total: 15 Psychiatric Psychiatric: Present normal affect and normal mood Skin Skin: Present warm, dry, intact and normal color; Absent rash Course Course Course Narrative: Within the first few minutes of arrival, patient to head CT. We also contacted Dr. Kenney with stroke neurology in [place]. He was also able to come on the robot and evaluate the patient. At 1515 I did speak with Dr. Kenney again. The head CT is negative. Upon further examination of the patient she reveals that she is actually had some left-sided weakness, progressing over the last couple of days. She also reports balance problems the last couple of days. The left-sided facial droop is new as of 1220 today but her [id number] INR is also 2.6. He does not feel that any acute interventions including TPA are appropriate at this time. We will go ahead and get a CT angio head and chest for further work-up. @[id number] Dr. Ramos hospitalist agrees to accept patient. Vital Signs Vital signs: Vital Signs Temperature 96.9 F L 01/19/20 12:36 Pulse Rate 110 H 01/19/20 12:36 Respiratory Rate 16 01/19/20 12:36 Blood Pressure 174/81 01/19/20 12:36 Pulse Oximetry (%) 98 01/19/20 12:36 Temperature 96.9 F L 01/19/20 12:41 Pulse Rate 94 H 01/19/20 15:57 Respiratory Rate 16 01/19/20 15:57 Blood Pressure 121/65 01/19/20 15:46 Pulse Oximetry (%) 99 01/19/20 15:57 MDM MDM Narrative Medical decision making narrative: Narrative: Lab Data Lab results reviewed: Yes I reviewed the patient's lab results. Result diagrams: 01/19/20 13:12 01/19/20 13:12 Labs: Lab Results 01/19/20 01/19/20 01/19/20 Range/Units 13:12 13:12 13:12 WBC 18.8 H (4.50-11.00) K/mcL RBC 4.14 (3.59-5.38) M/mcL Hgb 11.4 (11.2-15.7) g/dL Hct 35.1 (34.1-44.9) % POC Hct 37.0 (36.0-48.0) % MCV 84.8 (80.0-100.0) fL MCH 27.5 (26.0-34.0) pg MCHC 32.5 (31.0-36.0) g/dL RDW 14.6 H (11.5-14.5) % Plt Count 461 H (140-440) K/mcL MPV 10.1 (7.4-10.4) fL Gran % 93.3 H (38.0-78.0) % Lymph % (Auto) 1.5 L (15.5-49.0) % [place] % (Auto) 4.8 (1.0-12.0) % Eos % (Auto) 0.1 (0.0-7.0) % Baso % (Auto) 0.3 (0.0-2.0) % Gran # 17.55 H (1.80-8.00) K/mcL Lymph # (Auto) 0.29 L (1.50-4.80) K/mcL [place] # (Auto) 0.91 H (0.10-0.90) K/mcL Eos # (Auto) 0.01 (0.00-0.70) K/mcL Baso # (Auto) 0.05 (0.00-0.30) K/mcL POC PT (11.9-14.5) sec POC INR (0.9-1.2) APTT (20-37) sec VBG Lactic Acid (0.5-2.0) mmol/L POC Sodium 130 L (133-145) mmol/L Sodium 128 L (133-145) mmol/L POC Potassium 3.6 (3.3-5.1) mmol/L Potassium 3.7 (3.3-5.1) mmol/L POC Chloride 98 (96-108) mmol/L Chloride 89 L (96-108) mmol/L Carbon Dioxide 12 L (22-30) mmol/L POC Total CO2 14 L (22-30) mmol/L Anion Gap 27.0 H (8-16) POC BUN 47 H (8-23) mg/dl BUN 54 H (8-23) mg/dl Creatinine 1.8 H (0.6-1.1) mg/dl POC Creatinine 1.8 H (0.6-1.1) mg/dl GFR Calculation 28 Glucose 322 H (70-105) mg/dL POC Glucose 318 H (70-105) mg/dL Calcium 10.2 (8.6-10.4) mg/dl POC WB Ioniz Calcium 1.13 L (1.16-1.32) mmol/L Total Bilirubin 0.5 (0.0-1.0) mg/dL AST 37 (0-37) U/l ALT 31 (0-40) U/l Alkaline Phosphatase 183 H (39-117) U/L Troponin T < 0.01 (0-0.03) ng/ml Total Protein 7.8 (5.9-8.4) gm/dL Albumin 2.9 L (3.2-5.2) gm/dL Globulin 4.9 H (2.2-3.7) gm/dL Albumin/Globulin Ratio 0.6 L (1.0-2.3) 01/19/20 01/19/20 Range/Units 13:17 14:57 WBC (4.50-11.00) K/mcL RBC (3.59-5.38) M/mcL Hgb (11.2-15.7) g/dL Hct (34.1-44.9) % POC Hct (36.0-48.0) % MCV (80.0-100.0) fL MCH (26.0-34.0) pg MCHC (31.0-36.0) g/dL RDW (11.5-14.5) % Plt Count (140-440) K/mcL MPV (7.4-10.4) fL Gran % (38.0-78.0) % Lymph % (Auto) (15.5-49.0) % [place] % (Auto) (1.0-12.0) % Eos % (Auto) (0.0-7.0) % Baso % (Auto) (0.0-2.0) % Gran # (1.80-8.00) K/mcL Lymph # (Auto) (1.50-4.80) K/mcL [place] # (Auto) (0.10-0.90) K/mcL Eos # (Auto) (0.00-0.70) K/mcL Baso # (Auto) (0.00-0.30) K/mcL POC PT 29.7 H (11.9-14.5) sec POC INR 2.6 H (0.9-1.2) APTT 45 H (20-37) sec VBG Lactic Acid 1.0 (0.5-2.0) mmol/L POC Sodium (133-145) mmol/L Sodium (133-145) mmol/L POC Potassium (3.3-5.1) mmol/L Potassium (3.3-5.1) mmol/L POC Chloride (96-108) mmol/L Chloride (96-108) mmol/L Carbon Dioxide (22-30) mmol/L POC Total CO2 (22-30) mmol/L Anion Gap (8-16) POC BUN (8-23) mg/dl BUN (8-23) mg/dl Creatinine (0.6-1.1) mg/dl POC Creatinine (0.6-1.1) mg/dl GFR Calculation Glucose (70-105) mg/dL POC Glucose (70-105) mg/dL Calcium (8.6-10.4) mg/dl POC WB Ioniz Calcium (1.16-1.32) mmol/L Total Bilirubin (0.0-1.0) mg/dL AST (0-37) U/l ALT (0-40) U/l Alkaline Phosphatase (39-117) U/L Troponin T (0-0.03) ng/ml Total Protein (5.9-8.4) gm/dL Albumin (3.2-5.2) gm/dL Globulin (2.2-3.7) gm/dL Albumin/Globulin Ratio (1.0-2.3) Radiology Data Radiology results reviewed: Yes I reviewed the patient's radiology results. 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 BUILDER/PA only: Yes Clinical Impression: Urinary tract infection, Acute left-sided weakness, Acute CVA (cerebrovascular accident) Patient Disposition: Xfer As Inpt ([facility]) Condition: Fair Follow up with: Dinorah Regalado MD [Primary Care Provider] - Prescriptions: No Action amitriptyline 100 mg tablet 100 mg PO QHS Qty: 90 RF: 0 sertraline 100 mg tablet 150 mg PO QDAY 90 Days Qty: 135 RF: 3 metformin 500 MG tablet 500 mg PO BIDCC Qty: 30 RF: 0 magnesium hydroxide [Milk of Magnesia] 400 mg/5 mL Suspension 30 ml PO QDAY PRN (Reason: Constipation) RF: 0 bisacodyl [Dulcolax (bisacodyl)] 10 mg Suppository 10 mg IL QDAY PRN (Reason: Constipation) RF: 0 Fleet Enema 19-7 gram/118 mL Enema 118 ml IL DAILYP PRN (Reason: Constipation) RF: 0 Glucagon (HCl) Emergency Kit 1 mg Recon Soln 1 mg SUBCUT Q15M PRN (Reason: Hypoglycemia) RF: 0 acetaminophen [Tylenol Extra Strength] 500 mg tablet 500 mg PO Q6H PRN (Reason: fever or pain) Qty: 30 RF: 0 Basaglar KwikPen U-100 Insulin 100 unit/mL (3 mL) Insulin Pen 16 unit SUBCUT QHS Qty: 3 RF: 0 tamsulosin 0.4 mg Capsule 0.4 mg PO HS Qty: 30 RF: 0 polyethylene glycol 3350 [Miralax] 17 gram/dose powder 17 g PO BID Qty: 119 RF: 0
--- NOTE | 2020-01-19 13:17 | Cat Scan Report ---
CLINICAL INFORMATION: Code stroke COMPARISON: 06/20/2018 TECHNIQUE: 2.5 mm helical slices were obtained in the skull base to vertex. Following reconstruction, axial reformatted images were reviewed at bone and parenchymal windows. The exam was performed using radiation dose optimization techniques including, but not limited to, automated exposure control, adjustment of the mA and/or kV according to patient size and use of iterative reconstruction technique. FINDINGS: The ventricles, sulci, fissures, and cisterns are normal in size and configuration for age. No extra-axial fluid collections are identified. Mild patchy chronic ischemic changes, in the deep cerebral white matter, are also suspected for age and stable. There is no evidence of hemorrhage, mass effect, or edema. Bone windows show no osseous abnormality. IMPRESSION: Normal head CT without contrast for age. No change Interpreted and Authenticated by: Dmitriy Ramírez 01/19/20
[2020-01-19 13:19] LABS: POC INR 2.6 (0.9-1.2); POC Pro Time 29.7 sec (11.9-14.5)
[2020-01-19 13:23] LABS: POC Blood Urea Nitrogen 47 mg/dl (8-23); POC CO2 14 mmol/L (22-30); POC Calcium, Ionized 1.13 mmol/L (1.16-1.32); POC Chloride 98 mmol/L (96-108); POC Creatinine 1.8 mg/dl (0.6-1.1); POC Glucose, Random 318 mg/dL (70-105); POC Potassium 3.6 mmol/L (3.3-5.1); POC Sodium 130 mmol/L (133-145)
--- NOTE | 2020-01-19 13:54 | Cat Scan Report ---
CLINICAL INFORMATION: Trauma COMPARISON: 11/26/[address] TECHNIQUE: .625mm helical slices were obtained from the mid L4 through the subtrochanteric regions. Following reconstruction, 2.5 mm sagittal, coronal and axial reformations were processed. The exam was reviewed in bone and soft tissue windows. The exam was performed using radiation dose optimization techniques including, but not limited to, automated exposure control, adjustment of mA and/or kV according to patient size and use of iterative reconstruction technique. FINDINGS: Bone windows show no evidence of fracture or other significant focal osseous abnormality. Right total hip prostheses remains anatomically aligned without loosening or infection. The left hip and both SI joints are normal with alignment. Soft tissue windows again show marked distention of the urinary bladder with marked bilateral hydroureter/hydronephrosis. Patient is status sigmoid colon resection with Hayden's pouch creation and colostomy in the left lower quadrant. There is moderate sheet like fibrosis within the former region of the distal sigmoid and rectum including throughout the presacral space as as previously visualized. A moderate-sized parastomal hernia consisting of a small bowel segment is appreciated. No evidence of obstruction at the stomal site, however. There is no free air or free fluid. IMPRESSION: 1. No fracture or other posttraumatic change. 2. Moderate bilateral hydronephrosis/hydroureter with distended urinary bladder. Patient may have bladder outlet obstruction or neurogenic bladder. Consider measurement of pre and post void volumes and Chavez catheterization. 3. Status post sigmoid colon resection with Shelby pouch creation and colostomy left lower quadrant. Moderate-sized parastomal hernia seen, as before, mildly compresses the distal descending colon in within the ostomy. No evidence of mark bowel obstruction, however. Interpreted and Authenticated by: Dmitriy Ramírez 01/19/20
[2020-01-19 14:04] LABS: Basophils # (Auto) 0.05 K/mcL (0.00-0.30); Basophils % (Auto) 0.3 % (0.0-2.0); Eosinophils # (Auto) 0.01 K/mcL (0.00-0.70); Eosinophils % (Auto) 0.1 % (0.0-7.0); Granulocytes % (Auto) 93.3 % (38.0-78.0); Hematocrit 35.1 % (34.1-44.9); Hemoglobin 11.4 g/dL (11.2-15.7); Lymphocytes # (Auto) 0.29 K/mcL (1.50-4.80); Lymphocytes % (Auto) 1.5 % (15.5-49.0); Mean Cell Volume 84.8 fL (80.0-100.0); Mean Corpuscular HGB Conc 32.5 g/dL (31.0-36.0); Mean Platelet Volume 10.1 fL (7.4-10.4); Monocytes # (Auto) 0.91 K/mcL (0.10-0.90); Monocytes % (Auto) 4.8 % (1.0-12.0); Platelet Count 461 K/mcL (140-440); RBC 4.14 M/mcL (3.59-5.38); Red Cell Distribution Width 14.6 % (11.5-14.5); WBC 18.8 K/mcL (4.50-11.00)
--- NOTE | 2020-01-19 14:18 | Cat Scan Report ---
CLINICAL INFORMATION: Code stroke COMPARISON: None. TECHNIQUE: 80 cc of Isovue-370 were injected intravenously, and using SmartPrep to maximize arterial opacification, 0.625 mm helical slices were obtained from the thoracic aortic arch through the [place]. Following reconstruction, 2.5mm sagittal, coronal and axial reformatted images were processed and reviewed at standard and bone algorithm/window. 3-D volume rendered, CPR and MIP images were processed using a [employer] work station.The exam was performed using radiation dose optimization techniques including, but not limited to, automated exposure control, adjustment of the mA and/or kV according to patient size and use of iterative reconstruction technique. FINDINGS: The thoracic aortic arch is normal diameter with mild diffuse intimal thickening. Aortic branching is conventional. The brachiocephalic, both subclavian, both common, internal and external carotid and vertebral arteries are patent. There is calcific plaque in both carotid bifurcations but no significant stenosis. There right TMJ degeneration noted with mild subluxation of the left TMJ. At C5-6 moderate broad disc protrusion with left-sided asymmetry results in moderate central canal left lateral recess narrowing. IMPRESSION: Thoracic aortic arch, brachycephalic, all carotid, both vertebral and subclavian arteries are widely patent. 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 C5-6 broad disc protrusion resulting in moderate central canal and left lateral recess narrowing impinging the exiting left C6 nerve root Interpreted and Authenticated by: Dimtriy Ramírez 01/19/20
--- NOTE | 2020-01-19 14:19 | Cat Scan Report ---
CLINICAL INFORMATION: COMPARISON: None. TECHNIQUE: 80 cc of Isovue-370 were injected intravenously , and using SmartPrep to maximize cerebral arterial opacification, 0.625 mm helical slices were obtained from the skull base through the cerebral vertex. Following reconstruction , sagittal, coronal and axial reformatted images were processed and reviewed at multiple windows and levels. 3D volume rendered and MIP images were acquired at a independent workstation. The exam was performed using radiation dose optimization techniques including, but not limited to, automated exposure control, adjustment of the mA and/or kV according to patient size and use of iterative reconstruction technique. FINDINGS: The intracranial vertebral, basilar, both intracranial internal carotid, anterior middle and posterior cerebral arteries contain diffuse atherosclerotic plaque with mild stenoses all less then 50%. No evidence of occlusion or significant stenosis. The superficial deep cerebral veins and deep venous sinus are patent. IMPRESSION: Scattered mild stenoses of the throughout the cerebral arterial vascular, less than 50%, - no evidence of thrombus or embolus. Interpreted and Authenticated by: Dmitriy Ramírez 01/19/20
[2020-01-19 14:25] LABS: ALT/SGPT 31 U/l (0-40); AST/SGOT 37 U/l (0-37); Albumin 2.9 gm/dL (3.2-5.2); Albumin/Globulin Ratio 0.6 (1.0-2.3); Alkaline Phosphatase 183 U/L (39-117); Bilirubin,Total 0.5 mg/dL (0.0-1.0); Blood Urea Nitrogen 54 mg/dl (8-23); Calcium 10.2 mg/dl (8.6-10.4); Carbon Dioxide 12 mmol/L (22-30); Globulin 4.9 gm/dL (2.2-3.7); Glomerular Filtration Rate 28; Glucose 322 mg/dL (70-105)
[2020-01-19 14:30] LABS: Chloride 89 mmol/L (96-108)
[2020-01-19] MEDS ORDERED: PIPERACILLIN SODIUM/TAZOBACTAM 3.375 GM in DEXTROSE 5% IN WATER 50 ML IV ONE (14:41)
[2020-01-19] MEDS ORDERED: 0.9 % SODIUM CHLORIDE 1,000 ML IV ONE (15:20)
[2020-01-19] MEDS ORDERED: ACETAMINOPHEN 325 MG TABLET PO PRN (17:51)
[2020-01-19] MEDS ORDERED: ONDANSETRON 4 MG/2 ML VIAL IV PRN (17:54)
[2020-01-19] MEDS ORDERED: DEXTROSE 50% 50 ML VIAL IV PRN (17:59)
[2020-01-19 18:14] LABS: Appearance,Urine TURBID; Bacteria,Urine 0 /hpf (0); Bilirubin,Urine NEG (NEG); Color,Urine YELLOW; Culture Indicated,Urine YES; Glucose,Urine (UA) >=500 mg/dL (NEG); Ketones,Urine 5/TR mg/dL (NEG); Leukocyte Esterase,Urine 250 /uL (NEG); Nitrate,Urine NEG (NEG); Protein,Urine 100 mg/dL (NEG); Specific Gravity,Urine 1.014 (1.000-1.035); Urine Blood 0.2 mg/dL (<0.03); Urine Budding Yeast MANY /hpf (0); Urine RBC > 182 /hpf (0-1); Urine Squamous Epithelial Cell 0 /hpf (0-4); Urine WBC > 182 /hpf (0-4); Urobilinogen,Urine NEG (NEG)
--- NOTE | 2020-01-19 18:15 | Internal Med History&Physical ---
HPI History of Present Illness Patient information: Note initiated : 01/19/20 at 6:10 pm Service Date, if different from initiated Date: [] Patient: Esther Hartley a 74 y/o F admitted on for right side and low back pain. Chief Complaint: [slurred speech] History of present illness: Ms. Hartley is a 74 year old F with a hx of diabetes, hypertension, GERD, and the hydronephrosis who was brought into the ER from [facility] due to slurred speech and left-sided facial droop. Her speech is slurred and she mumbles and is difficult to understand. She had a mechanical fall today. After that, she started to complain of bilateral hip pain and low back pain. She also was noted to have a left-sided facial droop and slurred speech at 1220 today. She was also noted some left-sided weakness to her arm and leg over the last couple of days. She was recently diagnosed with the UTI. She was admitted on December 22 due to abdominal pain and constipation. During that time she was found to have bilateral hydronephrosis. In the ER, CT of head and a CT angiogram head and neck no acute changes. When I saw this patient, she seemed to understand my questions but her speech is slurred and she mumbles. Denied headache, dizziness, chest pain, shortness of breath, abdominal pain, or fever chills. Review of Systems All systems: reviewed and no additional remarkable complaints except as stated [facility] Medical History Anxiety disorder (Chronic) treated with Amitriptyline and Sertraline Carotid stenosis (Chronic) 2009 left side 50%; 2013 Less than 50% of the right internal carotid, 50-69% of left internal carotid artery. Constipation (Chronic) 2009, alternating with diarrhea with colostomy Cystitis, acute (Chronic 09/03/13) Degeneration of cervical intervertebral disc (Chronic) Depression (Chronic) s Treated with Sertraline and Amitriptyline Diabetes mellitus, type II (Chronic) 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) Diverticulitis of colon (Resolved) Eczema (Acute) ezematous changes to the left outer ear Gastroesophageal reflux (Chronic) Hyperlipidemia (Chronic 01/29/12) Hypertension, essential (Chronic 09/02/12) continue home medications Microalbuminuria (Chronic) Mouth pain (Chronic) 2010 with blister like patches in her mouth Neoplasm of colon, malignant (Resolved) Colorectal cancer, partial colectomy and subsequent colostomy, radiation and chemotherapy treatment per Dr. An Osteopenia (Chronic 01/29/12) Portacath in place (Chronic) For chemotherapy treatment, right anterior chest wall Postmenopausal bleeding (Acute) Report two episodes of this for the last year on 09/23/2015, blood noted on attempted pelvic examination Syncope (Chronic 11/21/12) Etiology unknown Uncontrolled type 2 diabetes mellitus (Chronic) Vitamin D deficiency (Chronic) Surgical History History of appendectomy (Resolved) 1972 History of colon surgery (Resolved) 2006 Partial colectomy with colostomy History of colonoscopy (Resolved 05/15/13) History of colonoscopy (Chronic 10/19/16) 05/15/13 History of colostomy (Chronic 05/24/07) History of repair of right rotator cuff (Resolved) Dr. Harden, repaired due to trauma 2002 History of tonsillectomy (Resolved) 9 years of age History of tubal ligation (Resolved) 1972 Family History Grandmother Malignant neoplasm of colon, Onset Age: 56 Type 2 diabetes mellitus Cardiac disease Grandfather Chronic Kidney Disease Mother Chronic Kidney Disease Dialysis Atherosclerosis of coronary artery Type 2 diabetes mellitus Cardiac disease Father Acute myocardial infarction, Onset Age: 69 Social History household members: spouse housing: house marital status: occupational status: retired pets and animals: Yes pets and animals: cat(s) sexually active: No other: 2 living children well-balanced diet: daily or most days daily servings fruits/ve-4 eating out: 4 or more times/week during the past year weight has: remained stable physical activity: walking frequency: 3-4 times per week duration: 15-30 minutes/day smoking status: Never smoker alcohol intake frequency: does not drink substance use type: does not use romario/worship: None seatbelt use: always working smoke detector in home: Yes MEDS/ALLERGIES Home Medications and Allergies Home Medications Medication Instructions Recorded Confirmed Type sertraline 100 mg tablet 150 mg PO QDAY 90 Days #135 tab 09/23/15 01/13/20 Rx amitriptyline 100 mg tablet 100 mg PO QHS #90 tab 04/14/16 01/13/20 Rx metformin 500 mg PO BIDCC #30 tab 01/02/17 01/13/20 Rx Fleet Enema 118 ml WA DAILYP PRN 12/23/19 01/13/20 History Glucagon (HCl) Emergency Kit 1 mg SUBCUT Q15M PRN 12/23/19 01/13/20 History bisacodyl [Dulcolax (bisacodyl)] 10 mg WA QDAY PRN 12/23/19 01/13/20 History magnesium hydroxide [Milk of 30 ml PO QDAY PRN 12/23/19 01/13/20 History Magnesia] Basaglar KwikPen U-100 Insulin 16 unit SUBCUT QHS #3 ml 12/25/19 01/13/20 Rx acetaminophen [Tylenol Extra 500 mg PO Q6H PRN #30 tab 12/25/19 01/13/20 Rx Strength] polyethylene glycol 3350 [Miralax] 17 g PO BID #119 g 12/25/19 01/13/20 Rx tamsulosin 0.4 mg PO HS #30 cap 12/25/19 01/13/20 Rx Allergies Allergy/AdvReac Type Severity Reaction Status Date / Time No Known Drug Allergies Allergy Verified 12/23/19 22:44 EXAM Constitutional Vitals: Temp Pulse Resp BP Pulse Ox 96.9 F L 102 H 24 H 112/87 98 01/19/20 12:41 01/19/20 17:16 01/19/20 17:11 01/19/20 17:16 01/19/20 17:16 Additional findings Additional findings: General - No acute distress Eyes - PERRLA, EOM intact ENT no rhinorrhea, no noticeable or palpable swelling, no redness or rash around throat or on face Neck supple, no JVD, no thyromegaly Respiratory: Lungs -clear, no wheezing or crackles. Cardiovascular - RRR no m/r/g, GI - Normal bowel sounds, no distended, soft. - perineal area erythema Extremeties - No edema, cyanosis or clubbing Hemo/lymphatic/immune no lymphadenopathy Neurological Alert and oriented x 1, strength and sensation in both arms and legs symmetrical. slurred speech. nasolabial fold seems to be symmetrical. Psychiatry flat affect DATA Data Completed and Pending Labs on day of discharge: Labs from last 24 hours 01/19/20 01/19/20 01/19/20 14:57 14:54 13:17 WBC RBC Hgb Hct POC Hct MCV MCH MCHC RDW Plt Count MPV Gran % Lymph % (Auto) [place] % (Auto) Eos % (Auto) Baso % (Auto) Gran # Lymph # (Auto) [place] # (Auto) Eos # (Auto) Baso # (Auto) POC PT 29.7 H POC INR 2.6 H APTT 45 H VBG Lactic Acid 1.0 POC Sodium Sodium POC Potassium Potassium POC Chloride Chloride Carbon Dioxide POC Total CO2 Anion Gap POC BUN BUN Creatinine POC Creatinine GFR Calculation Glucose POC Glucose Calcium POC WB Ioniz Calcium Total Bilirubin AST ALT Alkaline Phosphatase Troponin T Total Protein Albumin Globulin Albumin/Globulin Ratio Urine Color Pending Urine Appearance Pending Urine pH Pending Ur Specific [place] Pending Urine Protein Pending Urine Glucose (UA) Pending Urine Ketones Pending Urine Occult Blood Pending Urine Nitrate Pending Urine Bilirubin Pending Urine Urobilinogen Pending Ur Leukocyte Esterase Pending 01/19/20 01/19/20 01/19/20 13:12 13:12 13:12 WBC 18.8 H RBC 4.14 Hgb 11.4 Hct 35.1 POC Hct 37.0 MCV 84.8 MCH 27.5 MCHC 32.5 RDW 14.6 H Plt Count 461 H MPV 10.1 Gran % 93.3 H Lymph % (Auto) 1.5 L [place] % (Auto) 4.8 Eos % (Auto) 0.1 Baso % (Auto) 0.3 Gran # 17.55 H Lymph # (Auto) 0.29 L [place] # (Auto) 0.91 H Eos # (Auto) 0.01 Baso # (Auto) 0.05 POC PT POC INR APTT VBG Lactic Acid POC Sodium 130 L Sodium 128 L POC Potassium 3.6 Potassium 3.7 POC Chloride 98 Chloride 89 L Carbon Dioxide 12 L POC Total CO2 14 L Anion Gap 27.0 H POC BUN 47 H BUN 54 H Creatinine 1.8 H POC Creatinine 1.8 H GFR Calculation 28 Glucose 322 H POC Glucose 318 H Calcium 10.2 POC WB Ioniz Calcium 1.13 L Total Bilirubin 0.5 AST 37 ALT 31 Alkaline Phosphatase 183 H Troponin T < 0.01 Total Protein 7.8 Albumin 2.9 L Globulin 4.9 H Albumin/Globulin Ratio 0.6 L Urine Color Urine Appearance Urine pH Ur Specific [place] Urine Protein Urine Glucose (UA) Urine Ketones Urine Occult Blood Urine Nitrate Urine Bilirubin Urine Urobilinogen Ur Leukocyte Esterase A/P Narrative A/P Narrative: 1. TIA/stroke She was found to have left-sided weakness, facial droop and slurred speech. When I saw her, left-sided weakness, facial droop resolved. CT of head, CTA head and neck - scattered mild stenoses of the throughout the cerebral arterial vascular, less than 50%, - no evidence of thrombus or embolus. ER physician spoke to Dr. Kenney with stroke neurology in [place] - no tPA or procedures. MRI (not available until tomorrow) Echo NPO PT, OT, ST Vital sign and neurocheck Q2hrs Permissive hypertension aspirin and lipitor Pulse ox 2. Mechanical fall CT pelvis - no fracture PT/OT 3. DM type 2 with hyperglycemia Hba1c 10.4 Insulin ss continue home meds 4. YUMIKO May be prerenal causes Avoid nephrotoxic meds. But she received a contrast today IV fluid Repeat the renal function in morning 5. Bilateral hydronephrosis with a distended urinary bladder. She was found to have bilateral hydronephrosis during last admission on December 22 CT pelvis today showed moderately to severe bilateral hydronephrosis with a distended urinary bladder Chavez catheter Urologist consult 6. Leukocytosis Unknown etiology. Could be due to UTI. Urinalysis Procalcitonin No antibiotics now 7. HTN Home blood pressure medication on hold due to permissive hypertension 8. GERD PPI 9. DVT prophylaxis: INR 2.6. Do not know if she is on anticoagulation or not. 10. CODE STATUS: need to discuss with the family Time Spent With Patient Time: Total time spent is greater than 50% in coordination of care (as documented) at patient's floor/unit and/or counseling patient:
[2020-01-19] MEDS: INSULIN LISPRO 1 UNIT/0.01 ML UNIT SQ SCH (18:25)
[2020-01-19] MEDS: 0.9 % SODIUM CHLORIDE 1,000 ML IV SCH (18:25)
--- NOTE | 2020-01-19 18:57 | XRay Report ---
CLINICAL INFORMATION: leukocytosis COMPARISON: 12/09/2019 FINDINGS: Heart size, mediastinum and pulmonary vessels are normal. Lungs are clear. Marked elevation right diaphragm unchanged. Right IJ Port-A-Cath stable satisfactory position IMPRESSION: No acute disease. Interpreted and Authenticated by: Dmitriy Ramírez 01/19/20
[2020-01-19] MEDS: 0.9 % SODIUM CHLORIDE 10 ML SYRINGE IV SCH (20:48)
[2020-01-19] MEDS: DOCUSATE SODIUM 100 MG CAPSULE PO SCH (20:48)
[2020-01-20] MEDS: INSULIN LISPRO 1 UNIT/0.01 ML UNIT SQ SCH ×6 (00:03→20:58)
[2020-01-20] MEDS: 0.9 % SODIUM CHLORIDE 10 ML SYRINGE IV SCH ×3 (05:50→20:48)
[2020-01-20 06:41] LABS: ALT/SGPT 23 U/l (0-40); AST/SGOT 20 U/l (0-37); Albumin 2.6 gm/dL (3.2-5.2); Albumin/Globulin Ratio 0.6 (1.0-2.3); Alkaline Phosphatase 152 U/L (39-117); Bilirubin,Total 0.4 mg/dL (0.0-1.0); Calcium 9.4 mg/dl (8.6-10.4); Globulin 4.3 gm/dL (2.2-3.7); Glucose 169 mg/dL (70-105); Phosphorous 3.4 mg/dL (2.7-4.5)
[2020-01-20 06:50] LABS: Basophils # (Auto) 0.03 K/mcL (0.00-0.30); Basophils % (Auto) 0.2 % (0.0-2.0); Eosinophils # (Auto) 0.03 K/mcL (0.00-0.70); Eosinophils % (Auto) 0.2 % (0.0-7.0); Granulocytes % (Auto) 90.3 % (38.0-78.0); Hematocrit 32.3 % (34.1-44.9); Hemoglobin 10.3 g/dL (11.2-15.7); Lymphocytes # (Auto) 0.44 K/mcL (1.50-4.80); Mean Cell Volume 86.6 fL (80.0-100.0); Mean Corpuscular HGB Conc 31.9 g/dL (31.0-36.0); Mean Platelet Volume 9.8 fL (7.4-10.4); Monocytes # (Auto) 0.93 K/mcL (0.10-0.90); Monocytes % (Auto) 6.3 % (1.0-12.0); Platelet Count 410 K/mcL (140-440); RBC 3.73 M/mcL (3.59-5.38); Red Cell Distribution Width 14.8 % (11.5-14.5); WBC 14.8 K/mcL (4.50-11.00)
[2020-01-20 07:04] LABS: Blood Urea Nitrogen 42 mg/dl (8-23); Carbon Dioxide 16 mmol/L (22-30); Chloride 103 mmol/L (96-108); Glomerular Filtration Rate 41
[2020-01-20] MEDS ORDERED: DEXTROSE 31 GM ORAL.SUSP PO PRN (07:16)
[2020-01-20] MEDS ORDERED: DEXTROSE 50% 50 ML VIAL IV PRN (07:16)
[2020-01-20] MEDS ORDERED: ACETAMINOPHEN 500 MG TABLET PO PRN (07:20)
[2020-01-20] MEDS: 0.9 % SODIUM CHLORIDE 1,000 ML IV SCH ×2 (08:03→20:58)
[2020-01-20] MEDS: POTASSIUM CHLORIDE 20 MEQ TABLET PO SCH ×5 (08:03→16:45)
[2020-01-20] MEDS: PANTOPRAZOLE 40 MG PACKET PO SCH ×2 (08:04→16:46)
[2020-01-20 08:36] LABS: INR 1.7 (0.9-1.1)
[2020-01-20] MEDS: DOCUSATE SODIUM 100 MG CAPSULE PO SCH ×2 (08:42→20:57)
[2020-01-20] MEDS: SERTRALINE 50 MG TABLET PO SCH (08:43)
[2020-01-20] MEDS: cefTRIAXone 1 GM VIAL IV SCH (08:58)
[2020-01-20] MEDS: ASPIRIN 81 MG TAB.CHEW PO SCH (08:58)
[2020-01-20] MEDS: ATORVASTATIN 40 MG TABLET PO SCH (08:59)
[2020-01-20] MEDS: FLUCONAZOLE 100 MG TABLET PO SCH (08:59)
[2020-01-20] MEDS: NYSTATIN CRM 1 DOSE TUBE TOPICAL SCH ×2 (10:01→20:57)
--- NOTE | 2020-01-20 11:14 | Internal Med Progress Note ---
SUBJECTIVE Subjective Patient information: Note initiated : 01/20/20 at 11:02 am Service Date, if different from initiated Date: [] Patient: Esther Hartley a 74 y/o F admitted on 01/19/20 for right side and low back pain. Chief Complaint: [] Interval history: Esther Hartley is a 74 year old F with a hx of diabetes, hypertension, GERD, and the hydronephrosis who was brought into the ER from [facility] due to slurred speech and left-sided facial droop. Her speech is slurred and she mumbles and is difficult to understand. She had a mechanical fall today. After that, she sta rted to complain of bilateral hip pain and low back pain. She also was noted to have a left-sided facial droop and slurred speech at 1220 today. She was also noted some left-sided weakness to her arm and leg over the last couple of days. She was recently diagnosed with the UTI. She was admitted on December 22 due to abdominal pain and constipation. During that time she was found to have bilateral hydronephrosis. In the ER, CT of head and a CT angiogram head and neck no acute changes. When I saw this patient, she seemed to understand my questions but her speech is slurred and she mumbles. Denied headache, dizziness, chest pain, shortness of breath, abdominal pain, or fever chills. 01/19 Pt does not have any new complaints. She still has a slurred speech which he is improving. Denies headache, dizziness, nausea, or vomiting. Vital signs are acceptable UA compatible with UTI. But I am not sure the result resulted from her perineal yeast infection or really UTI. She has leukocytosis. I started ceftriaxone for her today. INR 2.6 yesterday but I do not see any anticoagulant on her home meds. Repeat INR 1.7 today. She will have will MRI today Continue PT OT ST Review of Systems All systems: reviewed and no additional remarkable complaints except as stated Constitutional Vitals: Vital Signs Temp Pulse Resp BP Pulse Ox 98.4 F 96 H 25 H 121/55 98 01/20/20 08:01 01/20/20 08:01 01/20/20 10:01 01/20/20 10:01 01/20/20 08:01 Period Temp Pulse Resp BP Sys/Mackay Pulse Ox Last 24 Hr 96.9 F-99.1 F 94-110 13-34 97-174/55-91 95-100 Intake and Output 01/19/20 01/20/20 01/20/20 21:59 05:59 13:59 Intake Total 4703 479 6211 Output Total 151 2024 525 Balance 899 1727 475 Weight 53.212 kg Intake & Output: Intake & Output 01/19/20 01/20/20 01/20/20 21:59 05:59 13:59 Intake Total 9903 276 8301 Output Total 151 2024 525 Balance 899 1727 475 Weight 53.212 kg Intake: IV 1050 1000 Sodium Chloride 0.9% 1,000 ml @ 1000 1000 75 mls/hr IV .[id number] Rx#: [id number] Zosyn 3.375 gm In Dextrose 5% 50 in Water 50 ml @ 100 mls/hr IV ONCE ONE Rx#:[id number] Oral 0 300 Output: Urine Catheter Amount 2024 525 Void Amount 150 # of times incontinent of urine 1 Other: Urine Appearance Cloudy Cloudy Cloudy Uretheral (Chavez) Cloudy Cloudy Cloudy Sediment Urine Color Straw Straw Pale Uretheral (Chavez) Straw Straw Pale Urine Odor Normal Stool Color Brown Brown Brown Stool Consistency Soft Liquid Soft Additional findings Additional findings: General - No acute distress Eyes - PERRLA, EOM intact ENT no rhinorrhea, no noticeable or palpable swelling, no redness or rash around throat or on face Neck supple, no JVD, no thyromegaly Respiratory: Lungs -clear, no wheezing or crackles. Cardiovascular - RRR no m/r/g, GI - Normal bowel sounds, no distended, soft. - perineal area erythema Extremeties - No edema, cyanosis or clubbing Hemo/lymphatic/immune no lymphadenopathy Neurological Alert and oriented x 1, strength and sensation in both arms and legs symmetrical. slurred speech (improving). nasolabial fold seems to be symmetrical. Psychiatry flat affect OBJ DATA Labs CBC & Chem 7: 01/20/20 04:55 01/20/20 04:55 Labs: Abnormal Lab Results 01/20/20 01/20/20 01/20/20 07:32 04:55 04:55 WBC 14.8 H Hgb 10.3 L Hct 32.3 L RDW 14.8 H Plt Count Gran % 90.3 H Lymph % (Auto) 3.0 L Gran # 13.34 H Lymph # (Auto) 0.44 L [place] # (Auto) 0.93 H POC PT PT 20.0 H POC INR INR 1.7 H APTT POC Sodium Sodium Potassium 2.8 L* Chloride Carbon Dioxide 16 L POC Total CO2 Anion Gap 21.0 H POC BUN BUN 42 H Creatinine 1.3 H POC Creatinine Glucose 169 H POC Glucose POC WB Ioniz Calcium Alkaline Phosphatase 152 H Albumin 2.6 L Globulin 4.3 H Albumin/Globulin Ratio 0.6 L Urine Protein Urine Glucose (UA) Urine Ketones Urine Occult Blood Ur Leukocyte Esterase Urine RBC Urine WBC Urine Yeast (Budding) 01/19/20 01/19/20 01/19/20 14:54 13:17 13:12 WBC Hgb Hct RDW Plt Count Gran % Lymph % (Auto) Gran # Lymph # (Auto) [place] # (Auto) POC PT 29.7 H PT POC INR 2.6 H INR APTT 45 H POC Sodium 130 L Sodium 128 L Potassium Chloride 89 L Carbon Dioxide 12 L POC Total CO2 14 L Anion Gap 27.0 H POC BUN 47 H BUN 54 H Creatinine 1.8 H POC Creatinine 1.8 H Glucose 322 H POC Glucose 318 H POC WB Ioniz Calcium 1.13 L Alkaline Phosphatase 183 H Albumin 2.9 L Globulin 4.9 H Albumin/Globulin Ratio 0.6 L Urine Protein 100 A Urine Glucose (UA) >=500 A Urine Ketones 5/tr A Urine Occult Blood 0.2 A Ur Leukocyte Esterase 250 A Urine RBC > 182 H Urine WBC > 182 H Urine Yeast (Budding) Many A 01/19/20 13:12 WBC 18.8 H Hgb Hct RDW 14.6 H Plt Count 461 H Gran % 93.3 H Lymph % (Auto) 1.5 L Gran # 17.55 H Lymph # (Auto) 0.29 L [place] # (Auto) 0.91 H POC PT PT POC INR INR APTT POC Sodium Sodium Potassium Chloride Carbon Dioxide POC Total CO2 Anion Gap POC BUN BUN Creatinine POC Creatinine Glucose POC Glucose POC WB Ioniz Calcium Alkaline Phosphatase Albumin Globulin Albumin/Globulin Ratio Urine Protein Urine Glucose (UA) Urine Ketones Urine Occult Blood Ur Leukocyte Esterase Urine RBC Urine WBC Urine Yeast (Budding) Meds: Medications Acetaminophen (Tylenol) 650 mg PO Q6HP PRN PRN Reason: PAIN/FEVER > 101 Amitriptyline HCl (Elavil) 75 mg PO QHS [facility] Aspirin (Aspirin) 81 mg PO DAILY [facility] Last Admin: 01/20/20 08:58 Dose: 81 mg Documented by: Atorvastatin Calcium (Lipitor) 40 mg PO DAILY [facility] Last Admin: 01/20/20 08:59 Dose: 40 mg Documented by: Ceftriaxone Sodium (Rocephin) 1 gm IV Q24H [facility]; Protocol Last Admin: 01/20/20 08:58 Dose: 1 gm Documented by: Dextrose (Dextrose 50%) 0 ml IV UD PRN PRN Reason: Hypoglycemia Dextrose (Dextrose 50%) 0 ml IV UD PRN PRN Reason: Hypoglycemia Diagnostic Test (Pha) (Accu-Chek) 1 each FS ACHS [facility] Last Admin: 01/20/20 07:30 Dose: 1 each Documented by: Docusate Sodium (Colace) 100 mg PO BID [facility] Last Admin: 01/20/20 08:42 Dose: 100 mg Documented by: Fluconazole (Diflucan) 100 mg PO DAILY [facility]; Protocol Last Admin: 01/20/20 08:59 Dose: 100 mg Documented by: Glucose (Insta-Glucose) 15 gm PO PRN PRN PRN Reason: Hypoglycemia Sodium Chloride (Sodium Chloride 0.9%) 1,000 mls @ 75 mls/hr IV .[id number] [facility] Last Admin: 01/20/20 08:03 Dose: 75 mls/hr Documented by: Insulin Human Lispro (Humalog) 0 unit SQ [facility]; Protocol Last Admin: 01/20/20 08:09 Dose: 2 units Documented by: Empagliflozin [ (Jardiance] 25 Mg Tab) 25 mg PO QAM [facility] Last Admin: 01/20/20 10:01 Dose: 25 mg Documented by: Nystatin (Nystatin Crm) 1 dose TOPICAL BID [facility] Last Admin: 01/20/20 10:01 Dose: 1 dose Documented by: Ondansetron HCl (Zofran) 4 mg IV Q4HP PRN; Protocol PRN Reason: Nausea And Vomiting Pantoprazole Sodium (Protonix) 40 mg PO BIDAC [facility] Last Admin: 01/20/20 08:04 Dose: 40 mg Documented by: Potassium Chloride (Kdur) 20 meq PO Q2 [facility] Stop: 01/20/20 16:01 Last Admin: 01/20/20 10:03 Dose: 20 meq Documented by: Sertraline HCl (Zoloft) 150 mg PO QDAY [facility] Last Admin: 01/20/20 08:43 Dose: 150 mg Documented by: Sodium Chloride (Saline Flush) 10 ml IV Q8 [facility] Last Admin: 01/20/20 05:50 Dose: Not Given Documented by: A/P Narrative A/P Narrative: 1. TIA/stroke She was found to have left-sided weakness, facial droop and slurred speech in the ER. When I saw her, left-sided weakness and facial droop resolved. Slurred speech only persistent. CT of head, CTA head and neck - scattered mild stenoses of the throughout the cerebral arterial vascular, less than 50%, - no evidence of thrombus or embolus. ER physician spoke to Dr. Kenney with stroke neurology in [place] - no tPA or procedures. MRI pending Echo pending Passed swallow screen by RN PT, OT, ST Vital sign and neurocheck Q4hrs Permissive hypertension aspirin and lipitor Pulse ox 2. Mechanical fall CT pelvis - no fracture PT/OT 3. DM type 2 with hyperglycemia Hba1c 10.4 Insulin ss Home meds including both dapagliflozin 10mg daily and empagliflozin 25mg daily. I held dapagliflozin and metformin. continue empagliflozin 25mg daily 4. YUMIKO, improving May be prerenal causes Avoid nephrotoxic meds. But she received a contrast today IV fluid Repeat the renal function in morning 5. Bilateral hydronephrosis with a distended urinary bladder. She was found to have bilateral hydronephrosis during last admission on December 22 CT pelvis today showed moderately to severe bilateral hydronephrosis with a distended urinary bladder Chavez catheter Urologist Wyatt is on board. Really appreciate it. 6. Leukocytosis, improving. Unknown etiology. Could be due to UTI. Urinalysis Procalcitonin neg No antibiotics now 7. UTI? UA compatible with UTI. But I am not sure the result resulted from her perineal yeast infection or really UTI. She has leukocytosis. I started ceftriaxone for her today. 8. Severe perineal skin yeast infection fluconazole and topical nystadin. 9. HTN Home blood pressure medication on hold due to permissive hypertension 10. GERD PPI 11. DVT prophylaxis: INR 1.7 today. heparin 10. CODE STATUS: she was full code from her chart signed by her on 12/16/19. Deposition: PT/OT/CM consulted Time Spent With Patient Time: Total time spent is greater than 50% in coordination of care (as docu mented) at patient's floor/unit and/or counseling patient: QUALITY Stroke Onset of Symptoms Date: 01/16/20 Symptom Onset Unknown: No VTE Deep Vein Thrombosis/Pulmonary Embolism Present on Admission: No
--- NOTE | 2020-01-20 12:07 | General Surgery Progress Note ---
Surgery - Auxiliary Note Subjective Patient Information: Note initiated : 01/20/20 at 12:04 pm Service Date, if different from initiated Date: [] Patient: Esther Hartley a 74 y/o F admitted on 01/19/20 for right side and low back pain. Chief Complaint: Urinary retention It was well-known to me and was supposed to be on intermittent catheterization in the [facility]. It appears that she developed retention and was admitted to the hospital. A full consult was dictated. I would keep the Chavez catheter in for the time being. She can go off the Flomax. I will plan to see her back in the office for follow-up. She can go home with a catheter in place.
--- NOTE | 2020-01-20 12:14 | Magnetic Resonance Report ---
CLINICAL INFORMATION: Acute CVA slurred speech COMPARISON: None. TECHNIQUE:Sagittal T1 FLAIR, axial T1 FLAIR, diffusion, ADC leg weighted images were acquired. Rapid stroke diagnosis protocol FINDINGS: The ventricles, sulci, fissures and cisterns are symmetrically enlarged patible with mild age-related atrophy - no extra-axial fluid collections or mass appreciated. Mild patchy chronic ischemic changes are noted in the deep cerebral white matter. There are also scattered remote lacunar infarcts in the deep cerebral white matter. There is an 8 mm focus of restricted diffusion in the deep left frontal periventricular white matter posteriorly. A 3 mm focus of restricted diffusion is seen in the deep right anterior frontal white matter. Findings are compatible with acute nonhemorrhagic lacunar infarcts. IMPRESSION: 7 mm acute nonhemorrhagic lacunar infarct in the deep posterior left frontal white matter. 3 mm acute nonhemorrhagic lacunar infarct in the right anterior frontal white matter Mild atrophy with patchy chronic ischemic changes in the cerebral white matter expected for age. Scattered remote lacunar infarcts in the deep cerebral white matter as all less than 4 mm Note: Bilateral lacunar infarcts more likely result from emboli from the heart or less likely thoracic aorta. Consider transesophageal echo to determine evidence for cardiac thrombus source Interpreted and Authenticated by: Dmitriy Ramírez 01/20/20
--- NOTE | 2020-01-20 12:22 | Consultation ---
DATE OF CONSULTATION: 01/20/2020 REQUESTING PHYSICIAN: Dr. Aaliyah Ramos HISTORY OF PRESENT ILLNESS: The patient is a 74-year-old lady who I have seen in the past. She was in the hospital the end of November for urinary retention. A Chavez catheter was placed and she resolved her hydronephrosis. She was able to urinate. She was sent to [facility] where they were supposed to be monitoring her postvoid residual. According to their notes, she refused to have it checked at times. She was having a residual of 350 at one time and was never catheterized. Yesterday, it was felt that she had mental status changes and was brought into the ER. At that time it was noted that she did have purulent looking urine and also that a CT scan was obtained which showed recurrence of her hydronephrosis. A Chavez catheter is in place now. I have been asked to evaluate her. PAST MEDICAL HISTORY: As per dictated. PAST SURGICAL HISTORY: An appendectomy, colon surgery, colostomy, right rotator cuff repair. FAMILY HISTORY: Colon cancer. SOCIAL HISTORY: Per dictated. ALLERGIES: None. CURRENT MEDICATIONS: 1. Sertraline. 2. Amitriptyline. 3. Metformin. 4. Flomax. 5. MiraLax. REVIEW OF SYSTEMS: CARDIAC: Denies any chest pain. NEUROLOGIC: Being ruled out for a stroke. The rest of review of systems per Dr. Ramos. PHYSICAL EXAMINATION: GENERAL: A pleasant lady in slight distress. VITAL SIGNS: As per nurse's notes. NECK: Supple. Trachea is in midline. HEART: Regular rate and rhythm. ABDOMEN: Soft, nontender. LUNGS: Clear to auscultation. GENITOURINARY: Deferred, but she does have a yeast infection, which is being treated. Chavez catheter is in place. IMPRESSION AND PLAN: Patient with urinary retention. I feel at this point that a catheter would be in her best interest and would keep this in. This will help the hydronephrosis and she will need to be treated for a yeast infection. I will plan to follow up with her in 2 weeks as an outpatient. At that time we will discuss a long-term Chavez catheter. I have gone over this and she understands. We will follow up as outlined. TOM:frantz Job ID: [id number] Doc ID: [id number] Dave Schneider MD
[2020-01-20] MEDS: HEPARIN 5,000 UNIT/ML VIAL SQ SCH (20:57)
[2020-01-20] MEDS: AMITRIPTYLINE 25 MG TABLET PO SCH (20:57)
[2020-01-21] MEDS: 0.9 % SODIUM CHLORIDE 10 ML SYRINGE IV SCH ×3 (05:31→20:19)
[2020-01-21 06:57] LABS: Basophils # (Auto) 0.07 K/mcL (0.00-0.30); Basophils % (Auto) 0.6 % (0.0-2.0); Eosinophils % (Auto) 0.9 % (0.0-7.0); Granulocytes % (Auto) 87.6 % (38.0-78.0); Hematocrit 34.4 % (34.1-44.9); Hemoglobin 10.4 g/dL (11.2-15.7); Lymphocytes # (Auto) 0.43 K/mcL (1.50-4.80); Lymphocytes % (Auto) 3.7 % (15.5-49.0); Mean Cell Volume 91.5 fL (80.0-100.0); Mean Corpuscular HGB Conc 30.2 g/dL (31.0-36.0); Mean Platelet Volume 10.2 fL (7.4-10.4); Monocytes # (Auto) 0.83 K/mcL (0.10-0.90); Monocytes % (Auto) 7.2 % (1.0-12.0); Platelet Count 312 K/mcL (140-440); RBC 3.76 M/mcL (3.59-5.38); Red Cell Distribution Width 15.4 % (11.5-14.5); WBC 11.5 K/mcL (4.50-11.00)
[2020-01-21] MEDS: PANTOPRAZOLE 40 MG PACKET PO SCH ×2 (07:46→17:22)
[2020-01-21 07:53] LABS: ALT/SGPT 38 U/l (0-40); AST/SGOT 67 U/l (0-37); Albumin 2.7 gm/dL (3.2-5.2); Albumin/Globulin Ratio 0.7 (1.0-2.3); Alkaline Phosphatase 138 U/L (39-117); Bilirubin,Direct < 0.2 mg/dL (0.0-0.3); Bilirubin,Total 0.3 mg/dL (0.0-1.0); Blood Urea Nitrogen 24 mg/dl (8-23); Calcium 8.6 mg/dl (8.6-10.4); Carbon Dioxide 14 mmol/L (22-30); Chloride 105 mmol/L (96-108); Globulin 3.8 gm/dL (2.2-3.7); Glomerular Filtration Rate 64; Glucose 190 mg/dL (70-105); Lactate Dehydrogenase 124 U/L (94-250); Phosphorous 2.4 mg/dL (2.7-4.5); Triglycerides 202 mg/dl (<150); Uric Acid 6.7 mg/dL (2.5-8.0)
[2020-01-21] MEDS: SERTRALINE 50 MG TABLET PO SCH (08:20)
[2020-01-21] MEDS: INSULIN LISPRO 1 UNIT/0.01 ML UNIT SQ SCH ×4 (08:20→20:18)
[2020-01-21] MEDS: cefTRIAXone 1 GM VIAL IV SCH (08:20)
[2020-01-21] MEDS: HEPARIN 5,000 UNIT/ML VIAL SQ SCH ×2 (08:21→20:18)
[2020-01-21] MEDS: ASPIRIN 81 MG TAB.CHEW PO SCH (08:21)
[2020-01-21] MEDS: DOCUSATE SODIUM 100 MG CAPSULE PO SCH ×2 (08:21→20:17)
[2020-01-21] MEDS: ATORVASTATIN 40 MG TABLET PO SCH (08:21)
[2020-01-21] MEDS: FLUCONAZOLE 100 MG TABLET PO SCH (08:21)
[2020-01-21] MEDS: NYSTATIN CRM 1 DOSE TUBE TOPICAL SCH ×2 (08:23→20:19)
[2020-01-21] MEDS ORDERED: ASPIRIN 81 MG TAB.CHEW CHEWED ONE (08:58)
[2020-01-21] MEDS ORDERED: MAGNESIUM SULFATE 2 GM/50 ML BAG IV ONE (10:00)
--- NOTE | 2020-01-21 10:35 | Internal Med Progress Note ---
SUBJECTIVE Subjective Patient information: Note initiated : 01/21/20 at 10:33 am Service Date, if different from initiated Date: [] Patient: Esther Hartley a 74 y/o F admitted on 01/19/20 for right side and low back pain. Chief Complaint: Esther Hartley is a 74 year old F with a hx of diabetes, hypertension, GERD, and the hydronephrosis who was brought into the ER from [facility] due to slurred speech and left-sided facial droop. Her speech is slurred and she mumbles and is difficult to understand. She had a mechanical fall today. After that, she started to complain of bilateral hip pain and low back pain. She also was noted to have a left-sided facial droop and slurred speech at 1220 today. She was also noted some left-sided weakness to her arm and leg over the last couple of days. She was recently diagnosed with the UTI. She was admitted on December 22 due to abdominal pain and constipation. During that time she was found to have bilateral hydronephrosis. In the ER, CT of head and a CT angiogram head and neck no acute changes. When I saw this patient, she seemed to understand my questions but her speech is slurred and she mumbles. Denied headache, dizziness, chest pain, shortness of breath, abdominal pain, or fever chills. 01/19 Pt does not have any new complaints. She still has a slurred speech which he is improving. Denies headache, dizziness, nausea, or vomiting. Vital signs are acceptable UA compatible with UTI. But I am not sure the result resulted from her perineal yeast infection or really UTI. She has leukocytosis. I started ceftriaxone for her today. INR 2.6 yesterday but I do not see any anticoagulant on her home meds. Repeat INR 1.7 today. She will have will MRI today Continue PT OT ST 01/20-patient doing well. No overnight events. No concerns per staff. Persistent slurred speech. Dysphagia/dysarthria eval per ST today. Continue full dose aspirin. 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 No telemetry events including A. fib. Await echocardiogram. Potassium improved to 3.7. Sodium up to 139. YUMIKO resolved with creatinine down from 1.82.9. Constitutional Vitals: Vital Signs Temp Pulse Resp BP Pulse Ox 98.7 F 100 H 22 133/66 99 01/21/20 08:01 01/21/20 08:01 01/21/20 08:01 01/21/20 08:01 01/21/20 08:01 Period Temp Pulse Resp BP Sys/Mackay Pulse Ox Last 24 Hr 97.7 F-99 F 93-100 12-32 121-157/49-72 96-100 Intake and Output 01/20/20 01/21/20 01/21/20 21:59 05:59 13:59 Intake Total 1988 960 Output Total 1075 1100 1300 Balance 914 1100 -218 Weight 52.617 kg Persistent dysarthria no telemetry events Minimal anxiety Nonlabored breathing Intake & Output: Intake & Output 01/20/20 01/21/20 01/21/20 21:59 05:59 13:59 Intake Total 1988 960 Output Total 1075 1100 1300 Balance 914 1100 -203 Weight 52.617 kg Intake: IV 969 Sodium Chloride 0.9% 1,000 ml @ 969 75 mls/hr IV .[id number] [facility] Rx#: [id number] Oral 1020 960 Output: Urine Catheter Amount 975 1100 1300 Stool 100 Other: Meal Breakfast Percent of Meal Consumed 25% Feeding Ability Independent Urine Appearance Cloudy Sediment Cloudy Sediment Small Blood Clots Uretheral (Chavez) Cloudy Cloudy Urine Color Pale Bright Yellow Bright Yellow Straw Uretheral (Chavez) Bright Yellow Bright Yellow Stool Size Moderate Stool Consistency Liquid OBJ DATA Labs CBC & Chem 7: 01/21/20 04:51 01/21/20 05:00 Labs: Abnormal Lab Results 01/21/20 01/21/20 01/20/20 05:00 04:51 07:32 WBC 11.5 H Hgb 10.4 L Hct MCHC 30.2 L RDW 15.4 H Plt Count Gran % 87.6 H Lymph % (Auto) 3.7 L Gran # 10.06 H Lymph # (Auto) 0.43 L [place] # (Auto) POC PT PT 20.0 H POC INR INR 1.7 H APTT POC Sodium Sodium Potassium Chloride Carbon Dioxide 14 L POC Total CO2 Anion Gap 20.0 H POC BUN BUN 24 H Creatinine POC Creatinine Glucose 190 H POC Glucose POC WB Ioniz Calcium Phosphorus 2.4 L GGT 55 H AST 67 H Alkaline Phosphatase 138 H Albumin 2.7 L Globulin 3.8 H Albumin/Globulin Ratio 0.7 L Triglycerides 202 H Urine Protein Urine Glucose (UA) Urine Ketones Urine Occult Blood Ur Leukocyte Esterase Urine RBC Urine WBC Urine Yeast (Budding) 01/20/20 01/20/20 01/19/20 04:55 04:55 14:54 WBC 14.8 H Hgb 10.3 L Hct 32.3 L MCHC RDW 14.8 H Plt Count Gran % 90.3 H Lymph % (Auto) 3.0 L Gran # 13.34 H Lymph # (Auto) 0.44 L [place] # (Auto) 0.93 H POC PT PT POC INR INR APTT POC Sodium Sodium Potassium 2.8 L* Chloride Carbon Dioxide 16 L POC Total CO2 Anion Gap 21.0 H POC BUN BUN 42 H Creatinine 1.3 H POC Creatinine Glucose 169 H POC Glucose POC WB Ioniz Calcium Phosphorus GGT AST Alkaline Phosphatase 152 H Albumin 2.6 L Globulin 4.3 H Albumin/Globulin Ratio 0.6 L Triglycerides Urine Protein 100 A Urine Glucose (UA) >=500 A Urine Ketones 5/tr A Urine Occult Blood 0.2 A Ur Leukocyte Esterase 250 A Urine RBC > 182 H Urine WBC > 182 H Urine Yeast (Budding) Many A 01/19/20 01/19/20 01/19/20 13:17 13:12 13:12 WBC 18.8 H Hgb Hct MCHC RDW 14.6 H Plt Count 461 H Gran % 93.3 H Lymph % (Auto) 1.5 L Gran # 17.55 H Lymph # (Auto) 0.29 L [place] # (Auto) 0.91 H POC PT 29.7 H PT POC INR 2.6 H INR APTT 45 H POC Sodium 130 L Sodium 128 L Potassium Chloride 89 L Carbon Dioxide 12 L POC Total CO2 14 L Anion Gap 27.0 H POC BUN 47 H BUN 54 H Creatinine 1.8 H POC Creatinine 1.8 H Glucose 322 H POC Glucose 318 H POC WB Ioniz Calcium 1.13 L Phosphorus GGT AST Alkaline Phosphatase 183 H Albumin 2.9 L Globulin 4.9 H Albumin/Globulin Ratio 0.6 L Triglycerides Urine Protein Urine Glucose (UA) Urine Ketones Urine Occult Blood Ur Leukocyte Esterase Urine RBC Urine WBC Urine Yeast (Budding) Meds: Medications Acetaminophen (Tylenol) 650 mg PO Q6HP PRN PRN Reason: PAIN/FEVER > 101 Amitriptyline HCl (Elavil) 75 mg PO QHS [facility] Last Admin: 01/20/20 20:57 Dose: 75 mg Documented by: Aspirin (Ecotrin) 325 mg PO DAILY [facility] Atorvastatin Calcium (Lipitor) 40 mg PO DAILY [facility] Last Admin: 01/21/20 08:21 Dose: 40 mg Documented by: Ceftriaxone Sodium (Rocephin) 1 gm IV Q24H [facility]; Protocol Last Admin: 01/21/20 08:20 Dose: 1 gm Documented by: Dextrose (Dextrose 50%) 0 ml IV UD PRN PRN Reason: Hypoglycemia Dextrose (Dextrose 50%) 0 ml IV UD PRN PRN Reason: Hypoglycemia Diagnostic Test (Pha) (Accu-Chek) 1 each FS ACHS [facility] Last Admin: 01/21/20 07:46 Dose: 1 each Documented by: Docusate Sodium (Colace) 100 mg PO BID [facility] Last Admin: 01/21/20 08:21 Dose: 100 mg Documented by: Fluconazole (Diflucan) 100 mg PO DAILY [facility]; Protocol Last Admin: 01/21/20 08:21 Dose: 100 mg Documented by: Glucose (Insta-Glucose) 15 gm PO PRN PRN PRN Reason: Hypoglycemia Heparin Sodium (Porcine) (Heparin) 5,000 unit SQ Q12 [facility] Last Admin: 01/21/20 08:21 Dose: 5,000 unit Documented by: Sodium Chloride (Sodium Chloride 0.9%) 1,000 mls @ 75 mls/hr IV .[id number] [facility] Last Admin: 01/20/20 20:58 Dose: 75 mls/hr Documented by: Magnesium Sulfate (Magnesium Sulfate) 2 gm in 50 mls @ 25 mls/hr IV ONCE ONE Stop: 01/21/20 11:59 Last Admin: 01/21/20 09:37 Dose: 25 mls/hr Documented by: Insulin Human Lispro (Humalog) 0 unit SQ ACHS [facility]; Protocol Last Admin: 01/21/20 08:20 Dose: 2 units Documented by: Empagliflozin [ (Jardiance] 25 Mg Tab) 25 mg PO QAM [facility] Last Admin: 01/21/20 08:22 Dose: 25 mg Documented by: Nystatin (Nystatin Crm) 1 dose TOPICAL BID [facility] Last Admin: 01/21/20 08:23 Dose: 1 dose Documented by: Ondansetron HCl (Zofran) 4 mg IV Q4HP PRN; Protocol PRN Reason: Nausea And Vomiting Pantoprazole Sodium (Protonix) 40 mg PO BIDAC [facility] Last Admin: 01/21/20 07:46 Dose: 40 mg Documented by: Sertraline HCl (Zoloft) 150 mg PO QDAY [facility] Last Admin: 01/21/20 08:20 Dose: 150 mg Documented by: Sodium Chloride (Saline Flush) 10 ml IV Q8 [facility] Last Admin: 01/21/20 05:31 Dose: Not Given Documented by: A/P Narrative A/P Narrative: * 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 On ASA /sTATIN. Persistent dysarthria however left-sided weakness have improved. MRI head multifocal CVA. CT of head, CTA head and neck - scattered mild stenoses of the throughout the cerebral arterial vascular, less than 50%, - no evidence of thrombus or embolus. ER physician spoke to Dr. Kenney with stroke neurology in [place] - no tPA or procedures.Echo pending,Passed swallow screen by RN,Continue PT, OT, St aspirin and lipito * YUMIKO, improvinG , creatinine improved from 1.82.9 * complicated UTI. Clinically improving. Continue Rocephin. White count down from 18,000-11.5. * Hypokalemia resolved with replacement * Bilateral hydronephrosis with a distended urinary bladder. ct pelvis today showed moderately to severe bilateral hydronephrosis with a distended urinary bladder. On Chavez's catheter. We will follow-up with urology as outpatient. * Mechanical fall-continue gait and safety eval/PT OT * DM type 2 with hyperglycemia.Hba1c 10.4. CCD/sliding scale/ dapagliflozin 10mg daily and empagliflozin 25mg daily. On hold dapagliflozin and metformin. continue empagliflozin 25mg daily * Severe perineal skin yeast infection-fluconazole and topical nystaTin. * History of hypertension restart home medications * GERD on PPI * DVT prophylaxis continue heparin * CODE STATUS: she was full code from her chart signed by her on 12/16/19. * PT OT nutrition support * Discharge planning per case management Time Spent With Patient Time: Total time spent is greater than 50% in coordination of care (as documented) at patient's floor/unit and/or counseling patient: QUALITY Stroke Onset of Symptoms Date: 01/16/20 Symptom Onset Unknown: No VTE Deep Vein Thrombosis/Pulmonary Embolism Present on Admission: No
--- NOTE | 2020-01-21 11:43 | General Surgery Progress Note ---
Surgery - Auxiliary Note Subjective Patient Information: Note initiated : 01/21/20 at 11:42 am Service Date, if different from initiated Date: [] Patient: Esther Hartley a 74 y/o F admitted on 01/19/20 for right side and low back pain. Chief Complaint: Urinary retention Patient is improved. Her urine is clearing. I feel that she should be discharged with a Chavez catheter. She is developed retention from an unknown cause and this can be investigated as an outpatient. I will plan to see her juarez k 2 weeks following discharge. Thanks
[2020-01-21] MEDS: 0.9 % SODIUM CHLORIDE 1,000 ML IV SCH (12:15)
[2020-01-21] MEDS: AMITRIPTYLINE 25 MG TABLET PO SCH (20:18)
[2020-01-22] MEDS: 0.9 % SODIUM CHLORIDE 1,000 ML IV SCH (01:36)
[2020-01-22] MEDS: 0.9 % SODIUM CHLORIDE 10 ML SYRINGE IV SCH (04:55)
[2020-01-22 06:40] LABS: Basophils # (Auto) 0.03 K/mcL (0.00-0.30); Basophils % (Auto) 0.3 % (0.0-2.0); Eosinophils # (Auto) 0.09 K/mcL (0.00-0.70); Eosinophils % (Auto) 0.8 % (0.0-7.0); Granulocytes % (Auto) 88.1 % (38.0-78.0); Hematocrit 31.4 % (34.1-44.9); Hemoglobin 9.8 g/dL (11.2-15.7); Lymphocytes # (Auto) 0.48 K/mcL (1.50-4.80); Lymphocytes % (Auto) 4.4 % (15.5-49.0); Mean Cell Volume 88.7 fL (80.0-100.0); Mean Corpuscular HGB Conc 31.2 g/dL (31.0-36.0); Monocytes % (Auto) 6.4 % (1.0-12.0); Platelet Count 323 K/mcL (140-440); RBC 3.54 M/mcL (3.59-5.38); Red Cell Distribution Width 15.3 % (11.5-14.5)
[2020-01-22 07:15] LABS: ALT/SGPT 35 U/l (0-40); AST/SGOT 39 U/l (0-37); Albumin 2.2 gm/dL (3.2-5.2); Albumin/Globulin Ratio 0.6 (1.0-2.3); Alkaline Phosphatase 124 U/L (39-117); Bilirubin,Direct < 0.2 mg/dL (0.0-0.3); Bilirubin,Total 0.3 mg/dL (0.0-1.0); Blood Urea Nitrogen 17 mg/dl (8-23); Calcium 8.1 mg/dl (8.6-10.4); Carbon Dioxide 16 mmol/L (22-30); Chloride 103 mmol/L (96-108); Globulin 3.8 gm/dL (2.2-3.7); Glomerular Filtration Rate 64; Glucose 179 mg/dL (70-105); Lactate Dehydrogenase 127 U/L (94-250); Phosphorous 2.6 mg/dL (2.7-4.5); Triglycerides 182 mg/dl (<150); Uric Acid 5.3 mg/dL (2.5-8.0)
[2020-01-22] MEDS: PANTOPRAZOLE 40 MG PACKET PO SCH (07:51)
[2020-01-22] MEDS: INSULIN LISPRO 1 UNIT/0.01 ML UNIT SQ SCH ×2 (08:24→12:20)
[2020-01-22] MEDS: ATORVASTATIN 40 MG TABLET PO SCH (08:25)
[2020-01-22] MEDS: DOCUSATE SODIUM 100 MG CAPSULE PO SCH (08:25)
[2020-01-22] MEDS: FLUCONAZOLE 100 MG TABLET PO SCH (08:25)
[2020-01-22] MEDS: HEPARIN 5,000 UNIT/ML VIAL SQ SCH (08:25)
[2020-01-22] MEDS: SERTRALINE 50 MG TABLET PO SCH (08:25)
[2020-01-22] MEDS ORDERED: ASPIRIN 325 MG ENTERIC COATED TABLET PO SCH (09:00)
[2020-01-22] MEDS ORDERED: TELMISARTAN 40 MG TABLET PO SCH (09:00)
[2020-01-22] MEDS: cefTRIAXone 1 GM VIAL IV SCH (09:32)
[2020-01-22] MEDS: NYSTATIN CRM 1 DOSE TUBE TOPICAL SCH (09:33)
--- NOTE | 2020-01-22 09:47 | Discharge Summary ---
Discharge Provider Provider Patient information: Note initiated : 01/22/20 at 9:42 am Service Date, if different from initiated Date: [] Patient: Esther Hartley a 74 y/o F admitted on 01/19/20 for right side and low back pain. Discharge diagnosis * Multifocal CVA on imaging- Ischemic. On ASA /sTATIN. Persistent dysarthria however left-sided weakness have improved. MRI head multifocal CVA. CT of head, CTA head and neck - scattered mild stenoses of the throughout the ce rebral arterial vascular, less than 50%, - no evidence of thrombus or embolus. ER physician spoke to Dr. Kenney with stroke neurology in [place] - no tPA or procedures.Echo pending,Passed swallow screen by RN,Continue PT, OT, St aspirin and lipitor * YUMIKO, improved, down to baseline * complicated yeast UTI. Start fluconazole * Hypokalemia -managed with replacement * Bilateral hydronephrosis with a distended urinary bladder. ct pelvis showed moderately to severe bilateral hydronephrosis with a distended urinary bladder. On Chavez's catheter. Will follow-up with urology as outpatient. * Mechanical fall-continue gait and safety eval/PT OT * DM type 2 with hyperglycemia.Hba1c 10.4. CCD/sliding scale/ dapagliflozin 10mg daily and empagliflozin 25mg daily. On hold dapagliflozin and metformin. continue empagliflozin 25mg daily * Severe perineal skin yeast infection-fluconazole and topical nystaTin. * History of hypertension restart home medications * GERD on PPI Brief hospital course Esther Hartley is a 74 year old F with a hx of diabetes, hypertension, GERD, and the hydronephrosis who was brought into the ER from [facility] due to slurred speech and left-sided facial droop. Her speech is slurred and she mumbles and is difficult to understand. She had a mechanical fall today. After that, she started to complain of bilateral hip pain and low back pain. She also was noted to have a left-sided facial droop and slurred speech at 1220 today. She was also noted some left-sided weakness to her arm and leg over the last couple of days. She was recently diagnosed with the UTI. She was admitted on December 22 due to abdominal pain and constipation. During that time she was found to have bilateral hydronephrosis. In the ER, CT of head and a CT angiogram head and neck no acute changes. When I saw this patient, she seemed to understand my questions but her speech is slurred and she mumbles. Denied headache, dizziness, chest pain, shortness of breath, abdominal pain, or fever chills. 01/19 Pt does not have any new complaints. She still has a slurred speech which he is improving. Denies headache, dizziness, nausea, or vomiting. Vital signs are acceptable UA compatible with UTI. But I am not sure the result resulted from her perineal yeast infection or really UTI. She has leukocytosis. I started ceftriaxone for her today. INR 2.6 yesterday but I do not see any anticoagulant on her home meds. Repeat INR 1.7 today. She will have will MRI today Continue PT OT ST 01/20-patient doing well. No overnight events. No concerns per staff. Persistent slurred speech. Dysphagia/dysarthria eval per ST today. Continue full dose aspirin. 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 No telemetry events including A. fib. Await echocardiogram. Potassium improved to 3.7. Sodium up to 139. YUMIKO resolved with creatinine down from 1.82.9. 01/21-patient doing well. No overnight events. Discharging to SNF for continued post stroke rehab/antibiotics/scheduled follow-up with urology for urinary retention. White count normalized 11. Potassium at 3 on replacement. Creatinine normalized 2.9. Ongoing physical therapy. LFTs downtrending, yeast on urine culture. Date of admission: 01/19/20 17:00 Discharge date: 01/22/20 Primary care physician: Dinorah Regalado Consults: 01/19/20 16:24 Consult to Physician [CONS] Stat Comment: Consulting Provider: Aaliyah Ramos Reason For Exam: Physician to Consult 01/20/20 08:13 Consult to Physician [CONS] Routine Comment: Consulting Provider: Aaliyah Ramos Reason For Exam: Physician to Consult Discharge Meds Discharge Medications Home Medications sertraline 100 mg tablet 150 mg PO QDAY 90 Days #135 tab 09/23/15 [Rx Confirmed 01/19/20 Last Taken 01/19/20 08:00] metformin 500 mg PO BIDCC #30 tab 01/02/17 [Rx Confirmed 01/19/20 Last Taken 01/19/20 08:00] Fleet Enema 118 ml WA DAILYP PRN 12/23/19 [History Confirmed 01/19/20 Last Taken Unknown] Glucagon (HCl) Emergency Kit 1 mg SUBCUT Q15M PRN 12/23/19 [History Confirmed 01/19/20 Last Taken Unknown] bisacodyl [Dulcolax (bisacodyl)] 10 mg WA QDAY PRN 12/23/19 [History Confirmed 01/19/20 Last Taken Unknown] magnesium hydroxide [Milk of Magnesia] 30 ml PO QDAY PRN 12/23/19 [History Confirmed 01/19/20 Last Taken 12/23/19] acetaminophen [Tylenol Extra Strength] 500 mg PO Q6H PRN #30 tab 12/25/19 [Rx Confirmed 01/19/20 Last Taken 01/15/20] polyethylene glycol 3350 [Miralax] 17 g PO BID #119 g 12/25/19 [Rx Confirmed 01/19/20 Last Taken 01/19/20 08:00] tamsulosin 0.4 mg PO HS #30 cap 12/25/19 [Rx Confirmed 01/19/20 Last Taken 01/18/20 21:00] Farxiga 10 mg PO QPM 01/19/20 [History Confirmed 01/19/20 Last Taken 01/18/20 17:00] Jardiance 25 mg PO QAM 01/19/20 [History Confirmed 01/19/20 Last Taken 01/19/20 08:00] amitriptyline 75 mg PO QHS 01/19/20 [History Confirmed 01/19/20 Last Taken 01/18/20 21:00] telmisartan 20 mg PO QDAY 01/19/20 [History Confirmed 01/19/20 Last Taken 0 01/19/20 08:00] aspirin 325 mg PO DAILY #30 tab 01/22/20 [Rx Last Taken Unknown] atorvastatin 40 mg PO DAILY #30 tab 01/22/20 [Rx Last Taken Unknown] fluconazole 100 mg PO DAILY #5 tab 01/22/20 [Rx Last Taken Unknown] COURSE Hospital Course Hospital course: . Discharge diagnosis: . Time Spent with Patient Time attestation: Total time spent providing and/or coordinating discharge services: EXAM Constitutional Vitals: Temp Pulse Resp BP Pulse Ox 98.2 F 94 H 23 H 154/69 97 01/22/20 04:01 01/22/20 06:01 01/22/20 06:01 01/22/20 06:01 01/22/20 06:01 Discharge Data Data Completed and Pending Labs on day of discharge: Labs from last 24 hours 01/22/20 01/22/20 04:54 04:54 WBC 11.0 RBC 3.54 L Hgb 9.8 L Hct 31.4 L MCV 88.7 MCH 27.7 MCHC 31.2 RDW 15.3 H Plt Count 323 MPV 10.0 Gran % 88.1 H Lymph % (Auto) 4.4 L [place] % (Auto) 6.4 Eos % (Auto) 0.8 Baso % (Auto) 0.3 Gran # 9.69 H Lymph # (Auto) 0.48 L [place] # (Auto) 0.70 Eos # (Auto) 0.09 Baso # (Auto) 0.03 Differential Comment Comment Sodium 138 Potassium 3.0 L Chloride 103 Carbon Dioxide 16 L Anion Gap 19.0 H BUN 17 Creatinine 0.9 GFR Calculation 64 Glucose 179 H Uric Acid 5.3 Calcium 8.1 L Phosphorus 2.6 L Magnesium 1.8 Total Bilirubin 0.3 Direct Bilirubin < 0.2 GGT 50 H AST 39 H ALT 35 Alkaline Phosphatase 124 H Lactate Dehydrogenase 127 Total Protein 6.0 Albumin 2.2 L Globulin 3.8 H Albumin/Globulin Ratio 0.6 L Triglycerides 182 H Preliminary micro results at discharge 01/19/20 14:54 Urine Culture - Preliminary Urine - Clean Void Mid-Stream Yeast 01/19/20 14:47 Blood Culture - Preliminary Blood 01/19/20 14:57 Blood Culture - Preliminary Blood Discharge Plan Patient/Caregiver Discharge Instructions Activity: increase activity as tolerated Prescriptions: New fluconazole 100 mg Tablet 100 mg PO DAILY Qty: 5 RF: 0 atorvastatin 40 mg Tablet 40 mg PO DAILY Qty: 30 RF: 0 aspirin 325 mg Tablet,Delayed Release (Dr/Ec) 325 mg PO DAILY Qty: 30 RF: 0 Continued sertraline 100 mg tablet 150 mg PO QDAY 90 Days Qty: 135 RF: 3 metformin 500 MG tablet 500 mg PO BIDCC Qty: 30 RF: 0 magnesium hydroxide [Milk of Magnesia] 400 mg/5 mL Suspension 30 ml PO QDAY PRN (Reason: Constipation) RF: 0 bisacodyl [Dulcolax (bisacodyl)] 10 mg Suppository 10 mg WA QDAY PRN (Reason: Constipation) RF: 0 Fleet Enema 19-7 gram/118 mL Enema 118 ml WA DAILYP PRN (Reason: Constipation) RF: 0 Glucagon (HCl) Emergency Kit 1 mg Recon Soln 1 mg SUBCUT Q15M PRN (Reason: Hypoglycemia) RF: 0 acetaminophen [Tylenol Extra Strength] 500 mg tablet 500 mg PO Q6H PRN (Reason: fever or pain) Qty: 30 RF: 0 tamsulosin 0.4 mg Capsule 0.4 mg PO HS Qty: 30 RF: 0 polyethylene glycol 3350 [Miralax] 17 gram/dose powder 17 g PO BID Qty: 119 RF: 0 telmisartan 20 mg Tablet 20 mg PO QDAY RF: 0 Farxiga 10 mg Tablet 10 mg PO QPM RF: 0 Jardiance 25 mg Tablet 25 mg PO QAM RF: 0 amitriptyline 100 mg tablet 75 mg PO QHS RF: 0 Follow Up Plan Follow up with: Dinorah Regalado MD [Primary Care Provider] - Dave Schneider MD [Physician] - (Please call to schedule a follow up appointment 2 wks from discharge.) Patient Disposition: Xfer SNF Prognosis: Fair Rehab Potential: Fair I certify that the patient requires SNF services: Yes Overall status at discharge: patient is progressing back to baseline Discharge Orders: Discharge Order (Routine); Ordered 01/22/20 Ordered By: Slade AYALA VTE Deep Vein Thrombosis/Pulmonary Embolism Present on Admission: No
== END 2020-01-22 12:55 | DRG 65 ==
LOC: ED 12:36 → ICU 17:00
PROVIDERS: ADMIT Internal Medicine; ATTEND Internal Medicine

== ENCOUNTER 2021-01-04 18:04 | Inpatient (IN) ==
--- NOTE | 2021-01-04 18:46 | Emergency Department Note ---
HPI General Chief complaint: Weakness Stated complaint: weakness Time Seen by Provider: 01/04/21 18:24 Source: patient Mode of arrival: wheelchair Limitations: no limitations History of Present Illness HPI Narrative: Narrative: Patient presents by EMS with a complaint of weakness. Patient lives with her in a private home. Over the last couple of days she has become more and more weak. She does have a caregiver that assists at the house. She reports that when the caregiver got her up today she was barely able to hold patient is diabetic. She has previously been on Metformin. Her regular doctor had added some additional diabetes medications, but she did not like how they made her feel. She stopped taking them several days ago. She has a Chavez catheter in place chronically and has not noted any change in the color of her urine. She denies any pelvic or vaginal discomfort. She is not experiencing any nausea pain. She is without chest pain or shortness of breath. She denies any nausea, vomiting or diarrhea. She has prior history of strokes and denies any acute changes. She identifies sequela of her prior strokes as urine incontinence and balance issues. Related Data Home Medications Medication Instructions Recorded Confirmed Fleet Enema 118 ml WY DAILYP PRN 12/23/19 02/29/20 Glucagon (HCl) Emergency Kit 1 mg SUBCUT Q15M PRN 12/23/19 02/29/20 bisacodyl [Dulcolax (bisacodyl)] 10 mg [place] QDAY PRN 12/23/19 02/29/20 magnesium hydroxide [Milk of 30 ml PO QDAY PRN 12/23/19 02/29/20 Magnesia] amitriptyline 75 mg PO QHS 01/19/20 02/29/20 telmisartan 20 mg PO QDAY 01/19/20 02/29/20 aspirin 325 mg tablet,delayed 162 mg PO DAILY tab 02/12/20 02/29/20 release Previous Rx's Medication Instructions Recorded sertraline 100 mg tablet 150 mg PO QDAY 90 Days #135 tab 09/23/15 metformin 500 mg PO BIDCC #30 tab 01/02/17 acetaminophen [Tylenol Extra 500 mg PO Q6H PRN #30 tab 12/25/19 Strength] polyethylene glycol 3350 [Miralax] 17 g PO BID #119 g 12/25/19 atorvastatin 40 mg PO DAILY #30 tab 01/22/20 acetic acid 0.25 % irrigation 50 ml IRRIGATION BID #1000 ml 02/12/20 solution fluconazole 150 mg tablet 150 mg PO QWEEK #12 tab 02/12/20 Allergies Allergy/AdvReac Type Severity Reaction Status Date / Time No Known Drug Allergies Allergy Verified 10/13/20 16:17 Review of Systems ROS ROS Narrative: Narrative: Pertinent positives and negatives as noted in HPI. All other systems reviewed and negative. PFSH Narrative Patient History Narrative: Narrative: Medical/Surgical/Family History All Active Problems (Updated 01/04/21 @ 21:38 by Lisa Macias PA-C) Complication of Chavez catheter (Acute) Complication of Chavez catheter (Acute) Urinary tract infection (Acute) Pyelonephritis (Acute) Acute hypokalemia (Acute) Diabetes mellitus out of control (Acute) Complication of Chavez catheter (Acute) Acute hypokalemia (Acute) Hyperglycemia (Acute) Candiduria (Acute) Acute left-sided weakness (Acute) Acute CVA (cerebrovascular accident) (Acute) Therapeutic opioid-induced constipation (OIC) (Acute) Hyperglycemia due to type 2 diabetes mellitus (Acute) Urinary tract infection (Acute) Hypokalemia (Acute) Hyperglycemia (Acute) Generalized weakness (Acute) Diabetes (Acute) Fall (Acute) Hip fracture, right (Acute) DKA (diabetic ketoacidoses) (Acute) Dehydration (Acute) Elevated WBC count (Acute) Fecal impaction of colon (Acute) Urinary tract infection (Acute) Hydronephrosis (Acute) Acute urinary retention (Acute) Postmenopausal bleeding (Acute) Eczema (Acute) Uncontrolled type 2 diabetes mellitus (Chronic) Microalbuminuria (Chronic) 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) Portacath in place (Chronic) Vitamin D deficiency (Chronic) Syncope (Chronic 11/21/12) Osteopenia (Chronic 01/29/12) Mouth pain (Chronic) Hypertension, essential (Chronic 09/02/12) Hyperlipidemia (Chronic 01/29/12) Gastroesophageal reflux (Chronic) Diabetes mellitus, type II (Chronic) Degeneration of cervical intervertebral disc (Chronic) Cystitis, acute (Chronic 09/03/13) Depression (Chronic) Constipation (Chronic) Carotid stenosis (Chronic) Anxiety disorder (Chronic) Medical History (Updated 01/04/21 @ 21:38 by Lisa Macias PA-C) Anxiety disorder 1969's treated with Amitriptyline and Sertraline Candiduria Carotid stenosis 2009 left side 50%; 2014 Less than 50% of the right internal carotid, 50-69% of left internal carotid artery. Constipation 2009, alternating with diarrhea with colostomy Cystitis, acute (09/03/13) Degeneration of cervical intervertebral disc 1989' Depression 1969's Treated with Sertraline and Amitriptyline Diabetes mellitus, type II Diabetic neuropathy associated with type 2 diabetes mellitus Diverticulitis of colon Eczema ezematous changes to the left outer ear Gastroesophageal reflux Hyperlipidemia (01/29/12) Hypertension, essential (09/02/12) continue home medications Microalbuminuria Mouth pain 2010 with blister like patches in her mouth Neoplasm of colon, malignant Colorectal cancer, partial colectomy and subsequent colostomy, radiation and chemotherapy treatment per Dr. An Osteopenia (01/29/12) Portacath in place For chemotherapy treatment, right anterior chest wall Postmenopausal bleeding Report two episodes of this for the last year on 09/23/2015, blood noted on attempted pelvic examination Syncope (11/21/12) Etiology unknown Uncontrolled type 2 diabetes mellitus Vitamin D deficiency Surgical History History of appendectomy 1973 History of colon surgery 2006 Partial colectomy with colostomy History of colonoscopy (05/15/13) History of colonoscopy (10/19/16) 05/15/13 History of colostomy (05/24/07) History of repair of right rotator cuff Dr. Harden, repaired due to trauma 2002 History of tonsillectomy 9 years of age History of tubal ligation 1973 Family History Grandmother Malignant neoplasm of colon, Onset Age: 56 Type 2 diabetes mellitus Cardiac disease Grandfather Chronic Kidney Disease Mother Chronic Kidney Disease Dialysis Atherosclerosis of coronary artery Type 2 diabetes mellitus Cardiac disease Father Acute myocardial infarction, Onset Age: 69 Social History Smoking Status: Never smoker Alcohol Intake Frequency: does not drink Substance Use: does not use Exam Narrative Narrative: Narrative: Vital signs noted General: mild distress. Skin: Warm. Dry. No rash. Normal color. Eyes: PERRL. EOMI. Mouth: Membranes pasty and dry. Normal inspection. Widespread dental decay Neck: Good ROM. No meningeal signs. Supple. Cardiovascular: Regular rate and rhythm. No murmur. Respiratory: No respiratory distress. Breath sounds equal. No wheezing/rales/rhonchi. Gastrointestinal: Abdomen soft. No tenderness. No distention. Normal bowel sounds. No rebound tenderness or guarding. Back: Normal inspection. No CVA tenderness. No midline tenderness. Extremities: No tenderness. No swelling. No erythema. No edema. Good peripheral pulses x 4 Neurological: No focal neurological deficits observed.Alert. Oriented x 3 General Limitations: no limitations Course Course Course Narrative: Labs are ordered and reviewed EKG shows normal sinus rhythm rate 83. QRS complexes are narrow and at regular intervals. No ST elevation elevation or depression. Chest x-ray reviewed by myself to be without acute changes. Venous blood gas is without acid-base imbalance. Beta hydroxybutyrate is 1.5. Blood glucose is 610. Potassium is 2.7. UA from the Chavez catheter flex for culture and sensitivity and is pending culture. Patient does have mild elevation of white count but is known to chronically show elevated white count. Patient is discussed with the hospital service regarding admission and treatment of hyperglycemia with hypokalemia and case management review regarding patient needing additional services or possible placement in a group home facility. Vital Signs Vital signs: Vital Signs Temperature 98.6 F 01/04/21 18:12 Pulse Rate 86 01/04/21 18:12 Respiratory Rate 16 01/04/21 18:12 Blood Pressure 152/76 01/04/21 18:12 Pulse Oximetry (%) 100 01/04/21 18:12 Temperature 98.6 F 01/04/21 18:12 Pulse Rate 82 01/04/21 21:46 Respiratory Rate 16 01/04/21 21:46 Blood Pressure 127/80 01/04/21 21:46 Pulse Oximetry (%) 94 01/04/21 21:46 MDM MDM Narrative Medical decision making narrative: Narrative: Lab Data Result diagrams: 01/04/21 18:59 Labs: Lab Results 01/04/21 01/04/21 01/04/21 Range/Units 18:58 18:58 18:58 WBC (4.5-11.0) K/mcL RBC (4.00-5.20) M/mcL Hgb (12.0-15.0) g/dL Hct (36.0-48.0) % POC Hct 41 (36-48) % MCV (80.0-100.0) fL MCH (26.0-34.0) pg MCHC (31.0-36.0) g/dL RDW (11.5-14.5) % Plt Count (140-440) K/mcL MPV (7.4-10.4) fL Neut % (Auto) (38.0-78.0) % Lymph % (Auto) (15.0-49.0) % [place] % (Auto) (1.0-12.0) % Eos % (Auto) (0.0-7.0) % Baso % (Auto) (0.0-2.0) % Lymph # (Auto) (1.50-4.80) K/mcL Alcorn # (Auto) (0.10-0.90) K/mcL Eos # (Auto) (0.00-0.70) K/mcL Baso # (Auto) (0.00-0.20) K/mcL Absolute Neutrophils (1.80-8.00) K/mcL ABG Methemoglobin (0.4-1.5) % VBG pH U VBG pCO2 mmHg VBG pO2 mmHg VBG HCO3 mmol/L VBG Total CO2 mmol/L VBG O2 Saturation % VBG Base Excess (-2-3) Carboxyhemoglobin (0.0-1.5) % THgb Total Hemoglobin (13.5-16.5) gm/Dl POC Sodium 122 L (133-145) mEq/L POC Potassium 2.7 L* (3.3-5.1) mEql/L POC Chloride 79 L (96-108) mEq/L POC Total CO2 26 (22-30) mmol/L POC BUN 24 H (6-20) mg/dL POC Creatinine 1.0 (0.6-1.2) mg/dL POC Glucose 610 H* (70-105) mg/dL POC WB Ioniz Calcium 1.08 L (1.16-1.32) mmEq/L Troponin T < 0.01 (<0.03) ng/mL NT-Pro-B Natriuret Pep 1226.0 H (<125.0) pg/mL Beta-Hydroxybutyrate 1.49 H (<0.27) mmol/L Urine Color Urine Appearance (Clear) Urine pH (5.0-9.0) Ur Specific [place] (1.000-1.035) Urine Protein (Negative) mg/dL Urine Glucose (UA) (Negative) mg/dL Urine Ketones (Negative) mg/dL Urine Occult Blood (Negative) mg/dL Urine Nitrate (Negative) Urine Bilirubin (Negative) mg/dL Urine Urobilinogen mg/dL Ur Leukocyte Esterase (Negative) /ug Urine RBC (0-3) /hpf Urine WBC (0-4) /hpf Ur Squamous Epith Cells (0-4) /hpf Urine Bacteria (0) /hpf Urine Mucus (None) /hpf Ur Culture Indicated? 01/04/21 01/04/21 01/04/21 Range/Units 18:59 19:30 19:48 WBC 16.4 H (4.5-11.0) K/mcL RBC 4.72 (4.00-5.20) M/mcL Hgb 13.6 (12.0-15.0) g/dL Hct 36.9 (36.0-48.0) % POC Hct (36-48) % MCV 78.2 L (80.0-100.0) fL MCH 28.8 (26.0-34.0) pg MCHC 36.9 H (31.0-36.0) g/dL RDW 12.7 (11.5-14.5) % Plt Count 474 H (140-440) K/mcL MPV 10.4 (7.4-10.4) fL Neut % (Auto) 86.2 H (38.0-78.0) % Lymph % (Auto) 7.8 L (15.0-49.0) % [place]corn % (Auto) 5.5 (1.0-12.0) % Eos % (Auto) 0.3 (0.0-7.0) % Baso % (Auto) 0.2 (0.0-2.0) % Lymph # (Auto) 1.29 L (1.50-4.80) K/mcL [place] # (Auto) 0.90 (0.10-0.90) K/mcL Eos # (Auto) 0.05 (0.00-0.70) K/mcL Baso # (Auto) 0.03 (0.00-0.20) K/mcL Absolute Neutrophils 14.17 H (1.80-8.00) K/mcL ABG Methemoglobin 0.3 L (0.4-1.5) % VBG pH 7.52 U VBG pCO2 36.3 mmHg VBG pO2 72.9 mmHg VBG HCO3 29.0 mmol/L VBG Total CO2 30.1 mmol/L VBG O2 Saturation 91.3 % VBG Base Excess 6 H (-2-3) Carboxyhemoglobin 4.8 H (0.0-1.5) % THgb Total Hemoglobin 12.5 L (13.5-16.5) gm/Dl POC Sodium (133-145) mEq/L POC Potassium (3.3-5.1) mEql/L POC Chloride (96-108) mEq/L POC Total CO2 (22-30) mmol/L POC BUN (6-20) mg/dL POC Creatinine (0.6-1.2) mg/dL POC Glucose (70-105) mg/dL POC WB Ioniz Calcium (1.16-1.32) mmEq/L Troponin T (<0.03) ng/mL NT-Pro-B Natriuret Pep (<125.0) pg/mL Beta-Hydroxybutyrate (<0.27) mmol/L Urine Color Yellow Urine Appearance Hazy A (Clear) Urine pH 6.0 (5.0-9.0) Ur Specific [place] 1.022 (1.000-1.035) Urine Protein 30 A (Negative) mg/dL Urine Glucose (UA) >=500 A (Negative) mg/dL Urine Ketones 5 A (Negative) mg/dL Urine Occult Blood 0.20 (Negative) mg/dL Urine Nitrate Negative (Negative) Urine Bilirubin Negative (Negative) mg/dL Urine Urobilinogen Negative mg/dL Ur Leukocyte Esterase 500 A (Negative) /ug Urine RBC 3 (0-3) /hpf Urine WBC 31 H (0-4) /hpf Ur Squamous Epith Cells 0 (0-4) /hpf Urine Bacteria None (0) /hpf Urine Mucus Few A (None) /hpf Ur Culture Indicated? yes Discharge Plan Patient/Caregiver Discharge Instructions Pt seen by GEODETIC TECHNICIAN/PA only: Yes Clinical Impression: Acute hypokalemia, Hyperglycemia Patient Disposition: Xfer As Outpt/Obs ([facility]) Follow up with: [place],Dinorah T, MD [Primary Care Provider] - Prescriptions: No Action sertraline 100 mg tablet 150 mg PO QDAY 90 Days Qty: 135 RF: 3 metformin 500 MG tablet 500 mg PO BIDCC Qty: 30 RF: 0 magnesium hydroxide [Milk of Magnesia] 400 mg/5 mL Suspension 30 ml PO QDAY PRN (Reason: Constipation) RF: 0 bisacodyl [Dulcolax (bisacodyl)] 10 mg Suppository 10 mg WY QDAY PRN (Reason: Constipation) RF: 0 Fleet Enema 19-7 gram/118 mL Enema 118 ml WY DAILYP PRN (Reason: Constipation) RF: 0 Glucagon (HCl) Emergency Kit 1 mg Recon Soln 1 mg SUBCUT Q15M PRN (Reason: Hypoglycemia) RF: 0 acetaminophen [Tylenol Extra Strength] 500 mg tablet 500 mg PO Q6H PRN (Reason: fever or pain) Qty: 30 RF: 0 polyethylene glycol 3350 [Miralax] 17 gram/dose powder 17 g PO BID Qty: 119 RF: 0 telmisartan 20 mg Tablet 20 mg PO QDAY RF: 0 amitriptyline 100 mg tablet 75 mg PO QHS RF: 0 atorvastatin 40 mg Tablet 40 mg PO DAILY Qty: 30 RF: 0 aspirin 325 mg tablet,delayed release (DR/EC) 162 mg PO DAILY RF: 0 fluconazole 150 mg tablet 150 mg PO QWEEK Qty: 12 RF: 0 acetic acid 0.25 % solution 50 ml IRRIGATION BID Qty: 1000 RF: 11
[2021-01-04 19:47] LABS: ABG Methemoglobin 0.3 % (0.4-1.5); Total Hemoglobin 12.5 gm/Dl (13.5-16.5); VBG Base Excess 6 (-2-3); VBG Oxygen Saturation 91.3 %; VBG PCO2 36.3 mmHg; VBG PH 7.52 U; VBG PO2 72.9 mmHg; VBG Total CO2 30.1 mmol/L
[2021-01-04 20:14] LABS: POC Calcium, Ionized 1.08 mmEq/L (1.16-1.32); POC Potassium 2.7 mEql/L (3.3-5.1)
[2021-01-04 20:24] LABS: Beta Hydroxybutyrate 1.49 mmol/L (<0.27)
[2021-01-04 20:24] LABS: Basophils # (Auto) 0.03 K/mcL (0.00-0.20); Basophils % (Auto) 0.2 % (0.0-2.0); Eosinophils # (Auto) 0.05 K/mcL (0.00-0.70); Eosinophils % (Auto) 0.3 % (0.0-7.0); Hematocrit 36.9 % (36.0-48.0); Hemoglobin 13.6 g/dL (12.0-15.0); Lymphocytes # (Auto) 1.29 K/mcL (1.50-4.80); Lymphocytes % (Auto) 7.8 % (15.0-49.0); Mean Cell Volume 78.2 fL (80.0-100.0); Mean Corpuscular HGB Conc 36.9 g/dL (31.0-36.0); Mean Platelet Volume 10.4 fL (7.4-10.4); Monocytes % (Auto) 5.5 % (1.0-12.0); Neutrophils % (Auto) 86.2 % (38.0-78.0); Platelet Count 474 K/mcL (140-440); RBC 4.72 M/mcL (4.00-5.20); Red Cell Distribution Width 12.7 % (11.5-14.5); WBC 16.4 K/mcL (4.5-11.0)
[2021-01-04 20:41] LABS: Appearance,Urine HAZY (Clear); Bilirubin,Urine Negative (Negative); Color,Urine YELLOW; Culture Indicated,Urine yes; Glucose,Urine (UA) >=500 mg/dL (Negative); Ketones,Urine 5 mg/dL (Negative); Leukocyte Esterase,Urine 500 /ug (Negative); Mucus,Urine FEW /hpf; Nitrate,Urine Negative (Negative); Protein,Urine 30 mg/dL (Negative); Specific Gravity,Urine 1.022 (1.000-1.035); Urine RBC 3 /hpf (0-3); Urine Squamous Epithelial Cell 0 /hpf (0-4); Urine WBC 31 /hpf (0-4); Urobilinogen,Urine Negative
[2021-01-04] MEDS ORDERED: 0.9 % SODIUM CHLORIDE 1,000 ML IV ONE (22:09)
--- NOTE | 2021-01-04 22:16 | Internal Med History&Physical ---
HPI History of Present Illness Patient information: Note initiated : 01/04/21 at 10:15 pm Service Date, if different from initiated Date: [] Patient: Esther Hartley 75 y/o F admitted on for weakness. Chief Complaint: [] History of present illness: Ms. Hartley is a 75 year old female with a history of hypertension, diabetes mellitus type 2, prior stroke, chronic indwelling Dee catheter, persistent leukocytosis, depression who has not been feeling well for several days and presented to the emergency department and found to have markedly elevated glucose. Patient also has hypokalemia. Patient has a Dee catheter that she says was placed within the last week. She denies fevers, chills, no chest discomfort, no new abdominal discomfort. In the ED, the patient was afebrile, vitals were stable. Venous blood gas pH was normal, beta hydroxybutyrate was 1.49. [id number] chemistry in the emergency department did not have anion gap. The patient was admitted for further management. Review of systems Constitutional: positive for fatigue and generalized weakness, no fever Eyes: no vision changes or pain Cardiovascular: no chest pain, no palpitations Respiratory: no cough or dyspnea Gastrointestinal: no abdominal pain, no nausea, vomiting, or diarrhea Genitourinary: chronic dee catheter Musculoskeletal: no arthralgia or myalgia Integumentary: no skin lesion or wound Psychiatric: no anxiety or depression Physical exam General: chronically ill appearing female in no distress Head: Atraumatic, normal inspection. Eyes: normal appearance, no scleral icterus. Neck: full ROM Respiratory: no respiratory distress. Cardiovascular: normal rate and rhythm, S1, S2. GI/Abdominal: soft, nontender, no guarding. : dee catheter Extremities: full range of motion, nontender. Neurological: CN II-XII intact Psychiatric: normal mood. Skin: warm, normal color PFSH PFSH All Active Problems (Updated 01/04/21 @ 21:38 by Lisa Macias PA-C) Complication of Dee catheter (Acute) Complication of Dee catheter (Acute) Urinary tract infection (Acute) Pyelonephritis (Acute) Acute hypokalemia (Acute) Diabetes mellitus out of control (Acute) Complication of Dee catheter (Acute) Acute hypokalemia (Acute) Hyperglycemia (Acute) Candiduria (Acute) Acute left-sided weakness (Acute) Acute CVA (cerebrovascular accident) (Acute) Therapeutic opioid-induced constipation (OIC) (Acute) Hyperglycemia due to type 2 diabetes mellitus (Acute) Urinary tract infection (Acute) Hypokalemia (Acute) Hyperglycemia (Acute) Generalized weakness (Acute) Diabetes (Acute) Fall (Acute) Hip fracture, right (Acute) DKA (diabetic ketoacidoses) (Acute) Dehydration (Acute) Elevated WBC count (Acute) Fecal impaction of colon (Acute) Urinary tract infection (Acute) Hydronephrosis (Acute) Acute urinary retention (Acute) Postmenopausal bleeding (Acute) Eczema (Acute) Uncontrolled type 2 diabetes mellitus (Chronic) Microalbuminuria (Chronic) 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) Portacath in place (Chronic) Vitamin D deficiency (Chronic) Syncope (Chronic 11/21/12) Osteopenia (Chronic 01/29/12) Mouth pain (Chronic) Hypertension, essential (Chronic 09/02/12) Hyperlipidemia (Chronic 01/29/12) Gastroesophageal reflux (Chronic) Diabetes mellitus, type II (Chronic) Degeneration of cervical intervertebral disc (Chronic) Cystitis, acute (Chronic 09/03/13) Depression (Chronic) Constipation (Chronic) Carotid stenosis (Chronic) Anxiety disorder (Chronic) Medical History (Updated 01/04/21 @ 21:38 by Lisa Macias PA-C) Anxiety disorder 1969' treated with Amitriptyline and Sertraline Candiduria Carotid stenosis 2009 left side 50%; 2014 Less than 50% of the right internal carotid, 50-69% of left internal carotid artery. Constipation 2009, alternating with diarrhea with colostomy Cystitis, acute (09/03/13) Degeneration of cervical intervertebral disc Depression 1969's Treated with Sertraline and Amitriptyline Diabetes mellitus, type II Diabetic neuropathy associated with type 2 diabetes mellitus Diverticulitis of colon Eczema ezematous changes to the left outer ear Gastroesophageal reflux Hyperlipidemia (01/29/12) Hypertension, essential (09/02/12) continue home medications Microalbuminuria Mouth pain 2010 with blister like patches in her mouth Neoplasm of colon, malignant Colorectal cancer, partial colectomy and subsequent colostomy, radiation and chemotherapy treatment per Dr. nA Osteopenia (01/29/12) Portacath in place For chemotherapy treatment, right anterior chest wall Postmenopausal bleeding Report two episodes of this for the last year on 09/23/2015, blood noted on attempted pelvic examination Syncope (11/21/12) Etiology unknown Uncontrolled type 2 diabetes mellitus Vitamin D deficiency Surgical History History of appendectomy 1973 History of colon surgery 2006 Partial colectomy with colostomy History of colonoscopy (05/15/13) History of colonoscopy (10/19/16) 05/15/13 History of colostomy (05/24/07) History of repair of right rotator cuff Dr. Harden, repaired due to trauma 2002 History of tonsillectomy 9 years of age History of tubal ligation 1973 Family History Grandmother Malignant neoplasm of colon, Onset Age: 56 Type 2 diabetes mellitus Cardiac disease Grandfather Chronic Kidney Disease Mother Chronic Kidney Disease Dialysis Atherosclerosis of coronary artery Type 2 diabetes mellitus Cardiac disease Father Acute myocardial infarction, Onset Age: 69 Social History household members: spouse housing: house marital status: occupational status: retired pets and animals: Yes pets and animals: cat(s) sexually active: No other: 2 living children well-balanced diet: daily or most days daily servings fruits/ve-4 eating out: 4 or more times/week during the past year weight has: remained stable physical activity: walking frequency: 3-4 times per week duration: 15-30 minutes/day alcohol intake frequency: does not drink substance use type: does not use romario/yazidism: None seatbelt use: always working smoke detector in home: Yes MEDS/ALLERGIES Home Medications and Allergies Home Medications Medication Instructions Recorded Confirmed Type sertraline 100 mg tablet 150 mg PO QDAY 90 Days #135 tab 09/23/15 02/29/20 Rx metformin 500 mg PO BIDCC #30 tab 01/02/17 02/29/20 Rx Fleet Enema 118 ml NE DAILYP PRN 12/23/19 02/29/20 History Glucagon (HCl) Emergency Kit 1 mg SUBCUT Q15M PRN 12/23/19 02/29/20 History bisacodyl [Dulcolax (bisacodyl)] 10 mg NE QDAY PRN 12/23/19 02/29/20 History magnesium hydroxide [Milk of 30 ml PO QDAY PRN 12/23/19 02/29/20 History Magnesia] acetaminophen [Tylenol Extra 500 mg PO Q6H PRN #30 tab 12/25/19 02/29/20 Rx Strength] polyethylene glycol 3350 [Miralax] 17 g PO BID #119 g 12/25/19 02/29/20 Rx amitriptyline 75 mg PO QHS 01/19/20 02/29/20 History telmisartan 20 mg PO QDAY 01/19/20 02/29/20 History atorvastatin 40 mg PO DAILY #30 tab 01/22/20 02/29/20 Rx acetic acid 0.25 % irrigation 50 ml IRRIGATION BID #1000 ml 02/12/20 02/29/20 Rx solution aspirin 325 mg tablet,delayed 162 mg PO DAILY tab 02/12/20 02/29/20 History release fluconazole 150 mg tablet 150 mg PO QWEEK #12 tab 02/12/20 02/29/20 Rx Allergies Allergy/AdvReac Type Severity Reaction Status Date / Time No Known Drug Allergies Allergy Verified 10/13/20 16:17 EXAM Constitutional Vitals: Temp Pulse Resp BP Pulse Ox 98.6 F 82 16 127/80 94 01/04/21 18:12 01/04/21 21:46 01/04/21 21:46 01/04/21 21:46 01/04/21 21:46 DATA Data Completed and Pending Labs: Labs from last 24 hours 01/04/21 01/04/21 01/04/21 19:48 19:30 18:59 WBC 16.4 H RBC 4.72 Hgb 13.6 Hct 36.9 POC Hct MCV 78.2 L MCH 28.8 MCHC 36.9 H RDW 12.7 Plt Count 474 H MPV 10.4 Neut % (Auto) 86.2 H Lymph % (Auto) 7.8 L [place] % (Auto) 5.5 Eos % (Auto) 0.3 Baso % (Auto) 0.2 Lymph # (Auto) 1.29 L [place] # (Auto) 0.90 Eos # (Auto) 0.05 Baso # (Auto) 0.03 Absolute Neutrophils 14.17 H ABG Methemoglobin 0.3 L VBG pH 7.52 VBG pCO2 36.3 VBG pO2 72.9 VBG HCO3 29.0 VBG Total CO2 30.1 VBG O2 Saturation 91.3 VBG Base Excess 6 H Carboxyhemoglobin 4.8 H Total Hemoglobin 12.5 L POC Sodium Sodium POC Potassium Potassium POC Chloride Chloride Carbon Dioxide POC Total CO2 Anion Gap POC BUN BUN Creatinine POC Creatinine GFR Calculation Glucose POC Glucose Calcium POC WB Ioniz Calcium Total Bilirubin AST ALT Alkaline Phosphatase Troponin T NT-Pro-B Natriuret Pep Total Protein Albumin Globulin Albumin/Globulin Ratio Beta-Hydroxybutyrate Urine Color Yellow Urine Appearance Hazy A Urine pH 6.0 Ur Specific [place] 1.022 Urine Protein 30 A Urine Glucose (UA) >=500 A Urine Ketones 5 A Urine Occult Blood 0.20 Urine Nitrate Negative Urine Bilirubin Negative Urine Urobilinogen Negative Ur Leukocyte Esterase 500 A Urine RBC 3 Urine WBC 31 H Ur Squamous Epith Cells 0 Urine Bacteria None Urine Mucus Few A Ur Culture Indicated? yes 01/04/21 01/04/21 01/04/21 18:58 18:58 18:58 WBC RBC Hgb Hct POC Hct 41 MCV MCH MCHC RDW Plt Count MPV Neut % (Auto) Lymph % (Auto) [place] % (Auto) Eos % (Auto) Baso % (Auto) Lymph # (Auto) [place] # (Auto) Eos # (Auto) Baso # (Auto) Absolute Neutrophils ABG Methemoglobin VBG pH VBG pCO2 VBG pO2 VBG HCO3 VBG Total CO2 VBG O2 Saturation VBG Base Excess Carboxyhemoglobin Total Hemoglobin POC Sodium 122 L Sodium POC Potassium 2.7 L* Potassium POC Chloride 79 L Chloride Carbon Dioxide POC Total CO2 26 Anion Gap POC BUN 24 H BUN Creatinine POC Creatinine 1.0 GFR Calculation Glucose POC Glucose 610 H* Calcium POC WB Ioniz Calcium 1.08 L Total Bilirubin AST ALT Alkaline Phosphatase Troponin T < 0.01 NT-Pro-B Natriuret Pep 1226.0 H Total Protein Albumin Globulin Albumin/Globulin Ratio Beta-Hydroxybutyrate 1.49 H Urine Color Urine Appearance Urine pH Ur Specific [place] Urine Protein Urine Glucose (UA) Urine Ketones Urine Occult Blood Urine Nitrate Urine Bilirubin Urine Urobilinogen Ur Leukocyte Esterase Urine RBC Urine WBC Ur Squamous Epith Cells Urine Bacteria Urine Mucus Ur Culture Indicated? 01/04/21 18:46 WBC RBC Hgb Hct POC Hct MCV MCH MCHC RDW Plt Count MPV Neut % (Auto) Lymph % (Auto) [place] % (Auto) Eos % (Auto) Baso % (Auto) Lymph # (Auto) [place] # (Auto) Eos # (Auto) Baso # (Auto) Absolute Neutrophils ABG Methemoglobin VBG pH VBG pCO2 VBG pO2 VBG HCO3 VBG Total CO2 VBG O2 Saturation VBG Base Excess Carboxyhemoglobin Total Hemoglobin POC Sodium Sodium Pending POC Potassium Potassium Pending POC Chloride Chloride Pending Carbon Dioxide Pending POC Total CO2 Anion Gap Pending POC BUN BUN Pending Creatinine Pending POC Creatinine GFR Calculation Pending Glucose Pending POC Glucose Calcium Pending POC WB Ioniz Calcium Total Bilirubin Pending AST Pending ALT Pending Alkaline Phosphatase Pending Troponin T NT-Pro-B Natriuret Pep Total Protein Pending Albumin Pending Globulin Pending Albumin/Globulin Ratio Pending Beta-Hydroxybutyrate Urine Color Urine Appearance Urine pH Ur Specific [place] Urine Protein Urine Glucose (UA) Urine Ketones Urine Occult Blood Urine Nitrate Urine Bilirubin Urine Urobilinogen Ur Leukocyte Esterase Urine RBC Urine WBC Ur Squamous Epith Cells Urine Bacteria Urine Mucus Ur Culture Indicated? A/P Narrative A/P Narrative: Assessment: 75 year old female with a history of diabetes mellitus type 2, prior stroke, chronic indwelling Dee catheter, persistent leukocytosis, depression who lives with her also frail has not been feeling well for several days and presented to the emergency department and found to have markedly elevated glucose and hypokalemia. #HHS vs DKA #Hypokalemia #Leukocytosis #DM II #Hx of CVA #Chronic dee #Generalized weaknss #Poor dentition Plan -Correct potassium then focus on correcting hyperglycemia with IV vs SQ insulin regimen. -IV fluid, follow urine output. -Check anion gap and follow. -Home medication reconciliation. -Lantus 10 units HS. -Hold metformin. -Replace dee catheter. -Follow CBC, monitor for fevers. -CRP and procalcitonin. -PT when the patient is able to participate. -DVT ppx: Lovenox SQ -Code status: Full per patient's request -Disposition: TBD Time Spent With Patient Time: Total time spent is greater than 50% in coordination of care (as documented) at patient's floor/unit and/or counseling patient:
[2021-01-04] MEDS ORDERED: 0.9 % SODIUM CHLORIDE 1,000 ML IV SCH (22:30)
[2021-01-04] MEDS ORDERED: INSULIN GLARGINE, HUMAN 1 UNIT/0.01 ML SQ SCH (22:50)
[2021-01-04] MEDS ORDERED: POTASSIUM CHLORIDE 20 MEQ TABLET PO ONE (23:29)
[2021-01-04] MEDS ORDERED: ONDANSETRON 4 MG/2 ML VIAL IV PRN (23:29)
[2021-01-04] MEDS ORDERED: LACTULOSE 20 GM/30 ML ORAL.SOL PO PRN (23:29)
[2021-01-04] MEDS ORDERED: SENNOSIDES 1 TABLET PO PRN (23:29)
[2021-01-04] MEDS ORDERED: DEXTROSE 31 GM ORAL.SUSP PO PRN (23:29)
[2021-01-04] MEDS ORDERED: POTASSIUM CHLORIDE 40 MEQ in DEXTROSE 5% IN WATER 500 ML IV ONE (23:29)
[2021-01-04] MEDS ORDERED: DEXTROSE 50% 50 ML VIAL IV PRN (23:29)
[2021-01-04] MEDS: 0.9 % SODIUM CHLORIDE 1,000 ML IV SCH (23:50)
[2021-01-05] MEDS: 0.9 % SODIUM CHLORIDE 1,000 ML IV SCH ×4 (00:12→13:24)
[2021-01-05 00:16] LABS: ALT/SGPT < 5 U/L (<40); AST/SGOT 9 U/L (<32); Albumin 3.7 gm/dL (3.2-5.2); Alkaline Phosphatase 138 U/L (39-117); Bilirubin,Total 0.5 mg/dL (0.1-1.0); Blood Urea Nitrogen 22 mg/dL (8-23); Calcium 9.3 mg/dL (8.6-10.4); Carbon Dioxide 22 mmol/L (22-30); Chloride 78 mmol/L (96-108); Globulin 3.6 gm/dL (2.2-3.7); Glomerular Filtration Rate 49; Glucose 575 mg/dL (70-105)
[2021-01-05] MEDS ORDERED: POTASSIUM CHLORIDE 20 MEQ TABLET PO ONE ×2 (00:18→07:34)
[2021-01-05] MEDS ORDERED: POTASSIUM CHLORIDE 20 MEQ/10 ML VIAL IV ONE (00:19)
[2021-01-05 00:46] LABS: C-Reactive Protein 1.5 mg/dL (0.03-0.80)
[2021-01-05 01:23] LABS: Blood Urea Nitrogen 22 mg/dL (8-23); Carbon Dioxide 25 mmol/L (22-30); Chloride 81 mmol/L (96-108); Glomerular Filtration Rate 56; Glucose 480 mg/dL (70-105)
--- NOTE | 2021-01-05 02:40 | XRay Report ---
CLINICAL INFORMATION: weakness COMPARISON: 01/19/2020 FINDINGS: Right IJ Port-A-Cath tip overlies the SVC right atrial junction. Heart size, mediastinum and pulmonary vessels are normal. The lungs are clear. No effusions. Moderate chronic elevation right diaphragm is stable. IMPRESSION: No acute disease. Moderate chronic right diaphragm elevation Interpreted and Authenticated by: Dmitriy Ramírez 01/05/21
[2021-01-05] MEDS: 0.9 % SODIUM CHLORIDE 10 ML SYRINGE IV SCH ×3 (05:27→20:48)
[2021-01-05 07:16] LABS: Hematocrit 36.3 % (36.0-48.0); Hemoglobin 12.4 g/dL (12.0-15.0); Mean Cell Volume 82.3 fL (80.0-100.0); Mean Corpuscular HGB Conc 34.2 g/dL (31.0-36.0); Mean Platelet Volume 9.7 fL (7.4-10.4); Platelet Count 334 K/mcL (140-440); RBC 4.41 M/mcL (4.00-5.20); Red Cell Distribution Width 12.7 % (11.5-14.5); WBC 11.1 K/mcL (4.5-11.0)
[2021-01-05] MEDS ORDERED: POTASSIUM CHLORIDE 40 MEQ in DEXTROSE 5% IN WATER 500 ML IV ONE (07:34)
[2021-01-05 08:04] LABS: Blood Urea Nitrogen 19 mg/dL (8-23); Calcium 8.2 mg/dL (8.6-10.4); Carbon Dioxide 23 mmol/L (22-30); Chloride 88 mmol/L (96-108); Glomerular Filtration Rate 63; Glucose 467 mg/dL (70-105)
[2021-01-05 08:06] LABS: Eosinophils % (Manual) 1 % (0-7); Lymphocytes % 7 % (15-49); Monocytes % (Manual) 2 % (1-12); Platelet Estimate NORMAL (Normal); RBC Morphology NORMAL (Normal); Segmented Neutrophils % 90 % (38-78)
[2021-01-05] MEDS: INSULIN LISPRO 1 UNIT/0.01 ML UNIT SQ SCH ×5 (08:10→20:48)
[2021-01-05] MEDS: DOCUSATE SODIUM 100 MG CAPSULE PO SCH ×2 (08:10→20:47)
[2021-01-05] MEDS: ENOXAPARIN 40 MG/0.4 ML SYRINGE SQ SCH (08:11)
[2021-01-05 11:41] LABS: Appearance,Urine HAZY (Clear); Bilirubin,Urine Negative (Negative); Color,Urine YELLOW; Culture Indicated,Urine yes; Glucose,Urine (UA) >=500 mg/dL (Negative); Ketones,Urine 5 mg/dL (Negative); Leukocyte Esterase,Urine 250 /ug (Negative); Nitrate,Urine Negative (Negative); Protein,Urine 30 mg/dL (Negative); Specific Gravity,Urine 1.021 (1.000-1.035); Urine Blood >=1.0 mg/dL (Negative); Urine RBC > 182 /hpf (0-1); Urine Squamous Epithelial Cell 0 /hpf (0-4); Urine WBC 93 /hpf (0-4); Urobilinogen,Urine Negative
--- NOTE | 2021-01-05 13:07 | Internal Med Progress Note ---
SUBJECTIVE Subjective Patient information: Note initiated : 01/05/21 at 1:06 pm Service Date, if different from initiated Date: [] Patient: Esther Hartley 75 y/o F admitted on 01/04/21 for weakness. Chief Complaint: [] Interval history: Ms. Hartley is a 75 year old female with a history of hypertension, diabetes mellitus type 2, prior stroke, chronic indwelling Dee catheter, persistent leukocytosis, depression who has not been feeling well for several days and presented to the emergency department and found to have markedly elevated glucose. Patient also has hypokalemia. Patient has a Dee catheter that she says was placed within the last week. She denies fevers, chills, no chest discomfort, no new abdominal discomfort. In the ED, the p atient was afebrile, vitals were stable. Venous blood gas pH was normal, beta hydroxybutyrate was 1.49. [id number] chemistry in the emergency department did not have anion gap. The patient was admitted for further management. 01/05 Potassium corrected, anion gap closed, improving hyperglycemia. Proceeding with SQ insulin. No fevers, WBC trended down, doubt UTI. Physical exam General: chronically ill appearing female in no distress Head: Atraumatic, normal inspection. Eyes: normal appearance, no scleral icterus. Neck: full ROM Respiratory: no respiratory distress. Cardiovascular: normal rate and rhythm, S1, S2. GI/Abdominal: soft, nontender, no guarding. : dee catheter Extremities: full range of motion, nontender. Neurological: CN II-XII intact Psychiatric: normal mood. Skin: warm, normal color Constitutional Vitals: Vital Signs Temp Pulse Resp BP Pulse Ox 97.4 F 77 20 117/56 97 01/05/21 12:00 01/05/21 12:05 01/05/21 12:05 01/05/21 12:00 01/05/21 12:05 Period Temp Pulse Resp BP Sys/Mackay Pulse Ox Last 24 Hr 97.4 F-98.6 F 67-86 13-25 105-155/56-112 93-100 Intake and Output 01/04/21 01/05/21 01/05/21 21:59 05:59 13:59 Intake Total 1275 520 Output Total 925 550 Balance 350 -30 Weight 56.699 kg 52.617 kg Intake & Output: Intake & Output 01/04/21 01/05/21 01/05/21 21:59 05:59 13:59 Intake Total 1275 520 Output Total 925 550 Balance 350 -30 Weight 56.699 kg 52.617 kg Intake: IV 935 520 Sodium Chloride 0.9% 1,000 ml @ 935 150 mls/hr IV .Q6H40M [facility] Rx#: [id number] Potassium Chloride 40 Meq In 520 Dextrose 5% in Water 500 ml @ 130 mls/hr IV ONCE ONE Rx#: [id number] Oral 340 Output: Urine Catheter Amount 925 550 Other: Urine Appearance Clear Clear Cloudy Hematuria Uretheral (Dee) Cloudy Urine Color Bright Yellow Light Shayy Uretheral (Dee) Dark Yellow Urine Odor Normal OBJ DATA Labs CBC & Chem 7: 01/05/21 06:04 01/05/21 06:04 Labs: Abnormal Lab Results 01/05/21 01/05/21 01/05/21 10:23 06:04 06:04 WBC 11.1 H MCV MCHC Plt Count Neut % (Auto) Lymph % (Auto) Lymph # (Auto) Seg Neutrophils % 90 H Lymphocytes % 7 L Absolute Neutrophils ABG Methemoglobin VBG Base Excess Carboxyhemoglobin Total Hemoglobin POC Sodium Sodium 124 L POC Potassium Potassium POC Chloride Chloride 88 L Anion Gap POC BUN Glucose 467 H* POC Glucose Calcium 8.2 L POC WB Ioniz Calcium Alkaline Phosphatase C-Reactive Protein NT-Pro-B Natriuret Pep Beta-Hydroxybutyrate Procalcitonin Urine Appearance Hazy A Urine Protein 30 A Urine Glucose (UA) >=500 A Urine Ketones 5 A Urine Occult Blood >=1.0 A Ur Leukocyte Esterase 250 A Urine RBC > 182 H Urine WBC 93 H Urine Mucus 01/05/21 01/04/21 01/04/21 00:14 19:48 19:30 WBC MCV MCHC Plt Count Neut % (Auto) Lymph % (Auto) Lymph # (Auto) Seg Neutrophils % Lymphocytes % Absolute Neutrophils ABG Methemoglobin 0.3 L VBG Base Excess 6 H Carboxyhemoglobin 4.8 H Total Hemoglobin 12.5 L POC Sodium Sodium 123 L POC Potassium Potassium 2.7 L* POC Chloride Chloride 81 L Anion Gap 17.0 H POC BUN Glucose 480 H* POC Glucose Calcium POC WB Ioniz Calcium Alkaline Phosphatase C-Reactive Protein NT-Pro-B Natriuret Pep Beta-Hydroxybutyrate Procalcitonin Urine Appearance Hazy A Urine Protein 30 A Urine Glucose (UA) >=500 A Urine Ketones 5 A Urine Occult Blood Ur Leukocyte Esterase 500 A Urine RBC Urine WBC 31 H Urine Mucus Few A 01/04/21 01/04/21 01/04/21 18:59 18:58 18:58 WBC 16.4 H MCV 78.2 L MCHC 36.9 H Plt Count 474 H Neut % (Auto) 86.2 H Lymph % (Auto) 7.8 L Lymph # (Auto) 1.29 L Seg Neutrophils % Lymphocytes % Absolute Neutrophils 14.17 H ABG Methemoglobin VBG Base Excess Carboxyhemoglobin Total Hemoglobin POC Sodium 122 L Sodium POC Potassium 2.7 L* Potassium POC Chloride 79 L Chloride Anion Gap POC BUN 24 H Glucose POC Glucose 610 H* Calcium POC WB Ioniz Calcium 1.08 L Alkaline Phosphatase C-Reactive Protein NT-Pro-B Natriuret Pep 1226.0 H Beta-Hydroxybutyrate 1.49 H Procalcitonin Urine Appearance Urine Protein Urine Glucose (UA) Urine Ketones Urine Occult Blood Ur Leukocyte Esterase Urine RBC Urine WBC Urine Mucus 01/04/21 01/04/21 01/04/21 18:52 18:52 18:46 WBC MCV MCHC Plt Count Neut % (Auto) Lymph % (Auto) Lymph # (Auto) Seg Neutrophils % Lymphocytes % Absolute Neutrophils ABG Methemoglobin VBG Base Excess Carboxyhemoglobin Total Hemoglobin POC Sodium Sodium 122 L POC Potassium Potassium 2.8 L* POC Chloride Chloride 78 L Anion Gap 22.0 H POC BUN Glucose 575 H* POC Glucose Calcium POC WB Ioniz Calcium Alkaline Phosphatase 138 H C-Reactive Protein 1.50 H NT-Pro-B Natriuret Pep Beta-Hydroxybutyrate Procalcitonin 0.16 H Urine Appearance Urine Protein Urine Glucose (UA) Urine Ketones Urine Occult Blood Ur Leukocyte Esterase Urine RBC Urine WBC Urine Mucus Meds: Medications Dextrose (Dextrose 50% 50 Ml Vial) 0 ml IV UD PRN PRN Reason: Hypoglycemia Diagnostic Test (Pha) (Accu-Chek 1 Each Strip) 1 each FS ACHS [facility] Last Admin: 01/05/21 12:05 Dose: 1 each Documented by: Docusate Sodium (Docusate Sodium 100 Mg Capsule) 100 mg PO BID [facility] Last Admin: 01/05/21 08:10 Dose: 100 mg Documented by: Enoxaparin Sodium (Enoxaparin 40 Mg/0.4 Ml Syringe) 40 mg SQ DAILY [facility] Last Admin: 01/05/21 08:11 Dose: 40 mg Documented by: Glucose (Dextrose 31 Gm Oral.Susp) 15 gm PO PRN PRN PRN Reason: Hypoglycemia Sodium Chloride (Sodium Chloride 0.9%) 1,000 mls @ 20 mls/hr IV .Q24H [facility] Last Admin: 01/05/21 00:12 Dose: Not Given Documented by: Sodium Chloride (Sodium Chloride 0.9%) 1,000 mls @ 150 mls/hr IV .Q6H40M [facility] Last Admin: 01/05/21 05:57 Dose: 150 mls/hr Documented by: Insulin Glargine (Insulin Glargine, Human 1 Unit/0.01 Ml) 10 unit SQ [facility] Insulin Human Lispro (Insulin Lispro 1 Unit/0.01 Ml Unit) 0 unit SQ ACHS [facility]; Protocol Last Admin: 01/05/21 12:05 Dose: 5 unit Documented by: Lactulose (Lactulose 20 Gm/30 Ml Oral.Brooke) 10 gm PO DAILYP PRN PRN Reason: Constipation Ondansetron HCl (Ondansetron 4 Mg/2 Ml Vial) 4 mg IV Q4HP PRN; Protocol PRN Reason: Nausea And Vomiting Senna (Sennosides 1 Tablet) 2 tab PO HSP PRN PRN Reason: Constipation Sodium Chloride (0.9 % Sodium Chloride 10 Ml Syringe) 10 ml IV Q8 [facility] Last Admin: 01/05/21 05:27 Dose: Not Given Documented by: ABG Interpretation ABG results: 01/04/21 19:30 ABG Methemoglobin 0.3 L VBG pH 7.52 VBG pCO2 36.3 VBG pO2 72.9 VBG HCO3 29.0 VBG Total CO2 30.1 VBG O2 Saturation 91.3 VBG Base Excess 6 H A/P Narrative A/P Narrative: Assessment: 75 year old female with a history of diabetes mellitus type 2, prior stroke, chronic indwelling Dee catheter, persistent leukocytosis, depression who lives with her also frail has not been feeling well for several days and presented to the emergency department and found to have markedly elevated glucose and hypokalemia and anion gap metabolic acidosis. Overall improvement since admission. #Resolved diabetic ketoacidosis #Resolved hypokalemia #Leukocytosis #DM II #Hx of CVA #Chronic dee #Generalized weakness #Poor dentition #Possible vulnerable adult Plan -Continue with lantus and SSI-med, no need for insulin drip with improving DKA parameters. -Decrease IV fluid, monitor urine output. -Hold metformin. -Replaced dee catheter 01/04/21. -PT and OT. -CM following. -Home medication reconciliation. -DVT ppx: Lovenox SQ -Code status: Full per patient's request -Disposition: Possible SNF. Time Spent With Patient Time: Total time spent is greater than 50% in coordination of care (as documented) at patient's floor/unit and/or counseling patient: QUALITY VTE Deep Vein Thrombosis/Pulmonary Embolism Present on Admission: No
[2021-01-05 14:56] LABS: Blood Urea Nitrogen 18 mg/dL (8-23); Calcium 8.2 mg/dL (8.6-10.4); Carbon Dioxide 21 mmol/L (22-30); Chloride 92 mmol/L (96-108); Glomerular Filtration Rate 73; Glucose 209 mg/dL (70-105)
[2021-01-05] MEDS ORDERED: INSULIN GLARGINE, HUMAN 1 UNIT/0.01 ML SQ SCH (21:00)
[2021-01-06 00:24] LABS: Hemoglobin A1C 12.3 % Hgb (4.0-6.0)
[2021-01-06] MEDS: 0.9 % SODIUM CHLORIDE 1,000 ML IV SCH ×3 (01:43→17:07)
[2021-01-06] MEDS: 0.9 % SODIUM CHLORIDE 10 ML SYRINGE IV SCH ×3 (05:41→20:48)
[2021-01-06 06:35] LABS: Hemoglobin 11.5 g/dL (12.0-15.0); Mean Cell Volume 81.7 fL (80.0-100.0); Mean Corpuscular HGB Conc 34.8 g/dL (31.0-36.0); Mean Platelet Volume 10.7 fL (7.4-10.4); Platelet Count 295 K/mcL (140-440); RBC 4.04 M/mcL (4.00-5.20); Red Cell Distribution Width 12.8 % (11.5-14.5); WBC 10.7 K/mcL (4.5-11.0)
[2021-01-06 07:06] LABS: Blood Urea Nitrogen 13 mg/dL (8-23); Calcium 8.1 mg/dL (8.6-10.4); Carbon Dioxide 23 mmol/L (22-30); Chloride 99 mmol/L (96-108); Glomerular Filtration Rate 85; Glucose 175 mg/dL (70-105)
[2021-01-06 08:05] LABS: Lymphocytes % 5 % (15-49); Monocytes % (Manual) 3 % (1-12); Platelet Estimate NORMAL (Normal); RBC Morphology NORMAL (Normal); Segmented Neutrophils % 92 % (38-78)
[2021-01-06] MEDS: INSULIN LISPRO 1 UNIT/0.01 ML UNIT SQ SCH ×5 (08:36→20:47)
[2021-01-06] MEDS: DOCUSATE SODIUM 100 MG CAPSULE PO SCH ×2 (08:37→20:47)
[2021-01-06] MEDS: ENOXAPARIN 40 MG/0.4 ML SYRINGE SQ SCH (08:37)
[2021-01-06] MEDS ORDERED: DEXTROSE 31 GM ORAL.SUSP PO PRN (14:37)
[2021-01-06] MEDS ORDERED: ONDANSETRON 4 MG/2 ML VIAL IV PRN (14:37)
[2021-01-06] MEDS ORDERED: LACTULOSE 20 GM/30 ML ORAL.SOL PO PRN (14:37)
[2021-01-06] MEDS ORDERED: DEXTROSE 50% 50 ML VIAL IV PRN (14:37)
[2021-01-06] MEDS ORDERED: SENNOSIDES 1 TABLET PO PRN (14:37)
[2021-01-06] MEDS ORDERED: 0.9 % SODIUM CHLORIDE 1,000 ML IV SCH (14:37)
--- NOTE | 2021-01-06 15:52 | Internal Med Progress Note ---
SUBJECTIVE Subjective Patient information: Note initiated : 01/06/21 at 3:48 pm Service Date, if different from initiated Date: [] Patient: Esther Hartley 75 y/o F admitted on 01/04/21 for weakness. Chief Complaint: [] Interval history: Ms. Hartley is a 75 year old female with a history of hypertension, diabetes mellitus type 2, prior stroke, chronic indwelling Dee catheter, persistent leukocytosis, depression who has not been feeling well for several days and presented to the emergency department and found to have markedly elevated glucose. Patient also has hypokalemia. Patient has a Dee catheter that she says was placed within the last week. She denies fevers, chills, no chest discomfort, no new abdominal discomfort. In the ED, the p atient was afebrile, vitals were stable. Venous blood gas pH was normal, beta hydroxybutyrate was 1.49. Ybhlk-ro-mkry chemistry in the emergency department did not have anion gap. The patient was admitted for further management. 01/05 Potassium corrected, anion gap closed, improving hyperglycemia. Proceeding with SQ insulin. No fevers, WBC trended down, doubt UTI. 01/06 Continues to improved and progress towards baseline. Main complaint today is that she cannot find [employer] on the available television channels. Eating and drinking well, adjusted insulin higher and started prandial humalog. Di scontinued IV fluid. Transfer to med/surg. Physical exam General: chronically ill appearing female in no distress Head: Atraumatic, normal inspection. Eyes: normal appearance, no scleral icterus. Neck: full ROM Respiratory: no respiratory distress. Cardiovascular: normal rate and rhythm, S1, S2. GI/Abdominal: soft, nontender, no guarding. : dee catheter Extremities: full range of motion, nontender. Neurological: CN II-XII intact Psychiatric: normal mood. Skin: warm, normal color Constitutional Vitals: Vital Signs Temp Pulse Resp BP Pulse Ox 98.3 F 85 15 129/94 100 01/06/21 12:01 01/06/21 14:08 01/06/21 14:08 01/06/21 14:08 01/06/21 14:08 Period Temp Pulse Resp BP Sys/Mackay Pulse Ox Last 24 Hr 97.5 F-98.3 F 77-86 11-30 99-131/47-94 94-100 Intake and Output 01/06/21 01/06/21 01/06/21 05:59 13:59 21:59 Intake Total 1224 Output Total 800 475 Balance 424 -475 Intake & Output: Intake & Output 01/06/21 01/06/21 01/06/21 05:59 13:59 21:59 Intake Total 1224 Output Total 800 475 Balance 424 -475 Intake: IV 924 Sodium Chloride 0.9% 1,000 ml @ 924 75 mls/hr IV .[id number] [facility] Rx#: [id number] Oral 300 Output: Urine Catheter Amount 800 475 Other: Meal Lunch Percent of Meal Consumed 25% Urine Appearance Clear Uretheral (Dee) Clear Urine Color Bright Yellow Pale Uretheral (Dee) Bright Yellow Urine Odor Normal OBJ DATA Labs CBC & Chem 7: 01/06/21 05:08 01/06/21 05:08 Labs: Abnormal Lab Results 01/06/21 01/06/21 01/05/21 05:08 05:08 12:39 WBC Hgb 11.5 L Hct 33.0 L MCV MCHC Plt Count MPV 10.7 H Neut % (Auto) Lymph % (Auto) Lymph # (Auto) Seg Neutrophils % 92 H Lymphocytes % 5 L Absolute Neutrophils ABG Methemoglobin VBG Base Excess Carboxyhemoglobin Total Hemoglobin POC Sodium Sodium 131 L 125 L POC Potassium Potassium POC Chloride Chloride 92 L Carbon Dioxide 21 L Anion Gap POC BUN Glucose 175 H 209 H POC Glucose Hemoglobin A1c Calcium 8.1 L 8.2 L POC WB Ioniz Calcium Alkaline Phosphatase C-Reactive Protein NT-Pro-B Natriuret Pep Beta-Hydroxybutyrate Procalcitonin Urine Appearance Urine Protein Urine Glucose (UA) Urine Ketones Urine Occult Blood Ur Leukocyte Esterase Urine RBC Urine WBC Urine Mucus 01/05/21 01/05/21 01/05/21 10:23 06:04 06:04 WBC Hgb Hct MCV MCHC Plt Count MPV Neut % (Auto) Lymph % (Auto) Lymph # (Auto) Seg Neutrophils % Lymphocytes % Absolute Neutrophils ABG Methemoglobin VBG Base Excess Carboxyhemoglobin Total Hemoglobin POC Sodium Sodium 124 L POC Potassium Potassium POC Chloride Chloride 88 L Carbon Dioxide Anion Gap POC BUN Glucose 467 H* POC Glucose Hemoglobin A1c 12.3 H Calcium 8.2 L POC WB Ioniz Calcium Alkaline Phosphatase C-Reactive Protein NT-Pro-B Natriuret Pep Beta-Hydroxybutyrate Procalcitonin Urine Appearance Hazy A Urine Protein 30 A Urine Glucose (UA) >=500 A Urine Ketones 5 A Urine Occult Blood >=1.0 A Ur Leukocyte Esterase 250 A Urine RBC > 182 H Urine WBC 93 H Urine Mucus 01/05/21 01/05/21 01/04/21 06:04 00:14 19:48 WBC 11.1 H Hgb Hct MCV MCHC Plt Count MPV Neut % (Auto) Lymph % (Auto) Lymph # (Auto) Seg Neutrophils % 90 H Lymphocytes % 7 L Absolute Neutrophils ABG Methemoglobin VBG Base Excess Carboxyhemoglobin Total Hemoglobin POC Sodium Sodium 123 L POC Potassium Potassium 2.7 L* POC Chloride Chloride 81 L Carbon Dioxide Anion Gap 17.0 H POC BUN Glucose 480 H* POC Glucose Hemoglobin A1c Calcium POC WB Ioniz Calcium Alkaline Phosphatase C-Reactive Protein NT-Pro-B Natriuret Pep Beta-Hydroxybutyrate Procalcitonin Urine Appearance Hazy A Urine Protein 30 A Urine Glucose (UA) >=500 A Urine Ketones 5 A Urine Occult Blood Ur Leukocyte Esterase 500 A Urine RBC Urine WBC 31 H Urine Mucus Few A 01/04/21 01/04/21 01/04/21 19:30 18:59 18:58 WBC 16.4 H Hgb Hct MCV 78.2 L MCHC 36.9 H Plt Count 474 H MPV Neut % (Auto) 86.2 H Lymph % (Auto) 7.8 L Lymph # (Auto) 1.29 L Seg Neutrophils % Lymphocytes % Absolute Neutrophils 14.17 H ABG Methemoglobin 0.3 L VBG Base Excess 6 H Carboxyhemoglobin 4.8 H Total Hemoglobin 12.5 L POC Sodium Sodium POC Potassium Potassium POC Chloride Chloride Carbon Dioxide Anion Gap POC BUN Glucose POC Glucose Hemoglobin A1c Calcium POC WB Ioniz Calcium Alkaline Phosphatase C-Reactive Protein NT-Pro-B Natriuret Pep Beta-Hydroxybutyrate 1.49 H Procalcitonin Urine Appearance Urine Protein Urine Glucose (UA) Urine Ketones Urine Occult Blood Ur Leukocyte Esterase Urine RBC Urine WBC Urine Mucus 01/04/21 01/04/21 01/04/21 18:58 18:52 18:52 WBC Hgb Hct MCV MCHC Plt Count MPV Neut % (Auto) Lymph % (Auto) Lymph # (Auto) Seg Neutrophils % Lymphocytes % Absolute Neutrophils ABG Methemoglobin VBG Base Excess Carboxyhemoglobin Total Hemoglobin POC Sodium 122 L Sodium POC Potassium 2.7 L* Potassium POC Chloride 79 L Chloride Carbon Dioxide Anion Gap POC BUN 24 H Glucose POC Glucose 610 H* Hemoglobin A1c Calcium POC WB Ioniz Calcium 1.08 L Alkaline Phosphatase C-Reactive Protein 1.50 H NT-Pro-B Natriuret Pep 1226.0 H Beta-Hydroxybutyrate Procalcitonin 0.16 H Urine Appearance Urine Protein Urine Glucose (UA) Urine Ketones Urine Occult Blood Ur Leukocyte Esterase Urine RBC Urine WBC Urine Mucus 01/04/21 18:46 WBC Hgb Hct MCV MCHC Plt Count MPV Neut % (Auto) Lymph % (Auto) Lymph # (Auto) Seg Neutrophils % Lymphocytes % Absolute Neutrophils ABG Methemoglobin VBG Base Excess Carboxyhemoglobin Total Hemoglobin POC Sodium Sodium 122 L POC Potassium Potassium 2.8 L* POC Chloride Chloride 78 L Carbon Dioxide Anion Gap 22.0 H POC BUN Glucose 575 H* POC Glucose Hemoglobin A1c Calcium POC WB Ioniz Calcium Alkaline Phosphatase 138 H C-Reactive Protein NT-Pro-B Natriuret Pep Beta-Hydroxybutyrate Procalcitonin Urine Appearance Urine Protein Urine Glucose (UA) Urine Ketones Urine Occult Blood Ur Leukocyte Esterase Urine RBC Urine WBC Urine Mucus Meds: Medications Amitriptyline HCl (Amitriptyline 25 Mg Tablet) 100 mg PO HS [facility] Aspirin (Aspirin 325 Mg Enteric Coated Tablet) 325 mg PO DAILY RAYMUNDO Atorvastatin Calcium (Atorvastatin 40 Mg Tablet) 40 mg PO QDAY [facility]UN[facility] Dextrose (Dextrose 50% 50 Ml Vial) 0 ml IV UD PRN PRN Reason: Hypoglycemia Diagnostic Test (Pha) (Accu-Chek 1 Each Strip) 1 each FS ACHS [facility] Docusate Sodium (Docusate Sodium 100 Mg Capsule) 100 mg PO BID RAYMUNDO Donepezil HCl (Donepezil 10 Mg Tablet) 10 mg PO QDAY [facility]MUN[facility] Enoxaparin Sodium (Enoxaparin 40 Mg/0.4 Ml Syringe) 40 mg SQ DAILY RAYMUNDO Glucose (Dextrose 31 Gm Oral.Susp) 15 gm PO PRN PRN PRN Reason: Hypoglycemia Sodium Chloride (Sodium Chloride 0.9%) 1,000 mls @ 20 mls/hr IV .Q24H [facility] Sodium Chloride (Sodium Chloride 0.9%) 1,000 mls @ 75 mls/hr IV .[id number] [facility] Insulin Glargine (Insulin Glargine, Human 1 Unit/0.01 Ml) 15 unit SQ HS RAYMUNDO Insulin Human Lispro (Insulin Lispro 1 Unit/0.01 Ml Unit) 4 unit SQ AC RAYMUNDO Insulin Human Lispro (Insulin Lispro 1 Unit/0.01 Ml Unit) 0 unit SQ ACHS RAYMUNDO; Protocol Lactulose (Lactulose 20 Gm/30 Ml Oral.Brooke) 10 gm PO DAILYP PRN PRN Reason: Constipation Loratadine (Loratadine 10 Mg Tablet) 10 mg PO DAILY RAYMUNDO Omeprazole (Omeprazole 20 Mg Capsule) 20 mg PO ACB RAYMUNDO Ondansetron HCl (Ondansetron 4 Mg/2 Ml Vial) 4 mg IV Q4HP PRN; Protocol PRN Reason: Nausea And Vomiting Senna (Sennosides 1 Tablet) 2 tab PO HSP PRN PRN Reason: Constipation Sertraline HCl (Sertraline 100 Mg Tablet) 150 mg PO QDAY [facility] Sodium Chloride (0.9 % Sodium Chloride 10 Ml Syringe) 10 ml IV Q8 [facility]MUN[facility] Tamsulosin HCl (Tamsulosin 0.4 Mg Capsule) 0.4 mg PO QDAY [facility] Vitamin D (Vitamin D3 1,000 Unit Tablet) 2,000 unit PO DAILY RAYMUNDO ABG Interpretation ABG results: 01/04/21 19:30 ABG Methemoglobin 0.3 L VBG pH 7.52 VBG pCO2 36.3 VBG pO2 72.9 VBG HCO3 29.0 VBG Total CO2 30.1 VBG O2 Saturation 91.3 VBG Base Excess 6 H A/P Narrative A/P Narrative: Assessment: 75 year old female with a history of diabetes mellit us type 2, prior stroke, chronic indwelling Dee catheter, persistent leukocytosis, depression who lives with her also frail has not been feeling well for several days and presented to the emergency department and found to have markedly elevated glucose and hypokalemia and anion gap metabolic acidosis. Overall improvement since admission. #Resolved diabetic ketoacidosis #Resolved hypokalemia #Resolved leukocytosis #DM II #Hx of CVA #Chronic dee-replaced on admission #Generalized weakness #Poor dentition #Possible vulnerable adult Plan -Increase lantus to 15 units HS, start prandial Humalog 4 unit AC, continue SSI- med, holding home oral meds possibly resume tomorrow. -Discontinue IV fluid. -Replaced dee catheter 01/04/21. -PT and OT. -CM following. -Essential home meds. -DVT ppx: Lovenox SQ -Code status: Full per patient's request -Disposition: Possible SNF. Time Spent With Patient Time: Total time spent is greater than 50% in coordination of care (as documented) at patient's floor/unit and/or counseling patient: QUALITY VTE Deep Vein Thrombosis/Pulmonary Embolism Present on Admission: No
[2021-01-06] MEDS ORDERED: INSULIN LISPRO 1 UNIT/0.01 ML UNIT SQ SCH (17:00)
[2021-01-06] MEDS ORDERED: INSULIN GLARGINE, HUMAN 1 UNIT/0.01 ML SQ SCH ×2 (21:00)
[2021-01-06] MEDS ORDERED: AMITRIPTYLINE 25 MG TABLET PO SCH (21:00)
[2021-01-07] MEDS: 0.9 % SODIUM CHLORIDE 10 ML SYRINGE IV SCH (06:02)
[2021-01-07] MEDS: 0.9 % SODIUM CHLORIDE 1,000 ML IV SCH (06:02)
[2021-01-07 07:19] LABS: Blood Urea Nitrogen 9 mg/dL (8-23); Calcium 8.6 mg/dL (8.6-10.4); Carbon Dioxide 21 mmol/L (22-30); Chloride 101 mmol/L (96-108); Glomerular Filtration Rate 63; Glucose 147 mg/dL (70-105)
[2021-01-07] MEDS: INSULIN LISPRO 1 UNIT/0.01 ML UNIT SQ SCH ×4 (07:26→11:37)
[2021-01-07] MEDS ORDERED: OMEPRAZOLE 20 MG CAPSULE PO SCH (07:30)
[2021-01-07 07:38] LABS: Hematocrit 35.2 % (36.0-48.0); Hemoglobin 11.5 g/dL (12.0-15.0); Mean Corpuscular HGB Conc 32.7 g/dL (31.0-36.0); Mean Platelet Volume 10.9 fL (7.4-10.4); Platelet Count 230 K/mcL (140-440); RBC 4.14 M/mcL (4.00-5.20); Red Cell Distribution Width 12.9 % (11.5-14.5); WBC 8.5 K/mcL (4.5-11.0)
[2021-01-07 07:51] LABS: Lymphocytes % 10 % (15-49); Monocytes % (Manual) 3 % (1-12); Platelet Estimate NORMAL (Normal); RBC Morphology NORMAL (Normal); Segmented Neutrophils % 87 % (38-78)
[2021-01-07] MEDS ORDERED: SERTRALINE 100 MG TABLET PO SCH (09:00)
[2021-01-07] MEDS ORDERED: ASPIRIN 325 MG ENTERIC COATED TABLET PO SCH (09:00)
[2021-01-07] MEDS ORDERED: LORATADINE 10 MG TABLET PO SCH (09:00)
[2021-01-07] MEDS ORDERED: TAMSULOSIN 0.4 MG CAPSULE PO SCH (09:00)
[2021-01-07] MEDS ORDERED: VITAMIN D3 1,000 UNIT TABLET PO SCH (09:00)
[2021-01-07] MEDS ORDERED: ATORVASTATIN 40 MG TABLET PO SCH (09:00)
[2021-01-07] MEDS ORDERED: ENOXAPARIN 40 MG/0.4 ML SYRINGE SQ SCH (09:00)
[2021-01-07] MEDS ORDERED: DONEPEZIL 10 MG TABLET PO SCH (09:00)
[2021-01-07] MEDS: DOCUSATE SODIUM 100 MG CAPSULE PO SCH (09:01)
--- NOTE | 2021-01-07 10:23 | Discharge Summary ---
Discharge Provider Provider Patient information: Note initiated : 01/07/21 at 10:20 am Service Date, if different from initiated Date: [] Patient: Esther Hartley a 75 y/o F admitted on 01/04/21 for weakness. Chief Complaint: [] Date of admission: 01/04/21 23:27 Discharge date: 01/07/21 Primary care physician: Dinorah Regalado Consults: 01/04/21 Consult to Physician [CONS] Stat Comment: Consulting Provider: Binh Case Reason For Exam: Physician to Consult Discharge Meds Discharge Medications Home Medications sertraline 100 mg tablet 150 mg PO QDAY 90 Days #135 tab 09/23/15 [Rx Confirmed 01/05/21 Last Taken 01/19/20 08:00] donepezil 10 mg PO QDAY 01/05/21 [History Confirmed 01/05/21 Last Taken Unknown] amitriptyline 100 mg PO QHS 01/06/21 [History Confirmed 01/06/21 Last Taken Unknown] aspirin 325 mg PO QDAY 01/06/21 [History Confirmed 01/06/21 Last Taken Unknown] atorvastatin 40 mg PO QDAY 01/06/21 [History Confirmed 01/06/21 Last Taken Unknown] cholecalciferol (vitamin D3) 50 mcg PO QDAY 01/06/21 [History Confirmed 01/06/21 Last Taken Unknown] loratadine [Alavert] 10 mg PO QDAY 01/06/21 [History Confirmed 01/06/21 Last Taken Unknown] metformin 1,000 mg PO BIDWMEAL 01/06/21 [History Confirmed 01/06/21 Last Taken Unknown] omeprazole 20 mg PO QDAY 01/06/21 [History Confirmed 01/06/21 Last Taken Unknown] pen needle, diabetic [ReliOn Pen [place]] 01/06/21 [History Confirmed 01/06/21 Last Taken Unknown] polyethylene glycol 3350 17 g PO QDAY 01/06/21 [History Confirmed 01/06/21 Last Taken Unknown] tamsulosin 0.4 mg PO QDAY 01/06/21 [History Confirmed 01/06/21 Last Taken Unknown] telmisartan 20 mg PO QDAY 01/06/21 [History Confirmed 01/06/21 Last Taken Unknown] insulin glargine [Lantus U-100 Insulin] 15 unit SUBCUT HS #10 ml 01/07/21 [Rx Last Taken Unknown] COURSE Hospital Course Hospital course: Ms. Hartley is a 75 year old female with a history of hypertension, diabetes mellitus type 2, prior stroke, chronic indwelling Dee catheter, persistent leukocytosis, depression who has not been feeling well for several days and presented to the emergency department and found to have markedly elevated glucose. Patient also has hypokalemia. Patient has a Dee catheter that she says was placed within the last week. She denies fevers, chills, no chest discomfort, no new abdominal discomfort. In the ED, the patient was afebrile, vitals were stable. Venous blood gas pH was normal, beta hydroxybutyrate was 1.49. Toqxy-bt-utse chemistry in the emergency department did not have anion gap. The patient was admitted for further management. 01/05 Potassium corrected, anion gap closed, improving hyperglycemia. Proceeding with SQ insulin. No fevers, WBC trended down, doubt UTI. 01/06 Continues to improved and progress towards baseline. Main complaint today is that she cannot find [employer] on the available television channels. Eating and drinking well, adjusted insulin higher and started prandial humalog. Discontinued IV fluid. Transfer to med/surg. 01/07 Discharged to SNF, resume home Metformin and continued Lantus 15 units HS, did not continue prior glipizide as the patient was taking taking because she felt it made her ill. Resumed home telmisartan but not norvasc as blood pressures were mostly normal during the hospitalization. Physical exam General: chronically ill appearing female in no distress Head: Atraumatic, normal inspection. Eyes: normal appearance, no scleral icterus. Neck: full ROM Respiratory: no respiratory distress. Cardiovascular: normal rate and rhythm, S1, S2. GI/Abdominal: soft, nontender, no guarding. : dee catheter Extremities: full range of motion, nontender. Neurological: CN II-XII intact Psychiatric: normal mood. Skin: warm, normal color Discharge diagnosis: Diabetes ketoacidosis Time Spent with Patient Time attestation: Total time spent providing and/or coordinating discharge services: EXAM Constitutional Vitals: Temp Pulse Resp BP Pulse Ox 97.4 F 64 14 129/57 98 01/07/21 06:46 01/07/21 06:46 01/07/21 06:46 01/07/21 06:46 01/07/21 06:46 Discharge Data Data Completed and Pending Labs on day of discharge: Labs from last 24 hours 01/07/21 01/07/21 05:49 05:48 WBC 8.5 RBC 4.14 Hgb 11.5 L Hct 35.2 L MCV 85.0 MCH 27.8 MCHC 32.7 RDW 12.9 Plt Count 230 MPV 10.9 H Seg Neutrophils % 87 H Lymphocytes % 10 L Monocytes % (Manual) 3 Platelet Estimate Normal RBC Morphology Normal Sodium 134 Potassium 3.6 Chloride 101 Carbon Dioxide 21 L Anion Gap 12.0 BUN 9 Creatinine 0.9 GFR Calculation 63 Glucose 147 H Calcium 8.6 Preliminary micro results at discharge 01/05/21 05:06 Urine Culture - Preliminary Urine - Catheterized 01/05/21 10:23 Urine Culture - Preliminary Urine - Dee Discharge Plan Patient/Caregiver Discharge Instructions Activity: as per physical therapy Diet: Consistent Carbohydrate Prescriptions: New Lantus U-100 Insulin 100 unit/mL Solution 15 unit subcut HS Qty: 10 RF: 4 Continued sertraline 100 mg tablet 150 mg PO QDAY 90 Days Qty: 135 RF: 3 donepezil 10 mg Tablet 10 mg PO QDAY RF: 0 atorvastatin 40 mg Tablet 40 mg PO QDAY RF: 0 metformin 500 mg Tablet 1,000 mg PO BIDWMEAL RF: 0 loratadine [Alavert] 10 mg Tablet,Disintegrating 10 mg PO QDAY RF: 0 aspirin 325 mg Tablet 325 mg PO QDAY RF: 0 tamsulosin 0.4 mg Capsule 0.4 mg PO QDAY RF: 0 telmisartan 20 mg Tablet 20 mg PO QDAY RF: 0 polyethylene glycol 3350 17 gram/dose Powder 17 g PO QDAY RF: 0 amitriptyline 100 mg Tablet 100 mg PO QHS RF: 0 omeprazole 20 mg Tablet,Delayed Release (Dr/Ec) 20 mg PO QDAY RF: 0 cholecalciferol (vitamin D3) 50 mcg (2,000 unit) Tablet 50 mcg PO QDAY RF: 0 (DME) pen needle, diabetic [ReliOn Pen [place]] 32 gauge x 5/32" Needle MISCELLANEOUS RF: 0 Discontinued amlodipine 5 mg Tablet 5 mg PO QDAY RF: 0 zolpidem 5 mg Tablet 5 mg PO QHS PRN (Reason: Insomnia) RF: 0 donepezil 10 mg Tablet 10 mg PO QDAY RF: 0 glipizide 5 mg Tablet Extended Release 24hr 5 mg PO QDAY RF: 0 Other Ambulatory Orders: OT Discharge Order (Routine) Location: None Selected Ordered By: Binh Case Physical Therapy at Discharge - General (Routine) Location: None Selected Ordered By: Binh Case Follow Up Plan Follow up with: Dinorah Regalado MD [Primary Care Provider] - Patient Disposition: Xfer SNF Rehab Potential: Fair I certify that the patient requires SNF services: Yes Overall status at discharge: patient is progressing back to baseline Discharge Orders: Discharge Order (Routine); Ordered 01/07/21 Ordered By: Binh Case Discharge Comment: Point of care fingerstick glucose AC and HS. QUALITY VTE Deep Vein Thrombosis/Pulmonary Embolism Present on Admission: No
--- NOTE | 2021-01-08 16:34 | EKG ---
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 Measurements Intervals [place] Rate: 83 P: 14 [place]: 172 QRS: -17 QRSD: 90 T: 56 QT: 432 QTc: 508 Interpretive Statements SINUS RHYTHM PROBABLE LEFT ATRIAL ABNORMALITY BORDERLINE PROLONGED QT INTERVAL NO PRIOR TRACING FOR COMPARISON ABNORMAL ECG Electronically Signed On 01-08-2021 16:34:30 PDT by Miguel An M.D. /[email or web address]/[email or web address]/[id number]
== END 2021-01-07 12:20 | DRG 639 ==
LOC: ED 18:04 → ICU 23:27 → MEDSUR 01-06 17:55
PROVIDERS: ADMIT Internal Medicine; ATTEND Internal Medicine

== ENCOUNTER 2024-09-29 14:07 | Inpatient (IN) ==
[2024-09-29 14:41] LABS: Basophils # (Auto) 0.02 K/mcL (0.00-0.30); Basophils % (Auto) 0.2 % (0.0-2.0); Eosinophils # (Auto) 0.09 K/mcL (0.00-0.70); Eosinophils % (Auto) 1.1 % (0.0-7.0); Hemoglobin 12.4 g/dL (11.2-15.7); Lymphocytes # (Auto) 1.04 K/mcL (1.50-4.80); Lymphocytes % (Auto) 12.4 % (15.5-49.0); Mean Cell Volume 91.5 fL (80.0-100.0); Mean Corpuscular HGB Conc 31.8 g/dL (31.0-36.0); Mean Platelet Volume 9.9 fL (8.8-12.5); Monocytes # (Auto) 0.58 K/mcL (0.10-0.90); Monocytes % (Auto) 6.9 % (1.0-12.0); Neutrophils % (Auto) 79.2 % (38.0-78.0); Platelet Count 258 K/mcL (140-440); RBC 4.26 M/mcL (3.59-5.38); Red Cell Distribution Width 14.4 % (11.5-14.5); WBC 8.4 K/mcL (4.5-11.0)
[2024-09-29] MEDS: 0.9 % SODIUM CHLORIDE 1,000 ML IV ONE ×2 (14:42→16:26)
[2024-09-29 15:03] LABS: ALT/SGPT 7 U/L (<40); AST/SGOT 15 U/L (<32); Albumin 4.2 gm/dL (3.2-5.2); Albumin/Globulin Ratio 1.4 (1.0-2.3); Alkaline Phosphatase 88 U/L (39-117); Bilirubin,Total 0.3 mg/dL (0.1-1.0); Blood Urea Nitrogen 62 mg/dL (8-23); Calcium 9.5 mg/dL (8.6-10.4); Carbon Dioxide 13 mmol/L (22-30); Chloride 104 mmol/L (96-108); Globulin 3.1 gm/dL (2.2-3.7); Glomerular Filtration Rate 17; Glucose 101 mg/dL (70-105); Potassium 5.9 mmol/L (3.3-5.1); Sodium 132 mmol/L (133-145)
[2024-09-29] MEDS: DEXTROSE 50% 50 ML SYRINGE IV ONE (15:34)
[2024-09-29] MEDS: INSULIN REGULAR, HUMAN 1 UNIT/0.01 ML UNIT IV ONE (15:34)
[2024-09-29] MEDS: SODIUM BICARBONATE 50 MEQ/50 ML VIAL IV ONE (16:26)
[2024-09-29] MEDS: SODIUM BICARBONATE VIAL 50 MEQ in EMPTYBAG 0 ML IV SCH (16:26)
[2024-09-29] MEDS: LIDOCAINE 2% URO-JET 10 ML JEL.PF.APP UR ONE (17:06)
[2024-09-29 17:58] LABS: Appearance,Urine Clear (Clear); Bacteria,Urine Few /hpf (0); Bilirubin,Urine Negative (Negative); Color,Urine Yellow; Glucose,Urine (UA) 100 mg/dL (Negative); Ketones,Urine Negative (Negative); Leukocyte Esterase,Urine Small /uL (Negative); Nitrate,Urine Negative (Negative); PH,Urine 5.5 (5.0-9.0); Protein,Urine 30 mg/dL (Negative); Specific Gravity,Urine <= 1.005 (1.000-1.035); Urine Blood Moderate ery/mcL (Negative); Urine RBC 9 /hpf (0-3); Urine Squamous Epithelial Cell < 1 /hpf (0-4); Urine WBC 11 /hpf (0-4); Urobilinogen,Urine Normal
[2024-09-29 18:46] LABS: Blood Urea Nitrogen 56 mg/dL (8-23); Calcium 8.4 mg/dL (8.6-10.4); Carbon Dioxide 15 mmol/L (22-30); Chloride 111 mmol/L (96-108); Glomerular Filtration Rate 21; Glucose 64 mg/dL (70-105); Potassium 5.1 mmol/L (3.3-5.1); Sodium 139 mmol/L (133-145)
[2024-09-29] MEDS: cefTRIAXone 1 GM VIAL IV ONE (19:59)
[2024-09-29] MEDS ORDERED: DEXTROSE 31 GM ORAL.SUSP PO PRN (21:10)
[2024-09-29] MEDS ORDERED: SENNOSIDES 1 TABLET PO PRN (21:10)
[2024-09-29] MEDS ORDERED: DEXTROSE 50% 50 ML VIAL IV PRN (21:10)
[2024-09-29] MEDS: 0.9 % SODIUM CHLORIDE 1,000 ML IV SCH (21:23)
[2024-09-29] MEDS: INSULIN LISPRO 1 UNIT/0.01 ML UNIT SQ SCH (21:26)
[2024-09-29] MEDS: ZOLPIDEM 5 MG TABLET PO PRN (23:13)
[2024-09-29] MEDS: FOSFOMYCIN TROMETHAMINE 3 GM PACKET PO SCH (23:13)
[2024-09-29] MEDS: HEPARIN 5,000 UNIT/ML VIAL SQ SCH (23:14)
[2024-09-29] MEDS: 0.9 % SODIUM CHLORIDE 10 ML SYRINGE IV SCH (23:14)
[2024-09-30 08:06] LABS: ABG Methemoglobin 0.1 % (0.4-1.5); Total Hemoglobin 12.9 gm/Dl (12.0-15.0); VBG Base Excess -15 (-2-3); VBG HCO3 11.2 mmol/L (24.0-28.0); VBG Oxygen Saturation 78.3 % (40.0-70.0); VBG PCO2 26.8 mmHg (41.0-51.0); VBG PH 7.24 U (7.32-7.42); VBG PO2 58.5 mmHg (25.0-40.0)
[2024-09-30 08:19] LABS: Basophils # (Auto) 0.03 K/mcL (0.00-0.30); Basophils % (Auto) 0.6 % (0.0-2.0); Eosinophils # (Auto) 0.08 K/mcL (0.00-0.70); Eosinophils % (Auto) 1.5 % (0.0-7.0); Hematocrit 41.9 % (34.1-44.9); Hemoglobin 13.2 g/dL (11.2-15.7); Lymphocytes # (Auto) 0.88 K/mcL (1.50-4.80); Lymphocytes % (Auto) 16.3 % (15.5-49.0); Mean Cell Volume 93.1 fL (80.0-100.0); Mean Corpuscular HGB Conc 31.5 g/dL (31.0-36.0); Mean Platelet Volume 10.3 fL (8.8-12.5); Monocytes # (Auto) 0.35 K/mcL (0.10-0.90); Monocytes % (Auto) 6.5 % (1.0-12.0); Neutrophils % (Auto) 74.7 % (38.0-78.0); Platelet Count 151 K/mcL (140-440); Red Cell Distribution Width 14.4 % (11.5-14.5); WBC 5.4 K/mcL (4.5-11.0)
[2024-09-30 08:48] LABS: Albumin 3.6 gm/dL (3.2-5.2); Blood Urea Nitrogen 45 mg/dL (8-23); Calcium 8.3 mg/dL (8.6-10.4); Carbon Dioxide 8 mmol/L (22-30); Chloride 117 mmol/L (96-108); Glomerular Filtration Rate 25; Glucose 77 mg/dL (70-105); Phosphorous 3.1 mg/dL (2.5-4.5); Potassium 5.6 mmol/L (3.3-5.1); Sodium 137 mmol/L (133-145)
[2024-09-30] MEDS: DONEPEZIL 10 MG TABLET PO SCH (11:46)
[2024-09-30] MEDS: OMEPRAZOLE 20 MG CAPSULE PO SCH (11:46)
[2024-09-30] MEDS: ASPIRIN 81 MG TAB.CHEW PO SCH (11:47)
[2024-09-30] MEDS: ATORVASTATIN 40 MG TABLET PO SCH (11:47)
[2024-09-30] MEDS: SODIUM ZIRCONIUM CYCLOSILICATE 5 GM PACKET PO SCH (11:48)
[2024-09-30] MEDS: SODIUM BICARBONATE VIAL 150 MEQ in WATER FOR INJECTION,STERILE 850 ML IV SCH (11:52)
[2024-09-30] MEDS: ACETAMINOPHEN 325 MG TABLET PO PRN (12:18)
[2024-09-30] MEDS: ONDANSETRON 4 MG/2 ML VIAL IV PRN (15:09)
[2024-09-30 17:10] LABS: Albumin 3.6 gm/dL (3.2-5.2); Blood Urea Nitrogen 37 mg/dL (8-23); Calcium 8.3 mg/dL (8.6-10.4); Carbon Dioxide 18 mmol/L (22-30); Chloride 108 mmol/L (96-108); Glomerular Filtration Rate 28; Glucose 121 mg/dL (70-105); Phosphorous 3.1 mg/dL (2.5-4.5); Potassium 5.2 mmol/L (3.3-5.1); Sodium 136 mmol/L (133-145)
[2024-09-30] MEDS: ZOLPIDEM 5 MG TABLET PO PRN (21:17)
[2024-09-30 21:41] LABS: Potassium 4.8 mmol/L (3.3-5.1)
[2024-10-01 06:50] LABS: Basophils # (Auto) 0.01 K/mcL (0.00-0.30); Basophils % (Auto) 0.2 % (0.0-2.0); Eosinophils # (Auto) 0.06 K/mcL (0.00-0.70); Eosinophils % (Auto) 1.4 % (0.0-7.0); Hematocrit 31.9 % (34.1-44.9); Hemoglobin 10.6 g/dL (11.2-15.7); Lymphocytes % (Auto) 16.7 % (15.5-49.0); Mean Cell Volume 88.9 fL (80.0-100.0); Mean Corpuscular HGB Conc 33.2 g/dL (31.0-36.0); Mean Platelet Volume 9.7 fL (8.8-12.5); Monocytes # (Auto) 0.28 K/mcL (0.10-0.90); Monocytes % (Auto) 6.7 % (1.0-12.0); Neutrophils % (Auto) 74.8 % (38.0-78.0); Platelet Count 146 K/mcL (140-440); RBC 3.59 M/mcL (3.59-5.38); Red Cell Distribution Width 14.3 % (11.5-14.5); WBC 4.2 K/mcL (4.5-11.0)
[2024-10-01 06:57] LABS: Albumin 3.3 gm/dL (3.2-5.2); Blood Urea Nitrogen 29 mg/dL (8-23); Calcium 8.1 mg/dL (8.6-10.4); Carbon Dioxide 23 mmol/L (22-30); Chloride 107 mmol/L (96-108); Glomerular Filtration Rate 36; Glucose 90 mg/dL (70-105); Phosphorous 2.9 mg/dL (2.5-4.5); Potassium 4.5 mmol/L (3.3-5.1); Sodium 141 mmol/L (133-145)
[2024-10-01] MEDS: LACTATED RINGERS 1,000 ML IV SCH (12:55)
[2024-10-01] MEDS: CETIRIZINE 10 MG TABLET PO ONE (15:49)
[2024-10-01] MEDS: FLUTICASONE PROPIONATE SPRAY.NAS NS SCH (15:50)
[2024-10-01] MEDS: SERTRALINE 100 MG TABLET PO SCH (18:17)
[2024-10-01] MEDS: MECLIZINE 25 MG TABLET PO PRN (21:06)
[2024-10-02 06:56] LABS: Basophils # (Auto) 0.01 K/mcL (0.00-0.30); Basophils % (Auto) 0.3 % (0.0-2.0); Eosinophils # (Auto) 0.06 K/mcL (0.00-0.70); Eosinophils % (Auto) 1.6 % (0.0-7.0); Hematocrit 31.3 % (34.1-44.9); Hemoglobin 10.3 g/dL (11.2-15.7); Lymphocytes # (Auto) 0.65 K/mcL (1.50-4.80); Lymphocytes % (Auto) 17.8 % (15.5-49.0); Mean Cell Volume 90.2 fL (80.0-100.0); Mean Corpuscular HGB Conc 32.9 g/dL (31.0-36.0); Mean Platelet Volume 9.7 fL (8.8-12.5); Monocytes # (Auto) 0.26 K/mcL (0.10-0.90); Monocytes % (Auto) 7.1 % (1.0-12.0); Neutrophils % (Auto) 72.7 % (38.0-78.0); Platelet Count 144 K/mcL (140-440); RBC 3.47 M/mcL (3.59-5.38); WBC 3.7 K/mcL (4.5-11.0)
[2024-10-02 06:57] LABS: Albumin 3.3 gm/dL (3.2-5.2); Blood Urea Nitrogen 20 mg/dL (8-23); Calcium 8.3 mg/dL (8.6-10.4); Carbon Dioxide 25 mmol/L (22-30); Chloride 104 mmol/L (96-108); Glomerular Filtration Rate 39; Glucose 97 mg/dL (70-105); Phosphorous 2.7 mg/dL (2.5-4.5); Potassium 4.4 mmol/L (3.3-5.1); Sodium 139 mmol/L (133-145)
[2024-10-02] MEDS: CETIRIZINE 10 MG TABLET PO SCH (08:28)
[2024-10-02 11:29] VITALS: TEMP 97.5; O2SAT 98
[2024-10-02] MEDS: METOCLOPRAMIDE 10 MG/2 ML VIAL IV ONE (11:29)
[2024-10-02] MEDS: PROCHLORPERAZINE 10 MG/2 ML VIAL IV ONE (11:38)
[2024-10-02 11:51] LABS: ALT/SGPT 10 U/L (<40); AST/SGOT 19 U/L (<32); Albumin 3.4 gm/dL (3.2-5.2); Alkaline Phosphatase 60 U/L (39-117); Bilirubin,Direct < 0.2 mg/dL (0-0.3); Bilirubin,Total 0.3 mg/dL (0.1-1.0); Globulin 2.1 gm/dL (2.2-3.7)
[2024-10-02] MEDS: cefTRIAXone 1 GM VIAL IV ONE (14:58)
[2024-10-03] MEDS ORDERED: cefTRIAXone 1 GM VIAL IV SCH (09:00)
== END 2024-10-02 15:24 | disposition short-term general hospital (02) | DRG 683 ==
LOC: ED 14:07 → MEDSUR 21:00
PROVIDERS: ADMIT Internal Medicine; ATTEND Student in an Organized Health Care Education/Training Program

== ENCOUNTER 2024-11-06 15:29 | Inpatient (IN) ==
[2024-11-06 16:14] LABS: Basophils # (Auto) 0.02 K/mcL (0.00-0.30); Basophils % (Auto) 0.2 % (0.0-2.0); Eosinophils % (Auto) 0.9 % (0.0-7.0); Hematocrit 35.7 % (34.1-44.9); Hemoglobin 11.8 g/dL (11.2-15.7); Lymphocytes # (Auto) 0.75 K/mcL (1.50-4.80); Lymphocytes % (Auto) 6.9 % (15.5-49.0); Mean Cell Volume 89.7 fL (80.0-100.0); Mean Corpuscular HGB Conc 33.1 g/dL (31.0-36.0); Mean Platelet Volume 10.1 fL (8.8-12.5); Monocytes # (Auto) 1.08 K/mcL (0.10-0.90); Neutrophils % (Auto) 81.6 % (38.0-78.0); Platelet Count 230 K/mcL (140-440); RBC 3.98 M/mcL (3.59-5.38); Red Cell Distribution Width 13.3 % (11.5-14.5); WBC 10.8 K/mcL (4.5-11.0)
[2024-11-06 16:40] LABS: ALT/SGPT 9 U/L (<40); AST/SGOT 17 U/L (<32); Albumin 3.7 gm/dL (3.2-5.2); Albumin/Globulin Ratio 1.2 (1.0-2.3); Alkaline Phosphatase 109 U/L (39-117); Bilirubin,Total 0.5 mg/dL (0.1-1.0); Blood Urea Nitrogen 19 mg/dL (8-23); Calcium 8.8 mg/dL (8.6-10.4); Carbon Dioxide 23 mmol/L (22-30); Chloride 101 mmol/L (96-108); Globulin 3.1 gm/dL (2.2-3.7); Glomerular Filtration Rate 36; Glucose 210 mg/dL (70-105); Potassium 2.7 mmol/L (3.3-5.1); Sodium 139 mmol/L (133-145)
[2024-11-06] MEDS: POTASSIUM CHLORIDE 10 MEQ/100 ML BAG IV SCH (17:30)
[2024-11-06] MEDS: POTASSIUM CHLORIDE 20 MEQ PACKET PO ONE (17:31)
[2024-11-06] MEDS: POTASSIUM CHLORIDE 20 MEQ in DEXTROSE 5% IN WATER 250 ML IV ONE (17:31)
[2024-11-06 17:45] LABS: Appearance,Urine Cloudy (Clear); Bacteria,Urine Many /hpf (0); Bilirubin,Urine Negative (Negative); Color,Urine Yellow; Glucose,Urine (UA) 100 mg/dL (Negative); Ketones,Urine Negative (Negative); Leukocyte Esterase,Urine Large /uL (Negative); Nitrate,Urine Positive (Negative); Protein,Urine 100 mg/dL (Negative); Specific Gravity,Urine 1.015 (1.000-1.035); Urine Blood Moderate ery/mcL (Negative); Urine Budding Yeast Few /hpf; Urine RBC > 182 /hpf (0-1); Urine Squamous Epithelial Cell 2 /hpf (0-4); Urine WBC > 182 /hpf (0-4); Urobilinogen,Urine Normal
[2024-11-06] MEDS: LEVOFLOXACIN 750 MG/150 ML BAG IV SCH (18:33)
[2024-11-06] MEDS ORDERED: METOCLOPRAMIDE 10 MG/2 ML VIAL IV PRN (20:20)
[2024-11-06] MEDS ORDERED: IPRATROPIUM/ALBUTEROL 3 ML AMPUL.NEB NEB PRN (20:20)
[2024-11-06] MEDS ORDERED: DEXTROSE 31 GM ORAL.SUSP PO PRN (20:20)
[2024-11-06] MEDS ORDERED: POLYETHYLENE GLYCOL 3350 17 GM PACKET PO PRN (20:20)
[2024-11-06] MEDS ORDERED: SENNOSIDES 1 TABLET PO PRN (20:20)
[2024-11-06] MEDS ORDERED: POTASSIUM CHLORIDE 20 MEQ TABLET PO PRN (20:20)
[2024-11-06] MEDS ORDERED: DEXTROSE 50% 50 ML VIAL IV PRN (20:20)
[2024-11-06] MEDS ORDERED: POTASSIUM CHLORIDE 40 MEQ in DEXTROSE 5% IN WATER 500 ML IV PRN (20:20)
[2024-11-06] MEDS: 0.9 % SODIUM CHLORIDE 1,000 ML IV ONE (20:34)
[2024-11-06] MEDS: METOPROLOL SUCCINATE 50 MG TAB.XL.24H PO SCH (21:14)
[2024-11-06] MEDS: INSULIN LISPRO 1 UNIT/0.01 ML UNIT SQ SCH (21:14)
[2024-11-06] MEDS: DOCUSATE SODIUM 100 MG CAPSULE PO SCH (21:14)
[2024-11-06] MEDS: hydrALAZINE 20 MG/ML VIAL IV PRN (21:16)
[2024-11-07] MEDS: LABETALOL HCL 20 MG/4 ML VIAL IV PRN (01:05)
[2024-11-07 05:59] LABS: Basophils # (Auto) 0.01 K/mcL (0.00-0.30); Basophils % (Auto) 0.1 % (0.0-2.0); Eosinophils # (Auto) 0.05 K/mcL (0.00-0.70); Eosinophils % (Auto) 0.5 % (0.0-7.0); Hematocrit 30.7 % (34.1-44.9); Hemoglobin 10.2 g/dL (11.2-15.7); Lymphocytes # (Auto) 0.65 K/mcL (1.50-4.80); Mean Cell Volume 89.8 fL (80.0-100.0); Mean Corpuscular HGB Conc 33.2 g/dL (31.0-36.0); Mean Platelet Volume 10.3 fL (8.8-12.5); Monocytes # (Auto) 0.91 K/mcL (0.10-0.90); Monocytes % (Auto) 9.8 % (1.0-12.0); Neutrophils % (Auto) 82.3 % (38.0-78.0); Platelet Count 205 K/mcL (140-440); RBC 3.42 M/mcL (3.59-5.38); Red Cell Distribution Width 13.3 % (11.5-14.5); WBC 9.3 K/mcL (4.5-11.0)
[2024-11-07 06:17] LABS: ALT/SGPT 8 U/L (<40); AST/SGOT 13 U/L (<32); Albumin 3.2 gm/dL (3.2-5.2); Albumin/Globulin Ratio 1.3 (1.0-2.3); Alkaline Phosphatase 90 U/L (39-117); Bilirubin,Direct 0.3 mg/dL (<0.3); Bilirubin,Total 0.5 mg/dL (0.1-1.0); Blood Urea Nitrogen 19 mg/dL (8-23); Calcium 8.3 mg/dL (8.6-10.4); Carbon Dioxide 22 mmol/L (22-30); Chloride 106 mmol/L (96-108); Globulin 2.5 gm/dL (2.2-3.7); Glomerular Filtration Rate 36; Glucose 148 mg/dL (70-105); Lactate Dehydrogenase 189 U/L (135-225); Phosphorous 2.6 mg/dL (2.5-4.5); Potassium 3.1 mmol/L (3.3-5.1); Sodium 139 mmol/L (133-145); Triglycerides 70 mg/dL (<150); Uric Acid 4.3 mg/dL (2.5-8.0)
[2024-11-07] MEDS: POTASSIUM CHLORIDE 20 MEQ TABLET PO PRN (07:33)
[2024-11-07] MEDS ORDERED: LABETALOL HCL 20 MG/4 ML VIAL IV PRN (07:34)
[2024-11-07] MEDS ORDERED: MECLIZINE 25 MG TABLET PO PRN (07:50)
[2024-11-07] MEDS ORDERED: PROMETHAZINE 25 MG TABLET PO PRN (07:52)
[2024-11-07] MEDS: OMEPRAZOLE 20 MG CAPSULE PO SCH (08:06)
[2024-11-07] MEDS: SERTRALINE 100 MG TABLET PO SCH (08:06)
[2024-11-07] MEDS: LISINOPRIL 20 MG TABLET PO SCH (08:06)
[2024-11-07] MEDS: ATORVASTATIN 40 MG TABLET PO SCH (08:06)
[2024-11-07] MEDS: DONEPEZIL 10 MG TABLET PO SCH (08:07)
[2024-11-07] MEDS: TAMSULOSIN 0.4 MG CAPSULE PO SCH (08:07)
[2024-11-07] MEDS: ENOXAPARIN 30 MG/0.3 ML SYRINGE SQ SCH (08:10)
[2024-11-07] MEDS ORDERED: ENOXAPARIN 40 MG/0.4 ML SYRINGE SQ SCH (09:00)
[2024-11-07] MEDS: MAGNESIUM SULFATE 2 GM/50 ML BAG IV PRN (09:28)
[2024-11-07] MEDS: ASPIRIN 81 MG TAB.CHEW PO ONE (15:19)
[2024-11-07] MEDS: hydrALAZINE 20 MG/ML VIAL IV PRN (16:52)
[2024-11-07] MEDS: ZOLPIDEM 5 MG TABLET PO SCH (20:24)
[2024-11-08 06:18] LABS: ALT/SGPT 12 U/L (<40); AST/SGOT 35 U/L (<32); Albumin 3.2 gm/dL (3.2-5.2); Albumin/Globulin Ratio 1.2 (1.0-2.3); Alkaline Phosphatase 94 U/L (39-117); Bilirubin,Direct 0.2 mg/dL (<0.3); Bilirubin,Total 0.4 mg/dL (0.1-1.0); Blood Urea Nitrogen 24 mg/dL (8-23); Calcium 8.5 mg/dL (8.6-10.4); Carbon Dioxide 20 mmol/L (22-30); Chloride 108 mmol/L (96-108); Globulin 2.6 gm/dL (2.2-3.7); Glomerular Filtration Rate 33; Glucose 133 mg/dL (70-105); Lactate Dehydrogenase 166 U/L (135-225); Phosphorous 2.7 mg/dL (2.5-4.5); Potassium 3.6 mmol/L (3.3-5.1); Sodium 141 mmol/L (133-145); Triglycerides 71 mg/dL (<150); Uric Acid 4.3 mg/dL (2.5-8.0)
[2024-11-08] MEDS: ASPIRIN 81 MG TAB.CHEW CHEWED SCH (08:36)
[2024-11-08] MEDS: LEVOFLOXACIN 750 MG/150 ML BAG IV SCH (09:03)
[2024-11-08] MEDS: ONDANSETRON 4 MG/2 ML VIAL IV PRN (20:19)
[2024-11-08] MEDS: AMOXICILLIN 250 MG CAPSULE PO SCH (20:24)
[2024-11-09] MEDS: ACETAMINOPHEN 325 MG TABLET PO PRN (12:23)
[2024-11-09] MEDS: 0.9 % SODIUM CHLORIDE 10 ML SYRINGE IV SCH (21:15)
[2024-11-10 08:00] VITALS: TEMP 97.5; O2SAT 93
== END 2024-11-10 12:45 | disposition home or self-care (01) | DRG 698 ==
LOC: ED 15:29 → ICU 20:08
PROVIDERS: ADMIT Internal Medicine; ATTEND Internal Medicine